=== PATIENT | male | born 1940 | race Caucasian/White ===

== ENCOUNTER 2019-04-05 13:28 | Inpatient (IN) | payer MEDICARE, OTHER ==
[~2019-04-05] VITALS: Ht 185.5 cm; Wt 100.0 kg
[2019-04-05 16:11] VITALS: BP 154/85
[2019-04-05] MEDS ORDERED: ANTACID SUSP 30 ML UDC (MYLANTA) PO PRN (16:15)
[2019-04-05] MEDS ORDERED: LACTULOSE SYRUP 10GM/15ML (ENULOSE) 30ML UDC PO PRN (16:15)
[2019-04-05] MEDS ORDERED: ONDANSETRON 4 MG/2 ML (SDV) Z0FRAN IV PRN (16:15)
[2019-04-05] MEDS ORDERED: CALCIUM CARBONATE 500 MG (TUMS) TAB.CHEW PO PRN (16:15)
[2019-04-05] MEDS ORDERED: MELATONIN 3 MG TABLET PO PRN (16:15)
[2019-04-05] MEDS ORDERED: MILK OF MAGNESIA 400 MG/5 ML 30 ML UDC PO PRN (16:15)
[2019-04-05] MEDS ORDERED: POLYETHYLENE GLYCOL 17 GM (MIRALAX) PACK PO PRN (16:15)
[2019-04-05] MEDS ORDERED: BISACODYL 10 MG SUPP (DULCOLAX) PR PRN (16:15)
[2019-04-05] MEDS ORDERED: morphine INJ 10 MG/ML 1ML (SYR OR VIAL) IV PRN (16:15)
[2019-04-05] MEDS ORDERED: ACETAMINOPHEN 325 MG TABLET PO PRN (16:15)
[2019-04-05] MEDS ORDERED: morphine INJ 4 MG/ML 1 ML (VIAL/SYRINGE) IV PRN (16:30)
[2019-04-05] MEDS ORDERED: CATHETER FLUSH 10 ML SYR IV PRN (16:30)
[2019-04-05] MEDS ORDERED: RT-ALBUTEROL SULF 2.5 MG/3 ML PRE-MIX VIAL INH PRN (16:45)
--- NOTE | 2019-04-05 17:10 | History & Physical-Hospitalist ---
History of Present Illness HPI/Chief Complaint Patient is a 78-year-old male with a past medical history of paroxysmal A. fib, pya-udmqkzu-nnudsolcm diabetes type II, hypertension, who was direct admitted due to a left intertrochanteric hip fracture. He reports that today he was buying large cast-iron birdcage that measured 5' x 3' and he attempted to pick this up and lost his balance and fell into the birdcage. He had significant left-sided hip pain following this and was brought to the emergency department where he was found to have a left hip fracture. He was transferred here for orthopedic evaluation. He reports his pain is well- controlled at this time. He does report a history of atrial fibrillation but he is on no medications and has not seen a evaluation manager for this. He also reports that he likely has diabetes because his blood sugars run in the low 200s when they're checked at the [facility]. Source: patient, family Exam Limitations: no limitations Date Seen 04/05/19 Time Seen by a Provider: 17:06 Attending Physician Abbey Cope MD PCP Ari Joshi MD Referring Physician Date of Admission Apr 05, 2019 at 16:07 Home Medications & Allergies Home Medications Reviewed patient Home Medication Reconciliation performed by pharmacy medication reconciliations phone technician and/or nursing. Patients Allergies have been reviewed. Allergies Allergies Coded Allergies No Allergy Information Available ([id number]/8/19) Past Rkdgghx-Bqcuxm-Haznlo Hx Past Med/Social Hx: Reviewed Nursing Past Med/Soc Hx Patient Social History Marrital Status: Employed/Student: retired Alcohol Use: Denies Use Recreational Drug Use: No Smoking Status: Former Smoker Recent Foreign Travel: No Contact w/other who traveled: No Recent Infectious Disease Expo: No Past Medical History Surgeries: Appendectomy, Gallbladder, Orthopedic, Tonsillectomy Cardiac: Hypertension Endocrine: Diabetes, Non-Insulin dep Family History Reviewed Nursing Family Hx No Pertinent Family Hx Review of Systems Constitutional: no symptoms reported EENTM: no symptoms reported Respiratory: cough (chronic) Cardiovascular: no symptoms reported Gastrointestinal: no symptoms reported Genitourinary: no symptoms reported Musculoskeletal: no symptoms reported Skin: no symptoms reported, change in hair/nails Physical Exam Physical Exam Vital Signs Vital Signs - First Documented 04/05/19 16:11 Temp 37.2 Pulse 91 Resp 18 B/P (MAP) 154/85 Pulse Ox 97 O2 Delivery Room Air Capillary Refill : Height, Weight, BMI Height: '" Weight: lbs. oz. kg; 29.06 BMI Method: General Appearance: No Apparent Distress, WD/WN Neck: Supple Respiratory: Lungs Clear, No Accessory Muscle Use, No Respiratory Distress Cardiovascular: Regular Rate, Rhythm, No JVD, No Murmur Gastrointestinal: Normal Bowel Sounds, Non Tender Extremity: No Calf Tenderness, No Pedal Edema Neurologic/Psychiatric: Alert, Oriented x3, Normal Mood/Affect Skin: Normal Color, Warm/Dry Results Results/Procedures Labs Laboratory Tests 04/06/19 06:25 04/07/19 05:09 Patient resulted labs reviewed. Imaging: Reviewed Imaging Report Assessment/Plan Admission Diagnosis Left Intertrochanteric Hip Fracture Admission Status: Inpatient Order (span 2 midnights) Reason for Inpatient Admission: hip fracture, needs operative repair Assessment and Plan Left Intertrochanteric Hip fracture Ortho consulted, appreciate recs Images to be uploaded and if unable to be repeated here Discussed with Dr Teague- plan for surgery tomorrow continue current pain regimen PT/OT after surgery Moderate perioperative risk- discussed with patient who expressed understanding Paroxysmal a-fib Was in a-fib at [facility] consulted, discussed with dr humphreys Echo Hold anticoagulation due to surgery HTN Trend NIDDMII Reports blood sugars when check are around 200 Will get a1c Reports he would like to try to cut back on pop Diagnosis/Problems Diagnosis/Problems (1) Hip fracture, intertrochanteric Status: Acute Qualifiers: Encounter type: initial encounter Fracture type: closed Fracture alignment: nondisplaced Laterality: left Qualified Codes: S72.145A - Nondisplaced intertrochanteric fracture of left femur, initial encounter for closed fracture (2) Atrial fibrillation Qualifiers: Atrial fibrillation type: paroxysmal Qualified Codes: I48.0 - Paroxysmal atrial fibrillation (3) Essential (primary) hypertension Status: Chronic (4) Non-insulin dependent type 2 diabetes mellitus Status: Chronic ABBEY COPE MD Apr 05, 2019 17:10 POS
--- NOTE | 2019-04-05 17:10 | NUR ---
Dr. Cates asked about DVT med, no orders received at this time. Pt is having surgery tomorrow
[2019-04-05] MEDS ORDERED: BENZONATATE 100 MG (TESSALON) CAPSULE PO PRN (17:15)
--- NOTE | 2019-04-05 18:23 | NUR ---
SHAVONNE CASTRO admitted to room 427-1, with an admitting diagnosis of HIP FRACTURE INTERTROCHANTERIC, on 04/05/19 from [facility] via EMS, accompanied by EMS STAFF. SHAVONNE CASTRO introduced to surroundings, call light, bed controls, phone, TV, temperature control, lights, meal times, smoking policy, visitor policy, side rail policy, bathrooms and showers. Patient Rights given to patient in the handbook. SHAVONNE CASTRO verbalizes understanding that [facility] is not responsible for the loss or damage to any personal effects or valuables that are kept in the patients possession during their hospitalization. The following Patient Care Plans were discussed with the PATIENT: Discharge Planning, HIP FRACTURE, and KNOWLEDGE DEFICIT. SHAVONNE CASTRO verbalizes understanding of Interdisciplinary Patient Education. Patient and/or family were informed about the Rapid Response Team and its purpose.
--- NOTE | 2019-04-05 18:27 | Consultation-Cardiology ---
HPI-Cardiology Cardiology Consultation: Date of Consultation 04/05/19 Time Seen by a Provider: 18:00 Date of Admission Attending Physician Abbey Cope MD Admitting Physician Ari Joshi MD Consulting Physician AKASH GARDUNO MD, MA, FACP, FACC, FSCAI, CCDS HPI: Chief Complaint: Reason for consultation: Cardiac eval prior to hip surgery HPI 78 yo man who lost his balance today and fell and broke his L hip and is awaiting surgery. He denies syncope. He denies shortness of breath. For years, he has noted that his heartbeat is irreg when he goes to bed at night. This has not changed in the recent past. Occasionally, he gets chest discomfort that is L parasternal, nonexertional, mild, dull, w/o any aggravating or relieving factors, w/o any associated symptoms, w/o any radiation, and lasting only a few seconds. Frequency is about twice a month and this has not changed frequency, duration, or intensity in the recent past. 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 He can easily walk long distance and go up several flights of stairs and carry heavy weights w/o any chest discomfort, shortness of breath, malaise, palpitations, or other symptoms. He does not report any leg discomfort or leg swelling Review of Systems-Cardiology Review of Systems Constitutional: No malaise, No tiredness, No weight loss, No weight gain Eyes: No vision change Ears/Nose/Throat: No ear discharge, No nasal drainage, No recent hearing loss Respiratory: As described under HPI Cardiovascular: As described under HPI Gastrointestinal: No diarrhea, No nausea, No vomiting Genitourinary: No dysuria, No hematuria, No urine frequency changes Musculoskeletal: No back pain Skin: No rash, No ulcerations Psychiatric/Neurological: No seizure, No focal weakness, No syncope Hematologic: No bleeding abnormalities QVE-Dsepkn-Ybqnec Hx Patient Social History Marrital Status: Employed/Student: retired Alcohol Use: Denies Use Recreational Drug Use: No Smoking Status: Former Smoker Recent Foreign Travel: No Recent Infectious Disease Expo: No Hospitalization with Isolation: Denies Physical Abuse Screen: No Sexual Abuse: No Immunizations Up To Date Date of Pneumonia Vaccine: Jun 12, 2018 Date of Influenza Vaccine: Feb 26, 2019 Past Medical History PMH As described under Assessment. Allergies and Home Medications Allergies Coded Allergies: No Allergy Information Available (Unverified , 04/05/19) Patient Home Medication List Home Medication List Reviewed: Yes Physical Exam-Cardiology Physical Exam Vital Signs/I&O 04/05/19 04/05/19 04/05/19 04/05/19 16:11 16:33 17:28 17:50 Temp 37.2 Pulse 91 96 Resp 18 B/P (MAP) 154/85 Pulse Ox 97 94 O2 Delivery Room Air Room Air Capillary Refill : Less Than 3 Seconds Data Review Labs Laboratory Tests 04/05/19 17:02: Glucometer 160H A/P-Cardiology Assessment/Admission Diagnosis Atrial fibrillation of undetermined age. Probably chronic and permanent Hypertension DM II, as indicated in Dr Cope's note and in the elevated blood sugar at this hospital, but the pt himself denies any diabetes Cardiac risk for non-cardiac surgery is estimated to be intermediate (multiple risk factors, but he denies symptoms of angina or heart failure or syncope) Discussion and Recomendations * I discussed his cardiac risk with him. He understands, wishes to proceed with surgery, and will discuss it with the surgeon * We recommend anticoag for stroke prophylaxis. I discussed with Dr Cope who has advised against it since surgery is anticipated soon * We recommend addition of beta-kayli * I answered his and his family's questions in detail Clinical Quality Measures DVT/VTE Risk/Contraindication: Risk Factor Score Per Nursin RFS Level Per Nursing on Admit: 4+=Very High AKASH GARDUNO MD FACP [facility] CCDS Apr 05, 2019 18:27 POS
[2019-04-05] MEDS ORDERED: meTOproloL SUCCINATE 50 MG (TOPROL XL) TAB PO NR (18:45)
--- NOTE | 2019-04-05 19:00 | Diagnostic Imaging Report ---
CLINICAL HISTORY: Left hip injury. Fell and landed on the left hip. Left hip fracture. COMPARISON: None. TECHNIQUE: Three views of the left hip. FINDINGS: An intertrochanteric fracture is seen involving the proximal left femur. There is extension of the fracture into the proximal metadiaphysis of the left femur. There is normal articulation of the left femur and left acetabulum. Possible nondisplaced fracture is noted in the left superior pubic ramus. The surrounding soft tissues are unremarkable. IMPRESSION: 1. Intertrochanteric fracture of the proximal left femur with extension into the proximal metadiaphysis. No evidence of dislocation of the left hip. 2. Possible nondisplaced fracture involving the left superior pubic ramus. Dictated by: Dictated on workstation # [id number]
[2019-04-05 19:52] VITALS: BP 138/75
[2019-04-05] MEDS: CATHETER FLUSH 10 ML SYR IV SCH (22:19)
[2019-04-05 23:30] VITALS: BP 139/75
[2019-04-06] VITALS (12 sets, daily range): BP systolic 92–143; BP diastolic 54–93
[2019-04-06 06:37] LABS: HEMOGLOBIN 15.6 G/DL (13.3-17.7); MEAN PLATELET VOLUME 10.1 FL (7.4-10.4); RED CELL DISTRIBUTION WIDTH 13.5 % (10.0-14.5); WHITE BLOOD COUNT 10.9 10^3/uL (4.3-11.0)
[2019-04-06 07:07] LABS: BUN/CREATININE RATIO 14; CALCIUM 8.7 MG/DL (8.5-10.1); CARBON DIOXIDE 19 MMOL/L (21-32); CHLORIDE 105 MMOL/L (98-107); CREATININE SERUM 1.04 MG/DL (0.60-1.30); GFR ESTIMATED > 60; GLUCOSE 192 MG/DL (70-105); MAGNESIUM 1.7 MG/DL (1.6-2.4); POTASSIUM 4.2 MMOL/L (3.6-5.0); SODIUM 136 MMOL/L (135-145)
--- NOTE | 2019-04-06 08:23 | Physical Therapy Progress Note ---
Therapy Progress Note Spoke with RN and patient is awaiting surgery secondary to femur fracture. Will await new orders after surgery. MARY THRASHER PT Apr 06, 2019 08:23 POS
[2019-04-06] MEDS ORDERED: LIDOCAINE PF 2% 5 ML (XYLOCAINE) VIAL ONE (08:30)
[2019-04-06] MEDS ORDERED: fentaNYL INJECTION 100 MCG/2 ML AMP ONE (08:30)
[2019-04-06] MEDS ORDERED: PROPOFOL INJECTION 50 ML IV ONE (08:30)
[2019-04-06] MEDS ORDERED: SEVOFLURANE (ULTANE) 15 ML INHAL SOLN ONE ×5 (08:30→11:19)
[2019-04-06] MEDS ORDERED: ONDANSETRON 4 MG/2 ML (SDV) Z0FRAN ONE (08:30)
[2019-04-06] MEDS ORDERED: DEXAMETHASONE 10 MG/ML (DECADRON) 1 ML VIAL ONE (08:30)
--- NOTE | 2019-04-06 08:36 | Consultation ---
History of Present Illness History of Present Illness Patient Consulted On(fabio/time) 04/06/19 08:30 Date Seen by Provider: Apr 06, 2019 Time Seen by Provider: 08:30 Reason for Visit: Left hip fracture History of Present Illness Patient a 78 y/o WM that presents with CC of acute onset of severe Left hip pain secondary to a mechanical fall. He was subsequently unable to bear weight/ambulate on the LLE secondary to the pain. He was transferred to [facility] from [place] for definitive orthopedic care. Imaging studies of the Left femur demonstrated an intertrochanteric fracture. He denies associated musculoskeletal injuries. He also denies associated syncope/LOC, cp/sob, neck pain, head trauma or other constitutional symptoms. Allergies and Home Medications Allergies Coded Allergies: No Allergy Information Available (Unverified , 04/05/19) Patient Home Medication List Home Medication List Reviewed: Yes Past Zuzlemi-Loukzn-Wjatlg Hx Past Med/Social Hx: Reviewed Nursing Past Med/Soc Hx Patient Social History Alcohol Use: Denies Use Recreational Drug Use: No Smoking Status: Former Smoker Recent Foreign Travel: No Contact w/Someone Who Travel: No Recent Infectious Disease Expo: No Recent Hopitalizations: No Immunizations Up To Date PED Vaccines UTD: Yes Date of Pneumonia Vaccine: Jun 12, 2018 Date of Influenza Vaccine: Feb 26, 2019 Seasonal Allergies Seasonal Allergies: Yes Past Medical History Surgeries: Yes Appendectomy, Gallbladder, Orthopedic, Tonsillectomy Respiratory: No Cardiac: Yes Atrial Fibrillation, Hypertension Neurological: No Genitourinary: No Gastrointestinal: No Musculoskeletal: No Endocrine: No Diabetes, Non-Insulin dep HEENT: No Cancer: No Psychosocial: No Integumentary: No Blood Disorders: No Family Medical History Reviewed Nursing Family Hx No Pertinent Family Hx Review of Systems-General Constitutional: no symptoms reported EENTM: no symptoms reported Respiratory: no symptoms reported Cardiovascular: palpitations Gastrointestinal: no symptoms reported Genitourinary: no symptoms reported Musculoskeletal: joint pain Skin: no symptoms reported Psychiatric/Neurological: No Symptoms Reported Physical Exam-General Problems Physical Exam Vital Signs Vital Signs - First Documented 04/05/19 16:11 Temp 37.2 Pulse 91 Resp 18 B/P (MAP) 154/85 Pulse Ox 97 O2 Delivery Room Air Capillary Refill : Less Than 3 Seconds General Appearance: WD/WN, no apparent distress Eyes: Bilateral Eye Normal Inspection, Bilateral Eye PERRL, Bilateral Eye EOMI HEENT: PERRL/EOMI, normal ENT inspection Neck: non-tender, full range of motion, supple, normal inspection Respiratory: chest non-tender, no respiratory distress, no accessory muscle use Cardiovascular: normal peripheral pulses, irregularly irregular Peripheral Pulses: 2+ Dorsalis Pedis (R), 2+ Left Dors-Pedis (L) Gastrointestinal: non tender, soft, no organomegaly, no pulsatile mass Extremities: no pedal edema, no calf tenderness, normal capillary refill, other (LLE: shortened/externally rotated, significant pain Left hip with any ROM, skin intact, no open wounds, motor/sensation grossly intact, all compartments soft, foot well perfused) Neurologic/Psychiatric: hand buffer II-XII nml as tested, no motor/sensory deficits, alert, normal mood/affect, oriented x 3 Skin: normal color, warm/dry Assessment/Plan Assessment/Plan Admission Diagnosis/Plan A: Minimally displaced intertrochanteric fracture Left proximal femur P: Plan for operative stabilization today. Mobilize post-op with PT/OT, WBAT LLE. OK with anticoagulation post-op. Treatment plan discussed in detail with the patient. All questions addressed and answered to his satisfaction. Informed written consent obtained. Admission Status: Inpatient Order (span 2 midnights) Laboratory Tests 04/06/19 06:25 Vitals Signs Source: Temporal, Heart Rate: 84, Respiratory Rate: 20, BP: 134/72, Pulse Oximetry: 96, Weight: 100.0 Clinical Quality Measures DVT/VTE Risk/Contraindication: Risk Factor Score Per Nursin RFS Level Per Nursing on Admit: 4+=Very High OLEGARIO TOMLINSON DO Apr 06, 2019 08:35 POS
[2019-04-06] MEDS ORDERED: ROCURONIUM 10 MG/ML 5 ML SYRINGE IV ONE (08:47)
[2019-04-06] MEDS ORDERED: NEOSTIGMINE 3 MG/3 ML VIAL ONE (08:47)
[2019-04-06] MEDS ORDERED: GLYCOPYRROLATE 0.2 MG/ML (ROBINUL) 2 ML VIAL ONE (08:47)
--- NOTE | 2019-04-06 08:47 | Occ Therapy Progress Note ---
Therapy Progress Note Per nursing and PT report, pt is awaiting surgery due to femur fracture. OT will await new orders post surgery. RENA BURR OT Apr 06, 2019 08:47 POS
[2019-04-06] MEDS: LACTATED RINGERS 1,000 ML IV PRN ×2 (08:52→09:57)
[2019-04-06] MEDS ORDERED: ceFAZolin INJECTION 1,000 MG VIAL IV ONE (09:00)
[2019-04-06] MEDS ORDERED: HYDROmorphone 2 MG/ML VIAL (DILAUDID) ONE ×2 (09:45→09:58)
[2019-04-06] MEDS ORDERED: ESMOLOL 100 MG/10 ML (BREVIBLOC) VIAL ONE (09:56)
[2019-04-06] MEDS ORDERED: PHENYLEPHRINE 100 MCG/ML 10 ML (ANESTHESIA) SYR ONE (09:56)
--- NOTE | 2019-04-06 10:28 | Progress Note-Post Operative ---
Post-Operative Progess Note Surgeon (s)/[place] Production Supervisor (s) Surgeon OLEGARIO TOMLINSON DO [employer] [place] [place] Production Supervisor: Pascual Garcia PA-C Pre-Operative Diagnosis Intertrochanteric fracture Left proximal femur Post-Operative Diagnosis Same Procedure & Operative Findings Date of Procedure 04/06/19 Procedure Performed/Findings Closed reduction/application of intramedullary nail intertrochanteric fracture Left femur Anesthesia Type GETA Estimated Blood Loss Estimated blood loss (mL): 100 Specimens/Packing Specimens Removed None Packing: No packing Complications: none Drains: none Disposition: tolerated procedure well; transferred to PACU in stable condition OLEGARIO TOMLINSON DO Apr 06, 2019 10:28 POS
--- NOTE | 2019-04-06 10:57 | Diagnostic Imaging Report ---
INDICATION: Left hip fracture. Intraoperative fluoroscopy used during ORIF of left proximal femoral intratrochanteric fracture. Hardware is in place in the femoral neck and proximal shaft with anatomic alignment. 2 minutes 42 seconds fluoroscopy time was used in surgery. IMPRESSION: Intraoperative fluoroscopy views demonstrate anatomic alignment of left-sided intertrochanteric proximal femoral fracture with hardware in place. Dictated by: Dictated on workstation # [id number]
[2019-04-06] MEDS ORDERED: HYDROmorphone 2 MG/ML VIAL (DILAUDID) IV ONE (11:15)
[2019-04-06] MEDS ORDERED: ONDANSETRON 4 MG/2 ML (SDV) Z0FRAN IVP PRN (11:15)
[2019-04-06] MEDS: CATHETER FLUSH 10 ML SYR IV SCH ×3 (11:15→22:00)
[2019-04-06] MEDS ORDERED: ROPIVACAINE 5MG/ML 30ML VIAL ONE (11:19)
--- NOTE | 2019-04-06 12:06 | NUR ---
RECEIVED PT BACK FROM SURGERY AT 12:00. BED SIDE REPORT FROM SIDNEY LOPEZ. PT IS AWAKE AND ALERT WITH FAMILY IN ROOM
[2019-04-06] MEDS: meTOproloL SUCCINATE 50 MG (TOPROL XL) TAB PO SCH (12:20)
[2019-04-06] MEDS: KETOROLAC 30 MG/ML VIAL IV SCH ×2 (12:26→18:16)
--- NOTE | 2019-04-06 14:39 | Progress Note - Cardiology ---
Cardiology SOAP Progress Note Subjective: No cp or palp or syncope or shortness of breath Objective: I&O/Vital Signs 04/06/19 04/06/19 04/06/19 04/06/19 03:45 03:48 07:00 08:00 Temp 36.8 Pulse 71 84 Resp 20 B/P (MAP) 143/93 (110) 134/72 (92) Pulse Ox 96 94 O2 Delivery Room Air Room Air 04/06/19 04/06/19 04/06/19 04/06/19 08:00 11:00 11:00 11:10 Temp 37.6 36.2 Pulse 79 Resp 16 20 16 B/P (MAP) 125/78 (94) 103/66 (78) 101/67 (78) Pulse Ox 94 96 100 O2 Delivery Room Air OxyMask OxyMask OxyMask O2 Flow Rate 10 10 10 04/06/19 04/06/19 04/06/19 04/06/19 11:15 11:20 11:30 11:30 Resp 16 16 B/P (MAP) 96/71 (79) 115/70 (85) Pulse Ox 100 95 O2 Delivery OxyMask OxyMask Room Air Room Air O2 Flow Rate 10 5 04/06/19 04/06/19 04/06/19 04/06/19 11:40 11:45 11:50 12:00 Temp 36.4 35.9 Pulse 80 Resp 16 16 16 B/P (MAP) 127/74 (91) 125/82 (96) 131/72 (91) Pulse Ox 100 100 100 O2 Delivery Room Air Room Air Room Air Room Air 04/06/19 04/06/19 12:00 13:00 Pulse 84 O2 Delivery Room Air 04/06/19 00:00 Intake Total 320 ml Output Total 425 ml Balance -105 ml Constitutional: AAO x 3, well-developed, well-nourished Respiratory: No accessory muscle use; other (good bilat air entry) Cardiovascular: regular rate-rhythm, S1 and S2, systolic murmur (soft SURESH at card base) Gastrointestional: No tender; soft; No guarding, No rebound; audible bowel sounds Extremities: No clubbing, No cyanosis, No significant edema Neurologic/Psychiatric: oriented x 3, other (moves all limbs equally; we did not attempt any motion at the affected joint) Skin: No rash on exposed areas, No ulcerations on exposed areas Results/Procedures: Labs Laboratory Tests 04/05/19 17:02: Glucometer 160H 04/05/19 20:20: Glucometer 208H 04/06/19 05:30: Glucometer 181H 04/06/19 06:25: White Blood Count 10.9, Red Blood Count 5.02, Hemoglobin 15.6, Hematocrit 45, Mean Corpuscular Volume 90, Mean Corpuscular Hemoglobin 31, Mean Corpuscular Hemoglobin Concent 35, Red Cell Distribution Width 13.5, Platelet Count 250, Mean Platelet Volume 10.1, Sodium Level 136, Potassium Level 4.2, Chloride Level 105, Carbon Dioxide Level 19L, Anion Gap 12, Blood Urea Nitrogen 15, Creatinine 1.04, Estimat Glomerular Filtration Rate > 60, BUN/Creatinine Ratio 14, Glucose Level 192H, Calcium Level 8.7, Magnesium Level 1.7, Thyroid Stimulating Hormone (TSH) 1.43 04/06/19 12:47: Glucometer 179H Laboratory Tests 04/06/19 06:25 A/P: Assessment: Intertrochanteric fracture left femur on 04/05/19; s/p closed reduction and application of intramedullary nail on 04/06/19 Atrial fibrillation of undetermined age. Probably chronic and permanent Hypertension DM II, as indicated in Dr Cope's note and in the elevated blood sugar at this hospital, but the pt himself denies any diabetes Plan: * We recommend full oral anticaog as soon as deemed surgically safe to do so * Monitor labs * I answered his CV-related questions AKASH GARDUNO MD FACP [facility] CCDS Apr 06, 2019 14:38 POS
--- NOTE | 2019-04-06 14:46 | Progress Note - Hospitalist ---
Subjective HPI/CC On Admission Date Seen by Provider: Apr 06, 2019 Time Seen by Provider: 14:41 Patient is a 78-year-old male with a past medical history of paroxysmal A. fib, gbf-cukswzz-zpmjitrmr diabetes type II, hypertension, who was direct admitted due to a left intertrochanteric hip fracture. He reports that today he was buying large cast-iron birdcage that measured 5' x 3' and he attempted to pick this up and lost his balance and fell into the birdcage. He had significant left-sided hip pain following this and was brought to the emergency department where he was found to have a left hip fracture. He was tra nsferred here for orthopedic evaluation. He reports his pain is well-controlled at this time. He does report a history of atrial fibrillation but he is on no medications and has not seen a machinist class b for this. He also reports that he likely has diabetes because his blood sugars run in the low 200s when they're checked at the [facility]. Subjective/Events-last exam Patient seen postoperatively. Reports pain is well-controlled. Per review of notes tenderness uncomplicated repair of hip fracture. He should already inquiring about when therapy be by to see him. Objective Exam Vital Signs Vital Signs Date Time Temp Pulse Resp B/P (MAP) Pulse Ox O2 Delivery O2 Flow Rate FiO2 04/06/19 13:00 84 04/06/19 12:00 Room Air 04/06/19 12:00 35.9 16 131/72 (91) 100 04/06/19 11:20 5 Capillary Refill : Less Than 3 Seconds General Appearance: No Apparent Distress, WD/WN Respiratory: Lungs Clear, No Respiratory Distress Cardiovascular: No Murmur, Irregularly Irregular Gastrointestinal: Normal Bowel Sounds, Soft Neurologic/Psychiatric: Alert, Oriented x3, Normal Mood/Affect Results/Procedures Lab Laboratory Tests 04/06/19 06:25 Patient resulted labs reviewed. Imaging: Reviewed Imaging Report Assessment/Plan Assessment and Plan Assess & Plan/Chief Complaint Left Intertrochanteric Hip fracture Ortho consulted, appreciate recs POD #1 Continue pain regimen PT/OT IRU Paroxysmal a-fib Cardiology consulted, discussed with dr humphreys Echo ordered Hold anticoagulation due to surgery but start when surgery okays HTN Trend NIDDMII Reports blood sugars when check are around 200 A1c pending Reports he would like to try to cut back on pop Diagnosis/Problems Diagnosis/Problems (1) Hip fracture, intertrochanteric Status: Acute Qualifiers: Encounter type: initial encounter Fracture type: closed Fracture alignment: nondisplaced Laterality: left Qualified Codes: S72.145A - Nondisplaced intertrochanteric fracture of left femur, initial encounter for closed fracture (2) Atrial fibrillation Qualifiers: Atrial fibrillation type: paroxysmal Qualified Codes: I48.0 - Paroxysmal atrial fibrillation (3) Essential (primary) hypertension Status: Chronic (4) Non-insulin dependent type 2 diabetes mellitus Status: Chronic Clinical Quality Measures DVT/VTE Risk/Contraindication: Risk Factor Score Per Nursin RFS Level Per Nursing on Admit: 4+=Very High LELAND ROSALES MD Apr 06, 2019 14:46 POS
[2019-04-06] MEDS: ceFAZolin 2 GM IV Premixed 50 ML IV SCH (17:18)
--- NOTE | 2019-04-06 23:00 | NUR ---
PT'S DAUGHTER CONCERNED ABOUT PT GETTING PRESSURE SORES DUE TO BEING IN BED POST SURGERY. THIS RN TOLD PT AND DAUGHTER HE WOULD BE TURNED Q 2 H AND THAT RN COULD APPLY ALLETYN DRESSING TO [facility]. AT 2300 PT DECLINED ALLEVYN PLACEMENT TO [facility].
[2019-04-07 00:50] VITALS: BP 114/60
[2019-04-07 03:55] VITALS: BP 107/65
--- NOTE | 2019-04-07 04:00 | NUR ---
ECHO ADD FORM FILLED OUT BY THIS RN AND FAXED TO [employer]. GISSELLE, STOPPER GRINDER, NOTIFIED AND THIS RN MADE COPY OF FORM AND TUBED ORIGINAL TO GISSELLE.
[2019-04-07 06:09] LABS: HEMOGLOBIN 14.1 G/DL (13.3-17.7)
[2019-04-07] MEDS: ceFAZolin 2 GM IV Premixed 50 ML IV SCH (06:12)
[2019-04-07] MEDS: CATHETER FLUSH 10 ML SYR IV SCH ×3 (06:12→21:40)
[2019-04-07] MEDS: KETOROLAC 30 MG/ML VIAL IV SCH ×2 (06:13)
[2019-04-07 08:00] VITALS: BP 92/60
[2019-04-07] MEDS: meTOproloL SUCCINATE 50 MG (TOPROL XL) TAB PO SCH (09:00)
--- NOTE | 2019-04-07 09:21 | Physical Therapy Evaluation ---
PT Evaluation-General Medical Diagnosis Admission Date Apr 05, 2019 at 16:07 Medical Diagnosis: (L) femur fracture Onset Date: Apr 05, 2019 Therapy Diagnosis Therapy Diagnosis: abnormality of gait Precautions Precautions/Isolations: Fall Prevention, Standard Precautions Weight Bear Status Right Lower Extremity: Right Weight Bearing/Tolerated Left Lower Extremity: Left Weight Bearing/Tolerated Referral Physician: Ho Reason for Referral: Evaluation/Treatment Social History Home: Single Level Current Living Status: Spouse Prior Prior Level of Function SCALE: Activities may be completed with or without assistive devices. 0-Yuoofhfwcg-jkkdnoz completes the activity by him/herself with no assistance from a helper. 5-Set-up or Clean-up Assistance-helper sets up or cleans up; patient completes activity. [place] assists only prior to or following the activity. 4-Supervision or Touching Assistance-helper provides verbal cues and/or touching/steadying and/or contact guard assistance as patient completes activity. Assistance may be provided throughout the activity or intermittently. 3-Partial/Moderate Assistance-helper does LESS THAN HALF the effort. [place] lifts, holds or supports trunk or limbs, but provides less than half the effort. 2-Substantial/Maximal Assistance-helper does MORE THAN HALF the effort. [place] lifts or holds trunk or limbs and provides more than half the effort. 0-Grksyudfu-yivtsv does ALL the effort. Patient does none of the effort to complete the activity. Or, the assistance of 2 or more helpers is required for the patient to complete the activity. If activity was not attempted, code reason: 7-Patient Refused. 9-Not Applicable-not attempted and the patient did not perform the activity before the current illness, exacerbation or injury. 10-Not Attempted due to Environmental Limitations-(lack of equipment, weather restraints, etc.). 88-Not Attempted due to Medical Conditions or Safety Concerns. Bed Mobility: 6 Transfers (B,C,W/C): 6 Gait: 6 Stairs: 6 Indoor Mobility (Ambulation): Independent Stairs: Independent Prior Devices Use: None PT Evaluation-Current Subjective States that he fell and broke his hip. States that he is feeling okay when he is not moving it but it hurts really bad when he moves it. Pain Numeric Pain Scale: 9 Location: Left Location Body Site: Hip Objective Patient Orientation: Person, Place, Time Problem Solving: Good Attachments: Saline Lock ROM/Strength ROM Lower Extremities 50 degrees of (L) hip flexion and 10 degrees of (L) hip abduction Integumentary/Posture Integumentary intact Bowel Incontinence: No Bladder Incontinence: No Neuromuscular (Tone, Coordination, Reflexes) unremarkable Transfers Roll Left to Right (QC): 3 Sit to Lying (QC): 3 Lying to Sitting/Side of Bed(Q: 3 Sit to Stand (QC): 3 Gait Does the Patient Walk?: Yes Mode of Locomotion: Walk Anticipated Mode of Locomotion: Walk Distance: 1=up to 49 ft Distance: 3' Gait Assistive Device: FWW Comments/Gait Description patient had dizziness and lightheadedness during sitting and standing Wheelchair Training Does the Pt Use a Wheelchair?: No Balance Sitting Static: Normal Sitting Dynamic: Normal Standing Static: Fair Standing Dynamic: Poor Assessment/Needs Patient is s/p (L) hip ORIF. The patient has decreased ROM and strength secondary to increased pain and resultant decreased functional mobility. He should do well with skilled therapy. Rehab Potential: Good PT Short Term Goals Short Term Goals Time Frame: Apr 10, 2019 Gait Distance Comment: 50' Gait Assistive Device: FWW PT Application Integrator Goals Custodial Goals PT Application Integrator Goals Time Frame: Apr 14, 2019 Sit to Lying (QC): 6 Lying-Sitting on Side/Bed(QC): 6 Sit to Stand (QC): 6 Roll Left to Right (QC): 6 Chair/Xsu-we-Xxgdi Xfer(QC): 6 Car Transfer (QC): 6 Distance: 300' Walk 10 feet (QC): 5 Walk 10ft-Uneven Surface(QC): 5 Walk 50ft with 2 Turns (QC): 5 Walk 150 ft (QC): 5 Gait Level of Assist: 5 Gait Assistive Device: FWW PT Plan Problem List Problem List: Activity Tolerance, Functional Strength, Safety, Balance, Gait, Transfer, Bed Mobility, ROM Treatment/Plan Treatment Plan: Continue Plan of Care Treatment Plan: Bed Mobility, Education, Functional Activity Sylvester, Functional Strength, Gait, Safety, Therapeutic Exercise, Transfers Treatment Duration: Apr 14, 2019 Frequency: 11 times per week Estimated Hrs Per Day: 1 hour per day Safety Risks/Education Patient Education: Gait Training Teaching Recipient: Patient Teaching Methods: Demonstration Response to Teaching: Verbalize Understanding Discharge Recommendations Plan The patient plans to stay with daughter in [place] while recovering. Therapy Discharge Recommendati: Post Acute PT Time/GCodes Time In: 0840 Time Out: 0910 Total Billed Treatment Time: 30 Total Billed Treatment 1, EV low complexity, Ex x 10' MARY THRASHER PT Apr 07, 2019 09:21 POS
[2019-04-07] MEDS: ENOXAPARIN 40 MG/0.4 ML (LOVENOX) SYR SC SCH (09:58)
--- NOTE | 2019-04-07 09:59 | Anesthesia-General Post-Op ---
General Patient Condition Mental Status/LOC: Same as Preop Cardiovascular: Satisfactory Nausea/Vomiting: Absent Respiratory: Satisfactory Pain: Controlled Complications: Absent Post Op Complications Complications None Follow Up Care/Instructions Patient Instructions None needed. Anesthesia/Patient Condition Patient Condition Patient is doing well, no complaints, stable vital signs, no apparent adverse anesthesia problems. No complications reported per nursing. D/C home per [facility] [place] Criteria: SUYAPA Mane CRNA Apr 07, 2019 09:59 POS
--- NOTE | 2019-04-07 11:45 | Progress Note - Hospitalist ---
Subjective HPI/CC On Admission Date Seen by Provider: Apr 07, 2019 Time Seen by Provider: 11:41 Patient is a 78-year-old male with a past medical history of paroxysmal A. fib, iop-soinybv-kechbfyrj diabetes type II, hypertension, who was direct admitted due to a left intertrochanteric hip fracture. He reports that today he was buying large cast-iron birdcage that measured 5' x 3' and he attempted to pick this up and lost his balance and fell into the birdcage. He had significant left-sided hip pain following this and was brought to the emergency department where he was found to have a left hip fracture. He was tr ansferred here for orthopedic evaluation. He reports his pain is well- controlled at this time. He does report a history of atrial fibrillation but he is on no medications and has not seen a dressage instructor for this. He also reports that he likely has diabetes because his blood sugars run in the low 200s when they're checked at the [facility]. Subjective/Events-last exam Pt reports feeling well. Worked with PT but got a little lightheaded so stopped early. Objective Exam Vital Signs Vital Signs Date Time Temp Pulse Resp B/P (MAP) Pulse Ox O2 Delivery O2 Flow Rate FiO2 04/07/19 08:00 37.0 82 16 92/60 (71) 95 Room Air 04/06/19 11:20 5 Capillary Refill : Less Than 3 Seconds General Appearance: No Apparent Distress Respiratory: Lungs Clear, No Respiratory Distress Cardiovascular: Regular Rate, Rhythm, No Murmur Gastrointestinal: Normal Bowel Sounds, Soft Neurologic/Psychiatric: Alert, Oriented x3 Results/Procedures Lab Laboratory Tests 04/07/19 05:09 Patient resulted labs reviewed. Imaging: Reviewed Imaging Report Assessment/Plan Assessment and Plan Assess & Plan/Chief Complaint Left Intertrochanteric Hip fracture Ortho consulted, appreciate recs POD #2 Continue pain regimen PT/OT IRU consulted Paroxysmal a-fib Cardiology consulted, discussed with dr petr Bales ordered, pending Hold anticoagulation due to surgery but start when surgery okays HTN Trend, was somewhat low this AM so metoprolol held NIDDMII Reports blood sugars when check are around 200 A1c pending still Reports he would like to try to cut back on pop Discharge planning: would benefit from IRU and then would like to DC to his daughter's home Diagnosis/Problems Diagnosis/Problems (1) Hip fracture, intertrochanteric Status: Acute Qualifiers: Encounter type: initial encounter Fracture type: closed Fracture alignment: nondisplaced Laterality: left Qualified Codes: S72.145A - Nondisplaced intertrochanteric fracture of left femur, initial encounter for closed fracture (2) Atrial fibrillation Qualifiers: Atrial fibrillation type: paroxysmal Qualified Codes: I48.0 - Paroxysmal atrial fibrillation (3) Essential (primary) hypertension Status: Chronic (4) Non-insulin dependent type 2 diabetes mellitus Status: Chronic Clinical Quality Measures DVT/VTE Risk/Contraindication: Risk Factor Score Per Nursin RFS Level Per Nursing on Admit: 4+=Very High LELAND ROSALES MD Apr 07, 2019 11:45 POS
[2019-04-07 12:00] VITALS: BP 98/62
[2019-04-07] MEDS ORDERED: ceFAZolin 2 GM IV Premixed 50 ML IV NR (14:00)
[2019-04-07 16:00] VITALS: BP 96/61
--- NOTE | 2019-04-07 17:07 | Progress Note - Cardiology ---
Cardiology SOAP Progress Note Subjective: No cp or palp or syncope Objective: I&O/Vital Signs 04/07/19 04/07/19 04/07/19 04/07/19 07:00 07:14 08:00 08:00 Temp 37.0 Pulse 86 Pulse Ox 91 95 O2 Delivery Room Air Room Air 04/07/19 04/07/19 04/07/19 04/07/19 08:00 12:00 13:00 16:00 Temp 37.0 37.0 37.4 Pulse 82 85 91 Resp 16 20 B/P (MAP) 92/60 (71) 96/61 (73) Pulse Ox 95 95 O2 Delivery Room Air Room Air 04/07/19 00:00 Intake Total 150 ml Output Total 200 ml Balance -50 ml Constitutional: AAO x 3, well-developed, well-nourished Respiratory: No accessory muscle use; other (good bilat air entry) Cardiovascular: regular rate-rhythm, S1 and S2, systolic murmur (soft SURESH at card base) Gastrointestional: No tender; soft; No guarding, No rebound; audible bowel sounds Extremities: No clubbing, No cyanosis, No significant edema Neurologic/Psychiatric: oriented x 3, other (moves all limbs equally; we did not attempt any motion at the affected joint) Skin: No rash on exposed areas, No ulcerations on exposed areas Results/Procedures: Labs Laboratory Tests 04/06/19 21:00: Glucometer 189H 04/07/19 05:09: Hemoglobin 14.1, Hematocrit 41 04/07/19 05:20: Glucometer 185H 04/07/19 11:08: Glucometer 175H 04/07/19 15:46: Glucometer 145H Microbiology 04/05/19 MRSA Screen - Final, Complete MRSA not isolated Laboratory Tests 04/06/19 06:25 04/07/19 05:09 A/P: Assessment: Intertrochanteric fracture left femur on 04/05/19; s/p closed reduction and application of intramedullary nail on 04/06/19 Atrial fibrillation of undetermined age. Probably chronic and permanent Echo 04/07/19: LVEF 50%, mild MR & TR, RVSP 17 mmHg Hypertension DM II, as indicated in Dr Cope's note and in the elevated blood sugars at this hospital, but the pt himself denies any diabetes Plan: * I explained his echo findings to him * Reduce bb because is running relatively low bp * We recommend full oral anticoag as soon as deemed surgically safe to do so * Monitor labs AKASH GARDUNO MD FACP FAC CCDS Apr 07, 2019 17:07 POS
[2019-04-07 19:44] VITALS: BP 124/78
[2019-04-08 00:15] VITALS: BP 103/68
[2019-04-08 04:00] VITALS: BP 96/62
[2019-04-08] MEDS: CATHETER FLUSH 10 ML SYR IV SCH (05:44)
[2019-04-08 08:00] VITALS: BP 114/71
[2019-04-08] MEDS ORDERED: ACET-93 PO (08:04)
--- NOTE | 2019-04-08 08:05 | NUR ---
SPOKE WITH PT AND HE INDICATED HE DID NOT TAKE ANY PRESCRIPTION MEDICATIONS. THERE EXTERNAL MED HISTORY DID NOT SHOW ANYTHING, THEREFORE I DID NOT LIST ANYTHING. OTC MEDS: APAP 500MG PRN
[2019-04-08] MEDS: ENOXAPARIN 40 MG/0.4 ML (LOVENOX) SYR SC SCH (08:42)
--- NOTE | 2019-04-08 08:52 | Occupational Therapy Eval ---
OT Evaluation-General/PLF Medical Diagnosis Admission Date Apr 05, 2019 at 16:07 Medical Diagnosis: (L) femur fracture Onset Date: Apr 05, 2019 Therapy Diagnosis Therapy Diagnosis: imparied ADLs and functional mobility Precautions Precautions/Isolations: Standard Precautions Safety Interventions: None Referral Physician: Ho Referral Reason: Activity Tolerance, Self Care, Evaluation/Treatment, Strengthe christian/ROM Medical History Pertinent Medical History: Atrial Fib (paroxysmal AFib), DM, HTN Current History Per H&P: "Patient is a 78-year-old male with a past medical history of paroxysmal A. fib, fal-ojkvpcx-dxsauustl diabetes type II, hypertension, who was direct admitted due to a left intertrochanteric hip fracture. He reports that today he was buying large cast-iron birdcage that measured 5' x 3' and he attempted to pick this up and lost his balance and fell into the birdcage. He had significant left-sided hip pain following this and was brought to the emergency department where he was found to have a left hip fracture. He was transferred here for orthopedic evaluation. He reports his pain is well- controlled at this time. He does report a history of atrial fibrillation but he is on no medications and has not seen a beam sealer for this. He also reports that he likely has diabetes because his blood sugars run in the low 200s when they're checked at the [facility]." Reviewed History: Yes Social History Home: Single Level Current Living Status: Spouse Pt reports he currently lives with his who he states is "handicapped". They live in a one story house with 5 step entry with rails, and they have a walk in shower with a shower chair. Pt states he is going to go stay with his daughter and son-in-law when discharged in order for them to help him as needed. He believes he will be with them throughout the holiday season. His daughter lives in a 2 story house (he will stay on the first level), with 3-4 steps entry without rails. ADL-Prior Level of Function SCALE: Activities may be completed with or without assistive devices. 3-Mbzymxaumk-bhupbjb completes the activity by him/herself with no assistance from a helper. 5-Set-up or Clean-up Assistance-helper sets up or cleans up; patient completes activity. [place] assists only prior to or following the activity. 4-Supervision or Touching Assistance-helper provides verbal cues and/or touching/steadying and/or contact guard assistance as patient completes activity. Assistance may be provided throughout the activity or intermittently. 3-Partial/Moderate Assistance-helper does LESS THAN HALF the effort. [place] lifts, holds or supports trunk or limbs, but provides less than half the effort. 2-Substantial/Maximal Assistance-helper does MORE THAN HALF the effort. [place] lifts or holds trunk or limbs and provides more than half the effort. 6-Vodobhzif-szfotx does ALL the effort. Patient does none of the effort to complete the activity. Or, the assistance of 2 or more helpers is required for the patient to complete the activity. If activity was not attempted, code reason: 7-Patient Refused. 9-Not Applicable-not attempted and the patient did not perform the activity before the current illness, exacerbation or injury. 10-Not Attempted due to Environmental Limitations-(lack of equipment, weather restraints, etc.). 88-Not Attempted due to Medical Conditions or Safety Concerns. Self Care: Independent Functional Cognition: Independent DME/Equipment: Bath Chair, Shower (walk in) Drive Self: Yes OT Current Status Subjective Pt laying in bed at start of session, agreeable to OT tx/eval. Pt stated he does not have any pain while he is laying in bed but when he starts to move he feels it. Pt reported pain 0/10 throughout session. Mental Status/Objective Patient Orientation: Person, Place, Time, Situation Attachments: IV Current Glasses/Contacts: No Hearing Aids: No Dentures/Partials: Yes Hand Dominance: Right Upper Extremity ROM WFL, BUE shoulder flexion to approximately 160 degrees, he is able to touch back of head with hands. Upper Extremity Coordination WFL Upper Extremity Sensation No changes in sensation reported Upper Extremity Strength ~4/5 MMT BUE ADL-Treatment Eating (QC): 6 (Per pt report, pt is able to open all containers and bring utensil to mouth without difficulty.) Oral Hygiene (QC): 3 (Task performed at bed level, pt required assistance from OT to set up supplies for task. Pt able to take dentures out and place them in container to soak, OT assisted with rinsing dentrues, he was then able to brush them and replace to mouth. OT cleaned up after task.) Bathing Location: L Arm, R Arm, Chest, Abdomen, Perineal Area Shower/Bathe Self (QC): 2 (SPONGE BATH. Pt able to wash upper body including chest, abdomen, arms, periarea, face and neck. He required assist with washing BLE. Buttocks not attempted on this date as pt declined task.) Upper Body Dressing (QC): 3 (pt able to pull himself forward using bed rails as OT untied gown. Pt then able to doff sleeves. OT provided pt with gown, he was able to aliza sleeves but required assistance with tying gown.) Other Treatments Pt laying in bed, agreeable to OT tx/eval at bed level. Pt provided information about PLOF and home set up. Hospital staff came in to draw pt's blood as OT gathered supplies & set up for ADL tasks. Pt completed sponge bath, dressing, and oral hygiene at bed level. Pt's nurse arrived at end of session to give pt meds. Post OT session, pt laying in bed, call light and tray table in reach and all needs met. Education OT Patient Education: Correct positioning, Energy conservation, Modified ADL techniques, Progress toward Goal/Update tx plan, Purpose of tx/functional acti vities Teaching Recipient: Patient Teaching Methods: Demonstration, Discussion Response to Teaching: Verbalize Understanding OT Short Term Goals Short Term Goals 1=Demonstrate adherence to instructed precautions during ADL tasks. 2=Patient will verbalize/demonstrate understanding of assistive devices/modifications for ADL. 3=Patient will improve strength/tolerance for activity to enable patient to perform ADL's. OT Correction Goals Correction Goals Time Frame: Apr 19, 2019 Oral Hygiene (QC): 6 Bathing Location: L Arm, R Arm, L Upper Leg, R Upper Leg, L Lower Leg (including foot), R Lower Leg (including foot), Chest, Abdomen, Buttocks, Perineal Area Shower/Bathe Self (QC): 4 Upper Body Dressing (QC): 5 Lower Body Dressing (QC): 5 On/Off Footwear (QC): 5 Toileting Hygiene (QC): 6 Toilet/Commode Transfer (QC): 6 Additional Goals: 1-Demonstrate ADL Tasks, 2-Verbalize Understanding, 3- ImproveStrength/[place] 1=Demonstrate adherence to instructed precautions during ADL tasks. 2=Patient will verbalize/demonstrate understanding of assistive devices/modifications for ADL. 3=Patient will improve strength/tolerance for activity to enable patient to perform ADL's. OT Education/Plan Problem List/Assessment Assessment: Decreased Activ Tolerance, Impaired I ADL's, Impaired Self-Care Skills Discharge Recommendations Plan/Recommendations: Continue POC Therapy Discharge Recommendati: Post Acute OT Equpiment Recommendations-D/C: Hip Kit Comment Pt plans to live with daughter post d/c. Treatment Plan/Plan of Care Treatment,Training & Education: Yes Patient would benefit from OT for education, treatment and training to promote independence in ADL's, mobility, safety and/or upper extremity function for ADL's. Plan of Care: ADL Retraining, Caregiver Training, Functional Mobility, UE Funct Exercise/Act Treatment Duration: Apr 19, 2019 Frequency: 5 times per week Estimated Hrs Per Day: .25 hour per day Agreement: Yes Rehab Potential: Good Time/GCodes Start Time: 08:15 Stop Time: 08:45 Total Time Billed (hr/min): 30 Billed Treatment Time 1, EVL (10mins), ADL (20mins) RENA BURR OT Apr 08, 2019 08:52 POS
[2019-04-08 08:55] LABS: BUN/CREATININE RATIO 23; CALCIUM 8.7 MG/DL (8.5-10.1); CARBON DIOXIDE 21 MMOL/L (21-32); CHLORIDE 106 MMOL/L (98-107); CREATININE SERUM 1.16 MG/DL (0.60-1.30); GFR ESTIMATED > 60; GLUCOSE 150 MG/DL (70-105); MAGNESIUM 1.8 MG/DL (1.6-2.4); SODIUM 138 MMOL/L (135-145)
[2019-04-08] MEDS ORDERED: meTOproloL SUCCINATE 50 MG (TOPROL XL) TAB PO SCH (09:00)
--- NOTE | 2019-04-08 09:42 | Progress Note - Cardiology ---
Cardiology SOAP Progress Note Subjective: Lying in bed. Denies any c/o CP, palpitations, dyspnea. Reports dizziness this morning when up with PT. Objective: I&O/Vital Signs 04/08/19 04/08/19 04/08/19 04/08/19 04:00 07:00 08:00 08:00 Temp 36.7 37.3 Pulse 81 85 88 Resp 20 16 B/P (MAP) 96/62 (73) 114/71 (85) Pulse Ox 95 94 O2 Delivery Room Air Room Air Room Air 04/08/19 11:07 Temp 37.3 Pulse 88 Resp 16 B/P (MAP) 114/71 Pulse Ox 94 O2 Delivery Room Air O2 Flow Rate 5.00 04/08/19 00:00 Intake Total 1020 ml Balance 1020 ml Constitutional: AAO x 3, well-developed, well-nourished Respiratory: No accessory muscle use; other (good bilat air entry) Cardiovascular: regular rate-rhythm, S1 and S2, systolic murmur (soft SURESH at card base) Gastrointestional: No tender; soft; No guarding, No rebound; audible bowel sounds Extremities: No clubbing, No cyanosis, No significant edema Neurologic/Psychiatric: oriented x 3, other (moves all limbs equally; we did not attempt any motion at the affected joint) Skin: No rash on exposed areas, No ulcerations on exposed areas Results/Procedures: Labs Laboratory Tests 04/07/19 15:46: Glucometer 145H 04/07/19 20:23: Glucometer 158H 04/08/19 05:40: Glucometer 143H 04/08/19 08:28: Sodium Level 137, Potassium Level 4.0, Chloride Level 104, Carbon Dioxide Level 18L, Anion Gap 15H, Blood Urea Nitrogen 27H, Creatinine 1.13, Estimat Glomerular Filtration Rate > 60, BUN/Creatinine Ratio 24, Glucose Level 145H, Calcium Level 8.5, Corrected Calcium 9.1, Magnesium Level 1.8, Total Bilirubin 1.4H, Aspartate Amino Transf (AST/SGOT) 13, Alanine Aminotransferase (ALT/SGPT) 8, Alkaline Phosphatase 69, Total Protein 6.3L, Albumin 3.3 04/08/19 09:43: White Blood Count 11.2H, Red Blood Count 4.54, Hemoglobin 14.3, Hematocrit 42, Mean Corpuscular Volume 93, Mean Corpuscular Hemoglobin 32, Mean Corpuscular Hemoglobin Concent 34, Red Cell Distribution Width 13.3, Platelet Count 247, Mean Platelet Volume 10.2, Neutrophils (%) (Auto) 78H, Lymphocytes (%) (Auto) 12, Monocytes (%) (Auto) 9, Eosinophils (%) (Auto) 1, Basophils (%) (Auto) 0, Neutrophils # (Auto) 8.7H, Lymphocytes # (Auto) 1.3, Monocytes # (Auto) 1.1H, Eosinophils # (Auto) 0.1, Basophils # (Auto) 0.0 04/08/19 11:15: Glucometer 154H Microbiology 04/05/19 MRSA Screen - Final, Complete MRSA not isolated A/P: Assessment: Intertrochanteric fracture left femur on 04/05/19; s/p closed reduction and application of intramedullary nail on 04/06/19 Atrial fibrillation of undetermined age. Probably chronic and permanent Echo 04/07/19: LVEF 50%, mild MR & TR, RVSP 17 mmHg Hypertension DM II, as indicated in Dr Cope's note and in the elevated blood sugars at this hospital, but the pt himself denies any diabetes Plan: * Continue current dose of bb * We recommend full oral anticoag as soon as deemed surgically safe to do so with Eliquis * Monitor labs Physician Assessment Physician Assessment No cp or shortness of breath Denies palp or syncope Lungs: fair to good air entry Cor: irreg Ext: no c/c/e, except some edema of the affected lower limb A&R * As documented in our note above that I updated (italics) and as noted below * OAC for stroke prophylaxis, if approved by the Surgical [facility] * Follow labs from time to time DUYEN ABUTISTA Apr 08, 2019 09:42 AKASH AQUINO MD [facility] CCDSApr 08, 2019 13:23 POS
[2019-04-08 09:51] LABS: BASOPHILS % (AUTO) 0 % (0-10); EOSINOPHILS # (AUTO) 0.1 10^3/uL (0.0-0.3); EOSINOPHILS % (AUTO) 1 % (0-10); HEMATOCRIT 42 % (40-54); HEMOGLOBIN 14.3 G/DL (13.3-17.7); LYMPHOCYTES # (AUTO) 1.3 X 10^3 (1.0-4.0); LYMPHOCYTES % (AUTO) 12 % (12-44); MEAN CORPUSCULAR HEMOGLOBIN 32 PG (25-34); MEAN CORPUSCULAR HGB CONC 34 G/DL (32-36); MEAN CORPUSCULAR VOLUME 93 FL (80-99); MEAN PLATELET VOLUME 10.2 FL (7.4-10.4); MONOCYTES # (AUTO) 1.1 X 10^3 (0.0-1.0); MONOCYTES % (AUTO) 9 % (0-12); NEUTROPHILS # (AUTO) 8.7 X 10^3 (1.8-7.8); NEUTROPHILS % (AUTO) 78 % (42-75); PLATELET COUNT 247 10^3/uL (130-400); RED CELL DISTRIBUTION WIDTH 13.3 % (10.0-14.5); WHITE BLOOD COUNT 11.2 10^3/uL (4.3-11.0)
[2019-04-08] MEDS ORDERED: APIXABAN 5 MG (ELIQUIS) TABLET PO ONE (10:00)
[2019-04-08 10:10] LABS: ALANINE AMINOTRANSFERASE 8 U/L (0-55); ALBUMIN 3.3 GM/DL (3.2-4.5); ALKALINE PHOSPHATASE 69 U/L (40-136); BILIRUBIN,TOTAL 1.4 MG/DL (0.1-1.0); BUN/CREATININE RATIO 24; CALCIUM 8.5 MG/DL (8.5-10.1); CARBON DIOXIDE 18 MMOL/L (21-32); CHLORIDE 104 MMOL/L (98-107); CREATININE SERUM 1.13 MG/DL (0.60-1.30); GFR ESTIMATED > 60; GLUCOSE 145 MG/DL (70-105); SODIUM 137 MMOL/L (135-145); TOTAL PROTEIN 6.3 GM/DL (6.4-8.2)
--- NOTE | 2019-04-08 10:22 | Physical Therapy Daily Note ---
PT Daily Note-Current Subjective Patient agrees to PT at this time. Patient reports he has no pain while lying in bed, but pain during movement. Pain Numeric Pain Scale: 5-Moderate Pain Location: Left Location Body Site: Hip Pain Description: Acute Mental Status Patient Orientation: Normal For Age Transfers SCALE: Activities may be completed with or without assistive devices. 7-Jiqldtyqri-ezztmtt completes the activity by him/herself with no assistance from a helper. 5-Set-up or Clean-up Assistance-helper sets up or cleans up; patient completes activity. [place] assists only prior to or following the activity. 4-Supervision or Touching Assistance-helper provides verbal cues and/or touching/steadying and/or contact guard assistance as patient completes activity. Assistance may be provided throughout the activity or intermittently. 3-Partial/Moderate Assistance-helper does LESS THAN HALF the effort. [place] lifts, holds or supports trunk or limbs, but provides less than half the effort. 2-Substantial/Maximal Assistance-helper does MORE THAN HALF the effort. [place] lifts or holds trunk or limbs and provides more than half the effort. 4-Pleuvokiq-zuaimo does ALL the effort. Patient does none of the effort to complete the activity. Or, the assistance of 2 or more helpers is required for the patient to complete the activity. If activity was not attempted, code reason: 7-Patient Refused. 9-Not Applicable-not attempted and the patient did not perform the activity before the current illness, exacerbation or injury. 10-Not Attempted due to Environmental Limitations-(lack of equipment, weather restraints, etc.). 88-Not Attempted due to Medical Conditions or Safety Concerns. Transfers (B, C, W/C): 5 Roll Left to Right (QC): 5 Sit to Stand (QC): 3 Sit to stand from elevated bed height with mod assist; reluctant to WB on affect leg Weight Bearing Right Lower Extremity: Right Weight Bearing/Tolerated Left Lower Extremity: Left Weight Bearing/Tolerated Gait Training Does the Patient Walk?: Yes Distance: 5' Gait Assistive Device: FWW Only able to ambulate a few steps before feeling dizzy and weak. Patient scoots L foot along floor and demonstrates shorted R step to decrease L weight bearing. Exercises Supine Ex: Ankle pumps, Glut sets, Heel Slides Supine Reps: 10 Seated Therapy Exercises: Long arc quads Seated Reps: 10 Assessment Patient able to perform bed mobility without assistance but slowly, requiring UE help to move LLE to EOB. Mod assist to stand from increased bed height with one hand on FWW. Unable to ambulate from bed to bathroom before reporting dizziness and weakness and needing to sit again. During ambulation, patient scoots LLE along floor without lifting leg and demonstrates decreased stance time on LLE. Patient ambulated 5' in room before requiring commode use. Patient left on commode in room with call light. PT Short Term Goals Short Term Goals Time Frame: Apr 10, 2019 Gait Distance Comment: 50' Gait Assistive Device: FWW PT Power Plant Electrician Goals Power Plant Electrician Goals PT Retirement Goals Time Frame: Apr 14, 2019 Sit to Lying (QC): 6 Lying-Sitting on Side/Bed(QC): 6 Sit to Stand (QC): 6 Roll Left to Right (QC): 6 Chair/Jln-ze-Xvjgo Xfer(QC): 6 Car Transfer (QC): 6 Distance: 300' Walk 10 feet (QC): 5 Walk 10ft-Uneven Surface(QC): 5 Walk 50ft with 2 Turns (QC): 5 Walk 150 ft (QC): 5 Gait Level of Assist: 5 Gait Assistive Device: FWW PT Plan Treatment/Plan Treatment Plan: Continue Plan of Care Treatment Plan: Bed Mobility, Education, Functional Activity Sylvester, Functional Strength, Gait, Safety, Therapeutic Exercise, Transfers Treatment Duration: Apr 14, 2019 Frequency: 11 times per week Estimated Hrs Per Day: 1 hour per day Time/GCodes Time In: 851 Time Out: 914 Total Billed Treatment Time: 23 Total Billed Treatment 1 visit EX 8 min FA 15min MELLISA BILLY PT Apr 08, 2019 10:22 POS
--- NOTE | 2019-04-08 10:43 | NUR ---
report called to Naila LOPEZ
[2019-04-08 11:07] VITALS: BP 114/71
--- NOTE | 2019-04-08 13:31 | Discharge Summary ---
Discharge Summary Hospital Course Was the Problem List Reviewed?: Yes Problems/Dx: (1) Hip fracture, intertrochanteric Status: Acute Qualifiers: Qualified Codes: S72.145A - Nondisplaced intertrochanteric fracture of left femur, initial encounter for closed fracture (2) Atrial fibrillation Qualifiers: Qualified Codes: I48.0 - Paroxysmal atrial fibrillation (3) Essential (primary) hypertension Status: Chronic (4) Non-insulin dependent type 2 diabetes mellitus Status: Chronic Hospital Course Date of Admission: Apr 05, 2019 at 16:07 Admission Diagnosis : Hip fracture Family Physician/Provider: Ari Joshi MD Date of Discharge: 04/08/19 Discharge Diagnosis: Hip fracture Hospital Course: Luan Rodriguez is a 78yoM who was admitted with hip fracture. He underwent surgical repair 04/06. He was found to be in atrial fibrillation and will need to start anticoagulation. Cardiology was consulted and will continue to follow. He was transferred in inpatient rehab. Labs and Pending Lab Test: Laboratory Tests 04/07/19 15:46: Glucometer 145H 04/07/19 20:23: Glucometer 158H 04/08/19 05:40: Glucometer 143H 04/08/19 08:28: Sodium Level 137, Potassium Level 4.0, Chloride Level 104, Carbon Dioxide Level 18L, Anion Gap 15H, Blood Urea Nitrogen 27H, Creatinine 1.13, Estimat Glomerular Filtration Rate > 60, BUN/Creatinine Ratio 24, Glucose Level 145H, Calcium Level 8.5, Corrected Calcium 9.1, Magnesium Level 1.8, Total Bilirubin 1.4H, Aspartate Amino Transf (AST/SGOT) 13, Alanine Aminotransferase (ALT/SGPT) 8, Alkaline Phosphatase 69, Total Protein 6.3L, Albumin 3.3 04/08/19 09:43: White Blood Count 11.2H, Red Blood Count 4.54, Hemoglobin 14.3, Hematocrit 42, Mean Corpuscular Volume 93, Mean Corpuscular Hemoglobin 32, Mean Corpuscular Hemoglobin Concent 34, Red Cell Distribution Width 13.3, Platelet Count 247, Mean Platelet Volume 10.2, Neutrophils (%) (Auto) 78H, Lymphocytes (%) (Auto) 12, Monocytes (%) (Auto) 9, Eosinophils (%) (Auto) 1, Basophils (%) (Auto) 0, Neutrophils # (Auto) 8.7H, Lymphocytes # (Auto) 1.3, Monocytes # (Auto) 1.1H, Eosinophils # (Auto) 0.1, Basophils # (Auto) 0.0, Iron Level [Pending] 04/08/19 11:15: Glucometer 154H Microbiology 04/05/19 MRSA Screen - Final, Complete MRSA not isolated Home Meds Active Reported Acetaminophen 500 Mg Tablet 1,000 Mg PO Q8H PRN Assessment/Pt Instructions Take medications as prescribed. Participate in rehab. Discharge Planning: <30 minutes discharge planning Discharge Instructions Discharge Diet: No Restrictions Activity as Tolerated: Yes Discharge Physical Examination Vital Signs Vital Signs Date Time Temp Pulse Resp B/P (MAP) Pulse Ox O2 Delivery O2 Flow Rate FiO2 04/08/19 11:07 37.3 88 16 114/71 94 Room Air 5.00 General Appearance: No Apparent Distress, WD/WN HEENT: PERRL/EOMI, Pharynx Normal Respiratory: Lungs Clear, Normal Breath Sounds, No Respiratory Distress Cardiovascular: Regular Rate, Rhythm, No Edema, No Murmur Gastrointestinal: Normal Bowel Sounds, Non Tender, Soft Extremity: Normal Inspection, Non Tender, No Pedal Edema Skin: Normal Color, Warm/Dry Neurologic/Psychiatric: Alert, Oriented x3 Allergies: Coded Allergies: codeine (Verified Allergy, Unknown, 04/08/19) Discharge Summary Date of Admission Apr 05, 2019 at 16:07 Date of Discharge Apr 08, 2019 at 11:05 Discharge Date: Apr 08, 2019 Discharge Time: 09:30 Admission Diagnosis Left Intertrochanteric Hip Fracture Consults/Procedures Consulations Ortho, Cardiology Discharge Diagnosis Hip fracture (1) Hip fracture, intertrochanteric Status: Acute Qualifiers: Qualified Codes: S72.145A - Nondisplaced intertrochanteric fracture of left femur, initial encounter for closed fracture (2) Atrial fibrillation Qualifiers: Qualified Codes: I48.0 - Paroxysmal atrial fibrillation (3) Essential (primary) hypertension Status: Chronic (4) Non-insulin dependent type 2 diabetes mellitus Status: Chronic Clinical Quality Measures DVT/VTE Risk/Contraindication: Risk Factor Score Per Nursin RFS Level Per Nursing on Admit: 4+=Very High MEKA GARSIA MD Apr 08, 2019 13:26 POS
[2019-04-08] MEDS ORDERED: APIXABAN 5 MG (ELIQUIS) TABLET PO SCH (21:00)
--- NOTE | 2019-04-10 07:35 | Physician Query Clarification ---
PQ-Further Specificity Admission/Discharge Admission Date: Apr 05, 2019 at 16:07 Discharge Date: Apr 08, 2019 at 11:05 The medical record reflects the following clinical scenario: History/Risk Factors: Lt. intertrochanteric femur fx, HTN, Diabetes Clinical Findings: EKG - Atrial Fibrillation Treatment: Anticoagulants Question: Can you further specify the atrial fibrillation per the clinical indicators above? Dr. Fay says atrial fib probably chronic and permanent and Dr. Cope/Brielle says Paroxysmal. Please clarify type or if both. Please document a response in the Progress Notes or Discharge Summary. 1. Paroxysmal atrial fibrillation 2. Permanent atrial fibrillation 3. Both paroxysmal and permanent atrial fibrillation 4. Other, with explanation of the clinical findings. 5. Clinically undetermined, no explanation for the clinical findings. PHYSICIAN RESPONSE Can you specify per above: 2 Please remember a lack of response to the above will prompt a phone page by CDI/Coding staff. In responding to this query, please exercise your independent professional judgment. The purpose of this communication is to more accurately reflect the complexity of your patients condition. The fact that a question is asked does not imply that any particular answer is desired or expected. Thank you for your timely response to this clarification. Requestors name: Cassie THIS PHYSICIAN QUERY FORM IS A PERMANENT PART OF THE MEDICAL RECORD CASSIE BARTON Apr 10, 2019 07:35 MEKA SAMAYOA MD Apr 11, 2019 07:18 POS
--- NOTE | 2019-04-15 14:46 | OPERATIVE REPORT ---
DATE OF SERVICE: 04/06/2019 PREPROCEDURAL DIAGNOSIS: Closed, displaced intertrochanteric fracture of left proximal femur. POSTPROCEDURAL DIAGNOSIS: Closed, displaced intertrochanteric fracture of left proximal femur. PROCEDURE PERFORMED: Closed reduction followed by placement of cephalomedullary nail, left femur. ATTENDING SURGEON: Dr. Olegario Tomlinson. RECEIVER STOCKER: Pascual Garcia PA-C; Radha's assistance was required secondary to the complexity of the case, to hold the necessary retractors protecting vital neurovascular and soft tissue structures and to increase the efficiency and efficacy of the case; this case would not have been possible without the presence of an education assistant. ANESTHESIA: General endotracheal. ESTIMATED BLOOD LOSS: 100 mL. COMPLICATIONS: None. SPECIMENS: None. DRAINS: None. FLUIDS: Per Anesthesia record. IMPLANTS: Synthes short trochanteric femoral nail, size 11 mm in diameter x 170 mm in length with 130 degree proximal angle and a 105 mm cephalomedullary lag screw. BRIEF HISTORY AND INDICATIONS: The patient is a pleasant 78-year-old male who presented to the [place] [facility] subsequent to a mechanical ground level fall with a chief complaint of severe left hip pain. Imaging studies of the left hip demonstrated an intertrochanteric fracture. He was transferred to the [facility] for definitive orthopedic treatment. The patient denied having sustained any additional musculoskeletal injury secondary to this fall and he had no additional musculoskeletal complaints. He denied any loss of consciousness, syncope, neck pain, head pain or other associated complaints. On exam, the patient's left lower extremity demonstrated significant pain with any attempted range of motion in the left hip, motor and sensory function were grossly intact. The skin was intact without open wounds, all compartments were soft and compressible and the foot was well perfused. I discussed the nature of the patient's injury with him and his family in detail including its instability and need for operative fixation. The treatment plan was discussed with the patient in detail including the risks, benefits, potential complications, expected outcomes, indications and alternatives. The patient gave informed written consent to proceed as planned after all of his questions were addressed and answered to his satisfaction. PROCEDURE NOTE: After correctly identifying the patient in the preoperative holding area and after his left hip was appropriately marked, he was transferred to the operating room. Once in the operating room, he had successful induction of general endotracheal anesthesia. Then, he was transferred to a radiolucent fracture table and placed in the supine position. All bony prominences were meticulously padded. Bilateral upper extremities were secured to the fracture table in the routine fashion. A closed reduction maneuver was then completed of the left hip and preoperative C-arm fluoroscopy confirmed that the fracture was acceptably aligned in both AP and lateral planes prior to proceeding with the procedure. The left lower extremity was prepped and draped in the routine sterile fashion. Prior to beginning the case, we completed an operating room timeout with all parties involved in the case and agreement and verified appropriate infusion of prophylactic antibiotics. Using a 10-blade scalpel, an incision of approximately 3 cm in length was made 3 fingerbreadths proximal to the tip of the greater trochanter, incising through the skin and subcutaneous tissue. Blunt Bui scissors were then used to dissect through the fascia of the gluteus theresa to gain access to the tip of the greater trochanter. The guidepin for the nail was then introduced into the proximal femur under fluoroscopic guidance and advanced to just distal to the lesser trochanter. Opening reamer was then used over the guidepin to open the ferryboat pilot hole in the proximal femur through which to put the nail. Ball tipped guidewire was then introduced into the femur. The cephalomedullary nail was then introduced into the proximal femur over the ball-tipped guidewire and inserted into the appropriate position in the proximal femur with light taps of the mallet. After placement of the nail, AP and lateral C-arm fluoroscopy confirmed that the fracture remained acceptably aligned. After the nail was confirmed to be in the appropriate position, the external aiming arm was used to introduce the guidepin for the lag screw into the proximal femur. This was also completed under fluoroscopic guidance. Once the guidepin for the cephalomedullary lag screw was confirmed to be in the appropriate position, we measured so as to select the appropriate length of lag screw. We then used the standard reamers through the external aiming arm and over the guidepin to prepare the path for the lag screw. Lag screw was then introduced over the guidepin into the proximal femur. We achieved very good purchase with the lag screw. AP and lateral C-arm images confirmed that the lag screw was placed such as to give us appropriate tip to apex distance. We then used the compression mechanism to compress the intertrochanteric fracture. Once the fracture was confirmed to be adequately aligned in both AP and lateral imaging and once confirmed that all the hardware was in appropriate position, the nail was then statically locked proximally in standard fashion. We then used the external aiming arm once again to place the distal locking bolt. The distal locking bolt was placed through the previous incision that had been made for the cephalomedullary lag screw. We achieved very good purchase with the distal locking bolt as well. Once again AP and lateral C-arm images confirmed that all the hardware was in appropriate position and that the fracture was in acceptable position. External aiming arm was removed, wounds were irrigated with copious amounts of sterile saline and then standard closure was completed of these wounds using #0 Vicryl for the deep fascia, 2-0 Vicryl for the subcutaneous tissue, and a running 4-0 subcuticular Monocryl stitch and Steri-Strips for the skin. The patient had sterile dressings applied and was awakened and extubated in the operating room without incident. He was then transferred to the PACU in stable condition. He tolerated the procedure quite well without complications. All counts were correct at the end of the case. Job ID: [id number] DocumentID: [id number] Dictated Date: 04/09/2019 10:42:07 [employer]fish [employer]vester Date: 04/09/2019 13:21:11 Dictated By: OLEGARIO TOMLINSON <Dictated by OLEGARIO TOMLINSON DO> <Electronically signed by OLEGARIO TOMLINSON DO> 04/12/19 1402 MTDD
== END 2019-04-08 11:05 | DRG 481 ==
LOC: 4TH 16:07
PROVIDERS: ADMIT Family Medicine; ATTEND Family Medicine
PROC: 0QS736Z Reposition Left Upper Femur with Intramedullary Internal Fixation Device, Percutaneous Approach (ICD-10-PCS; principal; 2019-04-06 08:50)
DX: S72.142A Displaced intertrochanteric fracture of left femur, initial encounter for closed fracture (principal); I48.21 Permanent atrial fibrillation; I10 Essential (primary) hypertension; E11.9 Type 2 diabetes mellitus without complications; Z87.891 Personal history of nicotine dependence
CPT/HCPCS: 36415; 80048; 80053; 82962; 83036; 83540; 83735; 84443; 85014; 85018; 85025; 85027; 86850; 86900; 86901; 87081; 93005; 93306; 94664; 94760

== ENCOUNTER 2019-04-08 10:05 | Inpatient (IN) | payer MEDICARE, OTHER ==
[~2019-04-08] VITALS: Ht 182.9 cm; Wt 91.5 kg
[~2019-04-08 10:05] MED LIST: ACET-93 PO
[2019-04-08] MEDS ORDERED: ONDANSETRON 4 MG (ZOFRAN) ORAL DISSOLVE TAB PO PRN (10:15)
[2019-04-08] MEDS ORDERED: DOCUSATE SODIUM 100 MG (COLACE) CAP PO PRN (10:15)
[2019-04-08] MEDS ORDERED: CALCIUM CARBONATE 500 MG (TUMS) TAB.CHEW PO PRN ×2 (10:15→12:45)
[2019-04-08] MEDS ORDERED: LACTULOSE SYRUP 10GM/15ML (ENULOSE) 30ML UDC PO PRN ×2 (10:15→12:45)
[2019-04-08] MEDS ORDERED: ONDANSETRON 4 MG/2 ML (SDV) Z0FRAN IV PRN ×2 (10:15→12:45)
[2019-04-08] MEDS ORDERED: BISACODYL 10 MG SUPP (DULCOLAX) PR PRN ×2 (10:15→12:45)
[2019-04-08] MEDS ORDERED: MELATONIN 3 MG TABLET PO PRN (10:15)
[2019-04-08] MEDS ORDERED: diphenhydrAMINE 25 MG TAB (BENADRYL) PO PRN (10:15)
[2019-04-08] MEDS ORDERED: LOPERAMIDE 2 MG (IMODIUM) TABLET PO PRN (10:15)
[2019-04-08] MEDS ORDERED: ALPRAZolam 0.25 MG (XANAX) TAB PO PRN (10:15)
[2019-04-08] MEDS ORDERED: guaiFENesin/CODEINE (ROBITUSSIN AC) 10ML UDC PO PRN (10:15)
[2019-04-08] MEDS ORDERED: ACETAMINOPHEN 500 MG TAB (TYLENOL) PO PRN (10:15)
[2019-04-08] MEDS ORDERED: FLEET ENEMA ADULT 1 EA BTL PR PRN (10:15)
--- NOTE | 2019-04-08 10:55 | NUR ---
Admitted to room 232-1, with an admitting diagnosis of debility, on 04/08/19 from [facility] via , accompanied by .SHAVONNE CASTRO introduced to surroundings, call light, bed controls, phone, TV, temperature control, lights, meal times, smoking policy, visitor policy, side rail policy, bathrooms and showers. Patient Rights given to patient in the handbook.SHAVONNE CASTRO verbalizes understanding that [facility] is not responsible for the loss or damage to any personal effects or valuables that are kept in the patients posession during their hospitalization. The following Patient Care Plans were discussed with the : Discharge Planning, ,, and . SHAVONNE CASTRO verbalizes understanding of Interdisciplinary Patient Education. Patient and/or family were informed about the Rapid Response Team and its purpose. Patient received Patient Rights Booklet, which includes Privacy Act Statement and Data Collection Information Summary.
[2019-04-08 11:50] VITALS: BP 110/74
--- NOTE | 2019-04-08 12:22 | Physical Therapy Evaluation ---
PT Evaluation-General Medical Diagnosis Admission Date Apr 08, 2019 at 10:54 Medical Diagnosis: left femur fx Onset Date: Apr 08, 2019 Therapy Diagnosis Therapy Diagnosis: abnromal gait Precautions Precautions/Isolations: Standard Precautions Weight Bear Status Right Lower Extremity: Right Weight Bearing/Tolerated Left Lower Extremity: Left Weight Bearing/Tolerated Referral Physician: Diana Reason for Referral: Evaluation/Treatment Medical History Pertinent Medical History: Atrial Fib, DM, HTN Current History Pt reports he was carrying a large bird cage, lost his balance, fell and sustained a left hip fx. Post repair with IM nail Reviewed History: Yes Social History Home: Single Level Current Living Status: Spouse Pt lives with his and son at home in [place]. He assists his intermittently with ADL's and chores in the home as her medical issues require her to need additional help., He has a son at home that has special needs, but is able to fully care for himself as well as drive. He reports he plans to discharge (temporarily) to his daughter's home in [place]. Her home is single level with steps to enter without a handrail. His is already staying with his daughter. Prior Prior Level of Function SCALE: Activities may be completed with or without assistive devices. 8-Wjmjmgjlzy-timqgaf completes the activity by him/herself with no assistance from a helper. 5-Set-up or Clean-up Assistance-helper sets up or cleans up; patient completes activity. [place] assists only prior to or following the activity. 4-Supervision or Touching Assistance-helper provides verbal cues and/or touching/steadying and/or contact guard assistance as patient completes activity. Assistance may be provided throughout the activity or intermittently. 3-Partial/Moderate Assistance-helper does LESS THAN HALF the effort. [place] lifts, holds or supports trunk or limbs, but provides less than half the effort. 2-Substantial/Maximal Assistance-helper does MORE THAN HALF the effort. [place] lifts or holds trunk or limbs and provides more than half the effort. 3-Lekgkrnpy-ubqufb does ALL the effort. Patient does none of the effort to complete the activity. Or, the assistance of 2 or more helpers is required for the patient to complete the activity. If activity was not attempted, code reason: 7-Patient Refused. 9-Not Applicable-not attempted and the patient did not perform the activity before the current illness, exacerbation or injury. 10-Not Attempted due to Environmental Limitations-(lack of equipment, weather restraints, etc.). 88-Not Attempted due to Medical Conditions or Safety Concerns. Bed Mobility: 6 Transfers (B,C,W/C): 6 Gait: 6 Stairs: 6 Indoor Mobility (Ambulation): Independent Stairs: Independent Pt is indep and active at a community level at [facility]. 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 PT Evaluation-Current Subjective Pt agreeable. Reports he wants to get better as quickly as possible to return home. Agrees to skilled PT. Pain Numeric Pain Scale: 5-Moderate Pain Location: Left Location Body Site: Hip Pain Description: Ache, Stabbing Pt/Family Goals His goal is to discharge to his daughter's home at a mod indep level and able to provide light care for his . Objective Patient Orientation: Person, Place, Time, Situation Problem Solving: Good ROM/Strength ROM Lower Extremities WFL; AAROM left LE Strength Lower Extremities Right LE is grossly 5/5; left LE is grossly 3/5 Integumentary/Posture Integumentary intact Bowel Incontinence: No Bladder Incontinence: No Posture normal and symmetrical Neuromuscular (Tone, Coordination, Reflexes) intact and without noted deficits Sensory Vision: Functional Hearing: Functional Hand Dominance: Right Sensation Right Lower Extremit: Intact Sensation Left Lower Extremity: Intact Transfers Roll Left to Right (QC): 2 Sit to Lying (QC): 2 (max assist with left LE and trunk) Lying to Sitting/Side of Bed(Q: 2 (max assist with L LE and trunk) Sit to Stand (QC): 2 (mod assist with skilled cues for sequencing) Chair/Kuy-ml-Wvhue Xfer(QC): 4 (CGA) Car Transfer (QC): 88 Gait Does the Patient Walk?: Yes Mode of Locomotion: Walk Anticipated Mode of Locomotion: Walk Distance: 1=up to 49 ft Walk 10 feet (QC): 3 Walk 50 ft with 2 Turns(QC): 88 Walk 150 ft (QC): 88 Walking 10ft/uneven surface-QC: 88 Distance: 10 ft with FWW with skilled cues for sequencing; WBAT; min asist at gait Gait Assistive Device: FWW Comments/Gait Description step to gait with difficulty with WB on the left LE. Slow gait and antalgic Wheelchair Training Does the Pt Use a Wheelchair?: No Stairs 1 Step (curb) (QC): 88 4 Steps (QC): 88 12 Steps (QC): 88 Balance Sitting Static: Good Sitting Dynamic: Good Standing Static: Fair Standing Dynamic: Fair Picking up an Object (QC): 88 Treatment Worked on functional sit to stand transfers (multiple during session); bed mobility training; toilet transfer. Co treat with OT due to the need for the skill of 2 clinicians to effectively complete transfer tasks, OT addressed use of UE and placement with cues for sequencing as PT addressed LE use/placment with transfers and bed mobility. Gait training provided as well. Assessment/Needs This is an active 78 year old male post fall that resulted in a left hip fx. This has been repaired with an IM nail. Pt presents with decreased functional strength and balance with decreased functional activity tolerance and pain. He will benefit from skilled intervention to promote mod indep gait, transfers, bed mobility and self care so he can return home at a mod indep level. Rehab Potential: Good PT Batch Roller Operator Goals Fdc Goals PT Fdc Goals Time Frame: Apr 24, 2019 Sit to Lying (QC): 6 Lying-Sitting on Side/Bed(QC): 6 Sit to Stand (QC): 6 Roll Left to Right (QC): 6 Chair/Peh-je-Fbfvs Xfer(QC): 6 Car Transfer (QC): 5 Does the Patient Walk: Yes Walk 10 feet (QC): 6 Walk 10ft-Uneven Surface(QC): 6 Walk 50ft with 2 Turns (QC): 6 Walk 150 ft (QC): 6 Gait Assistive Device: FWW 1 Step (curb) (QC): 6 4 Steps (QC): 5 12 Steps (QC): 9 Picking up an Object (QC): 88 PT Plan Problem List Problem List: Activity Tolerance, Functional Strength, Safety, Balance, Gait, Transfer, Bed Mobility Treatment/Plan Treatment Plan: Continue Plan of Care Treatment Plan: Bed Mobility, Education, Functional Activity Sylvester, Functional Strength, Group Therapy, Gait, Safety, Therapeutic Exercise, Transfers Treatment Duration: Apr 24, 2019 Patient and/or Family Agrees t: Yes Safety Risks/Education Patient Education: Gait Training, Transfer Techniques, Safety Issues Teaching Recipient: Patient Teaching Methods: Demonstration, Discussion Response to Teaching: Reinforcement Needed Discharge Recommendations Therapy Discharge Recommendati: Post Acute PT Time/GCodes Time In: 1055 Time Out: 1210 (OT eval 1130-1140Co treat [id number]) Total Billed Treatment Time: 65 Total Billed Treatment visit EVM 15 FA 35 GT 15 PAM DOBBS PT Apr 08, 2019 12:22 POS
[2019-04-08] MEDS ORDERED: POLYETHYLENE GLYCOL 17 GM (MIRALAX) PACK PO PRN (12:45)
[2019-04-08] MEDS ORDERED: BENZONATATE 100 MG (TESSALON) CAPSULE PO PRN (12:45)
[2019-04-08] MEDS ORDERED: MILK OF MAGNESIA 400 MG/5 ML 30 ML UDC PO PRN (12:45)
[2019-04-08] MEDS ORDERED: RT-ALBUTEROL SULF 2.5 MG/3 ML PRE-MIX VIAL INH PRN (12:45)
[2019-04-08] MEDS ORDERED: morphine INJ 4 MG/ML 1 ML (VIAL/SYRINGE) IV PRN (12:45)
[2019-04-08] MEDS ORDERED: ANTACID SUSP 30 ML UDC (MYLANTA) PO PRN (12:45)
[2019-04-08] MEDS: CATHETER FLUSH 10 ML SYR IV SCH ×2 (14:49→21:12)
--- NOTE | 2019-04-08 14:49 | Therapy Group Daily Note ---
Therapy Daily Group Note Patient Education Topic Other List Below (memory/handwashing) Exercises LE Seated Exercise, UE Exercise Session Ratio (pt:therapist): 4:1 Goal of Session: Memory Strategies, UE/LE Strengthing, Other (list) (handwashing) Goal Met for this Session: Yes Pt Benefit of Group: Contributions to Others, F/U Use of Strategies @Home, Increased Functional Strength, Improved Cognition, Recognition of Peers, Socialization Other/Notes Pt transported via w/c to [facility] for OT/PT group. Group consisted of introductions (name, building born in, makes you proud), socialization, B UE/LE seated exercises, education for handwashing and memory. Pt introduced self appropriately and actively listened to peers. Pt demonstrated ability to complete exercises without out difficulty. Pt acknowledged understanding of educational topics by giving personal strategies and ideas. Pt was able to match images during a memory activity and assisted peers when needed. After therapy, pt lying in bed with call light/phone in reach. All needs met in room. Start Time: 13:00 Stop Time: 14:15 Total Billed Treatment Time: 75 Total Billed Treatment 1-GRP PAM KUO Apr 08, 2019 14:49 POS
[2019-04-08 15:03] VITALS: BP 110/74
[2019-04-08] MEDS ORDERED: APIXABAN 5 MG (ELIQUIS) TABLET PO NR (15:47)
--- NOTE | 2019-04-08 15:50 | Occupational Therapy Eval ---
OT Evaluation-General/PLF Medical Diagnosis Admission Date Apr 08, 2019 at 10:54 Medical Diagnosis: left femur fx/ORIF Onset Date: Apr 08, 2019 Therapy Diagnosis Therapy Diagnosis: Weakness Precautions Precautions/Isolations: Standard Precautions Weight Bear Status Weight Bearing Restriction: Weight Bearing/Tolerated Referral Physician: Diana Guerrero Reason: Activity Tolerance, Self Care, Evaluation/Treatment, Strengthening/ROM Medical History Pertinent Medical History: Atrial Fib, DM, HTN Current History Pt. fell and sustained hip fx. Reviewed History: Yes Social History Home: Single Level Current Living Status: Spouse Entry Into Home: Stairs With Railing Steps Into Home: 4 Pt. states that he will be going to daughter's home after discharge. Will report on daughter's set up. ADL-Prior Level of Function SCALE: Activities may be completed with or without assistive devices. 0-Yrsqajftfo-ljgtaxr completes the activity by him/herself with no assistance from a helper. 5-Set-up or Clean-up Assistance-helper sets up or cleans up; patient completes activity. [place] assists only prior to or following the activity. 4-Supervision or Touching Assistance-helper provides verbal cues and/or to uching/steadying and/or contact guard assistance as patient completes activity. Assistance may be provided throughout the activity or intermittently. 3-Partial/Moderate Assistance-helper does LESS THAN HALF the effort. [place] lifts, holds or supports trunk or limbs, but provides less than half the effort. 2-Substantial/Maximal Assistance-helper does MORE THAN HALF the effort. [place] lifts or holds trunk or limbs and provides more than half the effort. 9-Edoupbzqb-tghwfx does ALL the effort. Patient does none of the effort to complete the activity. Or, the assistance of 2 or more helpers is required for the patient to complete the activity. If activity was not attempted, code reason: 7-Patient Refused. 9-Not Applicable-not attempted and the patient did not perform the activity before the current illness, exacerbation or injury. 10-Not Attempted due to Environmental Limitations-(lack of equipment, weather restraints, etc.). 88-Not Attempted due to Medical Conditions or Safety Concerns. ADL PLOF Comments Pt. states that he is independent at home with daily tasks. Pt.'s spouse has some disabilities and he assists her. Pt. also has a son that can assist at home, but does have some special needs. Self Care: Independent Functional Cognition: Independent DME/Equipment: Bath Chair, Bedside Commode, Tub/Shower DME/Equipment Comments Pt. does not have a walker. 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 [address] Self: Yes OT Current Status Subjective Pt. does not report pain level. Appearance Pt. up in wheelchair. Agrees to treatment. Mental Status/Objective Patient Orientation: Person, Place, Time, Situation Current Hand Dominance: Right Upper Extremity ROM WFL ADL-Treatment ADL-Current OT saw pt. previous to admission to rehab unit. Will report on functional tasks that were completed there as well. Eating (QC): 6 (Per previous session.) Oral Hygiene (QC): 3 (Per previous treatment) Shower/Bathe Self (QC): 2 (Mod assist with overal sponge bath per previous treatment session.) Upper Body Dressing (QC): 7 Lower Body Dressing (QC): 2 On/Off Footwear (QC): 2 Toileting Hygiene (QC): 2 Toilet Transfer (QC): 3 Mod assist sit-supine. OT/PT completed co-treatment due to pt's need for skilled assistance of two. Pt. fatigued and had already had different sessions from OT and PT previous in day. Education OT Patient Education: Correct positioning, Modified ADL techniques, Progress toward Goal/Update tx plan, Purpose of tx/functional activities, Reviewed precautions, Rehab process, Transfer techniques Teaching Recipient: Patient Teaching Methods: Demonstration, Discussion Response to Teaching: Verbalize Understanding, Return Demonstration OT Short Term Goals Short Term Goals Time Frame: Apr 15, 2019 Eating(FIM): 6 Grooming(FIM): 5 Bathing(FIM): 4 Upper Body Dressing(FIM): 5 Lower Body Dressing(FIM): 4 Toileting(FIM): 3 Transfers (B,C,W/C) (FIM): 4 Toilet/Commode Transfer(FIM): 4 Shower Transfer(FIM): 4 Additional Short Term Goals: 1-Demonstrate ADL Tasks, 2-Verbalize Understanding, 3-ImproveStrength/Sylvester 1=Demonstrate adherence to instructed precautions during ADL tasks. 2=Patient will verbalize/demonstrate understanding of assistive devices/modifications for ADL. 3=Patient will improve strength/tolerance for activity to enable patient to perform ADL's. OT Fence Installer Helper Goals Snf Goals Time Frame: Apr 22, 2019 Eating (QC): 6 Oral Hygiene (QC): 6 Shower/Bathe Self (QC): 5 Upper Body Dressing (QC): 6 Lower Body Dressing (QC): 6 On/Off Footwear (QC): 6 Toileting Hygiene (QC): 6 Toilet/Commode Transfer (QC): 6 Additional Goals: 1-Demonstrate ADL Tasks, 2-Verbalize Understanding, 3- ImproveStrength/Sylvester 1=Demonstrate adherence to instructed precautions during ADL tasks. 2=Patient will verbalize/demonstrate understanding of assistive devices/modifications for ADL. 3=Patient will improve strength/tolerance for activity to enable patient to perform ADL's. OT Education/Plan Problem List/Assessment Assessment: Decreased Activ Tolerance, Dependent Transfers, Impaired Bed Mobility, Impaired Funct Balance, Impaired I ADL's, Impaired Self-Care Skills Discharge Recommendations Plan/Recommendations: Continue POC Therapy Discharge Recommendati: Post Acute OT Equpiment Recommendations-D/C: Hip Kit Treatment Plan/Plan of Care Treatment,Training & Education: Yes Patient would benefit from OT for education, treatment and training to promote independence in ADL's, mobility, safety and/or upper extremity function for ADL's. Plan of Care: ADL Retraining, Functional Mobility, Group Exercise/Act as Ind, UE Funct Exercise/Act Treatment Duration: Apr 22, 2019 Frequency: At least 5 of 7 days/Wk (IRF) Estimated Hrs Per Day: 1.5 hours per day Agreement: Yes Rehab Potential: Good Time/GCodes Start Time: 11:30 Stop Time: 12:00 Total Time Billed (hr/min): 30 Billed Treatment Time 6937-5948 OT eval x 10minutes [id number] ADL x 20minutes. Co-treatment with PT. Please see above note for designated roles. 1, EVM x 10minutes, ADL x 20minutes SARA SMITH OT Apr 08, 2019 15:50 POS
[2019-04-08 16:02] VITALS: BP 108/71
--- NOTE | 2019-04-08 16:03 | Occupational Ther Daily Note ---
OT Current Status-Daily Note Subjective No pain reported. Appearance Pt. up in chair. Agrees to treatment. Mental Status/Objective Patient Orientation: Person, Place, Time, Situation ADL-Treatment Therapy Code Descriptions/Definitions Functional [place] Measure: 0=Not Assessed/NA 4=Minimal Assistance 1=Total Assistance 5=Supervision or Setup 2=Maximal Assistance 6=Modified [place] 3=Moderate Assistance 7=Complete IndependenceSCALE: Activities may be completed with or without assistive devices. 9-Xuwbwceocx-rkqsyqh completes the activity by him/herself with no assistance from a helper. 5-Set-up or Clean-up Assistance-helper sets up or cleans up; patient completes activity. [place] assists only prior to or following the activity. 4-Supervision or Touching Assistance-helper provides verbal cues and/or touching/steadying and/or contact guard assistance as patient completes activity. Assistance may be provided throughout the activity or intermittently. 3-Partial/Moderate Assistance-helper does LESS THAN HALF the effort. [place] lifts, holds or supports trunk or limbs, but provides less than half the effort. 2-Substantial/Maximal Assistance-helper does MORE THAN HALF the effort. [place] lifts or holds trunk or limbs and provides more than half the effort. 4-Aolirbkkr-yxadbv does ALL the effort. Patient does none of the effort to complete the activity. Or, the assistance of 2 or more helpers is required for the patient to complete the activity. If activity was not attempted, code reason: 7-Patient Refused. 9-Not Applicable-not attempted and the patient did not perform the activity before the current illness, exacerbation or injury. 10-Not Attempted due to Environmental Limitations-(lack of equipment, weather restraints, etc.). 88-Not Attempted due to Medical Conditions or Safety Concerns. Lower Body Dressing (QC): 3 (Pt. issued and educated on AE for LE dressing. Pt. up in chair and practices doffing/donning slipper socks x 2, with AE. Required mod assist overall.) Other Treatment After ADLs up in chair, pt. stood with mod assist with walker, and ambulated to bed with min assist. Transferred sit-supine with mod assist. All needs met at bed level and pt. comfortable. Education OT Patient Education: Correct positioning, Modified ADL techniques, Progress toward Goal/Update tx plan, Purpose of tx/functional activities, Reviewed precautions, Rehab process, Transfer techniques Teaching Recipient: Patient Teaching Methods: Demonstration, Discussion Response to Teaching: Verbalize Understanding, Return Demonstration OT Short Term Goals Short Term Goals Time Frame: Apr 15, 2019 Eating(FIM): 6 Grooming(FIM): 5 Bathing(FIM): 4 Upper Body Dressing(FIM): 5 Lower Body Dressing(FIM): 4 Toileting(FIM): 3 Transfers (B,C,W/C) (FIM): 4 Toilet/Commode Transfer(FIM): 4 Shower Transfer(FIM): 4 Additional Short Term Goals: 1-Demonstrate ADL Tasks, 2-Verbalize Understanding, 3-ImproveStrength/Sylvester 1=Demonstrate adherence to instructed precautions during ADL tasks. 2=Patient will verbalize/demonstrate understanding of assistive devices/modifications for ADL. 3=Patient will improve strength/tolerance for activity to enable patient to perform ADL's. OT Mine Car Dispatcher Goals Senior Living Goals Time Frame: Apr 22, 2019 Eating (QC): 6 Oral Hygiene (QC): 6 Shower/Bathe Self (QC): 5 Upper Body Dressing (QC): 6 Lower Body Dressing (QC): 6 On/Off Footwear (QC): 6 Toileting Hygiene (QC): 6 Toilet/Commode Transfer (QC): 6 Additional Goals: 1-Demonstrate ADL Tasks, 2-Verbalize Understanding, 3- ImproveStrength/Sylvester 1=Demonstrate adherence to instructed precautions during ADL tasks. 2=Patient will verbalize/demonstrate understanding of assistive devices/modifications for ADL. 3=Patient will improve strength/tolerance for activity to enable patient to perform ADL's. OT Education/Plan Problem List/Assessment Assessment: Decreased Activ Tolerance, Dependent Transfers, Impaired Bed Mobility, Impaired Funct Balance, Impaired I ADL's, Impaired Self-Care Skills Discharge Recommendations Plan/Recommendations: Continue POC Therapy Discharge Recommendati: Post Acute OT Equpiment Recommendations-D/C: Hip Kit Treatment Plan/Plan of Care Treatment,Training & Education: Yes Patient would benefit from OT for education, treatment and training to promote independence in ADL's, mobility, safety and/or upper extremity function for ADL's. Plan of Care: ADL Retraining, Functional Mobility, Group Exercise/Act as Ind, UE Funct Exercise/Act Treatment Duration: Apr 22, 2019 Frequency: At least 5 of 7 days/Wk (IRF) Estimated Hrs Per Day: 1.5 hours per day Agreement: Yes Rehab Potential: Good Time/GCodes Start Time: 14:10 Stop Time: 14:40 Total Time Billed (hr/min): 30 Billed Treatment Time 1, ADl x 2 SARA SMITH OT Apr 08, 2019 16:02 POS
--- NOTE | 2019-04-08 16:37 | NUR ---
Notified Dr Teague in regards to eliquis. OK with surgeon to continue. Pharmacy notified
[2019-04-08] MEDS: HYDROcodone/APAP 5 MG/325 MG (LORTAB) TAB PO PRN (17:05)
[2019-04-08] MEDS: IBUPROFEN TABLET 200 MG TAB PO PRN (17:06)
--- NOTE | 2019-04-08 20:38 | PM&R Post Admission Assessment ---
PM&R HP Date of Visit: Apr 08, 2019 Time of Visit: 11:00 History of Present Illness CC: Debility following left hip fracture HPI: This is a 78yoWM clinic pt of Dr. Joshi in [place], only seen him once since he is new to him with a PMH of DM, and chronic AF that sustained a left hip fracture with a fall and subsequent underwent an uncomplicated hip fracture repair by Dr. Teague over the weekend. Currently hs bowels are moving, we will check stat labs for Hgb, Iron level, and electrolytes and will plan on transferring to inpatient rehab since he is usually fully independent without the use of assistive devices at home and he will ultimately recover completely at his daughter's house in [place]. 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 Past Xhztxlg-Ilmjlv-Hnhusi Hx Past Med/Social Hx: Reviewed Nursing Past Med/Soc Hx, Reviewed and Corrections made Patient Social History Marrital Status: single Employed/Student: retired Alcohol Use: Denies Use Recreational Drug Use: No Smoking Status: Former Smoker Physical Abuse Screen: No Sexual Abuse: No Recent Foreign Travel: No Contact w/other who traveled: No Recent Hopitalizations: No Recent Infectious Disease Expo: No Immunizations Up To Date Pediatric: Yes Date of Pneumonia Vaccine: Jun 12, 2018 Date of Influenza Vaccine: Feb 26, 2019 Seasonal Allergies Seasonal Allergies: Yes Past Medical History Surgeries: Appendectomy, Gallbladder, Orthopedic, Tonsillectomy Cardiac: Atrial Fibrillation, Hypertension Musculoskeletal: Fractures Endocrine: Diabetes, Non-Insulin dep History of Blood Disorders: No Family History Patient reports no known family medical history. 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 Self: Yes Current Level of Fuctioning Roll Left to Right: 2 Sit to Lyin (max assist with left LE and trunk) Lying to Sitting/Side of Bed: 2 (max assist with L LE and trunk) Sit to Stand: 2 (mod assist with skilled cues for sequencing) Chair/Jpu-jq-Qjckd Xfer: 4 (CGA) Car Transfer: 88 Does the Patient Walk: Yes Mode of Locomotion: Walk Anticipated Mode of Locomotion: Walk Distance: 1=up to 49 ft Walk 10 feet: 3 Walk 50 ft with 2 Turns: 88 Walk 150 ft: 88 Walking 10ft on uneven surface: 88 Gait Assistive Device: FWW Does the Pt Use a Wheelchair: No 1 Step (curb): 88 4 Steps: 88 12 Steps: 88 Picking up an Object: 88 Eatin (Per previous session.) Oral Hygiene: 3 (Per previous treatment) Shower/Bathe Self: 2 (Mod assist with overal sponge bath per previous treatment session.) Upper Body Dressin Lower Body Dressin (Pt. issued and educated on AE for LE dressing. Pt. up in chair and practices doffing/donning slipper socks x 2, with AE. Required mod assist overall.) On/Off Footwear: 2 Toileting Hygiene: 2 Toilet Transfer: 3 PM&R Allergy/Meds/Data Review Allergies Coded Allergies: codeine (Verified Allergy, Unknown, 04/08/19) Home Medications Scheduled PRN Acetaminophen (Acetaminophen), 1,000 MG PO Q8H PRN for PAIN-MILD (0-3), (Reported) Current Medications Current Medications See list Laboratory Data Laboratory Tests 04/08/19 09:43: 04/08/19 15:24: Glucometer 151H Review of Systems Constitutional: see HPI, dizziness, weakness EENTM: no symptoms reported Respiratory: no symptoms reported Cardiovascular: no symptoms reported Gastrointestinal: no symptoms reported Genitourinary: no symptoms reported Musculoskeletal: joint pain Skin: no symptoms reported Psychiatric/Neurological: No Symptoms Reported All Other Systems Reviewed Negative Unless Noted: Yes Physical Exam Physical Exam Vital Signs Vital Signs - First Documented 04/08/19 04/08/19 11:50 15:03 Temp 36.5 Pulse 95 Resp 18 B/P (MAP) 110/74 Pulse Ox 94 O2 Delivery Room Air Capillary Refill : Height, Weight, BMI Height: '" Weight: lbs. oz. kg; 28.18 BMI Method: General Appearance: No Apparent Distress, WD/WN, Chronically ill Eyes: Bilateral Eye Normal Inspection, Bilateral Eye PERRL HEENT: PERRL/EOMI, Normal ENT Inspection, Pharynx Normal Neck: Full Range of Motion, Normal Inspection, Non Tender, Supple, Carotid Bruit Respiratory: Chest Non Tender, Lungs Clear, Normal Breath Sounds, No Accessory Muscle Use, No Respiratory Distress Cardiovascular: Regular Rate, Rhythm, No Edema, No Gallop, No JVD, No Murmur, Normal Peripheral Pulses Gastrointestinal: Normal Bowel Sounds, No Organomegaly, No Pulsatile Mass, Non Tender, Soft Back: Normal Inspection, No CVA Tenderness, No Vertebral Tenderness Extremity: Normal Capillary Refill, Normal Inspection, Normal Range of Motion (except left leg), Non Tender, No Calf Tenderness, No Pedal Edema Neurologic/Psychiatric: Alert, Oriented x3, No Motor/Sensory Deficits, Normal Mood/Affect, wardrobe coordinator II-XII Norm as Tested Skin: Normal Color, Warm/Dry Lymphatic: No Adenopathy PM&R Medical Assessment & Plan REHAB/MEDICAL ASSESSMENT AND PLAN: REHAB IMPAIRMENT GROUP: Left femur fracture ETIOLOGIC DIAGNOSIS: Fall with left hip fracture The comorbidities that impact the patients function and/or functional outcome by: Chronic AF will require OAC and Cardiology management along with DM insulin management REHAB PLAN: The patient is being admitted to our comprehensive inpatient rehabilitation facility and can tolerate the intensity of service consisting of at least: 180 minutes of therapy a day, 5 out of 7 days a week Rehab treatment will consist of: PT will focus on evaluating his deficiencies with left femur fracture repair and OT will evaluate his needs for independent ADLs The patient/family has a good understanding of our discharge process and will benefit from an interdisciplinary inpatient rehabilitation program. The patient has potential to make improvement and is in need of at least two of the following multidisciplinary therapies including but not limited to physical, occupational, speech, and prosthetics and orthotics. Additionally the patient will need services from respiratory, nutritional services, wound care, psychology, etc. (Customize this to each patient). Given the patients complex condition and risk of further medical complications, rehabilitation services cannot be safely or effectively provided at a lower level of care such as a custodial facility. BARRIERS TO DISCHARGE: Ambulate at home with walker ESTIMATED LOS: 10 days DISPOSITION: Home RELEVANT CHANGES SINCE PREADMISSION SCREENING: I have compared the patients medical and functional status at the time of the preadmission screening and there are: no changes PROGNOSIS: Good REHABILITATION GOALS: 1. Return home with walker for ambulation 2. Regain independence with ADL's All the above goals were reviewed with the patient and he/she is in agreement. By signing this document, I acknowledge that I have personally performed a full physical examination on this patient within 24 hours of admission to this inpatient rehabilitation facility and have determined the patient to be able to tolerate the above course of treatment at an intensive level for a reasonable period of time. I will be completing a detailed individualized Plan of Care for this patient by day #4 of the patients stay based upon the Preadmission Screen, the Post-Admission Evaluation, and the therapy evaluations. Admission Dx/Comorbidities: (1) Hip fracture, intertrochanteric Status: Acute ICD Codes: S72.143A - Displaced intertrochanteric fracture of unspecified femur, initial encounter for closed fracture (2) On continuous oral anticoagulation ICD Codes: Z79.01 - group home (current) use of anticoagulants (3) Atrial fibrillation ICD Codes: I48.91 - Unspecified atrial fibrillation (4) Essential (primary) hypertension Status: Chronic ICD Codes: I10 - Essential (primary) hypertension (5) Non-insulin dependent type 2 diabetes mellitus Status: Chronic ICD Codes: E11.9 - Type 2 diabetes mellitus without complications CARLOZ CONNELL DO Apr 08, 2019 20:38 POS
[2019-04-08] MEDS: SENNA W/DOCUSATE (SENOKOT S) TABLET PO SCH (21:12)
[2019-04-08] MEDS: POLYETHYLENE GLYCOL 17 GM (MIRALAX) PACK PO SCH (21:12)
[2019-04-08] MEDS: MELATONIN 3 MG TABLET PO PRN (21:12)
[2019-04-09] MEDS: CATHETER FLUSH 10 ML SYR IV SCH ×3 (05:39→20:44)
[2019-04-09 05:56] VITALS: BP 130/78
[2019-04-09 06:30] LABS: BASOPHILS % (AUTO) 1 % (0-10); EOSINOPHILS # (AUTO) 0.2 10^3/uL (0.0-0.3); EOSINOPHILS % (AUTO) 3 % (0-10); HEMATOCRIT 42 % (40-54); HEMOGLOBIN 14.1 G/DL (13.3-17.7); LYMPHOCYTES % (AUTO) 13 % (12-44); MEAN CORPUSCULAR HEMOGLOBIN 31 PG (25-34); MEAN CORPUSCULAR HGB CONC 33 G/DL (32-36); MEAN CORPUSCULAR VOLUME 92 FL (80-99); MEAN PLATELET VOLUME 10.5 FL (7.4-10.4); MONOCYTES # (AUTO) 0.7 X 10^3 (0.0-1.0); MONOCYTES % (AUTO) 9 % (0-12); NEUTROPHILS # (AUTO) 5.8 X 10^3 (1.8-7.8); NEUTROPHILS % (AUTO) 74 % (42-75); PLATELET COUNT 261 10^3/uL (130-400); WHITE BLOOD COUNT 7.9 10^3/uL (4.3-11.0)
[2019-04-09] MEDS: HYDROcodone/APAP 5 MG/325 MG (LORTAB) TAB PO PRN ×2 (06:55→13:55)
[2019-04-09 06:59] LABS: ALANINE AMINOTRANSFERASE < 6 U/L (0-55); ALBUMIN 3.2 GM/DL (3.2-4.5); ALKALINE PHOSPHATASE 74 U/L (40-136); BILIRUBIN,TOTAL 1.5 MG/DL (0.1-1.0); BUN/CREATININE RATIO 26; CALCIUM 8.8 MG/DL (8.5-10.1); CARBON DIOXIDE 23 MMOL/L (21-32); CHLORIDE 104 MMOL/L (98-107); CREATININE SERUM 1.04 MG/DL (0.60-1.30); GFR ESTIMATED > 60; GLUCOSE 139 MG/DL (70-105); SODIUM 137 MMOL/L (135-145); TOTAL PROTEIN 6.3 GM/DL (6.4-8.2)
--- NOTE | 2019-04-09 08:29 | PM&R Progress Note ---
Subjective HPI/CC On Admission Date Seen by Provider: Apr 09, 2019 Time Seen by Provider: 08:30 Subjective/Events-last exam Pt doing very well. Pain is well controlled. Cardiology is discontinuing Telemetry. Oral anticoagulation was discussed since he can't afford the $600 per month of Eliquis. Spoke with cardiology. Bowels are moving. Diabetes seems to be well controlled, were awaiting Hgb-A1C and that will likely change to Acu-checks every day instead of AC and HS. Checked meds and labs Conferred with RN Reviewed therapy notes Review of Systems General: Fatigue Musculoskeletal: leg pain Objective Exam Vital Signs Vital Signs Date Time Temp Pulse Resp B/P (MAP) Pulse Ox O2 Delivery O2 Flow Rate FiO2 04/09/19 16:23 36.9 95 16 121/76 (91) 93 Room Air Capillary Refill : Less Than 3 Seconds General Appearance: No Apparent Distress, WD/WN, Chronically ill HEENT: PERRL/EOMI, Normal ENT Inspection, Pharynx Normal Neck: Full Range of Motion, Normal Inspection, Non Tender, Supple, Carotid Bruit Respiratory: Chest Non Tender, Lungs Clear, Normal Breath Sounds, No Accessory Muscle Use, No Respiratory Distress Cardiovascular: Regular Rate, Rhythm, No Edema, No Gallop, No JVD, No Murmur, Normal Peripheral Pulses Gastrointestinal: Normal Bowel Sounds, No Organomegaly, No Pulsatile Mass, Non Tender, Soft Back: Normal Inspection, No CVA Tenderness, No Vertebral Tenderness Extremity: Normal Capillary Refill, Normal Inspection, Normal Range of Motion (except left leg), Non Tender, No Calf Tenderness, No Pedal Edema Neurologic/Psychiatric: Alert, Oriented x3, No Motor/Sensory Deficits, Normal Mood/Affect, midwife practitioner II-XII Norm as Tested Skin: Normal Color, Warm/Dry Lymphatic: No Adenopathy Results/Procedures Lab Laboratory Tests 04/09/19 05:54 Patient resulted labs reviewed. FIM Transfers Therapy Code Descriptions/Definitions Functional [place] Measure: 0=Not Assessed/NA 4=Minimal Assistance 1=Total Assistance 5=Supervision or Setup 2=Maximal Assistance 6=Modified [place] 3=Moderate Assistance 7=Complete IndependenceSCALE: Activities may be completed with or without assistive devices. 6-Rzavbysqsp-iswokfd completes the activity by him/herself with no assistance from a helper. 5-Set-up or Clean-up Assistance-helper sets up or cleans up; patient completes activity. [place] assists only prior to or following the activity. 4-Supervision or Touching Assistance-helper provides verbal cues and/or touching/steadying and/or contact guard assistance as patient completes activity. Assistance may be provided throughout the activity or intermittently. 3-Partial/Moderate Assistance-helper does LESS THAN HALF the effort. [place] lifts, holds or supports trunk or limbs, but provides less than half the effort. 2-Substantial/Maximal Assistance-helper does MORE THAN HALF the effort. [place] lifts or holds trunk or limbs and provides more than half the effort. 9-Vifzxmhkk-ahzfha does ALL the effort. Patient does none of the effort to complete the activity. Or, the assistance of 2 or more helpers is required for the patient to complete the activity. If activity was not attempted, code reason: 7-Patient Refused. 9-Not Applicable-not attempted and the patient did not perform the activity before the current illness, exacerbation or injury. 10-Not Attempted due to Environmental Limitations-(lack of equipment, weather restraints, etc.). 88-Not Attempted due to Medical Conditions or Safety Concerns. Roll Left to Right (QC): 2 Sit to Lying (QC): 2 (max assist with left LE and trunk) Sit to Stand (QC): 2 (mod assist with skilled cues for sequencing) Chair/Ivp-cy-Jseeb Xfer(QC): 4 (CGA) Car Transfer (QC): 88 Gait Training Does the Patient Walk?: Yes Distance (FIM): 1=up to 49 ft Walk 10 feet (QC): 3 Walk 50 ft with 2 Turns(QC): 88 Walk 150 ft (QC): 88 Walking 10ft/uneven surface-QC: 88 Gait Assistive Device: FWW Wheelchair Training Does the Pt Use a Wheelchair?: No Stair Training 1 Step (curb) (QC): 88 4 Steps (QC): 88 12 Steps (QC): 88 Balance Picking up an Object (QC): 88 ADL-Treatment Eating (QC): 6 (Per previous session.) Oral Hygiene (QC): 3 (Per previous treatment) Shower/Bathe Self (QC): 2 (Mod assist with overal sponge bath per previous treatment session.) Upper Body Dressing (QC): 7 Lower Body Dressing (QC): 3 (Pt. issued and educated on AE for LE dressing. Pt. up in chair and practices doffing/donning slipper socks x 2, with AE. Required mod assist overall.) On/Off Footwear (QC): 2 Toileting Hygiene (QC): 2 Toilet Transfer (QC): 3 Assessment/Plan Assessment and Plan Assess & Plan/Chief Complaint Assessment: Left hip fracture Fall AF OAC DM HTN Plan: OAC coupon Cardiology is appreciated IRF protocol (1) Hip fracture, intertrochanteric Status: Acute Qualifiers: Laterality: left Fracture healing: with routine healing (2) On continuous oral anticoagulation (3) Atrial fibrillation (4) Essential (primary) hypertension Status: Chronic (5) Non-insulin dependent type 2 diabetes mellitus Status: Chronic CARLOZ CONNELL DO Apr 09, 2019 08:29 POS
--- NOTE | 2019-04-09 09:00 | Physical Therapy Daily Note ---
PT Daily Note-Current Subjective pt in bed pre-tx agrees to PT this morning. pt reports no pain at this time but states he needs to use the bedside commode, and was able to have a small BM. Appearance pt in recliner post-tx with feet elevated with call light, room phone, tray table in reach with all needs met at this time. Mental Status Patient Orientation: Person, Place, Time, Situation Attachments: IV Transfers SCALE: Activities may be completed with or without assistive devices. 9-Zgeefecgrf-bgdgkxp completes the activity by him/herself with no assistance from a helper. 5-Set-up or Clean-up Assistance-helper sets up or cleans up; patient completes activity. [place] assists only prior to or following the activity. 4-Supervision or Touching Assistance-helper provides verbal cues and/or touching/steadying and/or contact guard assistance as patient completes acti vity. Assistance may be provided throughout the activity or intermittently. 3-Partial/Moderate Assistance-helper does LESS THAN HALF the effort. [place] lifts, holds or supports trunk or limbs, but provides less than half the effort. 2-Substantial/Maximal Assistance-helper does MORE THAN HALF the effort. [place] lifts or holds trunk or limbs and provides more than half the effort. 0-Xlaypzdhe-tquvbg does ALL the effort. Patient does none of the effort to complete the activity. Or, the assistance of 2 or more helpers is required for the patient to complete the activity. If activity was not attempted, code reason: 7-Patient Refused. 9-Not Applicable-not attempted and the patient did not perform the activity before the current illness, exacerbation or injury. 10-Not Attempted due to Environmental Limitations-(lack of equipment, weather restraints, etc.). 88-Not Attempted due to Medical Conditions or Safety Concerns. Sit to Stand (QC): 3 (Yary-CGA. ) Chair/Byc-cg-Gvyez Xfer(QC): 3 (Yary-CGA) to stand pt demonstrating proper hand position and need to scoot hips forward. pt with increased hip flexion during stand but is able to straighten up with arms on the FWW Weight Bearing Right Lower Extremity: Right Weight Bearing/Tolerated Left Lower Extremity: Left Weight Bearing/Tolerated Gait Training Distance: 8',9' Gait Assistive Device: FWW pt slowly steps the L foot forward 2-3 times to get a full step length before stepping through with the right foot. Pt with antalgic gait pattern. Wheelchair Training Does the Pt Use a Wheelchair?: Yes Wheelchair Distance: 3=150 ft Distance: 200' Wheel 50 ft with 2 turns (QC): 6 Wheel 150 ft (QC): 6 Type of Wheelchair: Manual Balance Special Test Comments pt able to lean down to don/doff LE clothing without holding onto seat. Pt able to stand without hands on FWW to lean down and pull up LE clothing. Exercises Seated Therapy Exercises: Ankle pumps Seated Reps: 20 Treatments pt performed functional LE strengthening, transfer training, skilled ambulation training, toileting, balance training, and education. Assessment Current Status: Fair Progress pt is able to transfer and ambulate with mainly with CGA with Yary needed from time to time. Pt moves with very slow controlled motions for all stands, sits, and ambulation. Pt c/o light headedness during ambulation which he was having before coming to ARU, BP was taken after a sitting rest and was 95/72, pt then stood and pressures retaken were 85/58. Pt reports this is not normal from home will continue to monitor while in ARU PT Nursing Home Goals Nursing Home Goals PT [employer] Information Architect Goals Time Frame: Apr 24, 2019 Sit to Lying (QC): 6 Lying-Sitting on Side/Bed(QC): 6 Sit to Stand (QC): 6 Roll Left to Right (QC): 6 Chair/Flx-qx-Ejsve Xfer(QC): 6 Car Transfer (QC): 5 Does the Patient Walk: Yes Walk 10 feet (QC): 6 Walk 10ft-Uneven Surface(QC): 6 Walk 50ft with 2 Turns (QC): 6 Walk 150 ft (QC): 6 Gait Assistive Device: FWW 1 Step (curb) (QC): 6 4 Steps (QC): 5 12 Steps (QC): 9 Picking up an Object (QC): 88 PT Plan Problem List Problem List: Activity Tolerance, Functional Strength, Safety, Balance, Gait, Transfer, Bed Mobility, ROM Treatment/Plan Treatment Plan: Continue Plan of Care Treatment Plan: Bed Mobility, Education, Functional Activity Sylvester, Functional Strength, Group Therapy, Gait, Safety, Therapeutic Exercise, Transfers Treatment Duration: Apr 24, 2019 Patient and/or Family Agrees t: Yes Safety Risks/Education Patient Education: Gait Training, Transfer Techniques, Correct Positioning, W/C Management, Safety Issues Teaching Recipient: Patient Teaching Methods: Demonstration, Discussion Response to Teaching: Return Demonstration, Reinforcement Needed Time/GCodes Time In: 800 Time Out: 900 Total Billed Treatment Time: 60 Total Billed Treatment 1 visit FA 45' GT 15' AIRAM DAWKINS PT Apr 09, 2019 09:00 POS
[2019-04-09] MEDS ORDERED: APIXABAN 5 MG (ELIQUIS) TABLET PO ONE (09:15)
[2019-04-09] MEDS: meTOproloL SUCCINATE 50 MG (TOPROL XL) TAB PO SCH (10:07)
[2019-04-09] MEDS: POLYETHYLENE GLYCOL 17 GM (MIRALAX) PACK PO SCH ×2 (10:10→20:44)
[2019-04-09] MEDS: SENNA W/DOCUSATE (SENOKOT S) TABLET PO SCH ×2 (10:10→20:41)
--- NOTE | 2019-04-09 10:29 | Progress Note - Cardiology ---
Cardiology SOAP Progress Note Subjective: Up to w/c with PT. No c/o CP, palpitations, dyspnea, syncope or near syncope. Objective: I&O/Vital Signs 04/09/19 04/09/19 04/09/19 04/09/19 05:56 06:52 08:20 12:38 Temp 36.8 Pulse 80 92 87 Resp 16 B/P (MAP) 130/78 (95) Pulse Ox 96 O2 Delivery Room Air Room Air 04/09/19 00:00 Intake Total 640 ml Output Total 300 ml Balance 340 ml Constitutional: appears stated age, well-developed, well-nourished Respiratory: No accessory muscle use, No respiratory distress; chest expansion is symmetric, chest is bilaterally symmetric Cardiovascular: irregularly irregular; No JVD; S1 and S2 Gastrointestional: No tender; soft, round, audible bowel sounds Extremities: other (mild bilat LE swelling) Neurologic/Psychiatric: grossly intact Skin: No rash on exposed areas, No ulcerations on exposed areas Results/Procedures: Labs Laboratory Tests 04/08/19 15:24: Glucometer 151H 04/08/19 20:32: Glucometer 139H 04/09/19 05:41: Glucometer 131H 04/09/19 05:54: White Blood Count 7.9, Red Blood Count 4.60, Hemoglobin 14.1, Hematocrit 42, Mean Corpuscular Volume 92, Mean Corpuscular Hemoglobin 31, Mean Corpuscular Hemoglobin Concent 33, Red Cell Distribution Width 13.0, Platelet Count 261, Mean Platelet Volume 10.5H, Neutrophils (%) (Auto) 74, Lymphocytes (%) (Auto) 13, Monocytes (%) (Auto) 9, Eosinophils (%) (Auto) 3, Basophils (%) (Auto) 1, Ne utrophils # (Auto) 5.8, Lymphocytes # (Auto) 1.0, Monocytes # (Auto) 0.7, Eosinophils # (Auto) 0.2, Basophils # (Auto) 0.0, Sodium Level 137, Potassium Level 4.0, Chloride Level 104, Carbon Dioxide Level 23, Anion Gap 10, Blood Urea Nitrogen 27H, Creatinine 1.04, Estimat Glomerular Filtration Rate > 60, BUN/Creatinine Ratio 26, Glucose Level 139H, Calcium Level 8.8, Corrected Calcium 9.4, Total Bilirubin 1.5H, Aspartate Amino Transf (AST/SGOT) 13, Alanine Aminotransferase (ALT/SGPT) < 6, Alkaline Phosphatase 74, Total Protein 6.3L, Albumin 3.2 04/09/19 10:50: Glucometer 179H Laboratory Tests 04/09/19 05:54 A/P: Assessment: Intertrochanteric fracture left femur on 04/05/19; s/p closed reduction and application of intramedullary nail on 04/06/19 Atrial fibrillation of undetermined age. Probably chronic and permanent Echo 04/07/19: LVEF 50%, mild MR & TR, RVSP 17 mmHg Hypertension DM II, as indicated in Dr Cope's note and in the elevated blood sugars at this hospital, but the pt himself denies any diabetes Plan: Continue current medication regimen Start Eliquis 5mg BID Monitor lab Spoke with Dr. Ortiz this morning, she is in agreement with [facility]AC Physician Assessment Physician Assessment No cp or palp or syncope or shortness of breath at rest Lungs: good bilat air entry Cor: reg Ext: no c/c; no edema except some of the affected limb A&R * As documented in our note above that I updated (italics) and as noted below * D/c tele * Continue current regimen for vent rate control and for stroke prophylaxis * Monitor labs DUYEN BAUTISTA Apr 09, 2019 10:29 AKASH AQUINO MD [facility], 2019 15:03 POS
--- NOTE | 2019-04-09 10:36 | Progress Note ---
DEBRA ELLISMED STUDENT 04/09/19 1036: Progress Note CC: S/p Intertrochanteric hip fx repair p/o day 4 Barriers Hgb AIC pending, pt already on diabetic diet Pt continues to have little appetite and is hardly touching his food, asked him to try to eat more since total protein is low Concerning for weakness and lightheadedness during exertion, denies dizziness or feelings of syncope. Does not think its affecting his PT Plan after rehab is to move in with daughter, son-in-law and son for assistance Four steps going up to daughter's home Transferring alone and ambulating with walker, requiring a little assistance for changing and using restroom Rising OOB alone but having trouble sliding his fx leg GISSEL ORTIZ DO 04/09/192032: Supervisory-Addendum Brief Verification & Attestation Participated in pt care: history, MDM, physical Personally performed: exam, history, MDM, supervision of care Care discussed with: Medical Student Procedures: n/a Results interpretation: Verified all documentation Verification and Attestation of Medical Student E/M Service A medical student performed and documented this service in my presence. I reviewed and verified all information documented by the medical student and made modifications to such information, when appropriate. I personally performed the physical exam and medical decision making. Gissel Ortiz, Apr 09, 2019,20:33 DEBRA ELLIS,MED STUDENT Apr 09, 2019 10:36 GISSEL RAY DO Apr 09, 2019 20:33 POS
--- NOTE | 2019-04-09 12:02 | ST Cognitive Linguistic Eval ---
Speech Evaluation-General Medical Diagnosis left femur fx/ORIF Onset Date: Apr 08, 2019 Therapy Diagnosis Therapy Diagnosis: Cognitive-communication Referral Referring Physician: Dr. Ortiz Medical History Pertinent Medical History: Atrial Fib, DM, HTN Reviewed History: Yes Social History Current Living Status: Spouse Speech PLF-Current Status Prior Level of Function Patient lived with his son and in [place] where he was independent with his daily needs. Subjective Patient was pleasant and cooperative with the cognitive assessment. Language Eval: Auditory Comprehends Simple Yes/No Ques: Functional Indent/Objects Multiple [place]: Functional Ident/Pics in Multiple [place]: Functional Follows 1-Step Commands: Functional Follows Complex Directions: Functional Follows General Conversations: Functional Language Eval: Verbal Language Completes Spontaneous Greeting: Functional Produces Auto, Serial Info: Functional Imitates Simple Words/Phrases: Functional Word Finding: Functional Requests Basic Needs: Functional States Basic Personal Info: Functional Expresses Complex Ideas: Functional Objective Cognitive Domain Attention: WNL Memory: Mild Problem Solving: Functional Executive Functions: WNL Visuospatial Skills: WNL Composite Severity Rating: WNL Clock Drawing Severity Rating: WNL Objective Formal/Standardized Tests [facility] Mental Status ([facility]) Results 28/30, within normal range of function Oral Motor/Speech Production Within Normal Limits Impression Patient is a pleasant 78 year old man who was admitted to the ARU s/p hip fracture. Patient was given the SLUMS at bedside with results of 28/30. This score is within the normal range of function. The patient does not require further ST services at this time. Speech Patient Assess Expression of Ideas/Wants: Expression (4) Understanding Verbal Content: Understands (4) Brief Interview-Mental Status: Yes Repetition of Three Words: Three (3) Temporal Orientation: Year: Correct (3) Temporal Orientation: Month: Accurate within 5 days(2) Temporal Orientation: Day: Correct (1) Recall : Wear to say "Sock": Yes, no cue required (2) Recall : Color: Yes, no cue required (2) Recall : Bed: Yes, no cue required (2) Memory/Recall Ability: Current season, Location of own room, That he or she is in a hsp/hsp unit Speech-Plan Patient/Family Goals Patient/Family Goals: The patient plans on moving in with his daughter in [place] upon rehab discharge. Treatment Plan Speech Therapy Treatment Plan: Discontinue ST Patient does not warrant skilled ST at this time. Treatment Duration: Apr 09, 2019 Frequency: 1 time per week Estimated Hrs Per Day: .25 hour per day Rehab Potential: Good Barriers to Learning: None identified Pt/Family Agrees to Plan: Yes Safety Risks/Education Teaching Recipient: Patient Teaching Methods: Discussion Response to Teaching: Verbalize Understanding Education Topics Provided: Safety within his room and while on the ARU Time Speech Therapy Time In: 10:30 Speech Therapy Time Out: 10:45 Total Billed Time: 15 Billed Treatment Time 1, SOLEDAD Aldrich Apr 09, 2019 12:02 POS
--- NOTE | 2019-04-09 12:57 | Occupational Ther Daily Note ---
OT Current Status-Daily Note Subjective Pt alert, sitting in recliner. Pt agrees to therapy. Per PT, pt is having orthostatic issues and ambulate ~50 feet. No c/o pain at this time. Mental Status/Objective Patient Orientation: Person, Place, Time, Situation Attachments: IV, Telemetry ADL-Treatment Pt declined bathing or changing clothing. Pt did complete oral hygiene sitting at sink by self. Therapy Code Descriptions/Definitions Functional [place] Measure: 0=Not Assessed/NA 4=Minimal Assistance 1=Total Assistance 5=Supervision or Setup 2=Maximal Assistance 6=Modified [place] 3=Moderate Assistance 7=Complete IndependenceSCALE: Activities may be completed with or without assistive devices. 9-Dwgckdeers-woryxre completes the activity by him/herself with no assistance from a helper. 5-Set-up or Clean-up Assistance-helper sets up or cleans up; patient completes activity. [place] assists only prior to or following the activity. 4-Supervision or Touching Assistance-helper provides verbal cues and/or touching/steadying and/or contact guard assistance as patient completes activity. Assistance may be provided throughout the activity or intermittently. 3-Partial/Moderate Assistance-helper does LESS THAN HALF the effort. [place] lifts, holds or supports trunk or limbs, but provides less than half the effort. 2-Substantial/Maximal Assistance-helper does MORE THAN HALF the effort. [place] lifts or holds trunk or limbs and provides more than half the effort. 8-Lvnrepwya-zexrgj does ALL the effort. Patient does none of the effort to complete the activity. Or, the assistance of 2 or more helpers is required for the patient to complete the activity. If activity was not attempted, code reason: 7-Patient Refused. 9-Not Applicable-not attempted and the patient did not perform the activity before the current illness, exacerbation or injury. 10-Not Attempted due to Environmental Limitations-(lack of equipment, weather restraints, etc.). 88-Not Attempted due to Medical Conditions or Safety Concerns. Oral Hygiene (QC): 6 Other Treatment Pt was able to propel and manage w/c throughout ARU and in/out of doorways to increase mobility and UE strengthening. UE exercises completed to increase strength and activity tolerance for daily functional tasks. Arm bike with minimal resistance for 15 min, no recovery breaks needed. Using 2# wt for 4 UE strengthening exercises in all planes, 3 sets 10 reps, were completed with recovery break between each set. Min A to lift L LE into bed. After therapy, pt lying in bed with call light/phone in reach. All needs met in room. OT Short Term Goals Short Term Goals Time Frame: Apr 15, 2019 Eating(FIM): 6 Grooming(FIM): 5 Bathing(FIM): 4 Upper Body Dressing(FIM): 5 Lower Body Dressing(FIM): 4 Toileting(FIM): 3 Transfers (B,C,W/C) (FIM): 4 Toilet/Commode Transfer(FIM): 4 Shower Transfer(FIM): 4 Additional Short Term Goals: 1-Demonstrate ADL Tasks, 2-Verbalize Understanding, 3-ImproveStrength/Sylvester 1=Demonstrate adherence to instructed precautions during ADL tasks. 2=Patient will verbalize/demonstrate understanding of assistive devices/modifications for ADL. 3=Patient will improve strength/tolerance for activity to enable patient to perform ADL's. OT Jail Goals Jail Goals Time Frame: Apr 22, 2019 Eating (QC): 6 Oral Hygiene (QC): 6 Shower/Bathe Self (QC): 5 Upper Body Dressing (QC): 6 Lower Body Dressing (QC): 6 On/Off Footwear (QC): 6 Toileting Hygiene (QC): 6 Toilet/Commode Transfer (QC): 6 Additional Goals: 1-Demonstrate ADL Tasks, 2-Verbalize Understanding, 3-ImproveStrength/Sylvester 1=Demonstrate adherence to instructed precautions during ADL tasks. 2=Patient will verbalize/demonstrate understanding of assistive devices/modifications for ADL. 3=Patient will improve strength/tolerance for activity to enable patient to perform ADL's. OT Education/Plan Problem List/Assessment Assessment: Decreased Activ Tolerance, Decreased UE Strength, Impaired Self- Care Skills Discharge Recommendations Plan/Recommendations: Continue POC Treatment Plan/Plan of Care Patient would benefit from OT for education, treatment and training to promote independence in ADL's, mobility, safety and/or upper extremity function for ADL's. Plan of Care: ADL Retraining, Functional Mobility, Group Exercise/Act as Ind, UE Funct Exercise/Act Treatment Duration: Apr 22, 2019 Frequency: At least 5 of 7 days/Wk (IRF) Estimated Hrs Per Day: 1.5 hours per day Agreement: Yes Rehab Potential: Good Time/GCodes Start Time: 09:00 Stop Time: 10:00 Total Time Billed (hr/min): 60 Billed Treatment Time 1 visit-EX 2 (30 min) ADL 1 (15 min) FA 1 (15 min) PAM KUO Apr 09, 2019 12:57 POS
--- NOTE | 2019-04-09 13:36 | Occupational Ther Daily Note ---
OT Current Status-Daily Note Subjective Pt lying in bed. Pt agrees to therapy. No c/o pain at this time. Mental Status/Objective Patient Orientation: Person, Place, Time, Situation Attachments: IV, Telemetry ADL-Treatment Min A supine to EOB, assist with L LE. CGA for SPT from EOB to w/c. Pt maneuvered w/c into bathroom to wash face and hands. Therapy Code Descriptions/Definitions Functional [place] Measure: 0=Not Assessed/NA 4=Minimal Assistance 1=Total Assistance 5=Supervision or Setup 2=Maximal Assistance 6=Modified [place] 3=Moderate Assistance 7=Complete IndependenceSCALE: Activities may be completed with or without assistive devices. 7-Hmksquqcuh-sneuseo completes the activity by him/herself with no assistance from a helper. 5-Set-up or Clean-up Assistance-helper sets up or cleans up; patient completes activity. [place] assists only prior to or following the activity. 4-Supervision or Touching Assistance-helper provides verbal cues and/or touching/steadying and/or contact guard assistance as patient completes activity. Assistance may be provided throughout the activity or intermittently. 3-Partial/Moderate Assistance-helper does LESS THAN HALF the effort. [place] lifts, holds or supports trunk or limbs, but provides less than half the effort. 2-Substantial/Maximal Assistance-helper does MORE THAN HALF the effort. [place] lifts or holds trunk or limbs and provides more than half the effort. 8-Aabzqfjxl-cubobt does ALL the effort. Patient does none of the effort to complete the activity. Or, the assistance of 2 or more helpers is required for the patient to complete the activity. If activity was not attempted, code reason: 7-Patient Refused. 9-Not Applicable-not attempted and the patient did not perform the activity before the current illness, exacerbation or injury. 10-Not Attempted due to Environmental Limitations-(lack of equipment, weather restraints, etc.). 88-Not Attempted due to Medical Conditions or Safety Concerns. Other Treatment Pt maneuvered w/c to therapy gym. Pt then completed UE strength and fine motor activity to increase dexterity and strength for daily functional tasks. After therapy, pt sitting in w/c in room to wait on next PT session. Call light/phone in reach. All needs met in room. OT Short Term Goals Short Term Goals Time Frame: Apr 15, 2019 Eating(FIM): 6 Grooming(FIM): 5 Bathing(FIM): 4 Upper Body Dressing(FIM): 5 Lower Body Dressing(FIM): 4 Toileting(FIM): 3 Transfers (B,C,W/C) (FIM): 4 Toilet/Commode Transfer(FIM): 4 Shower Transfer(FIM): 4 Additional Short Term Goals: 1-Demonstrate ADL Tasks, 2-Verbalize Understanding, 3-ImproveStrength/Syl[place] 1=Demonstrate adherence to instructed precautions during ADL tasks. 2=Patient will verbalize/demonstrate understanding of assistive devices/modifications for ADL. 3=Patient will improve strength/tolerance for activity to enable patient to perform ADL's. OT Snf Goals Snf Goals Time Frame: Apr 22, 2019 Eating (QC): 6 Oral Hygiene (QC): 6 Shower/Bathe Self (QC): 5 Upper Body Dressing (QC): 6 Lower Body Dressing (QC): 6 On/Off Footwear (QC): 6 Toileting Hygiene (QC): 6 Toilet/Commode Transfer (QC): 6 Additional Goals: 1-Demonstrate ADL Tasks, 2-Verbalize Understanding, 3- ImproveStrength/S[place]vester 1=Demonstrate adherence to instructed precautions during ADL tasks. 2=Patient will verbalize/demonstrate understanding of assistive devices/modifications for ADL. 3=Patient will improve strength/tolerance for activity to enable patient to perform ADL's. OT Education/Plan Problem List/Assessment Assessment: Decreased UE Strength, Impaired Self-Care Skills Discharge Recommendations Plan/Recommendations: Continue POC Treatment Plan/Plan of Care Patient would benefit from OT for education, treatment and training to promote independence in ADL's, mobility, safety and/or upper extremity function for ADL's. Plan of Care: ADL Retraining, Functional Mobility, Group Exercise/Act as Ind, UE Funct Exercise/Act Treatment Duration: Apr 22, 2019 Frequency: At least 5 of 7 days/Wk (IRF) Estimated Hrs Per Day: 1.5 hours per day Agreement: Yes Rehab Potential: Good Time/GCodes Start Time: 13:00 Stop Time: 13:13 Total Time Billed (hr/min): 30 Billed Treatment Time 1 visit-FA 1 (15 min) EX 1 (15 min) PAM KUO Apr 09, 2019 13:36 POS
--- NOTE | 2019-04-09 14:57 | Physical Therapy Daily Note ---
PT Daily Note-Current Subjective pt in WC pre-tx agrees to PT at this time. pt reports 5/10 pain and RX given during session. Appearance pt in bed post-tx with call light, room phone, tray table in reach with all needs met at this time. Mental Status Patient Orientation: Person, Place, Time, Situation Attachments: IV Transfers SCALE: Activities may be completed with or without assistive devices. 6-Mtlrcveniy-dssevmc completes the activity by him/herself with no assistance from a helper. 5-Set-up or Clean-up Assistance-helper sets up or cleans up; patient completes activity. [place] assists only prior to or following the activity. 4-Supervision or Touching Assistance-helper provides verbal cues and/or touching/steadying and/or contact guard assistance as patient completes activity. Assistance may be provided throughout the activity or intermittently. 3-Partial/Moderate Assistance-helper does LESS THAN HALF the effort. [place] lifts, holds or supports trunk or limbs, but provides less than half the effort. 2-Substantial/Maximal Assistance-helper does MORE THAN HALF the effort. [place] lifts or holds trunk or limbs and provides more than half the effort. 8-Gukbmgtex-pafbrp does ALL the effort. Patient does none of the effort to complete the activity. Or, the assistance of 2 or more helpers is required for the patient to complete the activity. If activity was not attempted, code reason: 7-Patient Refused. 9-Not Applicable-not attempted and the patient did not perform the activity be fore the current illness, exacerbation or injury. 10-Not Attempted due to Environmental Limitations-(lack of equipment, weather restraints, etc.). 88-Not Attempted due to Medical Conditions or Safety Concerns. Sit to Lying (QC): 3 (Yary) Sit to Stand (QC): 4 (SBA) Chair/Egp-ob-Ovflt Xfer(QC): 3 (Yary) Weight Bearing Right Lower Extremity: Right Weight Bearing/Tolerated Left Lower Extremity: Left Weight Bearing/Tolerated Gait Training Distance: 16',8' Walk 10 feet (QC): 4 (CGA) Gait Assistive Device: FWW Pt continues to demonstrate multiple shuffles on the LLE to progress the L foot. Pt demonstrates weakness in the L hip for progression and is able to progress foot with only 2 shuffles when cued. pt ambulated 8' in the //bars with focus on stepping forward with the L foot without taking the shuffle steps. Wheelchair Training Does the Pt Use a Wheelchair?: Yes Wheelchair Distance: 3=150 ft Distance: 120'x2 Wheel 50 ft with 2 turns (QC): 6 Type of Wheelchair: Manual Exercises Seated Therapy Exercises: Ankle pumps, Long arc quads, Hip flexion Seated Reps: 30 (2sets 15reps) Standing: Step-ups (stepping left foot up onto pink box in // bars) Standing Reps: 5 Treatments pt performed functional LE strengthening, skilled ambulation training, transfer training, and bed mobility. Assessment Current Status: Good Progress pt has difficulty with ambulation this afternoon with fatigue following structured therapy. Pt self limited distance with ambulation. Pt was able to step up onto box and was dragging the L foot back down off of the box but was able to get increased hip flexion to lift the foot without dragging. Will continue to target hip flexion strength PT Short Term Goals Short Term Goals Wheelchair Distance: 200' PT Fruit Vendor Goals Fruit Vendor Goals PT Fruit Vendor Goals Time Frame: Apr 24, 2019 Sit to Lying (QC): 6 Lying-Sitting on Side/Bed(QC): 6 Sit to Stand (QC): 6 Roll Left to Right (QC): 6 Chair/Rcd-ee-Bfokp Xfer(QC): 6 Car Transfer (QC): 5 Does the Patient Walk: Yes Walk 10 feet (QC): 6 Walk 10ft-Uneven Surface(QC): 6 Walk 50ft with 2 Turns (QC): 6 Walk 150 ft (QC): 6 Gait Assistive Device: FWW 1 Step (curb) (QC): 6 4 Steps (QC): 5 12 Steps (QC): 9 Picking up an Object (QC): 88 PT Plan Problem List Problem List: Activity Tolerance, Functional Strength, Safety, Balance, Gait, Transfer, Bed Mobility, ROM Treatment/Plan Treatment Plan: Continue Plan of Care Treatment Plan: Bed Mobility, Education, Functional Activity [place], Functional Strength, Group Therapy, Gait, Safety, Therapeutic Exercise, Transfers Treatment Duration: Apr 24, 2019 Frequency: At least 5 of 7 days/Wk (IRF) Estimated Hrs Per Day: 1.5 hours per day Patient and/or Family Agrees t: Yes Safety Risks/Education Patient Education: Gait Training, Transfer Techniques, Steps, Correct Positioning, W/C Management, Safety Issues Teaching Recipient: Patient Teaching Methods: Demonstration, Discussion Response to Teaching: Return Demonstration, Reinforcement Needed Time/GCodes Time In: 1345 Time Out: 1415 Total Billed Treatment Time: 30 Total Billed Treatment 1 visit FA 15' GT 15' AIRAM DAWKINS PT Apr 09, 2019 14:57 POS
--- NOTE | 2019-04-09 15:36 | NUR ---
Initial visit by [employer] Andrews: engaged is rapport building and introduced Spiritual Care services. The pt is [employer].
[2019-04-09 16:23] VITALS: BP 121/76
--- NOTE | 2019-04-09 16:48 | NUR ---
"RD ASSESSMENT PMHx: HTN; DM PT INTERACTION: Pt was awake and pleasant during nutrition assessment. Pt states current appetite is poor and has been for some time. Note pt avg PO intake <50% x3d, per chart review. Pt states following a regular diet at home, and currently has no issues with chewing/swallowing food. Pt states no recent issues with n/v at this time. Pt states some issues with constipation. Note last BM was 04/08, and pt currently on bowel regimen of miralaz BID, senna BID, bisacodyl PRN, and colace PRN, per chart review. Pt states some recent wt loss, but could not give timeframe or amount of weight lost. Note unable to determine recent wt hx, per chart review. ABNORMAL NUTRITION-RELATED LAB VALUES: BUN 27 (H); glu 139 (H); bili 1.3 (H); Pro 6.3 (L) Est. kcal needs: 3618-0863 kcal (20-25 kcal/kg) Est. Pro needs: 75-94 g Pro (0.8-1.0 g Pro/kg) PES STATEMENT: Inadequate oral intake (NI-2.1) related to loss of appetite | constipation as evidenced by avg PO intake of <50% x3d INTERVENTION: Continue with current diet order of Regular diet. Add Ensure Enlive (vary) to meals QD at dinner. Provides 350 kcal and 20 g Pro per serving. MONITOR/EVALUATE: PO Intake; Plan of Care; Hydration Status; Weight Status; Lab Values Elsie Mares, MS, RD, LD"
--- NOTE | 2019-04-09 17:06 | NUR ---
Initial assessment completed with patient and family members; daughter, Diana Masters, son Alo "Juan" Michael, and spouse Rachelle "Monica" Michael. Patient was admitted to medical acute after a fall with fracture 04/05/19 and to ARU 04/08/19 for Left Femur Fracture, post op nailing 04/06/19. He was IADL for all activities prior to injury and he was primary caregiver for his Monica who has history of stroke with impairment. They had two daughters, the eldest 12 years ago, Diana is primary for support and care of all their matters at this time. Their son Juan was adopted as a child and has intellectual disability, he reportedly drives and lives alone but patient is his payee and he is vulnerable without supervision. Patient is insured Medicare, supplement [employer], Rx [employer]. Discussed length of stay which patient understands to be 7-10 days, and the Weekly Team Conference schedule and followup. Patient and Monica will be staying at Diana's home in [place] upon discharge. Monica is there already since she requires assistance and supervision. Juan will be there intermittently, he will be returning to [place] periodically to get items from home as necessary. DME: Diana has secured the following: Hospital bed, 4WW, shower chair, BSC. Encouraged FWW for more security and control and hip kit if therapy recommends. Rx: Patient expressed concern about cost of Eliquis, advertising writer to explore [employer]B Program and generic costs. Patient stated he would not be able to afford several hundred per month for Rx. Screen Printing Machine Operator Helper provided contact information to patient/family. Diana Masters, daughter [address] [place] [address] Machelle Jonathan, granddaughter (Diana's daughter) [address] [place] [address]
--- NOTE | 2019-04-09 20:34 | Individualized Plan of Care ---
Individualized Plan of Care Rehab Nursing IPOC Order Admission Date Apr 08, 2019 at 10:54 Current Orders Orders Admission Order(Inpt,Obs,Sdc) (04/08/19 10:08) Vital Signs: Per Unit Policy ( 08,16,00 (04/08/19 10:08) Felton Dugan 09,21 (04/08/19 10:08) Sequential Compression Device Q4H (04/08/19 10:08) Visually Impaired Teacher-Inpt Rehab Con (04/08/19 10:08) Rehab Nursing Orders-Ipoc (04/08/19 10:08) Physical Therapy Rehab Orders (04/08/19 10:08) Occupational Therapy Rehab Ord (04/08/19 10:08) Speech Therapy Rehab Orders (04/08/19 10:08) Cbc With Automated Diff (04/09/19 06:00) Comprehensive Metabolic Panel (04/09/19 06:00) Intake & Output 06,14,22 (04/08/19 10:08) Precautions (Aru) (04/08/19 10:08) Rehab-Intensity Of Therapy (04/08/19 10:08) Initiate Admission Nursing Pro .admission (04/08/19 10:08) Acetaminophen Tablet (Tylenol Tablet) (04/08/19 10:15) Alprazolam Tablet (Xanax Tablet) (04/08/19 10:15) Calcium Carbonate Chew Tablet (Antacid C (04/08/19 10:15) Diphenhydramine Tablet (Benadryl Tablet) (04/08/19 10:15) Docusate Sodium Capsule (Colace Capsule) (04/08/19 10:15) Bisacodyl Suppository (Dulcolax Supposit (04/08/19 10:15) Lactulose Oral Solution (Enulose Oral So (04/08/19 10:15) Na Phos/Na Biphos Enema (Fleet Enema Neil (04/08/19 10:15) Guaifenesin/Codeine Syrup (Robitussin Ac (04/08/19 10:15) Hydrocodone/Apap 5/325 Tablet (Lortab 5 (04/08/19 10:15) Ibuprofen Tablet (Motrin Tablet) (04/08/19 10:15) Loperamide Tablet (Imodium Tablet) (04/08/19 10:15) Melatonin Tablet (Melatonin Tablet) (04/08/19 10:15) Polyethylene Glycol Powder Pkt (Miralax (04/08/19 21:00) Ondansetron Injection (Zofran Injectio (04/08/19 10:15) Ondansetron Oral Dissolve Tab (Zofran (04/08/19 10:15) Senna S Tablet (Senokot S Tablet) (04/08/19 21:00) Tramadol Tablet (Ultram Tablet) (04/08/19 10:15) Initiate Admission Nursing Pro .admission (04/08/19 10:08) Incentive Spirometry (Nursing) Q2H (04/08/19 12:40) General/Regular (04/08/19 Dinner) Albuterol Pre-Mix Nebs (Rt) (Proventil (04/08/19 12:45) Apixaban Tablet (Eliquis Tablet) (04/08/19 15:47) Benzonatate Capsule (Tessalon Perles) (04/08/19 12:45) Calcium Carbonate Chew Tablet (Antacid C (04/08/19 12:45) Bisacodyl Suppository (Dulcolax Supposit (04/08/19 12:45) Lactulose Oral Solution (Enulose Oral So (04/08/19 12:45) Melatonin Tablet (Melatonin Tablet) (04/08/19 12:45) Magnesium Hydroxide Oral Susp (Mom Oral (04/08/19 12:45) Polyethylene Glycol Powder Pkt (Miralax (04/08/19 12:45) Antacid Suspension (Mylanta Suspension (04/08/19 12:45) Sodium Chloride Flush (Catheter Flush Sy (04/08/19 14:00) Acetaminophen Tablet/Caplet (Tylenol T (04/08/19 12:45) Ondansetron Injection (Zofran Injectio (04/08/19 12:45) Metoprolol Succinate (Xl) Tab (Toprol Xl (04/09/19 09:00) Morphine Injection (Morphine Injection (04/08/19 12:45) Oxycodone Immediate Rel Tablet (Oxyir Ta (04/08/19 12:45) Consult Cardiology (04/08/19 12:40) Consult Orthopedic Surgery (04/08/19 12:40) Incentive Spirometry Initial (04/08/19 12:40) Mat Initiate Protocol (04/08/19 12:40) Svn Small Volume Nebulizer (04/08/19 12:40) Svn Small Volume Nebulizer (04/08/19 12:40) Incentive Spirometry (Nursing) Q2H (04/08/19 12:40) Hemoglobin A1c (04/08/19 12:40) Patient Visit (04/08/19 ) Pt Eval Moderate Complexity (04/08/19 ) Gait Training, Ea 15 Min (04/08/19 ) Functional Activities, Ea 15 (04/08/19 ) Patient Visit (04/08/19 ) Telemetry (04/08/19 22:15) Apixaban Tablet (Eliquis Tablet) (04/09/19 09:15) Apixaban Tablet (Eliquis Tablet) (04/09/19 21:00) Cbc No Diff (04/10/19 05:00) Patient Visit (04/09/19 ) Speech Sound Lang Comp (04/09/19 ) Patient Visit (04/09/19 ) Functional Activities, Ea 15 (04/09/19 ) Gait Training, Ea 15 Min (04/09/19 ) Ensure Enlive (04/09/19 Dinner) Patient Visit (04/10/19 ) Gait Training, Ea 15 Min (04/10/19 ) Functional Activities, Ea 15 (04/10/19 ) Exercise Therap, Ea 15 Min (04/10/19 ) Rehab Nursing Orders: Ongoing Assess. of Function Status, Bowel Management, Disease Management & Educaiton, DVT Prophylaxis, Fluid/Electrolyte/Nutrition Mgmt, Infection Prevention, Medication Management & Education, Management of Risks & Complications, Management of Skin Intergrity, Nutrition Management, Pain Management, Patient/Family Support, Safety Management Intensity of Therapy to be met Patient to be seen: Min.3h per day/5 of 7d PT IPOC Problem List: Activity Tolerance, Functional Strength, Safety, Balance, Gait, Transfer, Bed Mobility, ROM Treatment Plan: Continue Plan of Care Bed Mobility, Education, Functional Activity Sylvester, Functional Strength, Group Therapy, Gait, Safety, Therapeutic Exercise, Transfers Treatment Duration: Apr 24, 2019 Frequency: At least 5 of 7 days/Wk (IRF) Estimated Hrs Per Day: 1.5 hours per day OT IPOC Problems: Decreased UE Strength, Impaired Self-Care Skills OT Treatment, Training and Edu: Yes Plan of Care: ADL Retraining, Functional Mobility, Group Exercise/Act as Ind, UE Funct Exercise/Act Treatment Duration: Apr 22, 2019 Frequency: At least 5 of 7 days/Wk (IRF) Estimated Hrs Per Day: 1.[address] IPOC Speech Therapy Treatment Plan: Discontinue ST Treatment Duration: Apr 09, 2019 Frequency: 1 time per week Estimated Hrs Per Day: .25 hour per day Visually Impaired Teacher/Case Mgmt Visually Impaired Teacher/Case Managemen: Discharge Planning Dietitian/Caddie Dietitian/Caddie to monitor nutritional status and make changes and/or recommendations as needed and work with speech pathology on dietary upgrades as the occur. Physician IPOC Medical Issues being managed closely and that require the 24 hour availability of a physician: AF hx with high risk for RVR and maintained on OAC new med at risk for bleeding Medical Issues: Bowel/Bladder Function, DVT Prophylaxis, Falls Precautions, Fluid/Electrolyte/Nutrition Balance, Pain Management Brief Synthesis of Preadmission Screen, Post-Admission Evaluation, and Therapy Evaluations: PT will help ambulation with walker and prevent falls and increase confidence OT will focus on ADL's independence Medical Prognosis: Good Anticipated Length of Stay: 7 days CARLOZ CONNELL DO Apr 09, 2019 20:34 POS
[2019-04-09] MEDS: APIXABAN 5 MG (ELIQUIS) TABLET PO SCH (20:40)
[2019-04-09] MEDS: MELATONIN 3 MG TABLET PO PRN (20:41)
[2019-04-10 05:23] LABS: HEMOGLOBIN 14.2 G/DL (13.3-17.7); MEAN PLATELET VOLUME 10.3 FL (7.4-10.4); RED CELL DISTRIBUTION WIDTH 12.8 % (10.0-14.5); WHITE BLOOD COUNT 8.2 10^3/uL (4.3-11.0)
[2019-04-10 05:42] VITALS: BP 124/78
[2019-04-10] MEDS: HYDROcodone/APAP 5 MG/325 MG (LORTAB) TAB PO PRN ×2 (06:46→12:03)
[2019-04-10] MEDS: CATHETER FLUSH 10 ML SYR IV SCH ×3 (06:47→21:14)
--- NOTE | 2019-04-10 07:37 | Occupational Ther Daily Note ---
OT Current Status-Daily Note Subjective Pt alert, lying in bed. Pt agrees to therapy. Pt states that nrsg has just given him a pain pill. Pt c/o weakness during therapy and takes recovery breaks when needed. Mental Status/Objective Patient Orientation: Person, Place, Time, Situation Attachments: IV ADL-Treatment Pt agrees to shower. Min A with L LE for supine to EOB. Close SBA for sit <--> stand from elevated surface, min A for sit <--> stand from low surface. Transported pt to bathroom via w/c due to weakness and orthostatic BP issues. Pt transferred to toilet with CGA and min A off toilet. Pt completed clothing manipulation and hygiene with CGA. Pt ambulated to shower from toilet with CGA, after sitting on shower seat, increased weakness. Pt then completed bathing using long handle sponge, grabbars, hand held shower leaning side to side to cleanse buttocks and whitney area. Assist to dry feet thoroughly. Pt completed oral care in shower. After set up, pt completed upper body dressing. Assist to don/doff POLI hose. Used dressing stick to doff pants, donned pants without AE and did not break hip precautions. CGA in stance to hike pants over hips. Assist to don/doff shoes. Pt takes increased time to complete tasks due to decreased mobility, activity tolerance and BP issues. After therapy, pt lying in bed with call light/phone in reach. All needs met in room. Therapy Code Descriptions/Definitions Functional [place] Measure: 0=Not Assessed/NA 4=Minimal Assistance 1=Total Assistance 5=Supervision or Setup 2=Maximal Assistance 6=Modified [place] 3=Moderate Assistance 7=Complete IndependenceSCALE: Activities may be completed with or without assistive devices. 0-Ldvcmxjnbq-pvcghpc completes the activity by him/herself with no assistance from a helper. 5-Set-up or Clean-up Assistance-helper sets up or cleans up; patient completes activity. [place] assists only prior to or following the activity. 4-Supervision or Touching Assistance-helper provides verbal cues and/or touching/steadying and/or contact guard assistance as patient completes activity. Assistance may be provided throughout the activity or intermittently. 3-Partial/Moderate Assistance-helper does LESS THAN HALF the effort. [place] lifts, holds or supports trunk or limbs, but provides less than half the effort. 2-Substantial/Maximal Assistance-helper does MORE THAN HALF the effort. [place] lifts or holds trunk or limbs and provides more than half the effort. 7-Mfakmsnqv-xqkgot does ALL the effort. Patient does none of the effort to complete the activity. Or, the assistance of 2 or more helpers is required for the patient to complete the activity. If activity was not attempted, code reason: 7-Patient Refused. 9-Not Applicable-not attempted and the patient did not perform the activity before the current illness, exacerbation or injury. 10-Not Attempted due to Environmental Limitations-(lack of equipment, weather restraints, etc.). 88-Not Attempted due to Medical Conditions or Safety Concerns. Eating (QC): 7 (Pt declined to eat breakfast.) Oral Hygiene (QC): 6 Shower/Bathe Self (QC): 3 Upper Body Dressing (QC): 5 Lower Body Dressing (QC): 3 Toileting Hygiene (QC): 4 Toilet Transfer (QC): 4 footwear QC-2 OT Short Term Goals Short Term Goals Time Frame: Apr 15, 2019 Eating(FIM): 6 Grooming(FIM): 5 Bathing(FIM): 4 Upper Body Dressing(FIM): 5 Lower Body Dressing(FIM): 4 Toileting(FIM): 3 Transfers (B,C,W/C) (FIM): 4 Toilet/Commode Transfer(FIM): 4 Shower Transfer(FIM): 4 Additional Short Term Goals: 1-Demonstrate ADL Tasks, 2-Verbalize Under standing, 3-ImproveStrength/Sylvester 1=Demonstrate adherence to instructed precautions during ADL tasks. 2=Patient will verbalize/demonstrate understanding of assistive devices/modifications for ADL. 3=Patient will improve strength/tolerance for activity to enable patient to perform ADL's. OT Solution Sales Senior Executive Goals Nursing Home Goals Time Frame: Apr 22, 2019 Eating (QC): 6 Oral Hygiene (QC): 6 Shower/Bathe Self (QC): 5 Upper Body Dressing (QC): 6 Lower Body Dressing (QC): 6 On/Off Footwear (QC): 6 Toileting Hygiene (QC): 6 Toilet/Commode Transfer (QC): 6 Additional Goals: 1-Demonstrate ADL Tasks, 2-Verbalize Understanding, 3- ImproveStrength/Sylvester 1=Demonstrate adherence to instructed precautions during ADL tasks. 2=Patient will verbalize/demonstrate understanding of assistive device s/modifications for ADL. 3=Patient will improve strength/tolerance for activity to enable patient to perform ADL's. OT Education/Plan Problem List/Assessment Assessment: Decreased Activ Tolerance, Impaired Self-Care Skills Discharge Recommendations Plan/Recommendations: Continue POC Treatment Plan/Plan of Care Patient would benefit from OT for education, treatment and training to promote independence in ADL's, mobility, safety and/or upper extremity function for ADL's. Plan of Care: ADL Retraining, Functional Mobility, Group Exercise/Act as Ind, UE Funct Exercise/Act Treatment Duration: Apr 22, 2019 Frequency: At least 5 of 7 days/Wk (IRF) Estimated Hrs Per Day: 1.5 hours per day Agreement: Yes Rehab Potential: Good Time/GCodes Start Time: 07:00 Stop Time: 08:35 Total Time Billed (hr/min): 95 Billed Treatment Time 1 visit-ADL 6 (95 min) PAM KUO Apr 10, 2019 07:37 POS
--- NOTE | 2019-04-10 08:47 | Cardiology Progress Note ---
Subjective Date Seen by Provider: Apr 10, 2019 Time Seen by Provider: 09:49 Subjective/Events-last exam Patient is in bed, c/o hip pain. Denies any chest pain or dyspnea. Objective-Cardiology Exam Last Set of Vital Signs Vital Signs 04/10/19 05:42 Temp 36.6 Pulse 86 Resp 18 B/P (MAP) 124/78 (93) Pulse Ox 94 O2 Delivery Room Air Capillary Refill : Less Than 3 Seconds I&O Intake and Output 04/10/19 00:00 Intake Total 640 ml Output Total 500 ml Balance 140 ml Intake Oral 640 ml Output Urine Total 500 ml # Voids 2 General: Alert, Oriented X3, Cooperative HEENT: Atraumatic, PERRLA Neck: Supple, No JVD, No Thyromegaly Heart: Normal S1, Normal S2, No Murmurs, Gallops, Other (irregularly irregular) Abdomen: Normal Bowel Sounds, Soft, No Tenderness Extremities: Other (trace edema) Skin: No Rashes, No Significant Lesion Neuro: Normal Speech, Cranial Nerves 3-12 NL Psych/Mental Status: Mental Status NL, Mood NL Results Lab Laboratory Tests 04/10/19 04:20 A/P-Cardiology Admission Diagnosis Left femur fracture Atrial fibrillation HTN DM Assessment/Plan Left femur fracture on 04/05/19; s/p closed reduction and application of intramedullary nail on 04/06/19, slowly recovering. Atrial fibrillation of undetermined age. Probably chronic and permanent, Echo 04/07/19: LVEF 50%, mild MR & TR, RVSP 17 mmHg. Started on Eliquis. Patient asking to switch to Pradaxa secondary to prescription cost. Hypertension, continue to monitor. DM II, management per hospitalist service Clinical Quality Measures DVT/VTE Risk/Contraindication: Risk Factor Score Per Nursin RFS Level Per Nursing on Admit: 4+=Very High BRIAN ALEXANDER Apr 10, 2019 08:47 POS
[2019-04-10] MEDS: SENNA W/DOCUSATE (SENOKOT S) TABLET PO SCH ×2 (08:57→21:13)
[2019-04-10] MEDS: POLYETHYLENE GLYCOL 17 GM (MIRALAX) PACK PO SCH ×2 (08:57→21:13)
[2019-04-10] MEDS: APIXABAN 5 MG (ELIQUIS) TABLET PO SCH ×2 (09:50→21:06)
[2019-04-10] MEDS: meTOproloL SUCCINATE 50 MG (TOPROL XL) TAB PO SCH (09:50)
--- NOTE | 2019-04-10 09:51 | Progress Note ---
DEBRA ELLIS,MED STUDENT 04/10/19 0951: Progress Note CC: S/p Intertrochanteric hip fx repair p/o day 5 Barriers PT/OT/ST/Group therapy all going well pt enjoying his stay here Hgb AIC returned: 7.6 - decent glycemic control Pt continues to have little appetite and is hardly touching his food, asked him to try to eat more since total protein is low Pt cancelled dinner yesterday and ate little for breakfast, states this is his normal Concerning for weakness and lightheadedness during exertion, denies dizziness or feelings of syncope. Does not think its affecting his PT Plan after rehab is to move in with daughter, son-in-law and son for assistance Four steps going up to daughter's home Transferring alone and ambulating with walker, requiring a little assistance for changing and using restroom Rising OOB alone but having trouble sliding his fx leg Pain not limiting therapy GISSEL ORTIZ DO 04/10/19 2016: Supervisory-Addendum Brief Verification & Attestation Participated in pt care: history, MDM, physical Personally performed: exam, history, MDM, supervision of care Care discussed with: Medical Student Procedures: n/a Results interpretation: Verified all documentation Verification and Attestation of Medical Student E/M Service A medical student performed and documented this service in my presence. I reviewed and verified all information documented by the medical student and made modifications to such information, when appropriate. I personally performed the physical exam and medical decision making. Gissel Ortiz, Apr 10, 2019,20:15 DEBRA ELLIS,MED STUDENT Apr 10, 2019 09:51 GISSEL RAY DO Apr 10, 2019 20:16 POS
[2019-04-10] MEDS: IBUPROFEN TABLET 200 MG TAB PO PRN (10:14)
--- NOTE | 2019-04-10 10:30 | Physical Therapy Daily Note ---
PT Daily Note-Current Subjective Patient agrees to PT at this time. Patient states he has only walked to the door of his room so far and he needs assistance to move LLE during exercises. Reports moderate L hip pain during exercises. Pt. states he is anxious to leave here but also states he will live with his daughter when he leaves along with his d ependent son and inform he cares for at home. Pt. states he will have a hosp bed, BSC and 4WW when he leaves. This VETERINARY MILK SPECIALIST questioning if daughter will be home FT after his DC to help care for everyone. Pain Numeric Pain Scale: 4 Location: Left Location Body Site: Hip Pain Description: Ache Mental Status Patient Orientation: Normal For Age Transfers SCALE: Activities may be completed with or without assistive devices. 4-Ihvuitiguy-saxlzgz completes the activity by him/herself with no assistance from a helper. 5-Set-up or Clean-up Assistance-helper sets up or cleans up; patient completes activity. [place] assists only prior to or following the activity. 4-Supervision or Touching Assistance-helper provides verbal cues and/or touching/steadying and/or contact guard assistance as patient completes activity. Assistance may be provided throughout the activity or intermittently. 3-Partial/Moderate Assistance-helper does LESS THAN HALF the effort. [place] lifts, holds or supports trunk or limbs, but provides less than half the effort. 2-Substantial/Maximal Assistance-helper does MORE THAN HALF the effort. [place] lifts or holds trunk or limbs and provides more than half the effort. 0-Wjdfelbov-yazyku does ALL the effort. Patient does none of the effort to complete the activity. Or, the assistance of 2 or more helpers is required for the patient to complete the activity. If activity was not attempted, code reason: 7-Patient Refused. 9-Not Applicable-not attempted and the patient did not perform the activity before the current illness, exacerbation or injury. 10-Not Attempted due to Environmental Limitations-(lack of equipment, weather restraints, etc.). 88-Not Attempted due to Medical Conditions or Safety Concerns. Transfers (B, C, W/C): 3 Roll Left to Right (QC): 4 Sit to Lying (QC): 4 Sit to Stand (QC): 3 Chair/Chm-md-Kyqng Xfer(QC): 3 Able to stand and perform transfers CGA-Yary; some cues required during bed mobility for safety and precautions. sit to stand from bed and chair require elevated seat height , with std height pt. requires min assist Weight Bearing Right Lower Extremity: Right Weight Bearing/Tolerated Left Lower Extremity: Left Weight Bearing/Tolerated Gait Training Does the Patient Walk?: Yes Gait: 3 Distance: 25'x1, 15'x1 Walk 10 feet (QC): 3 Gait Assistive Device: FWW CGA-Yary for ambulation short distances; cues required to lift LLE to step instead of scooting foot along floor; decrease stance time on LLE; heavy wt bearing UE support on walker Wheelchair Training Does the Pt Use a Wheelchair?: Yes Wheelchair Distance: 7=111-29 ft Distance: 100' Wheel 50 ft with 2 turns (QC): 6 Type of Wheelchair: Manual managed w/c well Exercises Supine Ex: Ankle pumps, Quad Set, Glut sets, Heel Slides, Short Arc Quads, Scooting, Hip abd/add Supine Reps: 10 Assessment Current Status: Good Progress Patient tolerated supine LE exercises well in bed. Patient required assistance initially to perform heel slides, but was able to perform independently. Assist ance needed for L hip abd/add exercise. Patient performed bed mobility without assistance, requiring cues to push up upper body and maintain precautions throughout transfer. Patient required increased bed height to stand. Patient ambulated with FWW 25' Yary. Patient initially ambulated by scooting the L foot along the floor but was able to perform one smooth motion to step with cues. Demonstrated decreased stance time on LLE. Performed repetitions of sit to supine transfers on mat to practice transfer with flat surface and maintaining precautions. Patient ambulated another 15' at conclusion of treatment to sit in recliner with legs elevated. PT Short Term Goals Short Term Goals Wheelchair Distance: 120'x2 PT Cro Goals Cro Goals PT [facility] Goals Time Frame: Apr 24, 2019 Sit to Lying (QC): 6 Lying-Sitting on Side/Bed(QC): 6 Sit to Stand (QC): 6 Roll Left to Right (QC): 6 Chair/Xzf-fh-Ztwnj Xfer(QC): 6 Car Transfer (QC): 5 Does the Patient Walk: Yes Walk 10 feet (QC): 6 Walk 10ft-Uneven Surface(QC): 6 Walk 50ft with 2 Turns (QC): 6 Walk 150 ft (QC): 6 Gait Assistive Device: FWW 1 Step (curb) (QC): 6 4 Steps (QC): 5 12 Steps (QC): 9 Picking up an Object (QC): 88 PT Plan Treatment/Plan Treatment Plan: Continue Plan of Care Treatment Plan: Bed Mobility, Education, Functional Activity Sylvester, Functional Strength, Group Therapy, Gait, Safety, Therapeutic Exercise, Transfers Treatment Duration: Apr 24, 2019 Frequency: At least 5 of 7 days/Wk (IRF) Estimated Hrs Per Day: 1.5 hours per day Patient and/or Family Agrees t: Yes Safety Risks/Education Patient Education: Gait Training, Transfer Techniques, Reviewed Precautions Teaching Recipient: Patient Teaching Methods: Demonstration, Discussion Response to Teaching: Verbalize Understanding, Return Demonstration pt. noted to attempt to cross legs after Rx , Precautions were reviewed Time/GCodes Time In: 930 Time Out: 1030 Total Billed Treatment Time: 60 Total Billed Treatment 1 visit GT 15min EX 15min FA x2 30min DENNIS LOU VETERINARY MILK SPECIALIST Apr 10, 2019 10:30 POS
--- NOTE | 2019-04-10 12:01 | PM&R Progress Note ---
Subjective HPI/CC On Admission Date Seen by Provider: Apr 10, 2019 Time Seen by Provider: 08:15 Subjective/Events-last exam Pt needs to gain more confidence Bowels are loose so laxatives are being held Chronic AF maintained on oral anticoagulation Appreciate cardiology management Hgb A1C is 7.6 Reviewed accu checks Pain is well controlled Checked meds and labs Conferred with RN Reviewed therapy notes Review of Systems General: Fatigue Musculoskeletal: leg pain Objective Exam Vital Signs Vital Signs Date Time Temp Pulse Resp B/P (MAP) Pulse Ox O2 Delivery O2 Flow Rate FiO2 04/10/19 19:03 Room Air 04/10/19 17:38 36.8 94 18 120/71 (87) 99 Capillary Refill : Less Than 3 Seconds General Appearance: No Apparent Distress, WD/WN, Chronically ill HEENT: PERRL/EOMI, Normal ENT Inspection, Pharynx Normal Neck: Full Range of Motion, Normal Inspection, Non Tender, Supple, Carotid Bruit Respiratory: Chest Non Tender, Lungs Clear, Normal Breath Sounds, No Accessory Muscle Use, No Respiratory Distress Cardiovascular: Regular Rate, Rhythm, No Edema, No Gallop, No JVD, No Murmur, Normal Peripheral Pulses Gastrointestinal: Normal Bowel Sounds, No Organomegaly, No Pulsatile Mass, Non Tender, Soft Back: Normal Inspection, No CVA Tenderness, No Vertebral Tenderness Extremity: Normal Capillary Refill, Normal Inspection, Normal Range of Motion (except left leg), Non Tender, No Calf Tenderness, No Pedal Edema Neurologic/Psychiatric: Alert, Oriented x3, No Motor/Sensory Deficits, Normal Mood/Affect, gm mobile II-XII Norm as Tested Skin: Normal Color, Warm/Dry Lymphatic: No Adenopathy Results/Procedures Lab Laboratory Tests 04/10/19 04:20 Patient resulted labs reviewed. FIM Transfers Therapy Code Descriptions/Definitions Functional [place] Measure: 0=Not Assessed/NA 4=Minimal Assistance 1=Total Assistance 5=Supervision or Setup 2=Maximal Assistance 6=Modified [place] 3=Moderate Assistance 7=Complete IndependenceSCALE: Activities may be completed with or without assistive devices. 0-Dkvulmrwku-ahkfcvp completes the activity by him/herself with no assistance from a helper. 5-Set-up or Clean-up Assistance-helper sets up or cleans up; patient completes activity. [place] assists only prior to or following the activity. 4-Supervision or Touching Assistance-helper provides verbal cues and/or touching/steadying and/or contact guard assistance as patient completes activity. Assistance may be provided throughout the activity or intermittently. 3-Partial/Moderate Assistance-helper does LESS THAN HALF the effort. [place] lifts, holds or supports trunk or limbs, but provides less than half the effort. 2-Substantial/Maximal Assistance-helper does MORE THAN HALF the effort. [place] lifts or holds trunk or limbs and provides more than half the effort. 9-Aiewrlzen-rxcoas does ALL the effort. Patient does none of the effort to complete the activity. Or, the assistance of 2 or more helpers is required for the patient to complete the activity. If activity was not attempted, code reason: 7-Patient Refused. 9-Not Applicable-not attempted and the patient did not perform the activity before the current illness, exacerbation or injury. 10-Not Attempted due to Environmental Limitations-(lack of equipment, weather restraints, etc.). 88-Not Attempted due to Medical Conditions or Safety Concerns. Transfers (B, C, W/C) (FIM): 4 Roll Left to Right (QC): 4 Sit to Lying (QC): 4 Sit to Stand (QC): 4 Chair/Wdw-em-Qamuw Xfer(QC): 4 Car Transfer (QC): 88 Gait Training Does the Patient Walk?: Yes Distance (FIM): 1=up to 49 ft Distance: 16',8' Walk 10 feet (QC): 4 (CGA) Walk 50 ft with 2 Turns(QC): 88 Walk 150 ft (QC): 88 Walking 10ft/uneven surface-QC: 88 Gait Assistive Device: FWW Wheelchair Training Does the Pt Use a Wheelchair?: Yes Wheelchair Distance: 3=150 ft Distance: 120'x2 Wheel 50 ft with 2 turns (QC): 6 Type of Wheelchair: Manual Stair Training 1 Step (curb) (QC): 88 4 Steps (QC): 88 12 Steps (QC): 88 Balance Picking up an Object (QC): 88 ADL-Treatment Eating (QC): 7 (Pt declined to eat breakfast.) Oral Hygiene (QC): 6 Shower/Bathe Self (QC): 3 Upper Body Dressing (QC): 5 Lower Body Dressing (QC): 3 On/Off Footwear (QC): 2 Toileting Hygiene (QC): 4 Toilet Transfer (QC): 4 Assessment/Plan Assessment and Plan Assess & Plan/Chief Complaint Assessment: Left hip fracture Fall AF OAC DM HTN Plan: OAC coupon Cardiology is appreciated IRF protocol BM regimen Pain control (1) Hip fracture, intertrochanteric Status: Acute Qualifiers: Laterality: left Fracture healing: with routine healing (2) On continuous oral anticoagulation (3) Atrial fibrillation (4) Essential (primary) hypertension Status: Chronic (5) Non-insulin dependent type 2 diabetes mellitus Status: Chronic CARLOZ CONNELL DO Apr 10, 2019 12:01 POS
--- NOTE | 2019-04-10 13:33 | Physical Therapy Daily Note ---
PT Daily Note-Current Subjective Patient agrees to PT and would like to do more supine exercises. Reports no pain. Pain Numeric Pain Scale: 0-No Pain Location: No Pain Reported Mental Status Patient Orientation: Person, Place, Time, Situation Transfers SCALE: Activities may be completed with or without assistive devices. 7-Wrmhoiogwz-sbnlykn completes the activity by him/herself with no assistance from a helper. 5-Set-up or Clean-up Assistance-helper sets up or cleans up; patient completes activity. [place] assists only prior to or following the activity. 4-Supervision or Touching Assistance-helper provides verbal cues and/or touching/steadying and/or contact guard assistance as patient completes activity. Assistance may be provided throughout the activity or intermittently. 3-Partial/Moderate Assistance-helper does LESS THAN HALF the effort. [place] lifts, holds or supports trunk or limbs, but provides less than half the effort. 2-Substantial/Maximal Assistance-helper does MORE THAN HALF the effort. [place] lifts or holds trunk or limbs and provides more than half the effort. 8-Fruzwnkww-zqnhly does ALL the effort. Patient does none of the effort to complete the activity. Or, the assistance of 2 or more helpers is required for the patient to complete the activity. If activity was not attempted, code reason: 7-Patient Refused. 9-Not Applicable-not attempted and the patient did not perform the activity before the current illness, exacerbation or injury. 10-Not Attempted due to Environmental Limitations-(lack of equipment, weather restraints, etc.). 88-Not Attempted due to Medical Conditions or Safety Concerns. Transfers (B, C, W/C): 3 Roll Left to Right (QC): 4 Sit to Lying (QC): 4 Sit to Stand (QC): 3 Chair/Lmn-ya-Ltkad Xfer(QC): 3 CGA-Yary for transfers; SBA bed mobility Weight Bearing Right Lower Extremity: Right Weight Bearing/Tolerated Left Lower Extremity: Left Weight Bearing/Tolerated Gait Training Does the Patient Walk?: Yes Gait: 3 Distance: 30', 20' Walk 10 feet (QC): 3 Gait Assistive Device: FWW Slow steps, able to complete fluid step motion on LLE on all steps, UE weight bearing on walker Wheelchair Training Does the Pt Use a Wheelchair?: Yes Wheelchair Distance: 5=584-36 ft Distance: 100' Wheel 50 ft with 2 turns (QC): 6 Type of Wheelchair: Manual Exercises Supine Ex: Heel Slides, Short Arc Quads, Hip abd/add Supine Reps: 10 Seated Therapy Exercises: Ankle pumps, Long arc quads, Hip abd/add Seated Reps: 10 Treatments toileted in bathroom after with SBA , used railing and stood with some effort but did stand SBA Assessment Current Status: Good Progress Patient tolerated all seated exercises prior to ambulation well. Patient stood from chair CGA. Patient ambulated 30' with FWW with focus on completing fluid step motion with left foot for every step. After rest break, patient maneuvered wheel chair 100' and transferred with min assist to mat. Patient performed supine exercises well, demonstrating improved strength. Patient performed improved bed mobility to sit to EOB from supine without manual assistance. Patient ambulated another 20', performed toilet transfer CGA, and then returned to bed, again demonstrating improved bed mobility to transfer from sitting to supine. PT Short Term Goals Short Term Goals Wheelchair Distance: 100' PT Longterm Goals Daycare Director Goals PT Daycare Director Goals Time Frame: Apr 24, 2019 Sit to Lying (QC): 6 Lying-Sitting on Side/Bed(QC): 6 Sit to Stand (QC): 6 Roll Left to Right (QC): 6 Chair/Apo-mq-Ljukp Xfer(QC): 6 Car Transfer (QC): 5 Does the Patient Walk: Yes Walk 10 feet (QC): 6 Walk 10ft-Uneven Surface(QC): 6 Walk 50ft with 2 Turns (QC): 6 Walk 150 ft (QC): 6 Gait Assistive Device: FWW 1 Step (curb) (QC): 6 4 Steps (QC): 5 12 Steps (QC): 9 Picking up an Object (QC): 88 PT Plan Treatment/Plan Treatment Plan: Continue Plan of Care Treatment Plan: Bed Mobility, Education, Functional Activity [place], Functional Strength, Group Therapy, Gait, Safety, Therapeutic Exercise, Transfers Treatment Duration: Apr 24, 2019 Frequency: At least 5 of 7 days/Wk (IRF) Estimated Hrs Per Day: 1.5 hours per day Patient and/or Family Agrees t: Yes Safety Risks/Education Patient Education: Gait Training, Transfer Techniques Teaching Recipient: Patient Teaching Methods: Demonstration, Discussion Response to Teaching: Verbalize Understanding, Return Demonstration Time/GCodes Time In: 1245 Time Out: 1325 Total Billed Treatment Time: 40 Total Billed Treatment 1 visit EX 15min GT 10min FA 15min DENNIS LUO ON SITE NURSE Apr 10, 2019 13:33 POS
[2019-04-10 17:38] VITALS: BP 120/71
[2019-04-11 05:04] VITALS: BP 110/75
[2019-04-11] MEDS: CATHETER FLUSH 10 ML SYR IV SCH ×3 (06:41→19:26)
[2019-04-11] MEDS: HYDROcodone/APAP 5 MG/325 MG (LORTAB) TAB PO PRN (06:47)
--- NOTE | 2019-04-11 08:56 | PM&R Progress Note ---
Subjective HPI/CC On Admission Date Seen by Provider: Apr 11, 2019 Time Seen by Provider: 08:00 Subjective/Events-last exam There is an are on his left heel that will be addressed by wound care. Bowel are moving. Pain is well controlled. Slept well. On oral anticoagulation for stroke prophylaxis and DVT prophylaxis from A-FIB and recent hip fracture respectively. Pt feels pretty good about everything. Pain is well controlled Checked meds and labs Conferred with RN Reviewed therapy notes Review of Systems Musculoskeletal: leg pain Objective Exam Vital Signs Vital Signs Date Time Temp Pulse Resp B/P (MAP) Pulse Ox O2 Delivery O2 Flow Rate FiO2 04/11/19 17:26 36.6 55 18 108/71 (83) 97 Room Air 04/11/19 14:09 21 Capillary Refill : Less Than 3 Seconds General Appearance: No Apparent Distress, WD/WN, Chronically ill HEENT: PERRL/EOMI, Normal ENT Inspection, Pharynx Normal Neck: Full Range of Motion, Normal Inspection, Non Tender, Supple, Carotid Bruit Respiratory: Chest Non Tender, Lungs Clear, Normal Breath Sounds, No Accessory Muscle Use, No Respiratory Distress Cardiovascular: Regular Rate, Rhythm, No Edema, No Gallop, No JVD, No Murmur, Normal Peripheral Pulses Gastrointestinal: Normal Bowel Sounds, No Organomegaly, No Pulsatile Mass, Non Tender, Soft Back: Normal Inspection, No CVA Tenderness, No Vertebral Tenderness Extremity: Normal Capillary Refill, Normal Inspection, Normal Range of Motion (except left leg), Non Tender, No Calf Tenderness, No Pedal Edema Neurologic/Psychiatric: Alert, Oriented x3, No Motor/Sensory Deficits, Normal Mood/Affect, glaze wiper II-XII Norm as Tested Skin: Normal Color, Warm/Dry Lymphatic: No Adenopathy Results/Procedures Lab Patient resulted labs reviewed. FIM Transfers Therapy Code Descriptions/Definitions Functional [place] Measure: 0=Not Assessed/NA 4=Minimal Assistance 1=Total Assistance 5=Supervision or Setup 2=Maximal Assistance 6=Modified [place] 3=Moderate Assistance 7=Complete IndependenceSCALE: Activities may be completed with or without assistive devices. 0-Xmfhhrcmgb-revhdsx completes the activity by him/herself with no assistance from a helper. 5-Set-up or Clean-up Assistance-helper sets up or cleans up; patient completes activity. [place] assists only prior to or following the activity. 4-Supervision or Touching Assistance-helper provides verbal cues and/or touching/steadying and/or contact guard assistance as patient completes activity. Assistance may be provided throughout the activity or intermittently. 3-Partial/Moderate Assistance-helper does LESS THAN HALF the effort. [place] lifts, holds or supports trunk or limbs, but provides less than half the effort. 2-Substantial/Maximal Assistance-helper does MORE THAN HALF the effort. [place] lifts or holds trunk or limbs and provides more than half the effort. 4-Zctsmmjzv-gxqfny does ALL the effort. Patient does none of the effort to complete the activity. Or, the assistance of 2 or more helpers is required for the patient to complete the activity. If activity was not attempted, code reason: 7-Patient Refused. 9-Not Applicable-not attempted and the patient did not perform the activity before the current illness, exacerbation or injury. 10-Not Attempted due to Environmental Limitations-(lack of equipment, weather restraints, etc.). 88-Not Attempted due to Medical Conditions or Safety Concerns. Transfers (B, C, W/C) (FIM): 3 Roll Left to Right (QC): 4 Sit to Lying (QC): 4 Sit to Stand (QC): 3 Chair/Wra-ja-Sfkiy Xfer(QC): 3 Car Transfer (QC): 88 Gait Training Does the Patient Walk?: Yes Gait (FIM): 3 Distance (FIM): 1=up to 49 ft Distance: 30', 20' Walk 10 feet (QC): 3 Walk 50 ft with 2 Turns(QC): 88 Walk 150 ft (QC): 88 Walking 10ft/uneven surface-QC: 88 Gait Assistive Device: FWW Wheelchair Training Does the Pt Use a Wheelchair?: Yes Wheelchair Distance: 5=582-67 ft Distance: 100' Wheel 50 ft with 2 turns (QC): 6 Type of Wheelchair: Manual Stair Training 1 Step (curb) (QC): 88 4 Steps (QC): 88 12 Steps (QC): 88 Balance Picking up an Object (QC): 88 ADL-Treatment Eating (QC): 7 (Pt declined to eat breakfast.) Oral Hygiene (QC): 6 Shower/Bathe Self (QC): 3 Upper Body Dressing (QC): 5 Lower Body Dressing (QC): 3 On/Off Footwear (QC): 2 Toileting Hygiene (QC): 4 Toilet Transfer (QC): 4 Assessment/Plan Assessment and Plan Assess & Plan/Chief Complaint Assessment: Left hip fracture Fall AF OAC DM HTN Plan: OAC coupon Cardiology is appreciated IRF protocol BM regimen Pain control (1) Hip fracture, intertrochanteric Status: Acute Qualifiers: Laterality: left Fracture healing: with routine healing (2) On continuous oral anticoagulation (3) Atrial fibrillation (4) Essential (primary) hypertension Status: Chronic (5) Non-insulin dependent type 2 diabetes mellitus Status: Chronic CARLOZ CONNELL DO Apr 11, 2019 08:56 POS
--- NOTE | 2019-04-11 08:57 | Physical Therapy Daily Note ---
PT Daily Note-Current Subjective pt in recliner pre-tx agrees to PT this morning. pt denies pain at this time. Appearance pt in WC in therapy gym getting ready to start OT at this time. Pt with all nee ds met at this time. Pt c/o lightheadedness starting toward the end of this session with BP of 107/64 Mental Status Patient Orientation: Person, Place, Time, Situation Transfers SCALE: Activities may be completed with or without assistive devices. 7-Euykarwtmt-gqfajfq completes the activity by him/herself with no assistance from a helper. 5-Set-up or Clean-up Assistance-helper sets up or cleans up; patient completes activity. [place] assists only prior to or following the activity. 4-Supervision or Touching Assistance-helper provides verbal cues and/or touching /steadying and/or contact guard assistance as patient completes activity. Assistance may be provided throughout the activity or intermittently. 3-Partial/Moderate Assistance-helper does LESS THAN HALF the effort. [place] lifts, holds or supports trunk or limbs, but provides less than half the effort. 2-Substantial/Maximal Assistance-helper does MORE THAN HALF the effort. [place] lifts or holds trunk or limbs and provides more than half the effort. 8-Khkjmskvr-syobir does ALL the effort. Patient does none of the effort to complete the activity. Or, the assistance of 2 or more helpers is required for the patient to complete the activity. If activity was not attempted, code reason: 7-Patient Refused. 9-Not Applicable-not attempted and the patient did not perform the activity before the current illness, exacerbation or injury. 10-Not Attempted due to Environmental Limitations-(lack of equipment, weather restraints, etc.). 88-Not Attempted due to Medical Conditions or Safety Concerns. Sit to Stand (QC): 4 (CGA) Weight Bearing Right Lower Extremity: Right Weight Bearing/Tolerated Left Lower Extremity: Left Weight Bearing/Tolerated Gait Training Does the Patient Walk?: Yes Distance: 140', 30' Walk 10 feet (QC): 4 (CGA) Walk 50 ft with 2 Turns(QC): 4 (CGA) Gait Assistive Device: FWW pt ambulates with an improved step through pattern and is able to step and clear the left foot for the full swing and is not taking any of the shuffle steps at this time. Pt is able to walk from his room to the gym. Wheelchair Training Does the Pt Use a Wheelchair?: No Exercises Standing: Hip Abduction, Heel/toe raises, Step-ups (LLE up onto pink box. cues to pick foot up to place on step and pick foot up to come off of step.) Standing Reps: 20 NuStep Minutes: 15 NuStep Workload: 3 Assessment Current Status: Good Progress Pt able to ambulate from room to the therapy gym without having to take any rest breaks. Pt had decreased lightheadedness complaints this session. Pt had one LOB/ loss of confidence in which he reached out for a door handle to stabilize himself pt didn't appear to actually loose balance. pt educated on keeping ahold of FWW and slightly widening NILO. Pt required Yary to regain his NILO from leaning to grab the door handle.. PT Short Term Goals Short Term Goals Wheelchair Distance: 100' PT Plate Sensitizer Goals Plate Sensitizer Goals PT Plate Sensitizer Goals Time Frame: Apr 24, 2019 Sit to Lying (QC): 6 Lying-Sitting on Side/Bed(QC): 6 Sit to Stand (QC): 6 Roll Left to Right (QC): 6 Chair/Kkw-zo-Omhmq Xfer(QC): 6 Car Transfer (QC): 5 Does the Patient Walk: Yes Walk 10 feet (QC): 6 Walk 10ft-Uneven Surface(QC): 6 Walk 50ft with 2 Turns (QC): 6 Walk 150 ft (QC): 6 Gait Assistive Device: FWW 1 Step (curb) (QC): 6 4 Steps (QC): 5 12 Steps (QC): 9 Picking up an Object (QC): 88 PT Plan Problem List Problem List: Activity Tolerance, Functional Strength, Safety, Balance, Gait, Transfer, Bed Mobility, ROM Treatment/Plan Treatment Plan: Continue Plan of Care Treatment Plan: Bed Mobility, Education, Functional Activity [place], Functional Strength, Group Therapy, Gait, Safety, Therapeutic Exercise, Transfers Treatment Duration: Apr 24, 2019 Frequency: At least 5 of 7 days/Wk (IRF) Estimated Hrs Per Day: 1.5 hours per day Patient and/or Family Agrees t: Yes Safety Risks/Education Patient Education: Gait Training, Transfer Techniques, Steps, Correct Positioning, Safety Issues Teaching Recipient: Patient Teaching Methods: Demonstration, Discussion Response to Teaching: Return Demonstration, Reinforcement Needed Time/GCodes Time In: 800 Time Out: 900 Total Billed Treatment Time: 60 Total Billed Treatment 1 visit FA 30' EX 15' GT 15' AIRAM DAWKINS PT Apr 11, 2019 08:57 POS
[2019-04-11] MEDS: POLYETHYLENE GLYCOL 17 GM (MIRALAX) PACK PO SCH ×2 (09:00→21:22)
[2019-04-11] MEDS: APIXABAN 5 MG (ELIQUIS) TABLET PO SCH ×2 (10:01→21:11)
[2019-04-11] MEDS: SENNA W/DOCUSATE (SENOKOT S) TABLET PO SCH ×2 (10:01→21:11)
[2019-04-11] MEDS: meTOproloL SUCCINATE 50 MG (TOPROL XL) TAB PO SCH (10:02)
--- NOTE | 2019-04-11 10:38 | Occupational Ther Daily Note ---
OT Current Status-Daily Note Subjective Pt alert, took over care from PT. Pt agrees to therapy. Pt c/o pain, stated that he had a pain pill around 0700. Mental Status/Objective Patient Orientation: Person, Place, Time, Situation ADL-Treatment Pt declines shower. After set up, pt don/doffed shirt. CGA to transfer to toilet using w/c, grabbar and BSC. CGA using grabbar and BSC for clothing manipulation and hygiene. CGA to transfer from surface to surface. Therapy Code Descriptions/Definitions Functional [place] Measure: 0=Not Assessed/NA 4=Minimal Assistance 1=Total Assistance 5=Supervision or Setup 2=Maximal Assistance 6=Modified [place] 3=Moderate Assistance 7=Complete IndependenceSCALE: Activities may be completed with or without assistive devices. 3-Atgskcnvug-jdsjmtl completes the activity by him/herself with no assistance from a helper. 5-Set-up or Clean-up Assistance-helper sets up or cleans up; patient completes activity. [place] assists only prior to or following the activity. 4-Supervision or Touching Assistance-helper provides verbal cues and/or touching/steadying and/or contact guard assistance as patient completes activity. Assistance may be provided throughout the activity or intermittently. 3-Partial/Moderate Assistance-helper does LESS THAN HALF the effort. [place] lifts, holds or supports trunk or limbs, but provides less than half the effort. 2-Substantial/Maximal Assistance-helper does MORE THAN HALF the effort. [place] lifts or holds trunk or limbs and provides more than half the effort. 7-Lbsrvcwld-gyrnev does ALL the effort. Patient does none of the effort to complete the activity. Or, the assistance of 2 or more helpers is required for the patient to complete the activity. If activity was not attempted, code reason: 7-Patient Refused. 9-Not Applicable-not attempted and the patient did not perform the activity before the current illness, exacerbation or injury. 10-Not Attempted due to Environmental Limitations-(lack of equipment, weather restraints, etc.). 88-Not Attempted due to Medical Conditions or Safety Concerns. Toileting Hygiene (QC): 4 Toilet Transfer (QC): 4 Other Treatment Pt completed arm bike for 15 min at 15 [place] resistance to increase strength and activity tolerance for daily functional tasks. Monitored BP throughout session, due to pt stating that he felt weak: 104/64, 127/64. Pt completed resistive clothespins with 1# wt on wrists to increase UE strength and pinch/hand drawer in helper for dressing tasks. Pt then stood to complete nut/bolt task to increase activity tolerance and dynamic standing balance. Pt took multiple recovery breaks during session. After therapy, pt lying in bed with call light/phone in reach. All needs met in room. OT Short Term Goals Short Term Goals Time Frame: Apr 15, 2019 Eating(FIM): 6 Grooming(FIM): 5 Bathing(FIM): 4 Upper Body Dressing(FIM): 5 Lower Body Dressing(FIM): 4 Toileting(FIM): 3 Transfers (B,C,W/C) (FIM): 4 Toilet/Commode Transfer(FIM): 4 Shower Transfer(FIM): 4 Additional Short Term Goals: 1-Demonstrate ADL Tasks, 2-Verbalize Understanding, 3-ImproveStrength/[place] 1=Demonstrate adherence to instructed precautions during ADL tasks. 2=Patient will verbalize/demonstrate understanding of assistive devices/modifications for ADL. 3=Patient will improve strength/tolerance for activity to enable patient to perform ADL's. OT Shelter Goals Shelter Goals Time Frame: Apr 22, 2019 Eating (QC): 6 Oral Hygiene (QC): 6 Shower/Bathe Self (QC): 5 Upper Body Dressing (QC): 6 Lower Body Dressing (QC): 6 On/Off Footwear (QC): 6 Toileting Hygiene (QC): 6 Toilet/Commode Transfer (QC): 6 Additional Goals: 1-Demonstrate ADL Tasks, 2-Verbalize Understanding, 3-ImproveStrength/[place] 1=Demonstrate adherence to instructed precautions during ADL tasks. 2=Patient will verbalize/demonstrate understanding of assistive devices/modifications for ADL. 3=Patient will improve strength/tolerance for activity to enable patient to perform ADL's. OT Education/Plan Problem List/Assessment Assessment: Decreased Activ Tolerance, Decreased UE Strength, Impaired Self- Care Skills Discharge Recommendations Plan/Recommendations: Continue POC Treatment Plan/Plan of Care Patient would benefit from OT for education, treatment and training to promote independence in ADL's, mobility, safety and/or upper extremity function for ADL's. Plan of Care: ADL Retraining, Functional Mobility, Group Exercise/Act as Ind, UE Funct Exercise/Act Treatment Duration: Apr 22, 2019 Frequency: At least 5 of 7 days/Wk (IRF) Estimated Hrs Per Day: 1.5 hours per day Agreement: Yes Rehab Potential: Good Time/GCodes Start Time: 09:00 Stop Time: 10:30 Total Time Billed (hr/min): 90 Billed Treatment Time 1 visit-ADL 2 (25 min), EX 4 (65 min) PAM KUO Apr 11, 2019 10:37 POS
--- NOTE | 2019-04-11 10:53 | NUR ---
Reviewed weekly Rehab Team Conference Summary with patient. He is in agreement to a continued stay with review 04/17/19. No notable changes in the discharge plan other then DME as noted below. DME: Confirmed recommendation with patient for a FWW rather than his current 4WW, he agrees to get this item through Medicare benefits for final discharge.
--- NOTE | 2019-04-11 12:00 | Progress Note - Cardiology ---
Cardiology SOAP Progress Note Subjective: No cp or palp or syncope or shortness of breath Leg discomfort slowly improving Participating in rehab Objective: I&O/Vital Signs 04/11/19 05:04 Temp 37.0 Pulse 99 Resp 20 B/P (MAP) 110/75 (87) Pulse Ox 93 O2 Delivery Room Air 04/10/19 23:59 Intake Total 850 ml Balance 850 ml Constitutional: appears stated age, well-developed, well-nourished Respiratory: No accessory muscle use, No respiratory distress; chest expansion is symmetric, chest is bilaterally symmetric Cardiovascular: irregularly irregular; No JVD; S1 and S2 Gastrointestional: No tender; soft, round, audible bowel sounds Extremities: other (mild bilat LE swelling) Neurologic/Psychiatric: grossly intact Skin: No rash on exposed areas, No ulcerations on exposed areas Results/Procedures: Labs Laboratory Tests 04/10/19 15:44: Glucometer 216H 04/10/19 20:51: Glucometer 161H 04/11/19 06:44: Glucometer 150H 04/11/19 11:18: Glucometer 190H Laboratory Tests 04/10/19 04:20 A/P: Assessment: Intertrochanteric fracture left femur on 04/05/19; s/p closed reduction and application of intramedullary nail on 04/06/19 Atrial fibrillation of undetermined age. Probably chronic and permanent Echo 04/07/19: LVEF 50%, mild MR & TR, RVSP 17 mmHg Hypertension, controlled DM II, managed by Dr Ortiz Plan: * Continue current rate-control strategy for chronic A Fib * Continue apixaban for stroke propylaxis * CBC checked after starting apixaba: AKASH Esposito MD FACP FACC CCDS Apr 11, 2019 12:00 POS
--- NOTE | 2019-04-11 13:16 | Physical Therapy Daily Note ---
PT Daily Note-Current Subjective pt in bed pre-tx agrees to PT. JESSICA Allison in room at this time. pt denies any pain at this time. Appearance pt in recliner post-tx with feet elevated and heels floated. Pt with call light, room phone, tray table in reach with all needs met at this time. Mental Status Patient Orientation: Person, Place, Time, Situation Transfers SCALE: Activities may be completed with or without assistive devices. 8-Ywgngyauzy-hhawzaf completes the activity by him/herself with no assistance from a helper. 5-Set-up or Clean-up Assistance-helper sets up or cleans up; patient completes activity. [place] assists only prior to or following the activity. 4-Supervision or Touching Assistance-helper provides verbal cues and/or touching/steadying and/or contact guard assistance as patient completes activity. Assistance may be provided throughout the activity or intermittently. 3-Partial/Moderate Assistance-helper does LESS THAN HALF the effort. [place] lifts, holds or supports trunk or limbs, but provides less than half the effort. 2-Substantial/Maximal Assistance-helper does MORE THAN HALF the effort. [place] lifts or holds trunk or limbs and provides more than half the effort. 7-Vtrwvblap-ikvwvf does ALL the effort. Patient does none of the effort to complete the activity. Or, the assistance of 2 or more helpers is required for the patient to complete the activity. If activity was not attempted, code reason: 7-Patient Refused. 9-Not Applicable-not attempted and the patient did not perform the activity before the current illness, exacerbation or injury. 10-Not Attempted due to Environmental Limitations-(lack of equipment, weather restraints, etc.). 88-Not Attempted due to Medical Conditions or Safety Concerns. Sit to Stand (QC): 4 (SBA) Weight Bearing Right Lower Extremity: Right Weight Bearing/Tolerated Left Lower Extremity: Left Weight Bearing/Tolerated Gait Training Distance: 160' Walk 10 feet (QC): 4 (CGA) Walk 50 ft with 2 Turns(QC): 4 (CGA) Walk 150 ft (QC): 4 (CGA) Gait Assistive Device: FWW Pt ambulates with a step through pattern very slowly. Pt has no LOB this session. Exercises Supine Ex: Ankle pumps, Quad Set, Glut sets Supine Reps: 15 Treatments pt performed functional LE strengthening, bed mobility, transfer training, skilled ambulation training, and education. Assessment Current Status: Good Progress Pt continues to increase distance of ambulation but continues to move very slowly for all transfers and ambulation. PT Short Term Goals Short Term Goals Wheelchair Distance: 100' PT Correction Goals Correction Goals PT Correction Goals Time Frame: Apr 24, 2019 Sit to Lying (QC): 6 Lying-Sitting on Side/Bed(QC): 6 Sit to Stand (QC): 6 Roll Left to Right (QC): 6 Chair/Unk-rk-Unvtk Xfer(QC): 6 Car Transfer (QC): 5 Does the Patient Walk: Yes Walk 10 feet (QC): 6 Walk 10ft-Uneven Surface(QC): 6 Walk 50ft with 2 Turns (QC): 6 Walk 150 ft (QC): 6 Gait Assistive Device: FWW 1 Step (curb) (QC): 6 4 Steps (QC): 5 12 Steps (QC): 9 Picking up an Object (QC): 88 PT Plan Problem List Problem List: Activity Tolerance, Functional Strength, Safety, Balance, Gait, Transfer, Bed Mobility, ROM Treatment/Plan Treatment Plan: Continue Plan of Care Treatment Plan: Bed Mobility, Education, Functional Activity Sylvester, Functional Strength, Group Therapy, Gait, Safety, Therapeutic Exercise, Transfers Treatment Duration: Apr 24, 2019 Frequency: At least 5 of 7 days/Wk (IRF) Estimated Hrs Per Day: 1.5 hours per day Patient and/or Family Agrees t: Yes Safety Risks/Education Patient Education: Gait Training, Transfer Techniques, Correct Positioning, Safety Issues Teaching Recipient: Patient Teaching Methods: Demonstration, Discussion Response to Teaching: Return Demonstration, Reinforcement Needed Time/GCodes Time In: 1230 Time Out: 1300 Total Billed Treatment Time: 30 Total Billed Treatment 1 visit EX 10' GT 20' AIRAM DAWKINS PT Apr 11, 2019 13:16 POS
[2019-04-11 14:09] VITALS: BP 110/75
[2019-04-11 17:26] VITALS: BP 108/71
[2019-04-12 05:02] VITALS: BP 124/70
[2019-04-12] MEDS: HYDROcodone/APAP 5 MG/325 MG (LORTAB) TAB PO PRN (06:24)
[2019-04-12] MEDS: CATHETER FLUSH 10 ML SYR IV SCH ×2 (06:26→14:17)
--- NOTE | 2019-04-12 08:42 | Occupational Ther Daily Note ---
OT Current Status-Daily Note Subjective Pt alert, sitting in recliner. Pt agrees to therapy. No c/o pain sitting in recliner, stated that he had been given pain pill prior to OT session. Mental Status/Objective Patient Orientation: Person, Place, Time, Situation ADL-Treatment Pt agrees to shower. Pt completed own meal set up and uses regular utensils to eat. Pt ambulated to bathroom with close SBA then transferred into shower using FWW, grabbars and shower seat with close SBA. Pt completed shower with SBA when in stance to cleanse and dry buttocks. Pt completed all other areas in sitting. After set up, pt completed upper body dressing. Using AE to thread over L f oot, pt donned pants with SBA in standing to hike pants over hips. Pt sat at sink to complete oral care and grooming. Assist to don/doff POLI hose and don shoes. Therapy Code Descriptions/Definitions Functional [place] Measure: 0=Not Assessed/NA 4=Minimal Assistance 1=Total Assistance 5=Supervision or Setup 2=Maximal Assistance 6=Modified [place] 3=Moderate Assistance 7=Complete IndependenceSCALE: Activities may be completed with or without assistive devices. 2-Dqifbdrred-qxrbgeo completes the activity by him/herself with no assistance from a helper. 5-Set-up or Clean-up Assistance-helper sets up or cleans up; patient completes activity. [place] assists only prior to or following the activity. 4-Supervision or Touching Assistance-helper provides verbal cues and/or touch ing/steadying and/or contact guard assistance as patient completes activity. Assistance may be provided throughout the activity or intermittently. 3-Partial/Moderate Assistance-helper does LESS THAN HALF the effort. [place] lifts, holds or supports trunk or limbs, but provides less than half the effort. 2-Substantial/Maximal Assistance-helper does MORE THAN HALF the effort. [place] lifts or holds trunk or limbs and provides more than half the effort. 3-Bswkmcluy-jyutrm does ALL the effort. Patient does none of the effort to complete the activity. Or, the assistance of 2 or more helpers is required for the patient to complete the activity. If activity was not attempted, code reason: 7-Patient Refused. 9-Not Applicable-not attempted and the patient did not perform the activity before the current illness, exacerbation or injury. 10-Not Attempted due to Environmental Limitations-(lack of equipment, weather restraints, etc.). 88-Not Attempted due to Medical Conditions or Safety Concerns. Eating (QC): 6 Oral Hygiene (QC): 6 Bathing Location: L Arm, R Arm, L Upper Leg, R Upper Leg, L Lower Leg (including foot), R Lower Leg (including foot), Chest, Abdomen, Buttocks, Perineal Area Shower/Bathe Self (QC): 4 Upper Body Dressing (QC): 5 Lower Body Dressing (QC): 4 Footwear (QC) 2 Other Treatment BP after ADLs 99/65 and light headedness, nrsg notified. Pt maneuvered w/c to therapy gym to complete arm bike for 15 min at 20 [place] resistance to increase strength and activity tolerance. Medical student came to see pt. After therapy, pt sitting in recliner with call light/phone in reach. All needs met in room. OT Short Term Goals Short Term Goals Time Frame: Apr 15, 2019 Eating(FIM): 6 Grooming(FIM): 5 Bathing(FIM): 4 Upper Body Dressing(FIM): 5 Lower Body Dressing(FIM): 4 Toileting(FIM): 3 Transfers (B,C,W/C) (FIM): 4 Toilet/Commode Transfer(FIM): 4 Shower Transfer(FIM): 4 Additional Short Term Goals: 1-Demonstrate ADL Tasks, 2-Verbalize Understanding, 3-ImproveStrength/Sylvester 1=Demonstrate adherence to instructed precautions during ADL tasks. 2=Patient will verbalize/demonstrate understanding of assistive devices/modifications for ADL. 3=Patient will improve strength/tolerance for activity to enable patient to perform ADL's. OT Care Home Goals Computer Security Specialist Goals Time Frame: Apr 22, 2019 Eating (QC): 6 Oral Hygiene (QC): 6 Shower/Bathe Self (QC): 5 Upper Body Dressing (QC): 6 Lower Body Dressing (QC): 6 On/Off Footwear (QC): 6 Toileting Hygiene (QC): 6 Toilet/Commode Transfer (QC): 6 Additional Goals: 1-Demonstrate ADL Tasks, 2-Verbalize Understanding, 3- ImproveStrength/Sylvester 1=Demonstrate adherence to instructed precautions during ADL tasks. 2=Patient will verbalize/demonstrate understanding of assistive devices/modifications for ADL. 3=Patient will improve strength/tolerance for activity to enable patient to perform ADL's. OT Education/Plan Problem List/Assessment Assessment: Decreased Activ Tolerance, Decreased UE Strength, Impaired Self- Care Skills Discharge Recommendations Plan/Recommendations: Continue POC Treatment Plan/Plan of Care Patient would benefit from OT for education, treatment and training to promote independence in ADL's, mobility, safety and/or upper extremity function for ADL's. Plan of Care: ADL Retraining, Functional Mobility, Group Exercise/Act as Ind, UE Funct Exercise/Act Treatment Duration: Apr 22, 2019 Frequency: At least 5 of 7 days/Wk (IRF) Estimated Hrs Per Day: 1.5 hours per day Agreement: Yes Rehab Potential: Good Time/GCodes Start Time: 06:50 Stop Time: 08:20 Total Time Billed (hr/min): 90 Billed Treatment Time 1 visit-ADL 5 (70 min) EX 1 (20 min) PAM KUO Apr 12, 2019 08:42 POS
[2019-04-12] MEDS: meTOproloL SUCCINATE 50 MG (TOPROL XL) TAB PO SCH (08:47)
[2019-04-12] MEDS: SENNA W/DOCUSATE (SENOKOT S) TABLET PO SCH ×2 (08:47→21:23)
[2019-04-12] MEDS: APIXABAN 5 MG (ELIQUIS) TABLET PO SCH ×2 (08:49→21:23)
[2019-04-12] MEDS: POLYETHYLENE GLYCOL 17 GM (MIRALAX) PACK PO SCH ×2 (08:50→21:24)
--- NOTE | 2019-04-12 09:20 | PM&R Progress Note ---
Subjective HPI/CC On Admission Date Seen by Provider: Apr 12, 2019 Time Seen by Provider: 08:30 Subjective/Events-last exam Wound care eval for the left heel since it is improving but will make sure since he is diabetic and that is his hip fracture leg Bowels are moving well Maintain on oral anticoagulation Feels much better he has his regular home clothes on Overall much improved and feels very motivated and confident. Checked meds and labs Conferred with RN Reviewed therapy notes Review of Systems General: Fatigue Musculoskeletal: leg pain Objective Exam Vital Signs Vital Signs Date Time Temp Pulse Resp B/P (MAP) Pulse Ox O2 Delivery O2 Flow Rate FiO2 04/12/19 08:10 Room Air 04/12/19 05:02 37.0 87 20 124/70 (88) 92 04/11/19 14:09 21 Capillary Refill : Less Than 3 Seconds General Appearance: No Apparent Distress, WD/WN, Chronically ill HEENT: PERRL/EOMI, Normal ENT Inspection, Pharynx Normal Neck: Full Range of Motion, Normal Inspection, Non Tender, Supple, Carotid Br uit Respiratory: Chest Non Tender, Lungs Clear, Normal Breath Sounds, No Accessory Muscle Use, No Respiratory Distress Cardiovascular: Regular Rate, Rhythm, No Edema, No Gallop, No JVD, No Murmur, Normal Peripheral Pulses Gastrointestinal: Normal Bowel Sounds, No Organomegaly, No Pulsatile Mass, Non Tender, Soft Back: Normal Inspection, No CVA Tenderness, No Vertebral Tenderness Extremity: Normal Capillary Refill, Normal Inspection, Normal Range of Motion (except left leg), Non Tender, No Calf Tenderness, No Pedal Edema Neurologic/Psychiatric: Alert, Oriented x3, No Motor/Sensory Deficits, Normal 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 FIM Transfers Therapy Code Descriptions/Definitions Functional [place] Measure: 0=Not Assessed/NA 4=Minimal Assistance 1=Total Assistance 5=Supervision or Setup 2=Maximal Assistance 6=Modified [place] 3=Moderate Assistance 7=Complete IndependenceSCALE: Activities may be completed with or without assistive devices. 8-Ekthjxovny-dczhdwa completes the activity by him/herself with no assistance from a helper. 5-Set-up or Clean-up Assistance-helper sets up or cleans up; patient completes activity. [place] assists only prior to or following the activity. 4-Supervision or Touching Assistance-helper provides verbal cues and/or touching/steadying and/or contact guard assistance as patient completes activity. Assistance may be provided throughout the activity or intermittently. 3-Partial/Moderate Assistance-helper does LESS THAN HALF the effort. [place] lifts, holds or supports trunk or limbs, but provides less than half the effort. 2-Substantial/Maximal Assistance-helper does MORE THAN HALF the effort. [place] lifts or holds trunk or limbs and provides more than half the effort. 8-Gulzpsfoa-rwxnkw does ALL the effort. Patient does none of the effort to complete the activity. Or, the assistance of 2 or more helpers is required for the patient to complete the activity. If activity was not attempted, code reason: 7-Patient Refused. 9-Not Applicable-not attempted and the patient did not perform the activity before the current illness, exacerbation or injury. 10-Not Attempted due to Environmental Limitations-(lack of equipment, weather restraints, etc.). 88-Not Attempted due to Medical Conditions or Safety Concerns. Transfers (B, C, W/C) (FIM): 3 Roll Left to Right (QC): 4 Sit to Lying (QC): 4 Sit to Stand (QC): 4 (SBA) Chair/Hbb-ie-Bktcq Xfer(QC): 3 Car Transfer (QC): 88 Gait Training Does the Patient Walk?: Yes Gait (FIM): 3 Distance (FIM): 1=up to 49 ft Distance: 160' Walk 10 feet (QC): 4 (CGA) Walk 50 ft with 2 Turns(QC): 4 (CGA) Walk 150 ft (QC): 4 (CGA) Walking 10ft/uneven surface-QC: 88 Gait Assistive Device: FWW Wheelchair Training Does the Pt Use a Wheelchair?: No Wheelchair Distance: 3=775-00 ft Distance: 100' Wheel 50 ft with 2 turns (QC): 6 Type of Wheelchair: Manual Stair Training 1 Step (curb) (QC): 88 4 Steps (QC): 88 12 Steps (QC): 88 Balance Picking up an Object (QC): 88 ADL-Treatment Eating (QC): 6 Oral Hygiene (QC): 6 Bathing Location: L Arm, R Arm, L Upper Leg, R Upper Leg, L Lower Leg (including foot), R Lower Leg (including foot), Chest, Abdomen, Buttocks, Perineal Area Shower/Bathe Self (QC): 4 Upper Body Dressing (QC): 5 Lower Body Dressing (QC): 4 On/Off Footwear (QC): 2 Toileting Hygiene (QC): 4 Toilet Transfer (QC): 4 Assessment/Plan Assessment and Plan Assess & Plan/Chief Complaint Assessment: Left hip fracture Fall AF OAC DM HTN Plan: OAC coupon Cardiology is appreciated IRF protocol BM regimen Pain control Much improved today (1) Hip fracture, intertrochanteric Status: Acute Qualifiers: Laterality: left Fracture healing: with routine healing (2) On continuous oral anticoagulation (3) Atrial fibrillation (4) Essential (primary) hypertension Status: Chronic (5) Non-insulin dependent type 2 diabetes mellitus Status: Chronic CARLOZ CONNELL DO Apr 12, 2019 09:20 POS
--- NOTE | 2019-04-12 09:58 | Physical Therapy Daily Note ---
PT Daily Note-Current Subjective pt in recliner pre-tx agrees to therapy. pt denies pain at this time. Appearance pt in bed post-tx. pt with L heel elevated with call light, room phone, tray table in reach with all needs met at this time. Mental Status Patient Orientation: Person, Place, Time, Situation Transfers SCALE: Activities may be completed with or without assistive devices. 7-Dfzyofssvk-adpbidf completes the activity by him/herself with no assistance from a helper. 5-Set-up or Clean-up Assistance-helper sets up or cleans up; patient completes activity. [place] assists only prior to or following the activity. 4-Supervision or Touching Assistance-helper provides verbal cues and/or touching/steadying and/or contact guard assistance as patient completes activity. Assistance may be provided throughout the activity or intermittently. 3-Partial/Moderate Assistance-helper does LESS THAN HALF the effort. [place] lifts, holds or supports trunk or limbs, but provides less than half the effort. 2-Substantial/Maximal Assistance-helper does MORE THAN HALF the effort. [place] lifts or holds trunk or limbs and provides more than half the effort. 4-Xznkxjpjm-xgfrfn does ALL the effort. Patient does none of the effort to complete the activity. Or, the assistance of 2 or more helpers is required for the patient to complete the activity. If activity was not attempted, code reason: 7-Patient Refused. 9-Not Applicable-not attempted and the patient did not perform the activity before the current illness, exacerbation or injury. 10-Not Attempted due to Environmental Limitations-(lack of equipment, weather restraints, etc.). 88-Not Attempted due to Medical Conditions or Safety Concerns. Sit to Lying (QC): 3 (Yary) Sit to Stand (QC): 4 (SBA) Chair/Ygw-fc-Qvash Xfer(QC): 4 (SBA) Weight Bearing Right Lower Extremity: Right Weight Bearing/Tolerated Left Lower Extremity: Left Weight Bearing/Tolerated Gait Training Distance: 150' 130', 60' Walk 10 feet (QC): 4 (SBA) Walk 50 ft with 2 Turns(QC): 4 (SBA) Walk 150 ft (QC): 4 (SBA) Gait Assistive Device: FWW pt continues to improve step length and swing height with the LLE. last 60' ambulated had 3 obstacles forcing pt to swerve and go in between tight spaces. Exercises Seated Therapy Exercises: Long arc quads, Hip flexion, Hip abd/add Seated Reps: 20 (2sets 10reps) Standing: Hip Abduction, Heel/toe raises, 3 way Ex=Flex, Abd, Ext, Step-ups (B/L onto [place] box 1 foot up and back down 8 reps 2sets) Standing Reps: 20 (2sets 10reps) Treatments pt performed transfer training, bed mobility training, skilled ambulation training, functional LE strengthening, and education. Assessment Current Status: Good Progress pt continues to improve ambulation quality and velocity. Pt has no imbalance this session and continues to improve activity jocelyn. PT Short Term Goals Short Term Goals Wheelchair Distance: 100' PT Jail Goals Jail Goals PT Education Managers Goals Time Frame: Apr 24, 2019 Sit to Lying (QC): 6 Lying-Sitting on Side/Bed(QC): 6 Sit to Stand (QC): 6 Roll Left to Right (QC): 6 Chair/Yyx-rq-Wqeng Xfer(QC): 6 Car Transfer (QC): 5 Does the Patient Walk: Yes Walk 10 feet (QC): 6 Walk 10ft-Uneven Surface(QC): 6 Walk 50ft with 2 Turns (QC): 6 Walk 150 ft (QC): 6 Gait Assistive Device: FWW 1 Step (curb) (QC): 6 4 Steps (QC): 5 12 Steps (QC): 9 Picking up an Object (QC): 88 PT Plan Problem List Problem List: Activity Tolerance, Functional Strength, Safety, Balance, Gait, Transfer, Bed Mobility, ROM Treatment/Plan Treatment Plan: Continue Plan of Care Treatment Plan: Bed Mobility, Education, Functional Activity Sylvester, Functional Strength, Group Therapy, Gait, Safety, Therapeutic Exercise, Transfers Treatment Duration: Apr 24, 2019 Frequency: At least 5 of 7 days/Wk (IRF) Estimated Hrs Per Day: 1.5 hours per day Patient and/or Family Agrees t: Yes Safety Risks/Education Patient Education: Gait Training, Transfer Techniques, Correct Positioning, Safety Issues Teaching Recipient: Patient Teaching Methods: Demonstration, Discussion Response to Teaching: Return Demonstration, Reinforcement Needed Time/GCodes Time In: 900 Time Out: 1000 Total Billed Treatment Time: 60 Total Billed Treatment 1 visit 20' GT 25' EX 15'AIRAM GONZALES PT Apr 12, 2019 09:58 POS
--- NOTE | 2019-04-12 10:11 | Progress Note ---
DEBRA ELLISMED STUDENT 04/12/19 1011: Progress Note CC: S/p Intertrochanteric hip fx repair Barriers PT/OT/ST/Group therapy continues going well pt enjoying his stay here Pt regaining his appetite, ordering his own food seems to facilitate increased intake Does not complain of any dizziness or lightheadedness yesterday - will continue to follow Plan after rehab is to move in with daughter, son-in-law and son for assistance Four steps going up to daughter's home Transferring alone and ambulating with walker, requiring a little assistance for changing and using restroom Rising OOB alone but having trouble sliding his fx leg Pain not limiting therapy No BM in the last four days according to pt. Endorses excessive flatus Pt requesting to be placed on Plavix instead of Eliquis GISSEL ORTIZ DO 04/12/19 1618: Supervisory-Addendum Brief Verification & Attestation Participated in pt care: history, MDM, physical Personally performed: exam, history, MDM, supervision of care Care discussed with: Medical Student Procedures: n/a Results interpretation: Verified all documentation Verification and Attestation of Medical Student E/M Service A medical student performed and documented this service in my presence. I reviewed and verified all information documented by the medical student and made modifications to such information, when appropriate. I personally performed the physical exam and medical decision making. Gissel Ortiz, Apr 12, 2019,16:17 DEBRA ELLIS,MED STUDENT Apr 12, 2019 10:11 GISSEL RAY DO Apr 12, 2019 16:18 POS
--- NOTE | 2019-04-12 10:41 | Progress Note - Cardiology ---
Cardiology SOAP Progress Note Subjective: Lying in bed. C/O hip pain. No c/o CP, palpitations, dyspnea, syncope or near syncope Objective: I&O/Vital Signs 04/16/19 05:16 Temp 36.5 Pulse 97 Resp 20 B/P (MAP) 104/69 (81) Pulse Ox 92 O2 Delivery Room Air 04/16/19 00:00 Intake Total 900 ml Balance 900 ml Constitutional: appears stated age, well-developed, well-nourished Respiratory: No accessory muscle use, No respiratory distress; chest expansion is symmetric, chest is bilaterally symmetric Cardiovascular: irregularly irregular; No JVD; S1 and S2 Gastrointestional: No tender; soft, round, audible bowel sounds Extremities: other (mild bilat LE swelling) Neurologic/Psychiatric: grossly intact Skin: No rash on exposed areas, No ulcerations on exposed areas Results/Procedures: Labs Laboratory Tests 04/15/19 15:38: Glucometer 169H 04/15/19 20:20: Glucometer 196H 04/16/19 06:22: Glucometer 152H 04/16/19 10:31: Glucometer 161H A/P: Assessment: Intertrochanteric fracture left femur on 04/05/19; s/p closed reduction and application of intramedullary nail on 04/06/19 Atrial fibrillation of undetermined age. Probably chronic and permanent Echo 04/07/19: LVEF 50%, mild MR & TR, RVSP 17 mmHg Hypertension, controlled DM II, managed by Dr Ortiz Plan: * Continue current rate-control strategy for chronic A Fib * Continue apixaban for stroke prophylaxis * oil well services field supervisor assisting with Rx assistance for Francis - appreciate their assistance DUYEN BAUTISTA Apr 12, 2019 10:41 POS
--- NOTE | 2019-04-12 11:50 | Physical Therapy Daily Note ---
PT Daily Note-Current Subjective pt in bed pre-tx agrees to therapy. pt reports no pain at this time. Appearance pt in recliner post-tx with call light, room phone, tray table in reach with all needs met at this time. Mental Status Patient Orientation: Person, Place, Time, Situation Transfers SCALE: Activities may be completed with or without assistive devices. 1-Zbgsaxeatw-xbmawae completes the activity by him/herself with no assistance from a helper. 5-Set-up or Clean-up Assistance-helper sets up or cleans up; patient completes activity. [place] assists only prior to or following the activity. 4-Supervision or Touching Assistance-helper provides verbal cues and/or touching/steadying and/or contact guard assistance as patient completes activity. Assistance may be provided throughout the activity or intermittently. 3-Partial/Moderate Assistance-helper does LESS THAN HALF the effort. [place] lifts, holds or supports trunk or limbs, but provides less than half the effort. 2-Substantial/Maximal Assistance-helper does MORE THAN HALF the effort. [place] lifts or holds trunk or limbs and provides more than half the effort. 2-Qyzipubiy-xpwzfe does ALL the effort. Patient does none of the effort to complete the activity. Or, the assistance of 2 or more helpers is required for the patient to complete the activity. If activity was not attempted, code reason: 7-Patient Refused. 9-Not Applicable-not attempted and the patient did not perform the activity before the current illness, exacerbation or injury. 10-Not Attempted due to Environmental Limitations-(lack of equipment, weather restraints, etc.). 88-Not Attempted due to Medical Conditions or Safety Concerns. Sit to Stand (QC): 4 (CGA) Weight Bearing Right Lower Extremity: Right Weight Bearing/Tolerated Left Lower Extremity: Left Weight Bearing/Tolerated Gait Training Distance: 150'x2 Walk 10 feet (QC): 4 (SBA) Walk 50 ft with 2 Turns(QC): 4 (SBA) Walk 150 ft (QC): 4 (SBA) Gait Assistive Device: FWW pt has a little more difficulty during second ambulation bout with clearing the LLE secondary to fatigue. Exercises NuStep Minutes: 10 NuStep Workload: 3 Treatments pt performed skilled ambulation training, functional endurance training, bed mobility training, transfer training, and education this date. Assessment Current Status: Good Progress pt has increased difficulty near the end of session with LLE clearance for swing during ambulation. Pt is fatigued following structured therapy and requires increased assist modA to get into/out of Nustep this session. PT Short Term Goals Short Term Goals Wheelchair Distance: 100' PT Manager Floor Goals Manager Floor Goals PT Assisted Goals Time Frame: Apr 24, 2019 Sit to Lying (QC): 6 Lying-Sitting on Side/Bed(QC): 6 Sit to Stand (QC): 6 Roll Left to Right (QC): 6 Chair/Mrt-pi-Umaad Xfer(QC): 6 Car Transfer (QC): 5 Does the Patient Walk: Yes Walk 10 feet (QC): 6 Walk 10ft-Uneven Surface(QC): 6 Walk 50ft with 2 Turns (QC): 6 Walk 150 ft (QC): 6 Gait Assistive Device: FWW 1 Step (curb) (QC): 6 4 Steps (QC): 5 12 Steps (QC): 9 Picking up an Object (QC): 88 PT Plan Problem List Problem List: Activity Tolerance, Functional Strength, Safety, Balance, Gait, Transfer, Bed Mobility, ROM Treatment/Plan Treatment Plan: Continue Plan of Care Treatment Plan: Bed Mobility, Education, Functional Activity Sylvester, Functional Strength, Group Therapy, Gait, Safety, Therapeutic Exercise, Transfers Treatment Duration: Apr 24, 2019 Frequency: At least 5 of 7 days/Wk (IRF) Estimated Hrs Per Day: 1.5 hours per day Patient and/or Family Agrees t: Yes Safety Risks/Education Patient Education: Gait Training, Transfer Techniques, Correct Positioning, Safety Issues Teaching Recipient: Patient Teaching Methods: Demonstration, Discussion Response to Teaching: Return Demonstration, Reinforcement Needed Time/GCodes Time In: 1115 Time Out: 1145 Total Billed Treatment Time: 30 Total Billed Treatment 1 visit EX 10' GT 20' AIRAM DAWKINS PT Apr 12, 2019 11:50 POS
--- NOTE | 2019-04-12 15:08 | Wound Care Assessment ---
Wound Care Assessment Date Seen by Provider: Apr 12, 2019 Time Seen by Provider: 15:00 Chief Complaint L heel injury. HPI The patient is a 78 year old male admitted to the ARU 1 week ago and noted 48 hours ago to have an area of injury to L posterior heel. Has a remote history of heel fracture, a prominent bone spur, and a 2 x 2 cm area of erythema with central bruising. The erythema blanches; this injury finding is inconsistent with pressure injury. The most likely cause is pure sheer. He is dressed with a Allevyn, which should minimize risk of further injury. Smoking Status: Former Smoker Recreational Drug Use: No Alcohol Use: Denies Use Review of Systems Pulmonary: No Dyspnea Cardiovascular: No: Chest Pain Exam Vital Signs Date Time Temp Pulse Resp B/P (MAP) Pulse Ox O2 Delivery O2 Flow Rate FiO2 04/12/19 08:10 Room Air 04/12/19 05:02 37.0 87 20 124/70 (88) 92 04/11/19 14:09 21 Capillary Refill : Less Than 3 Seconds General Appearance: no apparent distress Skin: other (L heel 2 x 2 cm area of blanchable erythema, with central bruising.) Results Laboratory Tests 04/11/19 17:07: Glucometer 149H 04/11/19 22:10: Glucometer 179H 04/12/19 06:22: Glucometer 148H 04/12/19 10:59: Glucometer 179H Assessment/Plan/Dx 1. Sheer injury, L heel. Plan: continue Allevyn as ordered. HAI HUNT MD Apr 12, 2019 15:08 POS
[2019-04-12 16:00] VITALS: BP 111/76
--- NOTE | 2019-04-12 16:16 | Progress Note - Cardiology ---
Cardiology SOAP Progress Note Subjective: No cp or palp or syncope or shortness of breath at rest Objective: I&O/Vital Signs 04/12/19 04/12/19 04/12/19 05:02 07:02 08:10 Temp 37.0 Pulse 87 Resp 20 B/P (MAP) 124/70 (88) Pulse Ox 92 O2 Delivery Room Air Room Air Room Air 04/12/19 00:00 Intake Total 1000 ml Balance 1000 ml Constitutional: appears stated age, well-developed, well-nourished Respiratory: No accessory muscle use, No respiratory distress; chest expansion is symmetric, chest is bilaterally symmetric Cardiovascular: irregularly irregular; No JVD; S1 and S2 Gastrointestional: No tender; soft, round, audible bowel sounds Extremities: other (mild bilat LE swelling) Neurologic/Psychiatric: grossly intact Skin: No rash on exposed areas, No ulcerations on exposed areas Results/Procedures: Labs Laboratory Tests 04/11/19 17:07: Glucometer 149H 04/11/19 22:10: Glucometer 179H 04/12/19 06:22: Glucometer 148H 04/12/19 10:59: Glucometer 179H 04/12/19 15:31: Glucometer 146H A/P: Assessment: Intertrochanteric fracture left femur on 04/05/19; s/p closed reduction and application of intramedullary nail on 04/06/19 Atrial fibrillation of undetermined age. Probably chronic and permanent Echo 04/07/19: LVEF 50%, mild MR & TR, RVSP 17 mmHg Hypertension, controlled DM II, managed by Dr Ortiz Plan: * Continue current rate-control strategy for chronic A Fib * Continue apixaban for stroke prophylaxis * I answered his CV-related questions AKASH GARDUNO MD FACP FAC CCDS Apr 12, 2019 16:16 POS
--- NOTE | 2019-04-12 19:22 | NUR ---
bedside report received from SUMIT LOPEZ, assume care of pt
--- NOTE | 2019-04-12 21:23 | NUR ---
pt refused miralax but took Senokot
[2019-04-13 05:30] VITALS: BP 112/63
[2019-04-13] MEDS: HYDROcodone/APAP 5 MG/325 MG (LORTAB) TAB PO PRN (06:32)
--- NOTE | 2019-04-13 06:32 | NUR ---
c/o lt leg pain, level 7/10 on numeric scale, Lortab 5 1 tab given
--- NOTE | 2019-04-13 07:15 | NUR ---
rates pain level 2/10 on numeric scale
--- NOTE | 2019-04-13 07:20 | NUR ---
bedside report given to BERONICA LOPEZ
[2019-04-13] MEDS: APIXABAN 5 MG (ELIQUIS) TABLET PO SCH ×2 (08:47→20:24)
[2019-04-13] MEDS: meTOproloL SUCCINATE 50 MG (TOPROL XL) TAB PO SCH (08:47)
[2019-04-13] MEDS: SENNA W/DOCUSATE (SENOKOT S) TABLET PO SCH ×2 (08:47→20:25)
[2019-04-13] MEDS: POLYETHYLENE GLYCOL 17 GM (MIRALAX) PACK PO SCH ×2 (08:47→20:24)
--- NOTE | 2019-04-13 12:06 | PM&R Progress Note ---
Subjective HPI/CC On Admission Date Seen by Provider: Apr 13, 2019 Time Seen by Provider: 11:00 Subjective/Events-last exam Wound care eval revealed no significant wound Bowels are moving well Maintained on oral anticoagulation Feels much better he has his regular home clothes on and takes a shower every day Overall much improved and feels very motivated and confident. Checked meds and labs Conferred with RN Reviewed therapy notes Review of Systems Musculoskeletal: leg pain Objective Exam Vital Signs Vital Signs Date Time Temp Pulse Resp B/P (MAP) Pulse Ox O2 Delivery O2 Flow Rate FiO2 04/14/19 09:22 99 Room Air 04/14/19 09:22 36.9 92 04/14/19 06:18 18 131/75 (93) 04/11/19 14:09 21 Capillary Refill : Less Than 3 Seconds General Appearance: No Apparent Distress, WD/WN, Chronically ill HEENT: PERRL/EOMI, Normal ENT Inspection, Pharynx Normal Neck: Full Range of Motion, Normal Inspection, Non Tender, Supple, Carotid Bruit Respiratory: Chest Non Tender, Lungs Clear, Normal Breath Sounds, No Accessory Muscle Use, No Respiratory Distress Cardiovascular: Regular Rate, Rhythm, No Edema, No Gallop, No JVD, No Murmur, Normal Peripheral Pulses Gastrointestinal: Normal Bowel Sounds, No Organomegaly, No Pulsatile Mass, Non Tender, Soft Back: Normal Inspection, No CVA Tenderness, No Vertebral Tenderness Extremity: Normal Capillary Refill, Normal Inspection, Normal Range of Motion (except left leg), Non Tender, No Calf Tenderness, No Pedal Edema Neurologic/Psychiatric: Alert, Oriented x3, No Motor/Sensory Deficits, Normal Mood/Affect, 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 FIM Transfers Therapy Code Descriptions/Definitions Functional [place] Measure: 0=Not Assessed/NA 4=Minimal Assistance 1=Total Assistance 5=Supervision or Setup 2=Maximal Assistance 6=Modified [place] 3=Moderate Assistance 7=Complete IndependenceSCALE: Activities may be completed with or without assistive devices. 8-Ruwioppmlj-jvqrqxv completes the activity by him/herself with no assistance from a helper. 5-Set-up or Clean-up Assistance-helper sets up or cleans up; patient completes activity. [place] assists only prior to or following the activity. 4-Supervision or Touching Assistance-helper provides verbal cues and/or elizabeth candice/steadying and/or contact guard assistance as patient completes activity. Assistance may be provided throughout the activity or intermittently. 3-Partial/Moderate Assistance-helper does LESS THAN HALF the effort. [place] lifts, holds or supports trunk or limbs, but provides less than half the effort. 2-Substantial/Maximal Assistance-helper does MORE THAN HALF the effort. [place] lifts or holds trunk or limbs and provides more than half the effort. 2-Zxrwvddsr-ajtxbt does ALL the effort. Patient does none of the effort to complete the activity. Or, the assistance of 2 or more helpers is required for the patient to complete the activity. If activity was not attempted, code reason: 7-Patient Refused. 9-Not Applicable-not attempted and the patient did not perform the activity before the current illness, exacerbation or injury. 10-Not Attempted due to Environmental Limitations-(lack of equipment, weather restraints, etc.). 88-Not Attempted due to Medical Conditions or Safety Concerns. Transfers (B, C, W/C) (FIM): 3 Roll Left to Right (QC): 4 Sit to Lying (QC): 3 (Yary) Sit to Stand (QC): 4 (CGA) Chair/Qlo-ow-Hwmnu Xfer(QC): 4 (SBA) Car Transfer (QC): 88 Gait Training Does the Patient Walk?: Yes Gait (FIM): 3 Distance (FIM): 1=up to 49 ft Distance: 150'x2 Walk 10 feet (QC): 4 (SBA) Walk 50 ft with 2 Turns(QC): 4 (SBA) Walk 150 ft (QC): 4 (SBA) Walking 10ft/uneven surface-QC: 88 Gait Assistive Device: FWW Wheelchair Training Does the Pt Use a Wheelchair?: No Wheelchair Distance: 6=734-77 ft Distance: 100' Wheel 50 ft with 2 turns (QC): 6 Type of Wheelchair: Manual Stair Training 1 Step (curb) (QC): 88 4 Steps (QC): 88 12 Steps (QC): 88 Balance Picking up an Object (QC): 88 ADL-Treatment Eating (QC): 6 Oral Hygiene (QC): 6 Bathing Location: L Arm, R Arm, L Upper Leg, R Upper Leg, L Lower Leg (including foot), R Lower Leg (including foot), Chest, Abdomen, Buttocks, P erineal Area Shower/Bathe Self (QC): 4 Upper Body Dressing (QC): 5 Lower Body Dressing (QC): 4 On/Off Footwear (QC): 2 Toileting Hygiene (QC): 4 Toilet Transfer (QC): 4 Assessment/Plan Assessment and Plan Assess & Plan/Chief Complaint Assessment: Left hip fracture Fall AF OAC DM HTN Plan: OAC coupon Cardiology is appreciated IRF protocol BM regimen Pain control Much improved today (1) Hip fracture, intertrochanteric Status: Acute Qualifiers: Laterality: left Fracture healing: with routine healing (2) On continuous oral anticoagulation (3) Atrial fibrillation (4) Essential (primary) hypertension Status: Chronic (5) Non-insulin dependent type 2 diabetes mellitus Status: Chronic CARLOZ CONNELL DO Apr 13, 2019 12:06 POS
--- NOTE | 2019-04-13 12:50 | Physical Therapy Daily Note ---
PT Daily Note-Current Subjective Pt agreeable to PT session. Pain Numeric Pain Scale: 6 Comment: L hip Appearance Pt in bathroom upon 1st attempted visit for PT session. Pt sitting up in recliner awake and alert upon 2nd arrival. At end of session, pt requesting and assisted to bed, call light, phone and bedside table within reach Mental Status Patient Orientation: Normal For Age Transfers SCALE: Activities may be completed with or without assistive devices. 5-Mhzcynhwpq-mwavdtn completes the activity by him/herself with no assistance from a helper. 5-Set-up or Clean-up Assistance-helper sets up or cleans up; patient completes activity. [place] assists only prior to or following the activity. 4-Supervision or Touching Assistance-helper provides verbal cues and/or touching/steadying and/or contact guard assistance as patient completes activity. Assistance may be provided throughout the activity or intermittently. 3-Partial/Moderate Assistance-helper does LESS THAN HALF the effort. [place] lifts, holds or supports trunk or limbs, but provides less than half the effort. 2-Substantial/Maximal Assistance-helper does MORE THAN HALF the effort. [place] lifts or holds trunk or limbs and provides more than half the effort. 4-Badsnhsup-rglxjq does ALL the effort. Patient does none of the effort to complete the activity. Or, the assistance of 2 or more helpers is required for the patient to complete the activity. If activity was not attempted, code reason: 7-Patient Refused. 9-Not Applicable-not attempted and the patient did not perform the activity before the current illness, exacerbation or injury. 10-Not Attempted due to Environmental Limitations-(lack of equipment, weather restraints, etc.). 88-Not Attempted due to Medical Conditions or Safety Concerns. Roll Left to Right (QC): 5 Sit to Lying (QC): 5 Sit to Stand (QC): 4 slow with effort required, able to follow skilled instruction for technique to decrease effort required and decrease pain Weight Bearing Right Lower Extremity: Right Weight Bearing/Tolerated Left Lower Extremity: Left Weight Bearing/Tolerated Gait Training Does the Patient Walk?: Yes Distance: 150x2 Walk 10 feet (QC): 4 Walk 50 ft with 2 Turns(QC): 4 Walk 150 ft (QC): 4 Gait Persons Needed: 1 Gait Assistive Device: FWW pt able to follow instruction to increase LLE step height but occasional re instruction is required. Occasional step to gait but improving with gait distance to step through gait pattern Exercises NuStep Minutes: 15 NuStep Workload: 4 (Seat 9, arms 10) Treatments bed mobility, transfers, gait, strength, balance, safety, education, functional mobility, activity tolerance Assessment Current Status: Good Progress PT Short Term Goals Short Term Goals Wheelchair Distance: 100' PT Group Home Goals Group Home Goals PT Games Dealer Goals Time Frame: Apr 24, 2019 Sit to Lying (QC): 6 Lying-Sitting on Side/Bed(QC): 6 Sit to Stand (QC): 6 Roll Left to Right (QC): 6 Chair/Byf-bb-Hsbjq Xfer(QC): 6 Car Transfer (QC): 5 Does the Patient Walk: Yes Walk 10 feet (QC): 6 Walk 10ft-Uneven Surface(QC): 6 Walk 50ft with 2 Turns (QC): 6 Walk 150 ft (QC): 6 Gait Assistive Device: FWW 1 Step (curb) (QC): 6 4 Steps (QC): 5 12 Steps (QC): 9 Picking up an Object (QC): 88 PT Plan Treatment/Plan Treatment Plan: Continue Plan of Care Treatment Plan: Bed Mobility, Education, Functional Activity Sylvester, Functional Strength, Group Therapy, Gait, Safety, Therapeutic Exercise, Transfers Treatment Duration: Apr 24, 2019 Frequency: At least 5 of 7 days/Wk (IRF) Estimated Hrs Per Day: 1.5 hours per day Patient and/or Family Agrees t: Yes Safety Risks/Education Patient Education: Gait Training, Transfer Techniques, Safety Issues Teaching Recipient: Patient Teaching Methods: Demonstration, Discussion Response to Teaching: Verbalize Understanding, Return Demonstration, Reinforcement Needed Time/GCodes Time In: 1106 Time Out: 1146 Total Billed Treatment Time: 40 Total Billed Treatment 1 visit, GT x1 unit, EX x1 unit, FA x1 unit SCARLET HANNA AERODYNAMICS TEACHER Apr 13, 2019 12:50 POS
[2019-04-13 17:07] VITALS: BP 116/75
--- NOTE | 2019-04-13 19:13 | NUR ---
bedside report received from BERONICA LOPEZ, assume care of pt
--- NOTE | 2019-04-13 20:24 | NUR ---
pt refused miralax & senoskot states had BM this evening already
[2019-04-14 06:18] VITALS: BP 131/75
--- NOTE | 2019-04-14 07:14 | NUR ---
bedside report given to BERONICA LOPEZ
[2019-04-14] MEDS: POLYETHYLENE GLYCOL 17 GM (MIRALAX) PACK PO SCH ×2 (08:45→20:13)
[2019-04-14] MEDS: SENNA W/DOCUSATE (SENOKOT S) TABLET PO SCH ×2 (08:45→20:13)
[2019-04-14] MEDS: meTOproloL SUCCINATE 50 MG (TOPROL XL) TAB PO SCH (08:45)
[2019-04-14] MEDS: APIXABAN 5 MG (ELIQUIS) TABLET PO SCH ×2 (08:45→20:12)
[2019-04-14 09:22] VITALS: BP 131/75
--- NOTE | 2019-04-14 16:14 | PM&R Progress Note ---
Subjective HPI/CC On Admission Date Seen by Provider: Apr 14, 2019 Time Seen by Provider: 11:30 Subjective/Events-last exam Patient denies pain but he is concerned about his ability to move his left leg since that is when he has a lot of pain Bowels are moving well Maintained on oral anticoagulation Feels much better Overall much improved and feels very motivated and confident. Checked meds and labs Conferred with RN Reviewed therapy notes Review of Systems Musculoskeletal: leg pain Objective Exam Vital Signs Vital Signs Date Time Temp Pulse Resp B/P (MAP) Pulse Ox O2 Delivery O2 Flow Rate FiO2 04/14/19 09:22 99 Room Air 04/14/19 09:22 36.9 92 04/14/19 06:18 18 131/75 (93) 04/11/19 14:09 21 Capillary Refill : Less Than 3 Seconds General Appearance: No Apparent Distress, WD/WN, Chronically ill HEENT: PERRL/EOMI, Normal ENT Inspection, Pharynx Normal Neck: Full Range of Motion, Normal Inspection, Non Tender, Supple, Carotid Bruit Respiratory: Chest Non Tender, Lungs Clear, Normal Breath Sounds, No Accessory Muscle Use, No Respiratory Distress Cardiovascular: Regular Rate, Rhythm, No Edema, No Gallop, No JVD, No Murmur, Normal Peripheral Pulses Gastrointestinal: Normal Bowel Sounds, No Organomegaly, No Pulsatile Mass, Non Tender, Soft Back: Normal Inspection, No CVA Tenderness, No Vertebral Tenderness Extremity: Normal Capillary Refill, Normal Inspection, Normal Range of Motion (except left leg), Non Tender, No Calf Tenderness, No Pedal Edema Neurologic/Psychiatric: Alert, Oriented x3, No Motor/Sensory Deficits, Normal Mood/Affect, 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 FIM Transfers Therapy Code Descriptions/Definitions Functional [place] Measure: 0=Not Assessed/NA 4=Minimal Assistance 1=Total Assistance 5=Supervision or Setup 2=Maximal Assistance 6=Modified [place] 3=Moderate Assistance 7=Complete IndependenceSCALE: Activities may be completed with or without assistive devices. 5-Tzkhceoalt-hjqhvcq completes the activity by him/herself with no assistance from a helper. 5-Set-up or Clean-up Assistance-helper sets up or cleans up; patient completes activity. [place] assists only prior to or following the activity. 4-Supervision or Touching Assistance-helper provides verbal cues and/or touching/steadying and/or contact guard assistance as patient completes activity. Assistance may be provided throughout the activity or intermittently. 3-Partial/Moderate Assistance-helper does LESS THAN HALF the effort. [place] lifts, holds or supports trunk or limbs, but provides less than half the effort. 2-Substantial/Maximal Assistance-helper does MORE THAN HALF the effort. [place] lifts or holds trunk or limbs and provides more than half the effort. 8-Rqrfocamg-gbymrw does ALL the effort. Patient does none of the effort to complete the activity. Or, the assistance of 2 or more helpers is required for the patient to complete the activity. If activity was not attempted, code reason: 7-Patient Refused. 9-Not Applicable-not attempted and the patient did not perform the activity before the current illness, exacerbation or injury. 10-Not Attempted due to Environmental Limitations-(lack of equipment, weather restraints, etc.). 88-Not Attempted due to Medical Conditions or Safety Concerns. Transfers (B, C, W/C) (FIM): 3 Roll Left to Right (QC): 5 Sit to Lying (QC): 5 Sit to Stand (QC): 4 Chair/Tos-ip-Bwoez Xfer(QC): 4 (SBA) Car Transfer (QC): 88 Gait Training Does the Patient Walk?: Yes Gait (FIM): 3 Distance (FIM): 1=up to 49 ft Distance: 150x2 Walk 10 feet (QC): 4 Walk 50 ft with 2 Turns(QC): 4 Walk 150 ft (QC): 4 Walking 10ft/uneven surface-QC: 88 Gait Persons Needed: 1 Gait Assistive Device: FWW Wheelchair Training Does the Pt Use a Wheelchair?: No Wheelchair Distance: 1=210-55 ft Distance: 100' Wheel 50 ft with 2 turns (QC): 6 Type of Wheelchair: Manual Stair Training 1 Step (curb) (QC): 88 4 Steps (QC): 88 12 Steps (QC): 88 Balance Picking up an Object (QC): 88 ADL-Treatment Eating (QC): 6 Oral Hygiene (QC): 6 Bathing Location: L Arm, R Arm, L Upper Leg, R Upper Leg, L Lower Leg (including foot), R Lower Leg (including foot), Chest, Abdomen, Buttocks, Perineal Area Shower/Bathe Self (QC): 4 Upper Body Dressing (QC): 5 Lower Body Dressing (QC): 4 On/Off Footwear (QC): 2 Toileting Hygiene (QC): 4 Toilet Transfer (QC): 4 Assessment/Plan Assessment and Plan Assess & Plan/Chief Complaint Assessment: Left hip fracture Fall AF OAC DM HTN Plan: OAC coupon Cardiology is appreciated IRF protocol BM regimen Pain control Much improved today (1) Hip fracture, intertrochanteric Status: Acute Qualifiers: Laterality: left Fracture healing: with routine healing (2) On continuous oral anticoagulation (3) Atrial fibrillation (4) Essential (primary) hypertension Status: Chronic (5) Non-insulin dependent type 2 diabetes mellitus Status: Chronic CARLOZ CONNELL DO Apr 14, 2019 16:14 POS
[2019-04-14 18:23] VITALS: BP 118/84
--- NOTE | 2019-04-14 19:13 | NUR ---
bedside report received from BERONICA LOPEZ, assume care of pt
--- NOTE | 2019-04-14 20:12 | NUR ---
pt refused miralax & Senokot, c/o headache, pain level 3/10 on numeric scale, Tylenol 650mg given
[2019-04-14] MEDS: ACETAMINOPHEN 325 MG TABLET PO PRN (20:16)
--- NOTE | 2019-04-14 21:00 | NUR ---
resting quietly in bed, pain level 0/10 on flacc scale
[2019-04-15 05:27] LABS: BASOPHILS # (AUTO) 0.1 10^3/uL (0.0-0.1); BASOPHILS % (AUTO) 1 % (0-10); EOSINOPHILS # (AUTO) 0.2 10^3/uL (0.0-0.3); EOSINOPHILS % (AUTO) 3 % (0-10); HEMATOCRIT 45 % (40-54); HEMOGLOBIN 15.3 G/DL (13.3-17.7); LYMPHOCYTES # (AUTO) 1.9 X 10^3 (1.0-4.0); LYMPHOCYTES % (AUTO) 26 % (12-44); MEAN CORPUSCULAR HEMOGLOBIN 31 PG (25-34); MEAN CORPUSCULAR HGB CONC 34 G/DL (32-36); MEAN CORPUSCULAR VOLUME 92 FL (80-99); MEAN PLATELET VOLUME 9.8 FL (7.4-10.4); MONOCYTES # (AUTO) 0.7 X 10^3 (0.0-1.0); MONOCYTES % (AUTO) 9 % (0-12); NEUTROPHILS # (AUTO) 4.4 X 10^3 (1.8-7.8); NEUTROPHILS % (AUTO) 61 % (42-75); PLATELET COUNT 389 10^3/uL (130-400); WHITE BLOOD COUNT 7.2 10^3/uL (4.3-11.0)
[2019-04-15 05:55] LABS: ALANINE AMINOTRANSFERASE 20 U/L (0-55); ALBUMIN 3.3 GM/DL (3.2-4.5); ALKALINE PHOSPHATASE 90 U/L (40-136); BILIRUBIN,TOTAL 1.4 MG/DL (0.1-1.0); BUN/CREATININE RATIO 21; CALCIUM 9.2 MG/DL (8.5-10.1); CARBON DIOXIDE 20 MMOL/L (21-32); CHLORIDE 105 MMOL/L (98-107); CREATININE SERUM 0.94 MG/DL (0.60-1.30); GFR ESTIMATED > 60; GLUCOSE 132 MG/DL (70-105); POTASSIUM 4.3 MMOL/L (3.6-5.0); SODIUM 136 MMOL/L (135-145); TOTAL PROTEIN 6.5 GM/DL (6.4-8.2)
[2019-04-15 06:07] VITALS: BP 104/75
[2019-04-15] MEDS: HYDROcodone/APAP 5 MG/325 MG (LORTAB) TAB PO PRN ×2 (06:30→11:56)
--- NOTE | 2019-04-15 06:30 | NUR ---
c/o lt leg pain level 5/10 on numeric scale, Lortab 5 1 tab given
--- NOTE | 2019-04-15 07:01 | NUR ---
rates pain level 3/10 on numeric scale
--- NOTE | 2019-04-15 08:05 | PM&R Progress Note ---
Subjective HPI/CC On Admission Date Seen by Provider: Apr 15, 2019 Time Seen by Provider: 08:15 Subjective/Events-last exam Dr. 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 Wants to go home but then starts having hesitation because he can't move his leg very well Checked meds and labs Conferred with RN Reviewed therapy notes Review of Systems General: Fatigue Musculoskeletal: leg pain Objective Exam Vital Signs Vital Signs Date Time Temp Pulse Resp B/P (MAP) Pulse Ox O2 Delivery O2 Flow Rate FiO2 04/15/19 16:00 36.4 89 16 93/61 (72) 97 Room Air 04/11/19 14:09 21 Capillary Refill : Less Than 3 Seconds General Appearance: No Apparent Distress, WD/WN, Chronically ill HEENT: PERRL/EOMI, Normal ENT Inspection, Pharynx Normal Neck: Full Range of Motion, Normal Inspection, Non Tender, Supple, Carotid Bruit Respiratory: Chest Non Tender, Lungs Clear, Normal Breath Sounds, No Accessory Muscle Use, No Respiratory Distress Cardiovascular: Regular Rate, Rhythm, No Edema, No Gallop, No JVD, No Murmur, Normal Peripheral Pulses Gastrointestinal: Normal Bowel Sounds, No Organomegaly, No Pulsatile Mass, Non Tender, Soft Back: Normal Inspection, No CVA Tenderness, No Vertebral Tenderness Extremity: Normal Capillary Refill, Normal Inspection, Normal Range of Motion (except left leg), Non Tender, No Calf Tenderness, No Pedal Edema Neurologic/Psychiatric: Alert, Oriented x3, No Motor/Sensory Deficits, Normal 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 FIM Transfers Therapy Code Descriptions/Definitions Functional [place] Measure: 0=Not Assessed/NA 4=Minimal Assistance 1=Total Assistance 5=Supervision or Setup 2=Maximal Assistance 6=Modified [place] 3=Moderate Assistance 7=Complete IndependenceSCALE: Activities may be completed with or without assistive devices. 6-Nalwsgmkzd-lhjcgks completes the activity by him/herself with no assistance from a helper. 5-Set-up or Clean-up Assistance-helper sets up or cleans up; patient completes activity. [place] assists only prior to or following the activity. 4-Supervision or Touching Assistance-helper provides verbal cues and/or touching/steadying and/or contact guard assistance as patient completes activity. Assistance may be provided throughout the activity or intermittently. 3-Partial/Moderate Assistance-helper does LESS THAN HALF the effort. [place] lifts, holds or supports trunk or limbs, but provides less than half the effort. 2-Substantial/Maximal Assistance-helper does MORE THAN HALF the effort. [place] lifts or holds trunk or limbs and provides more than half the effort. 6-Ojefctwgr-jcwlbl does ALL the effort. Patient does none of the effort to complete the activity. Or, the assistance of 2 or more helpers is required for the patient to complete the activity. If activity was not attempted, code reason: 7-Patient Refused. 9-Not Applicable-not attempted and the patient did not perform the activity before the current illness, exacerbation or injury. 10-Not Attempted due to Environmental Limitations-(lack of equipment, weather restraints, etc.). 88-Not Attempted due to Medical Conditions or Safety Concerns. Transfers (B, C, W/C) (FIM): 3 Roll Left to Right (QC): 5 Sit to Lying (QC): 5 Sit to Stand (QC): 4 Chair/Ulb-rs-Hxkll Xfer(QC): 4 (SBA) Car Transfer (QC): 88 Gait Training Does the Patient Walk?: Yes Gait (FIM): 3 Distance (FIM): 1=up to 49 ft Distance: 150x2 Walk 10 feet (QC): 4 Walk 50 ft with 2 Turns(QC): 4 Walk 150 ft (QC): 4 Walking 10ft/uneven surface-QC: 88 Gait Persons Needed: 1 Gait Assistive Device: FWW Wheelchair Training Does the Pt Use a Wheelchair?: No Wheelchair Distance: 9=576-94 ft Distance: 100' Wheel 50 ft with 2 turns (QC): 6 Type of Wheelchair: Manual Stair Training 1 Step (curb) (QC): 88 4 Steps (QC): 88 12 Steps (QC): 88 Balance Picking up an Object (QC): 88 ADL-Treatment Eating (QC): 6 Oral Hygiene (QC): 6 Bathing Location: L Arm, R Arm, L Upper Leg, R Upper Leg, L Lower Leg (including foot), R Lower Leg (including foot), Chest, Abdomen, Buttocks, Perineal Area Shower/Bathe Self (QC): 4 Upper Body Dressing (QC): 5 Lower Body Dressing (QC): 4 On/Off Footwear (QC): 2 Toileting Hygiene (QC): 4 Toilet Transfer (QC): 4 Assessment/Plan Assessment and Plan Assess & Plan/Chief Complaint Assessment: Left hip fracture Fall AF OAC DM HTN Plan: OAC coupon Cardiology is appreciated IRF protocol BM regimen Pain control Much improved Checked labs (1) Hip fracture, intertrochanteric Status: Acute Qualifiers: Laterality: left Fracture healing: with routine healing (2) On continuous oral anticoagulation (3) Atrial fibrillation (4) Essential (primary) hypertension Status: Chronic (5) Non-insulin dependent type 2 diabetes mellitus Status: Chronic CARLOZ CONNELL DO Apr 15, 2019 08:05 POS
[2019-04-15 08:23] VITALS: BP 112/72
[2019-04-15] MEDS: APIXABAN 5 MG (ELIQUIS) TABLET PO SCH ×2 (08:24→20:29)
[2019-04-15] MEDS: meTOproloL SUCCINATE 50 MG (TOPROL XL) TAB PO SCH (08:25)
[2019-04-15] MEDS: SENNA W/DOCUSATE (SENOKOT S) TABLET PO SCH ×2 (09:00→21:17)
[2019-04-15] MEDS: POLYETHYLENE GLYCOL 17 GM (MIRALAX) PACK PO SCH ×2 (09:00→21:17)
--- NOTE | 2019-04-15 11:57 | Physical Therapy Daily Note ---
PT Daily Note-Current Subjective pt in bed pre-tx agrees to therapy pt reports 6/10 pain in the L hip at this time. Per RN request this PT placed a pad dressing over the pressure ulcer that has begun on heel of the LLE. Appearance pt in recliner post-tx with call light, room phone, tray table in reach with all needs met at this time. Mental Status Patient Orientation: Person, Place, Time, Situation Transfers SCALE: Activities may be completed with or without assistive devices. 0-Nhygpmdpqf-zpmcsdp completes the activity by him/herself with no assistance from a helper. 5-Set-up or Clean-up Assistance-helper sets up or cleans up; patient completes activity. [place] assists only prior to or following the activity. 4-Supervision or Touching Assistance-helper provides verbal cues and/or touching/steadying and/or contact guard assistance as patient completes activity. Assistance may be provided throughout the activity or intermittently. 3-Partial/Moderate Assistance-helper does LESS THAN HALF the effort. [place] lifts, holds or supports trunk or limbs, but provides less than half the effort. 2-Substantial/Maximal Assistance-helper does MORE THAN HALF the effort. [place] lifts or holds trunk or limbs and provides more than half the effort. 2-Aheaghzej-jismzh does ALL the effort. Patient does none of the effort to complete the activity. Or, the assistance of 2 or more helpers is required for the patient to complete the activity. If activity was not attempted, code reason: 7-Patient Refused. 9-Not Applicable-not attempted and the patient did not perform the activity before the current illness, exacerbation or injury. 10-Not Attempted due to Environmental Limitations-(lack of equipment, weather restraints, etc.). 88-Not Attempted due to Medical Conditions or Safety Concerns. Sit to Stand (QC): 4 (SBA) Chair/Xuc-yk-Wxjyo Xfer(QC): 4 (SBA) Weight Bearing Right Lower Extremity: Right Weight Bearing/Tolerated Left Lower Extremity: Left Weight Bearing/Tolerated Gait Training Distance: 200', 100' Walk 10 feet (QC): 4 (CGA) Walk 50 ft with 2 Turns(QC): 4 (CGA) Walk 150 ft (QC): 4 (CGA) Gait Assistive Device: FWW pt continues to restrict WB on the LLE and use increased UE for WB'ing. Pt continues to ambulate at a slow pace. Wheelchair Training Does the Pt Use a Wheelchair?: No Exercises Standing: Hip Abduction, Heel/toe raises, Mini squats (20. 2sets 10reps) Standing Reps: 15 NuStep Minutes: 11 NuStep Workload: 2 Treatments pt performed bed mobility, transfer training, skilled ambulation training, functional LE strengthening/endurance training and education. Assessment Current Status: Good Progress pt reports increased UE fatigue and LLE pain this session. Pt reports increased baseline pain to 10/10 in the L hip from trying to increase WB on the LLE. RN was notified and will speak with the pt. Pt with increased fatigue this session from his previous session. PT Short Term Goals Short Term Goals Wheelchair Distance: 100' PT Halfway Goals Pressure Vessel Inspector Goals PT Pressure Vessel Inspector Goals Time Frame: Apr 24, 2019 Sit to Lying (QC): 6 Lying-Sitting on Side/Bed(QC): 6 Sit to Stand (QC): 6 Roll Left to Right (QC): 6 Chair/Wvq-cv-Djfps Xfer(QC): 6 Car Transfer (QC): 5 Does the Patient Walk: Yes Walk 10 feet (QC): 6 Walk 10ft-Uneven Surface(QC): 6 Walk 50ft with 2 Turns (QC): 6 Walk 150 ft (QC): 6 Gait Assistive Device: FWW 1 Step (curb) (QC): 6 4 Steps (QC): 5 12 Steps (QC): 9 Picking up an Object (QC): 88 PT Plan Problem List Problem List: Activity Tolerance, Functional Strength, Safety, Balance, Gait, Transfer, Bed Mobility, ROM Treatment/Plan Treatment Plan: Continue Plan of Care Treatment Plan: Bed Mobility, Education, Functional Activity Syl[place], Functional Strength, Group Therapy, Gait, Safety, Therapeutic Exercise, Transfers Treatment Duration: Apr 24, 2019 Frequency: At least 5 of 7 days/Wk (IRF) Estimated Hrs Per Day: 1.5 hours per day Patient and/or Family Agrees t: Yes Safety Risks/Education Patient Education: Gait Training, Transfer Techniques, Correct Positioning, Safety Issues Teaching Recipient: Patient Teaching Methods: Demonstration, Discussion Response to Teaching: Return Demonstration, Reinforcement Needed Time/GCodes Time In: 1100 Time Out: 1200 Total Billed Treatment Time: 60 Total Billed Treatment 1 visit EX 15' FA 30' GT 15' AIRAM DAWKINS PT Apr 15, 2019 11:57 POS
--- NOTE | 2019-04-15 12:58 | Occupational Ther Daily Note ---
OT Current Status-Daily Note Subjective Pt alert, lying in bed. Pt agrees to therapy. No c/o pain at this time. Mental Status/Objective Patient Orientation: Person, Place, Time, Situation ADL-Treatment Pt agrees to shower. Pt ambulated into bathroom with close SBA using FWW. Transferred onto toilet and completed toileting using FWW, BSC and grabbar with supervision. Pt then transferred into shower with supervision using FWW, grabbar and shower seat. Pt completed shower using grabbar, hand held shower, long handle sponge and shower seat, supervision. Pt then completed oral care sitting at sink, mod I. Pt was able to complete ADLs without becoming weak or lightheaded until the end. Therapy Code Descriptions/Definitions Functional [place] Measure: 0=Not Assessed/NA 4=Minimal Assistance 1=Total Assistance 5=Supervision or Setup 2=Maximal Assistance 6=Modified [place] 3=Moderate Assistance 7=Complete IndependenceSCALE: Activities may be completed with or without assistive devices. 7-[place]-gksrfbu completes the activity by him/herself with no assistance from a helper. 5-Set-up or Clean-up Assistance-helper sets up or cleans up; patient completes activity. [place] assists only prior to or following the activity. 4-Supervision or Touching Assistance-helper provides verbal cues and/or touching/steadying and/or contact guard assistance as patient completes activity. Assistance may be provided throughout the activity or intermittently. 3-Partial/Moderate Assistance-helper does LESS THAN HALF the effort. [place] lifts, holds or supports trunk or limbs, but provides less than half the effort. 2-Substantial/Maximal Assistance-helper does MORE THAN HALF the effort. [place] lifts or holds trunk or limbs and provides more than half the effort. 5-Uktcvjweb-kdrznx does ALL the effort. Patient does none of the effort to complete the activity. Or, the assistance of 2 or more helpers is required for the patient to complete the activity. If activity was not attempted, code reason: 7-Patient Refused. 9-Not Applicable-not attempted and the patient did not perform the activity before the current illness, exacerbation or injury. 10-Not Attempted due to Environmental Limitations-(lack of equipment, weather restraints, etc.). 88-Not Attempted due to Medical Conditions or Safety Concerns. Oral Hygiene (QC): 6 Bathing Location: L Arm, R Arm, L Upper Leg, R Upper Leg, L Lower Leg (including foot), R Lower Leg (including foot), Chest, Abdomen, Buttocks, Perineal Area Shower/Bathe Self (QC): 4 (supervision) Upper Body Dressing (QC): 5 Lower Body Dressing (QC): 5 (Footwear (QC) 4- min A. Pt able to doff both socks and don R sock, assist to don L sock with sock aide) Toileting Hygiene (QC): 4 Toilet Transfer (QC): 4 Other Treatment Pt ambulated to therapy gym with one long recovery break prior to making it to the gym. Pt complete arm bike for 15 min duration at 20 [place] resistance to increase strength and activity tolerance for daily functional tasks. Pt then stated that his L LE was tired and unable to bear wt, so requested to use w/c to propel back to room. Pt then was able to transfer back to bed with SBA. Call light/phone in reach after therapy. All needs met in room. OT Short Term Goals Short Term Goals Time Frame: Apr 15, 2019 Eating(FIM): 6 Grooming(FIM): 5 Bathing(FIM): 4 Upper Body Dressing(FIM): 5 Lower Body Dressing(FIM): 4 Toileting(FIM): 3 Transfers (B,C,W/C) (FIM): 4 Toilet/Commode Transfer(FIM): 4 Shower Transfer(FIM): 4 Additional Short Term Goals: 1-Demonstrate ADL Tasks, 2-Verbalize Understanding, 3-ImproveStrength/[place] 1=Demonstrate adherence to instructed precautions during ADL tasks. 2=Patient will verbalize/demonstrate understanding of assistive devices/modifications for ADL. 3=Patient will improve strength/tolerance for activity to enable patient to perform ADL's. OT [facility] Goals [facility] Goals Time Frame: Apr 22, 2019 Eating (QC): 6 Oral Hygiene (QC): 6 Shower/Bathe Self (QC): 5 Upper Body Dressing (QC): 6 Lower Body Dressing (QC): 6 On/Off Footwear (QC): 6 Toileting Hygiene (QC): 6 Toilet/Commode Transfer (QC): 6 Additional Goals: 1-Demonstrate ADL Tasks, 2-Verbalize Understanding, 3- ImproveStrength/[place] 1=Demonstrate adherence to instructed precautions during ADL tasks. 2=Patient will verbalize/demonstrate understanding of assistive devices/modifications for ADL. 3=Patient will improve strength/tolerance for activity to enable patient to perform ADL's. OT Education/Plan Problem List/Assessment Assessment: Decreased UE Strength, Impaired Coordination, Impaired Funct Balance, Impaired Self-Care Skills Discharge Recommendations Plan/Recommendations: Continue POC Treatment Plan/Plan of Care Patient would benefit from OT for education, treatment and training to promote independence in ADL's, mobility, safety and/or upper extremity function for ADL's. Plan of Care: ADL Retraining, Functional Mobility, Group Exercise/Act as Ind, UE Funct Exercise/Act Treatment Duration: Apr 22, 2019 Frequency: At least 5 of 7 days/Wk (IRF) Estimated Hrs Per Day: 1.5 hours per day Agreement: Yes Rehab Potential: Good Time/GCodes Start Time: 09:00 Stop Time: 10:30 Total Time Billed (hr/min): 90 Billed Treatment Time 1 visit-ADL 5 (75 min) EX 1 (15 min) PAM KUO Apr 15, 2019 12:57 POS
--- NOTE | 2019-04-15 15:36 | Physical Therapy Daily Note ---
PT Daily Note-Current Subjective agrees to PT. Reports he is tired this afternoon. Transfers SCALE: Activities may be completed with or without assistive devices. 9-Xuvjpgsoql-jurqkzo completes the activity by him/herself with no assistance from a helper. 5-Set-up or Clean-up Assistance-helper sets up or cleans up; patient completes activity. [place] assists only prior to or following the activity. 4-Supervision or Touching Assistance-helper provides verbal cues and/or touching/steadying and/or contact guard assistance as patient completes activity. Assistance may be provided throughout the activity or intermittently. 3-Partial/Moderate Assistance-helper does LESS THAN HALF the effort. [place] lifts, holds or supports trunk or limbs, but provides less than half the effort. 2-Substantial/Maximal Assistance-helper does MORE THAN HALF the effort. [place] lifts or holds trunk or limbs and provides more than half the effort. 0-Vsnpnzsyy-krreug does ALL the effort. Patient does none of the effort to complete the activity. Or, the assistance of 2 or more helpers is required for the patient to complete the activity. If activity was not attempted, code reason: 7-Patient Refused. 9-Not Applicable-not attempted and the patient did not perform the activity before the current illness, exacerbation or injury. 10-Not Attempted due to Environmental Limitations-(lack of equipment, weather restraints, etc.). 88-Not Attempted due to Medical Conditions or Safety Concerns. Sit to Stand (QC): 5 Weight Bearing Right Lower Extremity: Right Weight Bearing/Tolerated Left Lower Extremity: Left Weight Bearing/Tolerated Gait Training Does the Patient Walk?: Yes Distance: 150 ft x 2 Gait Assistive Device: FWW slow gait with step to pattern. CGA for safety. Exercises Seated Therapy Exercises: Ankle pumps, Sit to stand, Long arc quads, Hamstring Curls, Hip abd/add, Glut set Seated Reps: 15 (to promote LE strength for gait and transfers. ) Assessment Current Status: Good Progress Functional mobility is progressing. PT Cable Rigger Goals Residential Goals PT Residential Goals Time Frame: Apr 24, 2019 Roll Left & Right (QC): 6 Sit to Lying (QC): 6 Lying-Sitting on Side/Bed(QC): 6 Sit to Stand (QC): 6 Chair/Vow-ph-Bnovp Xfer(QC): 6 Toilet Transfer (QC): 6 Car Transfer (QC): 5 Does the Patient Walk: Yes Walk 10 feet (QC): 6 Walk 50ft with 2 Turns (QC): 6 Walk 150 ft (QC): 6 Walking 10ft on Uneven Surface: 6 1 Step (curb) (QC): 6 4 Steps (QC): 5 12 Steps (QC): 9 Picking up an Object (QC): 88 Does the Pt use WC or Scooter?: No Type: N/A Type: N/A PT Plan Problem List Problem List: Activity Tolerance, Functional Strength, Safety, Balance, Gait, Transfer, Bed Mobility Treatment/Plan Treatment Plan: Continue Plan of Care Treatment Plan: Bed Mobility, Education, Functional Activity Sylvester, Functional Strength, Group Therapy, Gait, Safety, Therapeutic Exercise, Transfers Treatment Duration: Apr 24, 2019 Frequency: At least 5 of 7 days/Wk (IRF) Estimated Hrs Per Day: 1.5 hours per day Patient and/or Family Agrees t: Yes Safety Risks/Education Patient Education: Gait Training Teaching Recipient: Patient Teaching Methods: Demonstration, Discussion Response to Teaching: Reinforcement Needed Time/GCodes Time In: 1430 Time Out: 1500 Total Billed Treatment Time: 30 Total Billed Treatment visit GT 15 EX 15 PAM DOBBS PT Apr 15, 2019 15:36 POS
[2019-04-15 16:00] VITALS: BP 93/61
[2019-04-15] MEDS: ACETAMINOPHEN 325 MG TABLET PO PRN (20:29)
[2019-04-16 05:16] VITALS: BP 104/69
[2019-04-16] MEDS: HYDROcodone/APAP 5 MG/325 MG (LORTAB) TAB PO PRN ×2 (06:51→12:54)
--- NOTE | 2019-04-16 07:27 | Occupational Ther Daily Note ---
OT Current Status-Daily Note Subjective Pt alert, lying in bed. Pt agrees to therapy. No c/o pain at this time. Mental Status/Objective Patient Orientation: Person, Place, Time, Situation ADL-Treatment Pt declined shower or sponge bath today. Therapy Code Descriptions/Definitions Functional [place] Measure: 0=Not Assessed/NA 4=Minimal Assistance 1=Total Assistance 5=Supervision or Setup 2=Maximal Assistance 6=Modified [place] 3=Moderate Assistance 7=Complete IndependenceSCALE: Activities may be completed with or without assistive devices. 1-Roacbuvlkm-unipjaz completes the activity by him/herself with no assistance from a helper. 5-Set-up or Clean-up Assistance-helper sets up or cleans up; patient completes activity. [place] assists only prior to or following the activity. 4-Supervision or Touching Assistance-helper provides verbal cues and/or touching/steadying and/or contact guard assistance as patient completes activity. Assistance may be provided throughout the activity or intermittently. 3-Partial/Moderate Assistance-helper does LESS THAN HALF the effort. [place] lifts, holds or supports trunk or limbs, but provides less than half the effort. 2-Substantial/Maximal Assistance-helper does MORE THAN HALF the effort. [place] lifts or holds trunk or limbs and provides more than half the effort. 7-Wysxqisls-ommrop does ALL the effort. Patient does none of the effort to complete the activity. Or, the assistance of 2 or more helpers is required for the patient to complete the activity. If activity was not attempted, code reason: 7-Patient Refused. 9-Not Applicable-not attempted and the patient did not perform the activity before the current illness, exacerbation or injury. 10-Not Attempted due to Environmental Limitations-(lack of equipment, weather restraints, etc.). 88-Not Attempted due to Medical Conditions or Safety Concerns. Eating (QC): 6 (Pt able to set up own meal and use regular utensils.) Upper Body Dressing (QC): 5 (Set up then pt doffed/donned shirt by self.) Other Treatment Applied 1# wt to pt's wrists then pt propelled w/c to first floor hospital. Pt then propelled w/c sidewalk outside hospital then up indoor ramp to increase UE strengthening and activity tolerance for daily functional tasks. Pt then propelled w/c into therapy gym to complete arm bike, 15 min at 15 [place] resistance to increase activity tolerance. Resistive fine motor tasks completed to increase public relations director/pinch strength for dressing. Pt propelled w/c to room and transferred into bed with SBA. EOB to supine completed, mod I. After therapy, pt lying in bed with call light/phone in reach. All needs met in room. OT Short Term Goals Short Term Goals Time Frame: Apr 15, 2019 OT Cork Insulator Goals Cork Insulator Goals Time Frame: Apr 22, 2019 Eating (QC): 6 Oral Hygiene (QC): 6 Toileting Hygiene (QC): 6 Shower/Bathe Self (QC): 5 Upper Body Dressing (QC): 6 Lower Body Dressing (QC): 6 On/Off Footwear (QC): 6 Additional Goals: 1-Demonstrate ADL Tasks, 2-Verbalize Understanding, 3- ImproveStrength/Sylvester 1=Demonstrate adherence to instructed precautions during ADL tasks. 2=Patient will verbalize/demonstrate understanding of assistive devices/mo difications for ADL. 3=Patient will improve strength/tolerance for activity to enable patient to perform ADL's. OT Education/Plan Problem List/Assessment Assessment: Decreased Activ Tolerance, Decreased UE Strength, Impaired Self- Care Skills Discharge Recommendations Plan/Recommendations: Continue POC Treatment Plan/Plan of Care Patient would benefit from OT for education, treatment and training to promote independence in ADL's, mobility, safety and/or upper extremity function for ADL's. Plan of Care: ADL Retraining, Functional Mobility, Group Exercise/Act as Ind, UE Funct Exercise/Act Treatment Duration: Apr 22, 2019 Frequency: At least 5 of 7 days/Wk (IRF) Estimated Hrs Per Day: 1.5 hours per day Agreement: Yes Rehab Potential: Good Time/GCodes Start Time: 07:30 Stop Time: 09:00 Total Time Billed (hr/min): 90 Billed Treatment Time 1 visit-ADL 1 (20 min), FA 2 (30 min) EX 3 (40 min) PAM KUO Apr 16, 2019 07:27 POS
--- NOTE | 2019-04-16 08:36 | PM&R Progress Note ---
Subjective HPI/CC On Admission Date Seen by Provider: Apr 16, 2019 Time Seen by Provider: 08:15 Subjective/Events-last exam Pt doing better and better. Bowels are moving. Cardiology recommends indefinite oral anticoagulation. harvest worker arranging for oral anticoagulation to be provided for the Pt. Discharge planned soon. Checked meds and labs Conferred with RN Reviewed therapy notes Review of Systems General: Fatigue Musculoskeletal: leg pain Objective Exam Vital Signs Vital Signs Date Time Temp Pulse Resp B/P (MAP) Pulse Ox O2 Delivery O2 Flow Rate FiO2 04/16/19 20:08 Room Air 04/16/19 17:32 36.8 76 18 106/72 (83) 98 04/11/19 14:09 21 Capillary Refill : Less Than 3 Seconds General Appearance: No Apparent Distress, WD/WN, Chronically ill HEENT: PERRL/EOMI, Normal ENT Inspection, Pharynx Normal Neck: Full Range of Motion, Normal Inspection, Non Tender, Supple, Carotid Bruit Respiratory: Chest Non Tender, Lungs Clear, Normal Breath Sounds, No Accessory Muscle Use, No Respiratory Distress Cardiovascular: Regular Rate, Rhythm, No Edema, No Gallop, No JVD, No Murmur, Normal Peripheral Pulses Gastrointestinal: Normal Bowel Sounds, No Organomegaly, No Pulsatile Mass, Non Tender, Soft Back: Normal Inspection, No CVA Tenderness, No Vertebral Tenderness Extremity: Normal Capillary Refill, Normal Inspection, Normal Range of Motion (except left leg), Non Tender, No Calf Tenderness, No Pedal Edema Neurologic/Psychiatric: Alert, Oriented x3, No Motor/Sensory Deficits, Normal Mood/Affect, clinical researcher II-XII Norm as Tested Skin: Normal Color, Warm/Dry Lymphatic: No Adenopathy Results/Procedures Lab Patient resulted labs reviewed. FIM Transfers Therapy Code Descriptions/Definitions Functional [place] Measure: 0=Not Assessed/NA 4=Minimal Assistance 1=Total Assistance 5=Supervision or Setup 2=Maximal Assistance 6=Modified [place] 3=Moderate Assistance 7=Complete IndependenceSCALE: Activities may be completed with or without assistive devices. 4-Trelqcynwo-txjzkwe completes the activity by him/herself with no assistance from a helper. 5-Set-up or Clean-up Assistance-helper sets up or cleans up; patient completes activity. [place] assists only prior to or following the activity. 4-Supervision or Touching Assistance-helper provides verbal cues and/or touching/steadying and/or contact guard assistance as patient completes activity. Assistance may be provided throughout the activity or intermittently. 3-Partial/Moderate Assistance-helper does LESS THAN HALF the effort. [place] lifts, holds or supports trunk or limbs, but provides less than half the effort. 2-Substantial/Maximal Assistance-helper does MORE THAN HALF the effort. [place] lifts or holds trunk or limbs and provides more than half the effort. 8-Tqvguzwmr-lqswec does ALL the effort. Patient does none of the effort to compl ete the activity. Or, the assistance of 2 or more helpers is required for the patient to complete the activity. If activity was not attempted, code reason: 7-Patient Refused. 9-Not Applicable-not attempted and the patient did not perform the activity before the current illness, exacerbation or injury. 10-Not Attempted due to Environmental Limitations-(lack of equipment, weather restraints, etc.). 88-Not Attempted due to Medical Conditions or Safety Concerns. Transfers (B, C, W/C) (FIM): 3 Roll Left to Right (QC): 5 Sit to Lying (QC): 5 Sit to Stand (QC): 5 Chair/Tiv-ed-Wzfrf Xfer(QC): 4 (SBA) Car Transfer (QC): 88 Gait Training Does the Patient Walk?: Yes Gait (FIM): 3 Distance (FIM): 1=up to 49 ft Distance: 150 ft x 2 Walk 10 feet (QC): 4 (CGA) Walk 50 ft with 2 Turns(QC): 4 (CGA) Walk 150 ft (QC): 4 (CGA) Walking 10ft/uneven surface-QC: 88 Gait Persons Needed: 1 Gait Assistive Device: FWW Wheelchair Training Does the Pt Use a Wheelchair?: No Wheelchair Distance: 3=835-41 ft Distance: 100' Wheel 50 ft with 2 turns (QC): 6 Type of Wheelchair: Manual Stair Training 1 Step (curb) (QC): 88 4 Steps (QC): 88 12 Steps (QC): 88 Balance Picking up an Object (QC): 88 ADL-Treatment Eating (QC): 6 (Pt able to set up own meal and use regular utensils.) Oral Hygiene (QC): 6 Bathing Location: L Arm, R Arm, L Upper Leg, R Upper Leg, L Lower Leg (including foot), R Lower Leg (including foot), Chest, Abdomen, Buttocks, Perineal Area Shower/Bathe Self (QC): 4 (supervision) Upper Body Dressing (QC): 5 Lower Body Dressing (QC): 5 (Footwear (QC) 4- min A. Pt able to doff both socks and don R sock, assist to don L sock with sock aide) On/Off Footwear (QC): 2 Toileting Hygiene (QC): 4 Toilet Transfer (QC): 4 Assessment/Plan Assessment and Plan Assess & Plan/Chief Complaint Assessment: Left hip fracture Fall AF OAC DM HTN Plan: OAC coupon Cardiology is appreciated IRF protocol BM regimen Pain control Much improved Checked labs yest DC planning (1) Hip fracture, intertrochanteric Status: Acute Qualifiers: Laterality: left Fracture healing: with routine healing (2) On continuous oral anticoagulation (3) Atrial fibrillation (4) Essential (primary) hypertension Status: Chronic (5) Non-insulin dependent type 2 diabetes mellitus Status: Chronic CARLOZ CONNELL DO Apr 16, 2019 08:36 POS
[2019-04-16] MEDS: SENNA W/DOCUSATE (SENOKOT S) TABLET PO SCH ×2 (08:47→21:16)
[2019-04-16] MEDS: POLYETHYLENE GLYCOL 17 GM (MIRALAX) PACK PO SCH ×2 (08:47→21:16)
[2019-04-16] MEDS: APIXABAN 5 MG (ELIQUIS) TABLET PO SCH ×2 (08:50→21:16)
[2019-04-16] MEDS: meTOproloL SUCCINATE 50 MG (TOPROL XL) TAB PO SCH (08:50)
--- NOTE | 2019-04-16 11:08 | Physical Therapy Daily Note ---
PT Daily Note-Current Subjective Pt agreeable to PT. Reports difficulty putting full weight on his left LE. Transfers SCALE: Activities may be completed with or without assistive devices. 0-Pmkvwmpdcl-ngjirfz completes the activity by him/herself with no assistance from a helper. 5-Set-up or Clean-up Assistance-helper sets up or cleans up; patient completes activity. [place] assists only prior to or following the activity. 4-Supervision or Touching Assistance-helper provides verbal cues and/or touching/steadying and/or contact guard assistance as patient completes activity. Assistance may be provided throughout the activity or intermittently. 3-Partial/Moderate Assistance-helper does LESS THAN HALF the effort. [place] lifts, holds or supports trunk or limbs, but provides less than half the effort. 2-Substantial/Maximal Assistance-helper does MORE THAN HALF the effort. [place] lifts or holds trunk or limbs and provides more than half the effort. 7-Xppvgxyqp-dnitmx does ALL the effort. Patient does none of the effort to complete the activity. Or, the assistance of 2 or more helpers is required for the patient to complete the activity. If activity was not attempted, code reason: 7-Patient Refused. 9-Not Applicable-not attempted and the patient did not perform the activity before the current illness, exacerbation or injury. 10-Not Attempted due to Environmental Limitations-(lack of equipment, weather restraints, etc.). 88-Not Attempted due to Medical Conditions or Safety Concerns. Sit to Lying (QC): 4 Lying to Sitting/Side of Bed(Q: 4 Sit to Stand (QC): 4 (CGA for safety and skilled cues to sequence. ) In general CG-SBA for all functional transfers. Pt takes extra time to stand up and occas takes more than 1 attempt. Weight Bearing Right Lower Extremity: Right Weight Bearing/Tolerated Left Lower Extremity: Left Weight Bearing/Tolerated Gait Training Does the Patient Walk?: Yes Distance: 150 ft x 2; 50 ft x 2 Walk 10 feet (QC): 4 Walk 50 ft with 2 Turns(QC): 4 Walk 150 ft (QC): 4 Gait Assistive Device: FWW Pt walks with FWW with SBA for safety; slow gait with decreased WB through the left LE. Stair Training Stair Training: Handrails/: 2 handrails #of Steps: 4 4 Steps (QC): 3 (min to CGA for safety; skilled cues 50% of the time for sequencing; relies heavily on the handrail ) Exercises Supine Ex: Bridging, Ankle pumps (to increase hip ext strength for sit to stand), Quad Set, Heel Slides, Short Arc Quads, Hip abd/add Supine Reps: 15 (to promote LE strength for functional bed mobility and transfers. ) Seated Therapy Exercises: Ankle pumps, Long arc quads, Hip flexion Seated Reps: 15 (functional strengthening for transfer improvement) NuStep Minutes: 15 NuStep Workload: 4 (LE strength for improve WB tolerance left LE and improved fucntional act jocelyn) Assessment Current Status: Good Progress Pt progressing well. Did well on the steps but will need further training. Increased left LE strength noted. PT Care Home Goals Muffle Worker Goals PT Muffle Worker Goals Time Frame: Apr 24, 2019 Roll Left & Right (QC): 6 Sit to Lying (QC): 6 Lying-Sitting on Side/Bed(QC): 6 Sit to Stand (QC): 6 Chair/Nfe-cu-Kelik Xfer(QC): 6 Toilet Transfer (QC): 6 Car Transfer (QC): 5 Does the Patient Walk: Yes Walk 10 feet (QC): 6 Walk 50ft with 2 Turns (QC): 6 Walk 150 ft (QC): 6 Walking 10ft on Uneven Surface: 6 1 Step (curb) (QC): 6 4 Steps (QC): 5 12 Steps (QC): 9 Picking up an Object (QC): 88 Does the Pt use WC or Scooter?: No Type: N/A Type: N/A PT Plan Problem List Problem List: Activity Tolerance, Functional Strength, Safety, Balance, Gait, Transfer, Bed Mobility Treatment/Plan Treatment Plan: Continue Plan of Care Treatment Plan: Bed Mobility, Education, Functional Activity Sylvester, Functional Strength, Group Therapy, Gait, Safety, Therapeutic Exercise, Transfers Treatment Duration: Apr 24, 2019 Frequency: At least 5 of 7 days/Wk (IRF) Estimated Hrs Per Day: 1.5 hours per day Patient and/or Family Agrees t: Yes Safety Risks/Education Patient Education: Transfer Techniques, Steps Teaching Recipient: Patient Teaching Methods: Demonstration, Discussion Response to Teaching: Reinforcement Needed Time/GCodes Time In: 920 Time Out: 1050 Total Billed Treatment Time: 90 Total Billed Treatment visit FA 15 GT 30 EX 45 PAM DOBBS PT Apr 16, 2019 11:08 POS
--- NOTE | 2019-04-16 12:20 | NUR ---
RD ASSESSMENT PMHx: HTN; DM PT INTERACTION: Pt was awake and pleasant during nutrition follow-up. Pt states he has been eating well since last assessment. "I'm not cleaning my plates, but I'm getting enough to feel full." Note pt avg PO intake of 68% x5d. Pt states no recent issues with n/v/c/d since last assessment. Note last BM was 04/16 and pt currently on bowel regimen of miralax BID, senna BID, bisacodyl PRN, colace PRN, per chart review. ABNORMAL NUTRITION-RELATED LAB VALUES: BUN 20 (H); glu 132 (H); bili 1.4 (H) Est. kcal needs: 3412-3511 kcal | 20-25 kcal/kg Est. Pro needs: 76-95 g Pro | 0.8-1.0 g Pro/kg PES STATEMENT: Given that pt's PO intake has improved since last assessment, no nutrition diagnosis at this time (NO-1.1) INTERVENTION: Continue with current diet order of Regular diet. Will continue to follow and reassess as pt needs and status change. MONITOR/EVALUATE: PO Intake; Plan of Care; Hydration Status; Weight Status; Lab Values Elsie Mares, MS, RD, LD
[2019-04-16] MEDS ORDERED: APIX5TAB PO (13:48)
--- NOTE | 2019-04-16 14:10 | Progress Note - Cardiology ---
Cardiology SOAP Progress Note Subjective: Still not able to bear full weight on the affected hip. Otherwise feels well. No cp or palp or syncope or shortness of breath at rest Objective: I&O/Vital Signs 04/16/19 05:16 Temp 36.5 Pulse 97 Resp 20 B/P (MAP) 104/69 (81) Pulse Ox 92 O2 Delivery Room Air 04/16/19 00:00 Intake Total 900 ml Balance 900 ml Constitutional: appears stated age, well-developed, well-nourished Respiratory: No accessory muscle use, No respiratory distress; chest expansion is symmetric, chest is bilaterally symmetric Cardiovascular: irregularly irregular; No JVD; S1 and S2 Gastrointestional: No tender; soft, round, audible bowel sounds Extremities: other (mild bilat LE swelling) Neurologic/Psychiatric: grossly intact Skin: No rash on exposed areas, No ulcerations on exposed areas Results/Procedures: Labs Laboratory Tests 04/15/19 15:38: Glucometer 169H 04/15/19 20:20: Glucometer 196H 04/16/19 06:22: Glucometer 152H 04/16/19 10:31: Glucometer 161H A/P: Assessment: Intertrochanteric fracture left femur on 04/05/19; s/p closed reduction and application of intramedullary nail on 04/06/19 Atrial fibrillation of undetermined age. Probably chronic and permanent Echo 04/07/19: LVEF 50%, mild MR & TR, RVSP 17 mmHg Hypertension, controlled DM II, managed by Dr Ortiz Plan: * Labs are stable after initiation of OAC. Continue * I signed the forms [employer] has requested be signed for assistance with a pixaban * I answered his CV-related questions * Monitor labs from time to time AKASH GARDUNO MD FACP FAC CCDS Apr 16, 2019 14:10 POS
--- NOTE | 2019-04-16 15:09 | NUR ---
Continued discharge planning for patient regarding Rx Eliquis. Completed provider's [employer] Patient Assistance section, visited with patient's daughter Diana about patient section and their responsibility for follow through. Diana indicates patient will likely discontinue Eliquis if he has to pay more than $10 co pay monthly. Action plan re Rx. Will explore with patient's drug plan whether Eliquis is covered or what their formulary allows. PharmD indicates Warfarin is an option, but requires diligent lab value monitoring which increases cost and appointments for patient. Can provide a 30-day free trial card for Eliquis initially. Will update patient and Diana after weekly team conference.
[2019-04-16 17:32] VITALS: BP 106/72
[2019-04-17] MEDS: ACETAMINOPHEN 325 MG TABLET PO PRN (01:25)
[2019-04-17 05:14] VITALS: BP 99/65
[2019-04-17] MEDS: HYDROcodone/APAP 5 MG/325 MG (LORTAB) TAB PO PRN ×3 (06:45→17:48)
[2019-04-17] MEDS: SENNA W/DOCUSATE (SENOKOT S) TABLET PO SCH ×3 (07:39→20:39)
[2019-04-17] MEDS: POLYETHYLENE GLYCOL 17 GM (MIRALAX) PACK PO SCH ×3 (07:39→20:39)
--- NOTE | 2019-04-17 07:47 | PM&R Progress Note ---
Subjective HPI/CC On Admission Date Seen by Provider: Apr 17, 2019 Time Seen by Provider: 08:15 Subjective/Events-last exam Dr. Fay has approved Eliquis so coupon will be given the first month and then that will continue on a longer term basis with the program Trying to get his left leg more strength before DC Bowels are moving Sleeping well Checked meds and labs Conferred with RN Reviewed therapy notes Review of Systems General: Fatigue Musculoskeletal: leg pain Objective Exam Vital Signs Vital Signs Date Time Temp Pulse Resp B/P (MAP) Pulse Ox O2 Delivery O2 Flow Rate FiO2 04/17/19 18:40 36.8 85 20 111/69 (83) 100 Room Air 04/11/19 14:09 21 Capillary Refill : Less Than 3 Seconds General Appearance: No Apparent Distress, WD/WN, Chronically ill HEENT: PERRL/EOMI, Normal ENT Inspection, Pharynx Normal Neck: Full Range of Motion, Normal Inspection, Non Tender, Supple, Carotid Bruit Respiratory: Chest Non Tender, Lungs Clear, Normal Breath Sounds, No Accessory Muscle Use, No Respiratory Distress Cardiovascular: Regular Rate, Rhythm, No Edema, No Gallop, No JVD, No Murmur, Normal Peripheral Pulses Gastrointestinal: Normal Bowel Sounds, No Organomegaly, No Pulsatile Mass, Non Tender, Soft Back: Normal Inspection, No CVA Tenderness, No Vertebral Tenderness Extremity: Normal Capillary Refill, Normal Inspection, Normal Range of Motion (except left leg), Non Tender, No Calf Tenderness, No Pedal Edema Neurologic/Psychiatric: Alert, Oriented x3, No Motor/Sensory Deficits, Normal 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 FIM Transfers Therapy Code Descriptions/Definitions Functional [place] Measure: 0=Not Assessed/NA 4=Minimal Assistance 1=Total Assistance 5=Supervision or Setup 2=Maximal Assistance 6=Modified [place] 3=Moderate Assistance 7=Complete IndependenceSCALE: Activities may be completed with or without assistive devices. 3-Bhbjmkndkv-phpmjfc completes the activity by him/herself with no assistance from a helper. 5-Set-up or Clean-up Assistance-helper sets up or cleans up; patient completes activity. [place] assists only prior to or following the activity. 4-Supervision or Touching Assistance-helper provides verbal cues and/or touching/steadying and/or contact guard assistance as patient completes activity. Assistance may be provided throughout the activity or intermittently. 3-Partial/Moderate Assistance-helper does LESS THAN HALF the effort. [place] lifts, holds or supports trunk or limbs, but provides less than half the effort. 2-Substantial/Maximal Assistance-helper does MORE THAN HALF the effort. [place] lifts or holds trunk or limbs and provides more than half the effort. 7-Laccnvhqe-sbmzss does ALL the effort. Patient does none of the effort to complete the activity. Or, the assistance of 2 or more helpers is required for the patient to complete the activity. If activity was not attempted, code reason: 7-Patient Refused. 9-Not Applicable-not attempted and the patient did not perform the activity bef ore the current illness, exacerbation or injury. 10-Not Attempted due to Environmental Limitations-(lack of equipment, weather r estraints, etc.). 88-Not Attempted due to Medical Conditions or Safety Concerns. Transfers (B, C, W/C) (FIM): 3 Roll Left to Right (QC): 5 Sit to Lying (QC): 4 Sit to Stand (QC): 4 (CGA for safety and skilled cues to sequence. ) Chair/Lkw-fs-Kqziq Xfer(QC): 4 (SBA) Car Transfer (QC): 88 Gait Training Does the Patient Walk?: Yes Gait (FIM): 3 Distance (FIM): 1=up to 49 ft Distance: 150 ft x 2; 50 ft x 2 Walk 10 feet (QC): 4 Walk 50 ft with 2 Turns(QC): 4 Walk 150 ft (QC): 4 Walking 10ft/uneven surface-QC: 88 Gait Persons Needed: 1 Gait Assistive Device: FWW Wheelchair Training Does the Pt Use a Wheelchair?: No Wheelchair Distance: 3=494-03 ft Distance: 100' Wheel 50 ft with 2 turns (QC): 6 Type of Wheelchair: Manual Stair Training Stair Training: Handrails/: 2 handrails #of Steps: 4 1 Step (curb) (QC): 88 4 Steps (QC): 3 (min to CGA for safety; skilled cues 50% of the time for sequencing; relies heavily on the handrail ) 12 Steps (QC): 88 Balance Picking up an Object (QC): 88 ADL-Treatment Eating (QC): 6 (Pt able to set up own meal and use regular utensils.) Oral Hygiene (QC): 6 Bathing Location: L Arm, R Arm, L Upper Leg, R Upper Leg, L Lower Leg (including foot), R Lower Leg (including foot), Chest, Abdomen, Buttocks, Perineal Area Shower/Bathe Self (QC): 4 (supervision) Upper Body Dressing (QC): 5 (Set up then pt doffed/donned shirt by self.) Lower Body Dressing (QC): 5 (Footwear (QC) 4- min A. Pt able to doff both socks and don R sock, assist to don L sock with sock aide) On/Off Footwear (QC): 2 Toileting Hygiene (QC): 4 Toilet Transfer (QC): 4 Assessment/Plan Assessment and Plan Assess & Plan/Chief Complaint Assessment: Left hip fracture Fall AF OAC DM HTN Plan: OAC coupon Cardiology is appreciated IRF protocol BM regimen Pain control Much improved Checked labs yest DC planning for Monday or Monday (1) Hip fracture, intertrochanteric Status: Acute Qualifiers: Laterality: left Fracture healing: with routine healing (2) On continuous oral anticoagulation (3) Atrial fibrillation (4) Essential (primary) hypertension Status: Chronic (5) Non-insulin dependent type 2 diabetes mellitus Status: Chronic CARLOZ CONNELL DO Apr 17, 2019 07:47 POS
[2019-04-17] MEDS: meTOproloL SUCCINATE 50 MG (TOPROL XL) TAB PO SCH (08:05)
[2019-04-17] MEDS: APIXABAN 5 MG (ELIQUIS) TABLET PO SCH ×2 (08:06→20:39)
--- NOTE | 2019-04-17 09:48 | Occupational Ther Daily Note ---
OT Current Status-Daily Note Subjective Pt alert, sitting in recliner. Pt stated that he did not sleep well and does not have as much energy today. No c/o pain at this time. Pt agrees to therapy. Mental Status/Objective Patient Orientation: Person, Place, Time, Situation ADL-Treatment Pt declined shower, sponge bath or changing clothing. Therapy Code Descriptions/Definitions Functional [place] Measure: 0=Not Assessed/NA 4=Minimal Assistance 1=Total Assistance 5=Supervision or Setup 2=Maximal Assistance 6=Modified [place] 3=Moderate Assistance 7=Complete IndependenceSCALE: Activities may be completed with or without assistive devices. 7-Kguhymdzyl-lsetyaw completes the activity by him/herself with no assistance from a helper. 5-Set-up or Clean-up Assistance-helper sets up or cleans up; patient completes activity. [place] assists only prior to or following the activity. 4-Supervision or Touching Assistance-helper provides verbal cues and/or touching/steadying and/or contact guard assistance as patient completes activity. Assistance may be provided throughout the activity or intermittently. 3-Partial/Moderate Assistance-helper does LESS THAN HALF the effort. [place] lifts, holds or supports trunk or limbs, but provides less than half the effort. 2-Substantial/Maximal Assistance-helper does MORE THAN HALF the effort. [place] lifts or holds trunk or limbs and provides more than half the effort. 6-Ksymjapjs-xiycko does ALL the effort. Patient does none of the effort to complete the activity. Or, the assistance of 2 or more helpers is required for the patient to complete the activity. If activity was not attempted, code reason: 7-Patient Refused. 9-Not Applicable-not attempted and the patient did not perform the activity before the current illness, exacerbation or injury. 10-Not Attempted due to Environmental Limitations-(lack of equipment, weather restraints, etc.). 88-Not Attempted due to Medical Conditions or Safety Concerns. Other Treatment Pt ambulated to therapy gym with CGA using FWW. Completed UE exercises to increase strength and activity tolerance for daily functional tasks. Arm bike completed for 15 min at 25 watt resistance without breaks. Medium resistance theraband exercises (6), 1 set 10 reps. Pt then ambulated back to room. Discussed using tub transfer bench at daughter's home and pt stated that he thought his daughter has one already. Demonstrated transfer with bench and without. Pt verbalized understanding. Call light/phone in reach at end of session. All needs met in room. OT Short Term Goals Short Term Goals Time Frame: Apr 15, 2019 OT Oyster Shucker Goals Oyster Shucker Goals Time Frame: Apr 22, 2019 Eating (QC): 6 Oral Hygiene (QC): 6 Toileting Hygiene (QC): 6 Shower/Bathe Self (QC): 5 Upper Body Dressing (QC): 6 Lower Body Dressing (QC): 6 On/Off Footwear (QC): 6 Additional Goals: 1-Demonstrate ADL Tasks, 2-Verbalize Understanding, 3- ImproveStrength/[place] 1=Demonstrate adherence to instructed precautions during ADL tasks. 2=Patient will verbalize/demonstrate understanding of assistive devices/modifications for ADL. 3=Patient will improve strength/tolerance for activity to enable patient to perform ADL's. OT Education/Plan Problem List/Assessment Assessment: Decreased Activ Tolerance, Impaired Self-Care Skills, Restricted Funct UE ROM Discharge Recommendations Plan/Recommendations: Continue POC Treatment Plan/Plan of Care Patient would benefit from OT for education, treatment and training to promote independence in ADL's, mobility, safety and/or upper extremity function for ADL's. Plan of Care: ADL Retraining, Functional Mobility, Group Exercise/Act as Ind, UE Funct Exercise/Act Treatment Duration: Apr 22, 2019 Frequency: At least 5 of 7 days/Wk (IRF) Estimated Hrs Per Day: 1.5 hours per day Agreement: Yes Rehab Potential: Good Time/GCodes Start Time: 08:30 Stop Time: 09:30 Total Time Billed (hr/min): 60 Billed Treatment Time 1 visit-EX 2 (30 min) FA 2 (30 min) PAM KUO Apr 17, 2019 09:48 POS
--- NOTE | 2019-04-17 12:05 | Physical Therapy Daily Note ---
PT Daily Note-Current Subjective Patient agrees to PT. Reports continued difficulty WB on LLE during ambulation and significant L hip pain during ambulation. Pain Numeric Pain Scale: 8 Location: Left Location Body Site: Hip Pain Description: Ache Mental Status Patient Orientation: Person, Place, Time, Situation Transfers SCALE: Activities may be completed with or without assistive devices. 7-Yohueyikct-vwyrleo completes the activity by him/herself with no assistance from a helper. 5-Set-up or Clean-up Assistance-helper sets up or cleans up; patient completes activity. [place] assists only prior to or following the activity. 4-Supervision or Touching Assistance-helper provides verbal cues and/or touching/steadying and/or contact guard assistance as patient completes activity. Assistance may be provided throughout the activity or intermittently. 3-Partial/Moderate Assistance-helper does LESS THAN HALF the effort. [place] lifts, holds or supports trunk or limbs, but provides less than half the effort. 2-Substantial/Maximal Assistance-helper does MORE THAN HALF the effort. [place] lifts or holds trunk or limbs and provides more than half the effort. 8-Hgbqpiomu-tcahqn does ALL the effort. Patient does none of the effort to complete the activity. Or, the assistance of 2 or more helpers is required for the patient to complete the activity. If activity was not attempted, code reason: 7-Patient Refused. 9-Not Applicable-not attempted and the patient did not perform the activity before the current illness, exacerbation or injury. 10-Not Attempted due to Environmental Limitations-(lack of equipment, weather restraints, etc.). 88-Not Attempted due to Medical Conditions or Safety Concerns. Roll Left & Right (QC): 4 Sit to Lying (QC): 4 Lying to Sitting/Side of Bed(Q: 4 Sit to Stand (QC): 4 SBA bed mobility, uses RLE to bring LLE onto and off of bed; CGA transfers Weight Bearing Right Lower Extremity: Right Weight Bearing/Tolerated Left Lower Extremity: Left Weight Bearing/Tolerated Gait Training Does the Patient Walk?: Yes Distance: 100'; 150' Walk 10 feet (QC): 4 Walk 50 ft with 2 Turns(QC): 4 Walk 150 ft (QC): 4 Gait Assistive Device: FWW CGA; antalgic gait, difficulty WB on LLE causing increased UE WB through walker. Exercises Supine Ex: Quad Set, Glut sets, Heel Slides, Straight leg raise, Hip abd/add Supine Reps: 10 Seated Therapy Exercises: Ankle pumps, Sit to stand, Long arc quads, Hip abd/add Seated Reps: 10 Standing: Weight shifts Standing Reps: 10 NuStep Minutes: 10 NuStep Workload: 6 Assessment Patient completed all bed mobility SBA and transfers and ambulation CGA. Able to ambulate 100' and then 150' without rest using FWW. Ambulates with antalgic gait and difficulty weight bearing on LLE, causing increased weight bearing on UE through walker. Severe pain in L hip caused by ambulation, nursing notified, and pain medicine administered during session. Pain completed all supine and seated exercises well, demonstrating good BLE strength. Practiced weight shifting in parallel bars with weight distributed through UE as well. Patient completed 10 minutes on NuStep for strengthening and mobility of walking without intense hip pain caused by weight bearing. Patient returned to room and seated in recliner at conclusion of treatment. PT Calender Operator Helper Goals Intermediate Goals PT Intermediate Goals Time Frame: Apr 24, 2019 Roll Left & Right (QC): 6 Sit to Lying (QC): 6 Lying-Sitting on Side/Bed(QC): 6 Sit to Stand (QC): 6 Chair/Tek-by-Bhafb Xfer(QC): 6 Toilet Transfer (QC): 6 Car Transfer (QC): 5 Does the Patient Walk: Yes Walk 10 feet (QC): 6 Walk 50ft with 2 Turns (QC): 6 Walk 150 ft (QC): 6 Walking 10ft on Uneven Surface: 6 1 Step (curb) (QC): 6 4 Steps (QC): 5 12 Steps (QC): 9 Picking up an Object (QC): 88 Does the Pt use WC or Scooter?: No Type: N/A Type: N/A PT Plan Treatment/Plan Treatment Plan: Continue Plan of Care Treatment Plan: Bed Mobility, Education, Functional Activity [place], Functional Strength, Group Therapy, Gait, Safety, Therapeutic Exercise, Transfers Treatment Duration: Apr 24, 2019 Frequency: At least 5 of 7 days/Wk (IRF) Estimated Hrs Per Day: 1.5 hours per day Patient and/or Family Agrees t: Yes Safety Risks/Education Patient Education: Gait Training, Steps, Correct Positioning, Safety Issues Teaching Recipient: Patient Teaching Methods: Demonstration, Discussion Response to Teaching: Verbalize Understanding, Return Demonstration Time/GCodes Time In: 1100 Time Out: 1200 Total Billed Treatment Time: 60 Total Billed Treatment 1 visit EX x2 30min GT 15min FA 15min DENNIS LOU PRIVATE PILOT Apr 17, 2019 12:05 POS
--- NOTE | 2019-04-17 15:03 | Therapy Group Daily Note ---
Therapy Daily Group Note Patient Education Topic Home Safety Exercises LE Seated Exercise Session Ratio (pt:therapist): 6:2 Goal of Session: Home Safety Strategies, UE/LE Strengthing Goal Met for this Session: Yes Pt Benefit of Group: Contributions to Others, F/U Use of Strategies @Home, Increased Functional Safety, Increased Functional Strength, Improved Cognition, Recognition of Peers, Socialization Other/Notes Pt ambulated to [facility] for OT/PT group. Group consisted of introductions (name, place living, favorite restaurant), socialization, UE/LE seated exercises and home safety. Pt introduced self appropriately and actively listened to peers. Pt was able to remember an exercise and lead group then participated when peers lead an exercise. Pt acknowledged understanding of educational topics by verbalizing own personal story and strategies. After therapy, pt sitting in recliner with call light/phone in reach. All needs met. Start Time: 13:00 Stop Time: 14:10 Total Billed Treatment Time: 70 Total Billed Treatment 1-GRP PAM KUO Apr 17, 2019 15:03 POS
[2019-04-17 18:40] VITALS: BP 111/69
[2019-04-18 06:01] VITALS: BP 118/71
[2019-04-18] MEDS: HYDROcodone/APAP 5 MG/325 MG (LORTAB) TAB PO PRN ×2 (06:50→11:17)
[2019-04-18 07:01] LABS: HEMOGLOBIN 16.2 G/DL (13.3-17.7); MEAN PLATELET VOLUME 10.3 FL (7.4-10.4); RED CELL DISTRIBUTION WIDTH 12.8 % (10.0-14.5); WHITE BLOOD COUNT 7.1 10^3/uL (4.3-11.0)
[2019-04-18] MEDS: APIXABAN 5 MG (ELIQUIS) TABLET PO SCH ×2 (08:01→20:09)
[2019-04-18] MEDS: meTOproloL SUCCINATE 50 MG (TOPROL XL) TAB PO SCH (09:40)
--- NOTE | 2019-04-18 09:53 | PM&R Progress Note ---
Subjective HPI/CC On Admission Date Seen by Provider: Apr 18, 2019 Time Seen by Provider: 08:15 Subjective/Events-last exam Discharge planned tomorrow. Doing well. BP is slightly low. Cardiology will be consulted. Eliquis prescription will come from cardiology. Discharge is still planned for tomorrow. Checked meds and labs Conferred with RN Reviewed therapy notes Review of Systems General: Fatigue Musculoskeletal: leg pain Objective Exam Vital Signs Vital Signs Date Time Temp Pulse Resp B/P (MAP) Pulse Ox O2 Delivery O2 Flow Rate FiO2 04/18/19 18:00 36.8 85 20 110/69 (83) 99 Room Air Capillary Refill : Less Than 3 Seconds General Appearance: No Apparent Distress, WD/WN, Chronically ill HEENT: PERRL/EOMI, Normal ENT Inspection, Pharynx Normal Neck: Full Range of Motion, Normal Inspection, Non Tender, Supple, Carotid Bruit Respiratory: Chest Non Tender, Lungs Clear, Normal Breath Sounds, No Accessory Muscle Use, No Respiratory Distress Cardiovascular: Regular Rate, Rhythm, No Edema, No Gallop, No JVD, No Murmur, Normal Peripheral Pulses Gastrointestinal: Normal Bowel Sounds, No Organomegaly, No Pulsatile Mass, Non Tender, Soft Back: Normal Inspection, No CVA Tenderness, No Vertebral Tenderness Extremity: Normal Capillary Refill, Normal Inspection, Normal Range of Motion (except left leg), Non Tender, No Calf Tenderness, No Pedal Edema Neurologic/Psychiatric: Alert, Oriented x3, No Motor/Sensory Deficits, Normal Mood/Affect, staffing consultant II-XII Norm as Tested Skin: Normal Color, Warm/Dry Lymphatic: No Adenopathy Results/Procedures Lab Laboratory Tests 04/18/19 06:30 Patient resulted labs reviewed. FIM Transfers Therapy Code Descriptions/Definitions Functional [place] Measure: 0=Not Assessed/NA 4=Minimal Assistance 1=Total Assistance 5=Supervision or Setup 2=Maximal Assistance 6=Modified [place] 3=Moderate Assistance 7=Complete IndependenceSCALE: Activities may be completed with or without assistive devices. 0-Beyzuzsovu-pwbpgrk completes the activity by him/herself with no assistance from a helper. 5-Set-up or Clean-up Assistance-helper sets up or cleans up; patient completes activity. [place] assists only prior to or following the activity. 4-Supervision or Touching Assistance-helper provides verbal cues and/or touching/steadying and/or contact guard assistance as patient completes activity. Assistance may be provided throughout the activity or intermittently. 3-Partial/Moderate Assistance-helper does LESS THAN HALF the effort. [place] lifts, holds or supports trunk or limbs, but provides less than half the effort. 2-Substantial/Maximal Assistance-helper does MORE THAN HALF the effort. [place] lifts or holds trunk or limbs and provides more than half the effort. 1-Esczdfftq-rxllrn does ALL the effort. Patient does none of the effort to complete the activity. Or, the assistance of 2 or more helpers is required for the patient to complete the activity. If activity was not attempted, code reason: 7-Patient Refused. 9-Not Applicable-not attempted and the patient did not perform the activity before the current illness, exacerbation or injury. 10-Not Attempted due to Environmental Limitations-(lack of equipment, weather restraints, etc.). 88-Not Attempted due to Medical Conditions or Safety Concerns. Transfers (B, C, W/C) (FIM): 3 Roll Left to Right (QC): 4 Sit to Lying (QC): 4 Sit to Stand (QC): 4 Chair/Zgy-jx-Tsxld Xfer(QC): 4 (SBA) Car Transfer (QC): 88 Gait Training Does the Patient Walk?: Yes Gait (FIM): 3 Distance (FIM): 1=up to 49 ft Distance: 100'; 150' Walk 10 feet (QC): 4 Walk 50 ft with 2 Turns(QC): 4 Walk 150 ft (QC): 4 Walking 10ft/uneven surface-QC: 88 Gait Persons Needed: 1 Gait Assistive Device: FWW Wheelchair Training Does the Pt Use a Wheelchair?: No Wheelchair Distance: 0=117-29 ft Distance: 100' Wheel 50 ft with 2 turns (QC): 6 Type of Wheelchair: Manual Stair Training Stair Training: Handrails/: 2 handrails #of Steps: 4 1 Step (curb) (QC): 88 4 Steps (QC): 3 (min to CGA for safety; skilled cues 50% of the time for sequencing; relies heavily on the handrail ) 12 Steps (QC): 88 Balance Picking up an Object (QC): 88 ADL-Treatment Eating (QC): 6 (Pt able to set up own meal and use regular utensils.) Oral Hygiene (QC): 6 Bathing Location: L Arm, R Arm, L Upper Leg, R Upper Leg, L Lower Leg (including foot), R Lower Leg (including foot), Chest, Abdomen, Buttocks, Perineal Area Shower/Bathe Self (QC): 4 (supervision) Upper Body Dressing (QC): 5 (Set up then pt doffed/donned shirt by self.) Lower Body Dressing (QC): 5 (Footwear (QC) 4- min A. Pt able to doff both socks and don R sock, assist to don L sock with sock aide) On/Off Footwear (QC): 2 Toileting Hygiene (QC): 4 Toilet Transfer (QC): 4 Assessment/Plan Assessment and Plan Assess & Plan/Chief Complaint Assessment: Left hip fracture Fall AF OAC DM HTN Plan: OAC coupon Cardiology is appreciated IRF protocol BM regimen Pain control Much improved Checked labs yest DC planning for Monday (1) Hip fracture, intertrochanteric Status: Acute Qualifiers: Laterality: left Fracture healing: with routine healing (2) On continuous oral anticoagulation (3) Atrial fibrillation Qualifiers: Qualified Codes: I48.11 - Longstanding persistent atrial fibrillation (4) Essential (primary) hypertension Status: Chronic (5) Non-insulin dependent type 2 diabetes mellitus Status: Chronic CARLOZ CONNELL DO Apr 18, 2019 09:53 POS
--- NOTE | 2019-04-18 10:15 | Occupational Ther Daily Note ---
OT Current Status-Daily Note Subjective Pt alert, lying in bed. Pt agrees to therapy. Pt states that he will be leaving Monday evening. Will confirm with SW. Mental Status/Objective Patient Orientation: Person, Place, Time, Situation ADL-Treatment Pt retrieves clothing using FWW from closet and transports to bathroom. Pt transferred to toilet using FWW and grabbars, mod I. Completed hygiene and clothing manipulation, mod I. Transferred into shower using shower seat, FWW and grabbars, mod I. Completed shower using shower seat, grabbars and hand held shower, mod I. Pt donned upper body clothing by self. Using gravel screener pt able to complete lower body by self. Pt doffed socks by self then donned R sock by self and used sock aide for L sock. Pt sat at sink to complete oral care and grooming. Therapy Code Descriptions/Definitions Functional Scotts Measure: 0=Not Assessed/NA 4=Minimal Assistance 1=Total Assistance 5=Supervision or Setup 2=Maximal Assistance 6=Modified Scotts 3=Moderate Assistance 7=Complete IndependenceSCALE: Activities may be completed with or without assistive devices. 8-Tkiprernxw-ficvozo completes the activity by him/herself with no assistance from a helper. 5-Set-up or Clean-up Assistance-helper sets up or cleans up; patient completes activity. [place] assists only prior to or following the activity. 4-Supervision or Touching Assistance-helper provides verbal cues and/or touching/steadying and/or contact guard assistance as patient completes activity. Assistance may be provided throughout the activity or intermittently. 3-Partial/Moderate Assistance-helper does LESS THAN HALF the effort. [place] lifts, holds or supports trunk or limbs, but provides less than half the effort. 2-Substantial/Maximal Assistance-helper does MORE THAN HALF the effort. [place] lifts or holds trunk or limbs and provides more than half the effort. 7-Xdomnamxo-kttmif does ALL the effort. Patient does none of the effort to complete the activity. Or, the assistance of 2 or more helpers is required for the patient to complete the activity. If activity was not attempted, code reason: 7-Patient Refused. 9-Not Applicable-not attempted and the patient did not perform the activity before the current illness, exacerbation or injury. 10-Not Attempted due to Environmental Limitations-(lack of equipment, weather restraints, etc.). 88-Not Attempted due to Medical Conditions or Safety Concerns. Eating (QC): 6 (Pt demonstrates ability to complete meal set up and uses regular utensils to eat.) Oral Hygiene (QC): 6 Bathing Location: L Arm, R Arm, L Upper Leg, R Upper Leg, L Lower Leg (including foot), R Lower Leg (including foot), Chest, Abdomen, Buttocks, Perineal Area Shower/Bathe Self (QC): 6 Upper Body Dressing (QC): 6 Lower Body Dressing (QC): 6 (Footwear (QC) 6) Toileting Hygiene (QC): 6 Toilet Transfer (QC): 6 Other Treatment Pt propelled self in w/c to therapy gym. Pt completed arm bike for 15 min at 20 [place] resistance to increase strength and activity tolerance for daily functional tasks. Discussed with pt tub transfer bench and pt stated that he will be able to complete at home. Pt sitting in recliner with call light/phone in reach. All needs met in room. OT Short Term Goals Short Term Goals Time Frame: Apr 15, 2019 OT Shelter Goals Sterilizer Machine Operator Goals Time Frame: Apr 22, 2019 Eating (QC): 6 (met-04/18/2019) Oral Hygiene (QC): 6 (met-04/18/2019) Toileting Hygiene (QC): 6 (met-04/18/2019) Shower/Bathe Self (QC): 5 (met-04/18/2019) Upper Body Dressing (QC): 6 Lower Body Dressing (QC): 6 (met-04/18/2019) On/Off Footwear (QC): 6 (met-04/18/2019) Additional Goals: 1-Demonstrate ADL Tasks, 2-Verbalize Understanding, 3- ImproveStrength/Sylvester 1=Demonstrate adherence to instructed precautions during ADL tasks. 2=Patient will verbalize/demonstrate understanding of assistive devices/modifications for ADL. 3=Patient will improve strength/tolerance for activity to enable patient to perform ADL's. OT Education/Plan Problem List/Assessment Assessment: Decreased Activ Tolerance, Decreased UE Strength, Impaired Self- Care Skills Discharge Recommendations Plan/Recommendations: Continue POC Treatment Plan/Plan of Care Patient would benefit from OT for education, treatment and training to promote independence in ADL's, mobility, safety and/or upper extremity function for ADL's. Plan of Care: ADL Retraining, Functional Mobility, Group Exercise/Act as Ind, UE Funct Exercise/Act Treatment Duration: Apr 22, 2019 Frequency: At least 5 of 7 days/Wk (IRF) Estimated Hrs Per Day: 1.5 hours per day Agreement: Yes Rehab Potential: Good Time/GCodes Start Time: 08:30 Stop Time: 10:00 Total Time Billed (hr/min): 90 Billed Treatment Time 1 visit-ADL 5 (75 min) EX 1 (15 min) PAM KUO Apr 18, 2019 10:15 POS
--- NOTE | 2019-04-18 11:55 | Physical Therapy Daily Note ---
PT Daily Note-Current Subjective pt in recliner pre-tx agrees to therapy. Pt reports 7/10 pain in his L hip at this time RN notified and pain meds received during session. Pt informed PT pre- tx that he spoke with his nurse and and the decision was made that he will go home tomorrow. Appearance pt in recliner post-tx with feet elevated. call light, room phone, tray table in reach with all needs met at this time. Mental Status Patient Orientation: Person, Place, Time, Situation Transfers SCALE: Activities may be completed with or without assistive devices. 5-Gfkpfyssav-iujywlr completes the activity by him/herself with no assistance f rom a helper. 5-Set-up or Clean-up Assistance-helper sets up or cleans up; patient completes activity. [place] assists only prior to or following the activity. 4-Supervision or Touching Assistance-helper provides verbal cues and/or touching/steadying and/or contact guard assistance as patient completes activity. Assistance may be provided throughout the activity or intermittently. 3-Partial/Moderate Assistance-helper does LESS THAN HALF the effort. [place] lifts, holds or supports trunk or limbs, but provides less than half the effort. 2-Substantial/Maximal Assistance-helper does MORE THAN HALF the effort. [place] lifts or holds trunk or limbs and provides more than half the effort. 1-Dstboaiac-vgcvkk does ALL the effort. Patient does none of the effort to complete the activity. Or, the assistance of 2 or more helpers is required for the patient to complete the activity. If activity was not attempted, code reason: 7-Patient Refused. 9-Not Applicable-not attempted and the patient did not perform the activity before the current illness, exacerbation or injury. 10-Not Attempted due to Environmental Limitations-(lack of equipment, weather restraints, etc.). 88-Not Attempted due to Medical Conditions or Safety Concerns. Roll Left & Right (QC): 88 Sit to Lying (QC): 5 Lying to Sitting/Side of Bed(Q: 5 Sit to Stand (QC): 5 Chair/Suk-by-Djozg Xfer(QC): 5 Car Transfer (QC): 5 Weight Bearing Right Lower Extremity: Right Weight Bearing/Tolerated Left Lower Extremity: Left Weight Bearing/Tolerated Gait Training Does the Patient Walk?: Yes Distance: 200',100' Walk 10 feet (QC): 5 Walk 50 ft with 2 Turns(QC): 4 (SBA) Walk 150 ft (QC): 4 (SBA) Walking 10ft/uneven surface-QC: 4 (SBA) Gait Assistive Device: FWW pt continues to ambulate very slowly with b/l feet turned outward. pt continues to limit weight on the LLE with increased weight through b/l UE Wheelchair Training Does the Pt Use a Wheelchair?: No Stair Training Stair Training: Handrails/: 2 handrails #of Steps: 4 1 Step (curb) (QC): 4 (SBA) 4 Steps (QC): 3 (Yary) 12 Steps (QC): 88 Stairs: Pattern: Step to Pt educated on using 2 strong people to help on B/L UE for him to bear weight to ascend descend which he states will be present. Balance Picking up an Object (QC): 4 (SBA) Exercises Seated Therapy Exercises: Ankle pumps, Long arc quads, Hip flexion Seated Reps: 15 Treatments pt performed stair training, bed mobility training, transfer training, skilled ambulation training, functional LE strengthening exercises, and education this date. Assessment Current Status: Good Progress Pt jocelyn increased distance of ambulation this date with no c/o dizziness or light headedness following ambulation. Pt c/o increasing pain in his L hip following stair training which limited the remainder of the session to seated functional exercises instead of WB exercises. Pt safety awareness has improved greatly and he is demonstrating proper placement for transfers and ambulation. PT Small Stock Facer Goals Small Stock Facer Goals PT Small Stock Facer Goals Time Frame: Apr 24, 2019 Roll Left & Right (QC): 6 Sit to Lying (QC): 6 Lying-Sitting on Side/Bed(QC): 6 Sit to Stand (QC): 6 Chair/Gvd-rf-Uducl Xfer(QC): 6 Toilet Transfer (QC): 6 Car Transfer (QC): 5 Does the Patient Walk: Yes Walk 10 feet (QC): 6 Walk 50ft with 2 Turns (QC): 6 Walk 150 ft (QC): 6 Walking 10ft on Uneven Surface: 6 1 Step (curb) (QC): 6 4 Steps (QC): 5 12 Steps (QC): 9 Picking up an Object (QC): 88 Does the Pt use WC or Scooter?: No Type: N/A Type: N/A PT Plan Problem List Problem List: Activity Tolerance, Functional Strength, Safety, Balance, Gait, Transfer, Bed Mobility, ROM Treatment/Plan Treatment Plan: Continue Plan of Care Treatment Plan: Bed Mobility, Education, Functional Activity Sylvester, Functional Strength, Group Therapy, Gait, Safety, Therapeutic Exercise, Transfers Treatment Duration: Apr 24, 2019 Frequency: At least 5 of 7 days/Wk (IRF) Estimated Hrs Per Day: 1.5 hours per day Patient and/or Family Agrees t: Yes Safety Risks/Education Patient Education: Gait Training, Transfer Techniques, Steps, Correct Positioning, Safety Issues Teaching Recipient: Patient Teaching Methods: Demonstration, Discussion Response to Teaching: Return Demonstration, Reinforcement Needed Time/GCodes Time In: 1100 Time Out: 1200 Total Billed Treatment Time: 60 Total Billed Treatment 1 visit FA 30' GT 15' EX 15' AIRAM DAWKINS PT Apr 18, 2019 11:55 POS
--- NOTE | 2019-04-18 13:17 | NUR ---
Reviewed weekly Rehab Team Conference Summary with patient. He discussed his target discharge date of 04/22/19 with physician this a.m. and both agreed he could depart tomorrow 04/19/19. Patient has moved forward with his family to finalize arrangements. HHC: Recommending home PT. Reviewed agencies in patient service area while at his daughter's in [place], he selected [facility] for his services. Will arrange when final orders complete. Rx: Visited with patient, PharmD/Danis, and LORELEI/Arely about Eliquis vs alternative. Patient decision regarding med choice centers around OOP cost, physician primary Rx choice is regarding best practice for patient condition and age. Utilize Eliquis pharmaceutical free 30-day trial offer to allow patient time to complete his part of the required prescription assistance application. Patient will be instructed to take application as soon as completed to Dr. Fay's office, nursing staff will move forward on patient's behalf to complete overall process. Dr. Fay's office can provide samples if there is some interim wait for final approval for assistance. DME: [facility] for home use, will coordinate with patient choice agency [facility] once order received. Will update daughter Diana when she is available.
--- NOTE | 2019-04-18 14:44 | Physical Therapy Daily Note ---
PT Daily Note-Current Subjective pt in recliner pre-tx agrees to therapy. pt denies pain at this time. Appearance pt in bed post-tx with call light, room phone, tray table and all needs met at this time. Mental Status Patient Orientation: Person, Place, Time, Situation Transfers SCALE: Activities may be completed with or without assistive devices. 2-Aoxduxttvd-zndwodx completes the activity by him/herself with no assistance from a helper. 5-Set-up or Clean-up Assistance-helper sets up or cleans up; patient completes activity. [place] assists only prior to or following the activity. 4-Supervision or Touching Assistance-helper provides verbal cues and/or touching/steadying and/or contact guard assistance as patient completes activity. Assistance may be provided throughout the activity or intermittently. 3-Partial/Moderate Assistance-helper does LESS THAN HALF the effort. [place] lifts, holds or supports trunk or limbs, but provides less than half the effort. 2-Substantial/Maximal Assistance-helper does MORE THAN HALF the effort. [place] lifts or holds trunk or limbs and provides more than half the effort. 6-Rekqgiyqn-uwhuzq does ALL the effort. Patient does none of the effort to complete the activity. Or, the assistance of 2 or more helpers is required for the patient to complete the activity. If activity was not attempted, code reason: 7-Patient Refused. 9-Not Applicable-not attempted and the patient did not perform the activity before the current illness, exacerbation or injury. 10-Not Attempted due to Environmental Limitations-(lack of equipment, weather restraints, etc.). 88-Not Attempted due to Medical Conditions or Safety Concerns. Sit to Lying (QC): 6 Sit to Stand (QC): 6 Weight Bearing Right Lower Extremity: Right Weight Bearing/Tolerated Left Lower Extremity: Left Weight Bearing/Tolerated Gait Training Distance: 100'x2 Walk 10 feet (QC): 4 (SBA) Walk 50 ft with 2 Turns(QC): 4 (SBA) Gait Assistive Device: FWW pt increasing gait velocity and is beginning to ambulate without stopping in between steps. Wheelchair Training Does the Pt Use a Wheelchair?: No Exercises NuStep Minutes: 15 NuStep Workload: 4 Treatments pt performed transfer training, bed mobility training, skilled ambulation training, functional LE strength/endurance training, and education. Assessment Current Status: Good Progress Pt increasing gait velocity to reach a more normal ambulation speed. Pt able to transfer to toilet, bed, Nustep, and chair indep standing with FWW and stepping. PT Shelter Goals Safety Compliance Specialist Goals PT Shelter Goals Time Frame: Apr 24, 2019 Roll Left & Right (QC): 6 Sit to Lying (QC): 6 Lying-Sitting on Side/Bed(QC): 6 Sit to Stand (QC): 6 Chair/Uvy-ly-Ypmrk Xfer(QC): 6 Toilet Transfer (QC): 6 Car Transfer (QC): 5 Does the Patient Walk: Yes Walk 10 feet (QC): 6 Walk 50ft with 2 Turns (QC): 6 Walk 150 ft (QC): 6 Walking 10ft on Uneven Surface: 6 1 Step (curb) (QC): 6 4 Steps (QC): 5 12 Steps (QC): 9 Picking up an Object (QC): 88 Does the Pt use WC or Scooter?: No Type: N/A Type: N/A PT Plan Problem List Problem List: Activity Tolerance, Functional Strength, Safety, Balance, Gait, Transfer, Bed Mobility, ROM Treatment/Plan Treatment Plan: Continue Plan of Care Treatment Plan: Bed Mobility, Education, Functional Activity Sylvester, Functional Strength, Group Therapy, Gait, Safety, Therapeutic Exercise, Transfers Treatment Duration: Apr 24, 2019 Frequency: At least 5 of 7 days/Wk (IRF) Estimated Hrs Per Day: 1.5 hours per day Patient and/or Family Agrees t: Yes Safety Risks/Education Patient Education: Gait Training, Transfer Techniques, Correct Positioning, Safety Issues Teaching Recipient: Patient Teaching Methods: Demonstration, Discussion Response to Teaching: Return Demonstration, Reinforcement Needed Time/GCodes Time In: 1400 Time Out: 1430 Total Billed Treatment Time: 30 Total Billed Treatment 1 visit EX 15' GT 15' AIRAM DAWKINS PT Apr 18, 2019 14:44 POS
[2019-04-18 16:38] VITALS: BP 106/69
[2019-04-18 18:00] VITALS: BP 110/69
--- NOTE | 2019-04-18 19:22 | NUR ---
bedside report received from FABIOLA LOPEZ, assume care of pt
--- NOTE | 2019-04-18 20:09 | NUR ---
pt refused miralax & Jim
[2019-04-18] MEDS: SENNA W/DOCUSATE (SENOKOT S) TABLET PO SCH (20:10)
[2019-04-18] MEDS: POLYETHYLENE GLYCOL 17 GM (MIRALAX) PACK PO SCH (20:10)
[2019-04-18] MEDS ORDERED: ACHD5005 PO (22:02)
[2019-04-18] MEDS ORDERED: METO-370 PO (22:02)
--- NOTE | 2019-04-18 22:04 | D/C HH Face to Face Order ---
D/C Face to Face Orders Reconcile Patient Problems Problems Reviewed?: Yes Instructions for Patient Via [facility], Patient Instructions/FollowUp: Dr Joshi in 1 week Physician to follow Patient: Dr Joshi Discharge Diet for Home: No Restrictions Patient Problems: Left hip fracture Chronic AF Goals for Patient: Return to independence Patient Data-Allergies,Ht & Wt Patient Allergies: Coded Allergies: codeine (Verified Allergy, Unknown, 04/08/19) Home Health Need/Face to Face Date of Face to Face: Apr 18, 2019 Clinical Findings: Instability, Muscle weakness, Pain with ambulation, Unsteady gait I have seen Pt odvt-qg-hakc: Yes Discharged To: Home Diagnosis/Conditions: Left hip fracture Chronic AF Patient is Homebound due to: Adin fall risk due to instabilty, Muscle weakness, Pain w/ambulation Homebound Status Due to the above stated illness, injury or surgical procedure (medical condition or diagnosis) and associated clinical findings, the patient is ho mebound because of his/her inability to leave home except with aid of a supportive device and/or person AND leaving the home requires a considerable and taxing effort or is medically contraindicated. Pt req the following assistanc: Walker Home Health Nursing Orders Home Health Services Order: Nursing Services, Asphalt Paving Superintendent-Evaluate & Treat, Physical Therapy-Evaluate & Treat Certify Stmt I certify that this patient is under my care and that I, a nurse practitioner or a physician; a media assistant working with me, had a face to face encounter that - meets the physician face to face encounter requirements with this patient as dated. CARLOZ CONNELL DO Apr 18, 2019 22:04 POS
[2019-04-19 05:55] VITALS: BP 114/74
[2019-04-19] MEDS: HYDROcodone/APAP 5 MG/325 MG (LORTAB) TAB PO PRN (06:52)
--- NOTE | 2019-04-19 06:52 | NUR ---
c/o lt leg pain level 6/10 on numeric scale, Lortab 5 1 tab given
--- NOTE | 2019-04-19 07:16 | NUR ---
bedside report given to YUE LOPEZ
[2019-04-19 08:08] VITALS: BP 115/75
[2019-04-19] MEDS: APIXABAN 5 MG (ELIQUIS) TABLET PO SCH (08:11)
[2019-04-19] MEDS: POLYETHYLENE GLYCOL 17 GM (MIRALAX) PACK PO SCH (09:00)
[2019-04-19] MEDS: SENNA W/DOCUSATE (SENOKOT S) TABLET PO SCH (09:00)
--- NOTE | 2019-04-19 09:21 | Therapy Team Discharge Summary ---
Therapy Discharge Summary Discharge Recommendations Date of Discharge Physical Therapy Patient came to rehab following a left femur fracture. Upon evaluation patient performs bed mobility with max assist, transfers with CGA, ambulated 10' with a rolling walker with min assist. Patient has been performing bed mobility and transfer training, balance and endurance training, functional strengthening, stair training, gait training, and education. 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 Now, patient performs bed mobility and transfers with setup, car transfer setup, ambulates 200' with a rolling walker with SBA (including 50' with at least 2 turns of 90 degrees and 10' over an uneven surface), can go up and down 4 steps using 2 handrails with min assist, and can sheepskin pickler an object from the floor with SBA. Patient is discharging from this facility today and will be discharged from PT at this time. Occupational Therapy Decreased Activ Tolerance, Decreased UE Strength, Impaired Self-Care Skills PT Automation Sales Manager Goals Automation Sales Manager Goals PT Long-Term Goals Time Frame: Apr 24, 2019 Roll Left to Right (QC): 6 Sit to Lying (QC): 6 Lying-Sitting on Side/Bed(QC): 6 Sit to Stand (QC): 6 Chair/Yki-lw-Mrtvz Xfer(QC): 6 Car Transfer (QC): 5 Does the Patient Walk: Yes Walk 10 feet (QC): 6 Walk 10ft-Uneven Surface(QC): 6 Walk 50ft with 2 Turns (QC): 6 Walk 150 ft (QC): 6 Gait Assistive Device: FWW Does the Pt use WC or Scooter?: No 1 Step (curb) (QC): 6 4 Steps (QC): 5 12 Steps (QC): 9 Picking up an Object (QC): 88 OT Long-Term Goals Long-Term Goals Time Frame: Apr 22, 2019 Eating (QC): 6 (met-04/18/2019) Oral Hygiene (QC): 6 (met-04/18/2019) Shower/Bathe Self (QC): 5 (met-04/18/2019) Upper Body Dressing (QC): 6 Lower Body Dressing (QC): 6 (met-04/18/2019) On/Off Footwear (QC): 6 (met-04/18/2019) Toileting Hygiene (QC): 6 (met-04/18/2019) Toilet/Commode Transfer (QC): 6 Additional Goals: 1-Demonstrate ADL Tasks, 2-Verbalize Understanding, 3- ImproveStrength/Sylvester 1=Demonstrate adherence to instructed precautions during ADL tasks. 2=Patient will verbalize/demonstrate understanding of assistive devices/modifications for ADL. 3=Patient will improve strength/tolerance for activity to enable patient to perform ADL's. AIRAM DAWKINS PT Apr 19, 2019 09:21 POS
--- NOTE | 2019-04-19 10:20 | Discharge Summary ---
Diagnosis/Chief Complaint Date of Admission Apr 08, 2019 at 10:54 Date of Discharge Discharge Date: Apr 18, 2019 Discharge Diagnosis Assessment: Left hip fracture Fall AF OAC DM HTN Plan: OAC coupon Cardiology is appreciated IRF protocol BM regimen Pain control Much improved Checked labs yest DC planning for Monday (1) Hip fracture, intertrochanteric Status: Acute Qualifiers: Laterality: left Fracture healing: with routine healing (2) On continuous oral anticoagulation (3) Atrial fibrillation Qualifiers: Qualified Codes: I48.11 - Longstanding persistent atrial fibrillation (4) Essential (primary) hypertension Status: Chronic (5) Non-insulin dependent type 2 diabetes mellitus Status: Chronic Discharge Summary Discharge Physical Examination Allergies: Coded Allergies: codeine (Verified Allergy, Unknown, 04/08/19) Vitals & I&Os Vital Signs Date Time Temp Pulse Resp B/P (MAP) Pulse Ox O2 Delivery O2 Flow Rate FiO2 04/19/19 14:29 36.8 75 18 115/75 93 Room Air General Appearance: Alert, Oriented X3, Cooperative Respiratory: Clear to Auscultation Cardiovascular: Other (IRR IRR) Abdominal: Normal Bowel Sounds Neuro: Normal Gait, Normal Speech, Strength at 5/5 X4 Ext Psych/Mental Status: Mental Status NL, Mood NL Hospital Course Was the Problem List Reviewed?: Yes Hospital Course: Pt had an uneventful and 12 day hospital course in inpatient rehab with cardiology consultationfor chronicAF and ultimately was able to approve Eliquis with a special program that was cross prohibited before his admission. Pt was able to participate in all therapy. Left leg pain was improvedimmensely was able to get by with only taking a few pain pills a day and bowels remained normal and pt was deemed stable for DC returning near prior level of function with theuse of a walker and will have home health to facilitatehis complete recovery. Labs (last 24 hrs) Laboratory Tests 04/08/19 09:43: Mean Blood Glucose 171H, Hemoglobin A1c 7.6H 04/08/19 15:24: Glucometer 151H 04/08/19 20:32: Glucometer 139H 04/09/19 05:41: Glucometer 131H 04/09/19 05:54: White Blood Count 7.9, Red Blood Count 4.60, Hemoglobin 14.1, Hematocrit 42, Mean Corpuscular Volume 92, Mean Corpuscular Hemoglobin 31, Mean Corpuscular Hemoglobin Concent 33, Red Cell Distribution Width 13.0, Platelet Count 261, Mean Platelet Volume 10.5H, Neutrophils (%) (Auto) 74, Lymphocytes (%) (Auto) 13, Monocytes (%) (Auto) 9, Eosinophils (%) (Auto) 3, Basophils (%) (Auto) 1, Neutrophils # (Auto) 5.8, Lymphocytes # (Auto) 1.0, Monocytes # (Auto) 0.7, Eosinophils # (Auto) 0.2, Basophils # (Auto) 0.0, Sodium Level 137, Potassium Level 4.0, Chloride Level 104, Carbon Dioxide Level 23, Anion Gap 10, Blood Urea Nitrogen 27H, Creatinine 1.04, Estimat Glomerular Filtration Rate > 60, BUN/Creatinine Ratio 26, Glucose Level 139H, Calcium Level 8.8, Corrected Calcium 9.4, Total Bilirubin 1.5H, Aspartate Amino Transf (AST/SGOT) 13, Alanine Aminotransferase (ALT/SGPT) < 6, Alkaline Phosphatase 74, Total Protein 6.3L, Albumin 3.2 04/09/19 10:50: Glucometer 179H 04/09/19 15:19: Glucometer 135H 04/09/19 20:27: Glucometer 127H 04/10/19 04:20: White Blood Count 8.2, Red Blood Count 4.52, Hemoglobin 14.2, Hematocrit 42, Mean Corpuscular Volume 92, Mean Corpuscular Hemoglobin 31, Mean Corpuscular Hemoglobin Concent 34, Red Cell Distribution Width 12.8, Platelet Count 286, Mean Platelet Volume 10.3 04/10/19 05:30: Glucometer 140H 04/10/19 10:48: Glucometer 156H 04/10/19 15:44: Glucometer 216H 04/10/19 20:51: Glucometer 161H 04/11/19 06:44: Glucometer 150H 04/11/19 11:18: Glucometer 190H 04/11/19 17:07: Glucometer 149H 04/11/19 22:08: Glucometer 200H 04/11/19 22:10: Glucometer 179H 04/12/19 06:22: Glucometer 148H 04/12/19 10:59: Glucometer 179H 04/12/19 15:31: Glucometer 146H 04/12/19 20:33: Glucometer 173H 04/13/19 05:22: Glucometer 146H 04/13/19 10:50: Glucometer 182H 04/13/19 15:33: Glucometer 148H 04/13/19 21:08: Glucometer 163H 04/14/19 05:47: Glucometer 150H 04/14/19 11:03: Glucometer 167H 04/14/19 15:34: Glucometer 162H 04/14/19 20:57: Glucometer 127H 04/15/19 04:48: White Blood Count 7.2, Red Blood Count 4.88, Hemoglobin 15.3, Hematocrit 45, Mean Corpuscular Volume 92, Mean Corpuscular Hemoglobin 31, Mean Corpuscular Hemoglobin Concent 34, Red Cell Distribution Width 13.0, Platelet Count 389, Mean Platelet Volume 9.8, Neutrophils (%) (Auto) 61, Lymphocytes (%) (Auto) 26, Monocytes (%) (Auto) 9, Eosinophils (%) (Auto) 3, Basophils (%) (Auto) 1, Neutrophils # (Auto) 4.4, Lymphocytes # (Auto) 1.9, Monocytes # (Auto) 0.7, Eosinophils # (Auto) 0.2, Basophils # (Auto) 0.1, Sodium Level 136, Potassium Level 4.3, Chloride Level 105, Carbon Dioxide Level 20L, Anion Gap 11, Blood Urea Nitrogen 20H, Creatinine 0.94, Estimat Glomerular Filtration Rate > 60, BUN/Creatinine Ratio 21, Glucose Level 132H, Calcium Level 9.2, Corrected Calciu m 9.8, Total Bilirubin 1.4H, Aspartate Amino Transf (AST/SGOT) 18, Alanine Aminotransferase (ALT/SGPT) 20, Alkaline Phosphatase 90, Total Protein 6.5, Albumin 3.3 04/15/19 05:55: Glucometer 123H 04/15/19 11:02: Glucometer 207H 04/15/19 15:38: Glucometer 169H 04/15/19 20:20: Glucometer 196H 04/16/19 06:22: Glucometer 152H 04/16/19 10:31: Glucometer 161H 04/16/19 15:49: Glucometer 184H 04/16/19 21:10: Glucometer 134H 04/17/19 06:45: Glucometer 120H 04/17/19 11:34: Glucometer 170H 04/17/19 18:31: Glucometer 191H 04/17/19 21:29: Glucometer 179H 04/18/19 05:54: Glucometer 136H 04/18/19 06:30: White Blood Count 7.1, Red Blood Count 5.18, Hemoglobin 16.2, Hematocrit 48, Mean Corpuscular Volume 93, Mean Corpuscular Hemoglobin 31, Mean Corpuscular Hemoglobin Concent 34, Red Cell Distribution Width 12.8, Platelet Count 308, Mean Platelet Volume 10.3, Creatinine 1.04 04/18/19 10:56: Glucometer 166H 04/18/19 15:36: Glucometer 129H 04/18/19 20:27: Glucometer 157H 04/19/19 06:26: Glucometer 123H 04/19/19 10:51: Glucometer 209H Pending Labs Laboratory Tests 04/08/19 09:43: Mean Blood Glucose 171, Hemoglobin A1c 7.6 04/08/19 15:24: Glucometer 151 04/08/19 20:32: Glucometer 139 04/09/19 05:41: Glucometer 131 04/09/19 05:54: White Blood Count 7.9, Red Blood Count 4.60, Hemoglobin 14.1, Hematocrit 42, Mean Corpuscular Volume 92, Mean Corpuscular Hemoglobin 31, Mean Corpuscular Hemoglobin Concent 33, Red Cell Distribution Width 13.0, Platelet Count 261, Mean Platelet Volume 10.5, Neutrophils (%) (Auto) 74, Lymphocytes (%) (Auto) 13, Monocytes (%) (Auto) 9, Eosinophils (%) (Auto) 3, Basophils (%) (Auto) 1, Neutrophils # (Auto) 5.8, Lymphocytes # (Auto) 1.0, Monocytes # (Auto) 0.7, Eosinophils # (Auto) 0.2, Basophils # (Auto) 0.0, Sodium Level 137, Potassium Level 4.0, Chloride Level 104, Carbon Dioxide Level 23, Anion Gap 10, Blood Urea Nitrogen 27, Creatinine 1.04, Estimat Glomerular Filtration Rate > 60, BUN/Creatinine Ratio 26, Glucose Level 139, Calcium Level 8.8, Corrected Calcium 9.4, Total Bilirubin 1.5, Aspartate Amino Transf (AST/SGOT) 13, Alanine Aminotransferase (ALT/SGPT) < 6, Alkaline Phosphatase 74, Total Protein 6.3, Albumin 3.2 04/09/19 10:50: Glucometer 179 04/09/19 15:19: Glucometer 135 04/09/19 20:27: Glucometer 127 04/10/19 04:20: White Blood Count 8.2, Red Blood Count 4.52, Hemoglobin 14.2, Hematocrit 42, Mean Corpuscular Volume 92, Mean Corpuscular Hemoglobin 31, Mean Corpuscular Hemoglobin Concent 34, Red Cell Distribution Width 12.8, Platelet Count 286, Mean Platelet Volume 10.3 04/10/19 05:30: Glucometer 140 04/10/19 10:48: Glucometer 156 04/10/19 15:44: Glucometer 216 04/10/19 20:51: Glucometer 161 04/11/19 06:44: Glucometer 150 04/11/19 11:18: Glucometer 190 04/11/19 17:07: Glucometer 149 04/11/19 22:08: Glucometer 200 04/11/19 22:10: Glucometer 179 04/12/19 06:22: Glucometer 148 04/12/19 10:59: Glucometer 179 04/12/19 15:31: Glucometer 146 04/12/19 20:33: Glucometer 173 04/13/19 05:22: Glucometer 146 04/13/19 10:50: Glucometer 182 04/13/19 15:33: Glucometer 148 04/13/19 21:08: Glucometer 163 04/14/19 05:47: Glucometer 150 04/14/19 11:03: Glucometer 167 04/14/19 15:34: Glucometer 162 04/14/19 20:57: Glucometer 127 04/15/19 04:48: White Blood Count 7.2, Red Blood Count 4.88, Hemoglobin 15.3, Hematocrit 45, Mean Corpuscular Volume 92, Mean Corpuscular Hemoglobin 31, Mean Corpuscular Hemoglobin Concent 34, Red Cell Distribution Width 13.0, Platelet Count 389, Mean Platelet Volume 9.8, Neutrophils (%) (Auto) 61, Lymphocytes (%) (Auto) 26, Monocytes (%) (Auto) 9, Eosinophils (%) (Auto) 3, Basophils (%) (Auto) 1, Neutrophils # (Auto) 4.4, Lymphocytes # (Auto) 1.9, Monocytes # (Auto) 0.7, Eosinophils # (Auto) 0.2, Basophils # (Auto) 0.1, Sodium Level 136, Potassium Level 4.3, Chloride Level 105, Carbon Dioxide Level 20, Anion Gap 11, Blood Urea Nitrogen 20, Creatinine 0.94, Estimat Glomerular Filtration Rate > 60, BUN/Creatinine Ratio 21, Glucose Level 132, Calcium Level 9.2, Corrected Calcium 9.8, Total Bilirubin 1.4, Aspartate Amino Transf (AST/SGOT) 18, Alanine Aminotransferase (ALT/SGPT) 20, Alkaline Phosphatase 90, Total Protein 6.5, Albumin 3.3 04/15/19 05:55: Glucometer 123 04/15/19 11:02: Glucometer 207 04/15/19 15:38: Glucometer 169 04/15/19 20:20: Glucometer 196 04/16/19 06:22: Glucometer 152 04/16/19 10:31: Glucometer 161 04/16/19 15:49: Glucometer 184 04/16/19 21:10: Glucometer 134 04/17/19 06:45: Glucometer 120 04/17/19 11:34: Glucometer 170 04/17/19 18:31: Glucometer 191 04/17/19 21:29: Glucometer 179 04/18/19 05:54: Glucometer 136 04/18/19 06:30: White Blood Count 7.1, Red Blood Count 5.18, Hemoglobin 16.2, Hematocrit 48, Mean Corpuscular Volume 93, Mean Corpuscular Hemoglobin 31, Mean Corpuscular Hemoglobin Concent 34, Red Cell Distribution Width 12.8, Platelet Count 308, Mean Platelet Volume 10.3, Creatinine 1.04 04/18/19 10:56: Glucometer 166 04/18/19 15:36: Glucometer 129 04/18/19 20:27: Glucometer 157 04/19/19 06:26: Glucometer 123 04/19/19 10:51: Glucometer 209 Discharge Home Medications: Active Scripts Active Hydrocodone/Acetaminophen 5/325mg Tablet (Acetaminophen/Hydrocodone Bitart) 1 Tab Tab 1 Tab PO Q4H PRN Metoprolol Succinate 50 Mg Tab.er.24h 25 Mg PO DAILY Eliquis (Apixaban) 5 Mg Tablet 5 Mg PO BID Reported Acetaminophen 500 Mg Tablet 1,000 Mg PO Q8H PRN Instructions to patient/family Please see electronic discharge instructions given to patient. Diagnosis/Problems Diagnosis/Problems (1) Hip fracture, intertrochanteric Status: Acute Qualifiers: (2) On continuous oral anticoagulation (3) Atrial fibrillation Qualifiers: Qualified Codes: I48.11 - Longstanding persistent atrial fibrillation (4) Essential (primary) hypertension Status: Chronic (5) Non-insulin dependent type 2 diabetes mellitus Status: Chronic Clinical Quality Measures DVT/VTE Risk/Contraindication: Risk Factor Score Per Nursin RFS Level Per Nursing on Admit: 4+=Very High CARLOZ CONNELL DO Apr 19, 2019 10:20 POS
--- NOTE | 2019-04-19 12:00 | Cardiology Progress Note ---
Cardiology SOAP Progress Note Subjective: No cardiac complaints. Objective: I&O/Vital Signs 04/19/19 04/19/19 04/19/19 05:55 08:08 09:00 Temp 36.8 Pulse 83 75 Resp 18 B/P (MAP) 114/74 (87) 115/75 (88) Pulse Ox 93 O2 Delivery Room Air Room Air 04/19/19 00:00 Intake Total 1000 ml Balance 1000 ml Constitutional: appears stated age, well-developed, well-nourished Respiratory: No accessory muscle use, No respiratory distress; chest expansion is symmetric, chest is bilaterally symmetric Cardiovascular: irregularly irregular; No JVD; S1 and S2 Gastrointestional: No tender; soft, round, audible bowel sounds Extremities: normal range of motion, non-tender, normal inspection, other (mild bilat LE swelling) Neurologic/Psychiatric: no motor/sensory deficits, alert, normal mood/affect, oriented x 3, grossly intact Skin: normal color; No rash on exposed areas, No ulcerations on exposed areas Results/Procedures: Labs Laboratory Tests 04/18/19 15:36: Glucometer 129H 04/18/19 20:27: Glucometer 157H 04/19/19 06:26: Glucometer 123H 04/19/19 10:51: Glucometer 209H A/P: Assessment/Dx: Intertrochanteric fracture left femur on 04/05/19; s/p closed reduction and application of intramedullary nail on 04/06/19 Atrial fibrillation of undetermined age. Probably chronic and permanent Echo 04/07/19: LVEF 50%, mild MR & TR, RVSP 17 mmHg Hypertension, controlled DM II, managed by Dr Ortiz Plan: Plan: * Labs are stable after initiation of OAC. Continue * On apixaban and beta kayli for atrial fibrillation. Thank you for your consultation. Please call me if you have any questions. Leon Mohr MD, FACP, FACC, FSCAI, FHRS, CCDS Interventional Cardiology Cardiac Electrophysiology Vascular Medicine and Endovascular Interventions Cynthia MOHR MD Apr 19, 2019 11:59 am POS
--- NOTE | 2019-04-19 13:59 | NUR ---
Patient discharged to home with his daughter/family as planned. IMM2 signed freely this date, patient well prepared to leave and expressed his appreciation for his care here. HHC: Finalized with [facility] for RN and therapy, they have already contacted daughter Diana for scheduling. DME: FWW arranged with [facility], delivered to patient room. Recommendation for tub transfer bench discussed with patient and Diana, they want to explore outside resources due to OOP costs. Patient does not require toilet riser/frame unless it would be for his comfort. Family report their stool is taller than standard. Rx: Faxed Eliquis order to [facility] this a.m. along with 30day free trial card. Confirmed with them patient's script is filled with no expense to patient. Provided pharmaceutical financial assistance kayla to patient, instructed to return to Dr. Fay's office as soon as they have all required proof of income ready. Patient/daughter indicated understanding. Unit RN aware, patient to be discharged as soon as overall paperwork complete.
--- NOTE | 2019-04-19 14:26 | NUR ---
SHAVONNE CASTRO demonstrates understanding of discharge instructions and accurately returns instructions upon questioning. Copy of Post-Discharge Instructions given to pt and pts daughter. SHAVONNE CASTRO is able to manage continuing needs after discharge with HHC/PT. Patients belongings returned to . Patient discharged from [facility]- on 04-20-19 at 1420. SHAVONNE CASTRO left floor via , accompanied by .
[2019-04-19 14:29] VITALS: BP 115/75
--- NOTE | 2019-04-22 09:04 | Therapy Team Discharge Summary ---
Therapy Discharge Summary Discharge Recommendations Date of Discharge Apr 19, 2019 at 14:20 Therapy D/C Recommendations: Home w/ Family Support Occupational Therapy Pt. has been seen by occupational therapy to increase overall strength and independence with daily skills. Pt. has met all goals. Pt. is able to bathe/dress with Mod I, as well as perform toileting, grooming, and ADL transfers. Pt. is able to ambulate safely with walker. Pt. has been educated about walker safety, and taking his time with tasks. Discharging home with family. PT Prison Goals Prison Goals PT Prison Goals Time Frame: Apr 24, 2019 Roll Left to Right (QC): 6 Sit to Lying (QC): 6 Lying-Sitting on Side/Bed(QC): 6 Sit to Stand (QC): 6 Chair/Bca-ov-Wmlju Xfer(QC): 6 Car Transfer (QC): 5 Does the Patient Walk: Yes Walk 10 feet (QC): 6 Walk 10ft-Uneven Surface(QC): 6 Walk 50ft with 2 Turns (QC): 6 Walk 150 ft (QC): 6 Gait Assistive Device: FWW Does the Pt use WC or Scooter?: No 1 Step (curb) (QC): 6 4 Steps (QC): 5 12 Steps (QC): 9 Picking up an Object (QC): [address] Light Servicer Helper Goals Time Frame: Apr 22, 2019 Eating (QC): 6 (met-04/18/2019) Oral Hygiene (QC): 6 (met-04/18/2019) Shower/Bathe Self (QC): 5 (met-04/18/2019) Upper Body Dressing (QC): 6 Lower Body Dressing (QC): 6 (met-04/18/2019) On/Off Footwear (QC): 6 (met-04/18/2019) Toileting Hygiene (QC): 6 (met-04/18/2019) Toilet/Commode Transfer (QC): 6 Additional Goals: 1-Demonstrate ADL Tasks, 2-Verbalize Understanding, 3- ImproveStrength/Sylvester 1=Demonstrate adherence to instructed precautions during ADL tasks. 2=Patient will verbalize/demonstrate understanding of assistive devices/modifications for ADL. 3=Patient will improve strength/tolerance for activity to enable patient to perform ADL's. SARA SMITH OT Apr 22, 2019 09:04 POS
== END 2019-04-19 14:20 | disposition home health service (06) | DRG 560 ==
PROVIDERS: ADMIT Internal Medicine; ATTEND Internal Medicine
DX: S72.142D Displaced intertrochanteric fracture of left femur, subsequent encounter for closed fracture with routine healing (principal); I48.21 Permanent atrial fibrillation; E11.9 Type 2 diabetes mellitus without complications; I10 Essential (primary) hypertension; I08.1 Rheumatic disorders of both mitral and tricuspid valves; S90.32XA Contusion of left foot, initial encounter; Z79.01 Long term (current) use of anticoagulants; W19.XXXD Unspecified fall, subsequent encounter; Z90.49 Acquired absence of other specified parts of digestive tract
CPT/HCPCS: 36415; 80053; 82565; 82962; 83036; 85025; 85027; 94760

== ENCOUNTER → 2019-05-14 | Outpatient (CLI) | payer MEDICARE, OTHER ==
[~2019-05-14] VITALS: Ht 185 cm; Wt 91.0 kg
[~2019-05-14] MED LIST changes: +ACHD5005 PO; +APIX5TAB PO; +CATHETER FLUSH 10 ML SYR IV PRN; +METO-370 PO; +REGADENOSON 0.4 MG/5 ML SYR (LEXISCAN) IV ONE
[2019-05-14 13:38] VITALS: BP 131/86
[2019-05-14 13:40] VITALS: BP 140/85
--- NOTE | 2019-05-14 19:35 | STRESS TEST ---
DATE OF SERVICE: 05/14/2019 RESTING AND POST REGADENOSON TECHNETIUM-99M TETROFOSMIN SPECT CT IMAGING ORDERING PHYSICIAN: Arely Kelly APRN PRIMARY PHYSICIAN: Dr. Joshi. CLINICAL DIAGNOSES: Atrial fibrillation, mitral regurgitation, tricuspid regurgitation. Baseline images were carried out after injection of 10.98 mCi of technetium-99m Tetrofosmin. This was followed by 0.4 mg regadenoson and 29.1 mCi of technetium-99m Tetrofosmin for stress imaging. The electrocardiogram showed atrial fibrillation throughout the study. The patient did not report any symptoms. The electrocardiogram did not change significantly. Review of images at rest and following stress does not indicate any distinct perfusion defects consistent with significant myocardial ischemia or infarction. Gated images show normal global left ventricular systolic function with normal regional wall motion. Left ventricular ejection fraction is calculated to be 60%. Left ventricular end diastolic volume is 59 mL. TID is absent (1.01). CONCLUSIONS: 1. No evidence of any significant myocardial ischemia or infarction on this study. 2. Normal regional wall motion. 3. Normal global left ventricular systolic function with a calculated ejection fraction of 66. Job ID: [id number] DocumentID: [id number] Dictated Date: 05/14/2019 17:12:31 Lighting Adviser Date: 05/14/2019 19:34:10 Dictated By: AKASH GARDUNO MD, MA, FACP, FACC,
== END ==
LOC: CARD 10:39
PROVIDERS: ATTEND Nurse Practitioner Family
DX: I08.1 Rheumatic disorders of both mitral and tricuspid valves (principal); I48.91 Unspecified atrial fibrillation; Z79.01 Long term (current) use of anticoagulants
CPT/HCPCS: 78452; 93017

== ENCOUNTER 2020-05-08 06:27 | Inpatient (IN) | payer MEDICARE, OTHER ==
[~2020-05-08] VITALS: Ht 185.5 cm; Wt 86.8 kg
[~2020-05-08 06:27] MED LIST changes: -CATHETER FLUSH 10 ML SYR IV PRN; -METO-370 PO; +METO50TA7 PO; -REGADENOSON 0.4 MG/5 ML SYR (LEXISCAN) IV ONE
--- NOTE | 2020-05-08 06:56 | ED General ---
General Stated Complaint: SOB Source of Information: Patient, EMS Exam Limitations: No Limitations History of Present Illness Date Seen by Provider: May 08, 2020 Time Seen by Provider: 06:45 Initial Comments Patient is an 79-year-old male who presents to the emergency room by ambulance this morning with a chief complaint of dizziness, shortness of breath and cough. Patient states that he had an episode of dizziness around midnight last night associated with shortness of breath and some altered mental status. Patient reports to me that he thought "I was going to ". Patient is unable to quantify the amount of time that the symptoms lasted. He states he was not able to sleep last night secondary to shortness of breath. Patient states he had another episode just prior to calling the ambulance this morning of dizziness and shortness of breath. Patient reportedly has a history of atrial fibrillation. He came off Eliquis of his own volition approximately 1 year ago because "I thought I did not need it". Patient states he does not take any medications. He reports his physician is Dr. Fay. Patient denies any chest pain although he is unsure if he had chest pain at the first episode at midnight. He denies fevers, chills, runny nose or congestion. Patient is occasionally coughing up clear sputum. He denies any GI or symptoms. Patient states that he is not having any swelling and wears POLI hose at home. He is nonweightbearing on his right lower extremity secondary to femur fracture. All other review of systems reviewed and negative except as stated above. Timing/Duration: 12-24 Hours Severity: Moderate Allergies and Home Medications Allergies Coded Allergies: codeine (Verified Allergy, Unknown, 05/08/20) Home Medications Rivaroxaban 15 Mg Tablet, 15 MG PO BID TAKE 15 MG TWICE DAILY X 3 WEEKS, THEN 20 MG ONCE DAILY Prescribed by: MEKA GARSIA on 05/09/20 1326 Rivaroxaban 20 Mg Tablet, 20 MG PO DAILY@1700 TAKE 15 MG TWICE DAILY X 3 WEEKS, THEN 20 MG ONCE DAILY Prescribed by: MEKA GARSIA on 05/09/20 1326 Patient Home Medication List Home Medication List Reviewed: Yes Review of Systems Review of Systems Constitutional: see HPI, dizziness EENTM: no symptoms reported Respiratory: cough, short of breath Cardiovascular: no symptoms reported Genitourinary: no symptoms reported Musculoskeletal: no symptoms reported Skin: no symptoms reported All Other Systems Reviewed Negative Unless Noted: Yes Past Abcaxqg-Dbjutz-Qsjvcz Hx Patient Social History Recent Hopitalizations: No Immunizations Up To Date PED Vaccines UTD: Yes Date of Pneumonia Vaccine: Jun 12, 2018 Date of Influenza Vaccine: Feb 26, 2019 Seasonal Allergies Seasonal Allergies: Yes Past Medical History Surgeries: Yes Appendectomy, Gallbladder, Orthopedic, Tonsillectomy Respiratory: No Cardiac: Yes Atrial Fibrillation, Hypertension Neurological: No Genitourinary: No Gastrointestinal: No Musculoskeletal: Yes Fractures Endocrine: Yes Diabetes, Non-Insulin dep HEENT: No Cancer: No Psychosocial: No Integumentary: No Blood Disorders: No Family Medical History Patient reports no known family medical history. No Pertinent Family Hx Physical Exam Vital Signs Vital Signs - First Documented 05/08/20 05/08/20 06:28 11:00 Temp 37.0 Pulse 105 Resp 20 B/P (MAP) 100/71 (81) Pulse Ox 96 O2 Delivery Room Air Capillary Refill : Height, Weight, BMI Height: '" Weight: lbs. oz. kg; 26.58 BMI Method: General Appearance: No Apparent Distress, WD/WN Eyes: Bilateral Eye Normal Inspection, Bilateral Eye PERRL, Bilateral Eye EOMI Neck: Full Range of Motion Respiratory: Lungs Clear, Normal Breath Sounds, No Accessory Muscle Use, No Respiratory Distress Cardiovascular: Irregularly Irregular, Tachycardia Gastrointestinal: Normal Bowel Sounds, Non Tender, Soft Extremity: Normal Capillary Refill, Normal Inspection, Non Tender, No Calf Tenderness Neurologic/Psychiatric: Alert, Oriented x3, No Motor/Sensory Deficits, Normal Mood/Affect Skin: Normal Color, Warm/Dry Focused Exam Lactate Level 05/08/20 10:12: Lactic Acid Level 2.34*H 05/08/20 13:06: Lactic Acid Level 2.65*H 05/08/20 15:58: Lactic Acid Level 1.74 Lactic Acid Level Progress/Results/Core Measures Suspected Sepsis SIRS Temperature: Pulse: Respiratory Rate: Laboratory Tests 05/08/20 06:55: White Blood Count 12.0H Blood Pressure / Mean: 05/08/20 10:12: Lactic Acid Level 2.34*H 05/08/20 13:06: Lactic Acid Level 2.65*H 05/08/20 15:58: Lactic Acid Level 1.74 Laboratory Tests 05/08/20 06:55: Creatinine 1.77H, Platelet Count 263 05/08/20 13:06: Creatinine 1.78H 05/09/20 06:15: Creatinine 1.34H, Total Bilirubin 0.7 Results/Orders Lab Results Laboratory Tests Test 05/08/20 06:55 05/08/20 07:00 05/08/20 08:30 05/08/20 10:12 Range/Units White Blood Count 12.0 H 4.3-11.0 10^3/uL Red Blood Count 4.99 4.30-5.52 10^6/uL Hemoglobin 15.7 13.3-17.7 g/dL Hematocrit 48 40-54 % Mean Corpuscular Volume 95 80-99 fL Mean Corpuscular Hemoglobin 32 25-34 pg Mean Corpuscular Hemoglobin Concent 33 32-36 g/dL Red Cell Distribution Width 12.7 10.0-14.5 % Platelet Count 263 130-400 10^3/uL Mean Platelet Volume 10.5 9.0-12.2 fL Immature Granulocyte % (Auto) 0 % Neutrophils (%) (Auto) 88 H 42-75 % Lymphocytes (%) (Auto) 7 L 12-44 % Monocytes (%) (Auto) 4 0-12 % Eosinophils (%) (Auto) 0 0-10 % Basophils (%) (Auto) 0 0-10 % Neutrophils # (Auto) 10.5 H 1.8-7.8 10^3/uL Lymphocytes # (Auto) 0.9 L 1.0-4.0 10^3/uL Monocytes # (Auto) 0.5 0.0-1.0 10^3/uL Eosinophils # (Auto) 0.0 0.0-0.3 10^3/uL Basophils # (Auto) 0.0 0.0-0.1 10^3/uL Immature Granulocyte # (Auto) 0.1 0.0-0.1 10^3/uL Neutrophils % (Manual) 87 % Lymphocytes % (Manual) 5 % Monocytes % (Manual) 3 % Eosinophils % (Manual) 1 % Basophils % (Manual) 1 % Band Neutrophils 3 % Blood Morphology Comment NORMAL D-Dimer > 20.00 *H 0.00-0.49 UG/ML Sodium Level 135 135-145 MMOL/L Potassium Level 4.7 3.6-5.0 MMOL/L Chloride Level 100 98-107 MMOL/L Carbon Dioxide Level 21 21-32 MMOL/L Anion Gap 14 5-14 MMOL/L Blood Urea Nitrogen 26 H 7-18 MG/DL Creatinine 1.77 H 0.60-1.30 MG/DL Estimat Glomerular Filtration Rate 37 BUN/Creatinine Ratio 15 Glucose Level 263 H 70-105 MG/DL Lactic Acid Level 3.11 *H 2.34 *H 0.50-2.00 MMOL/L Calcium Level 9.4 8.5-10.1 MG/DL Creatine Kinase MB 1.9 <6.6 NG/ML Troponin I 0.127 H <0.028 NG/ML C-Reactive Protein High Sensitivity 0.81 H 0.00-0.50 MG/DL Procalcitonin 0.06 <0.10 NG/ML Coronavirus 2019 (EM) Negative Negative Coronavirus (COVID-19)(PCR) Negative Negative Test 05/08/20 13:06 05/08/20 15:58 05/08/20 18:43 05/08/20 20:33 Range/Units Sodium Level 137 135-145 MMOL/L Potassium Level 5.6 H 3.6-5.0 MMOL/L Chloride Level 106 98-107 MMOL/L Carbon Dioxide Level 19 L 21-32 MMOL/L Anion Gap 12 5-14 MMOL/L Blood Urea Nitrogen 27 H 7-18 MG/DL Creatinine 1.78 H 0.60-1.30 MG/DL Estimat Glomerular Filtration Rate 37 BUN/Creatinine Ratio 15 Glucose Level 219 H 70-105 MG/DL Lactic Acid Level 2.65 *H 1.74 0.50-2.00 MMOL/L Calcium Level 8.6 8.5-10.1 MG/DL Troponin I 0.155 H <0.028 NG/ML Glucometer 111 H 183 H 70-110 MG/DL Test 05/09/20 05:11 05/09/20 06:15 05/09/20 11:39 Range/Units Glucometer 154 H 167 H 70-110 MG/DL Sodium Level 138 135-145 MMOL/L Potassium Level 4.6 3.6-5.0 MMOL/L Chloride Level 110 H 98-107 MMOL/L Carbon Dioxide Level 18 L 21-32 MMOL/L Anion Gap 10 5-14 MMOL/L Blood Urea Nitrogen 27 H 7-18 MG/DL Creatinine 1.34 H 0.60-1.30 MG/DL Estimat Glomerular Filtration Rate 51 BUN/Creatinine Ratio 20 Glucose Level 161 H 70-105 MG/DL Calcium Level 8.5 8.5-10.1 MG/DL Corrected Calcium 9.1 8.5-10.1 MG/DL Total Bilirubin 0.7 0.1-1.0 MG/DL Aspartate Amino Transf (AST/SGOT) 17 5-34 U/L Alanine Aminotransferase (ALT/SGPT) 27 0-55 U/L Alkaline Phosphatase 133 40-136 U/L Total Protein 6.2 L 6.4-8.2 GM/DL Albumin 3.2 3.2-4.5 GM/DL Micro Results Microbiology 05/08/20 Blood Culture - Preliminary, Resulted Probable Coag Negative Staph See Comments 05/08/20 Blood Culture - Preliminary, Resulted No growth My Orders Orders - FACUNDO VAIL MD Ed Iv/Invasive Line Start (05/08/20 06:47) Cbc With Automated Diff (05/08/20 06:47) Basic Metabolic Panel (05/08/20 06:47) Troponin I (05/08/20 06:47) Creatine Kinase Mb (05/08/20 06:47) Chest 1 View, Ap/Pa Only (05/08/20 06:47) Ekg Tracing (05/08/20 06:47) Fibrin Degradation Products (05/08/20 06:47) Lactic Acid Analyzer (05/08/20 06:47) Blood Culture (05/08/20 06:47) Procalcitonin (Pct) (05/08/20 06:47) Hs C Reactive Protein (05/08/20 06:47) Covid 19 Inhouse Test (05/08/20 06:47) Ondansetron Injection (Zofran Injectio (05/08/20 07:15) Ondansetron Injection (Zofran Injectio (05/08/20 07:04) Manual Differential (05/08/20 06:55) Ns Iv 1000 Ml (Sodium Chloride 0.9%) (05/08/20 07:30) Ns Iv 1000 Ml (Sodium Chloride 0.9%) (05/08/20 07:16) Aspirin Chewable Tablet (Baby Aspirin Ch (05/08/20 07:45) Coronavirus Sars-Cov-2 So 2018 (05/08/20 08:09) Ns Iv 1000 Ml (Sodium Chloride 0.9%) (05/08/20 08:30) Diltiazem Injection (Cardizem Injection) (05/08/20 08:30) Apixaban Tablet (Eliquis Tablet) (05/08/20 08:45) Apixaban Tablet (Eliquis Tablet) (05/08/20 08:34) Blood Culture (05/08/20 07:50) Vital Signs/I&O 05/09/20 15:45 Temp 36.2 Pulse 77 Resp 18 B/P (MAP) 102/72 Pulse Ox 99 O2 Delivery Room Air Capillary Refill : Progress Note : Time: 07:05 Progress Note Notified by nursing staff that the patient became suddenly nauseated and vomited. Patient states that he was "a little dizzy" [address] Garsia on for the hospitalist service. Would like to obtain a CTA if his kidneys will take it. His GFR is currently 37 and the threshold for radiology is 39. We can also explore doing a VQ scan if his kidneys do not wake up with IV fluids. I discussed the case with Dr. Mohr as well who recommended an echo today a low dose Cardizem bolus of 10 mg. He deferred anticoagulation to Dr. Grewal whom I spoke with at 830. He recommends Eliquis p.o. Would recommend waiting 24 hours for a CTA in order to resolve the kidney issue. Patient at this time after Cardizem bolus 86 pressure dropped as a result of the Cardizem to 70/59. Patient is receiving his second liter of normal saline. Respiratory rate 15 oxygen saturations on 2 L 98%. We will closely monitor his blood pressure to make sure that it rebounds with a normal saline ECG Initial ECG Impression Date: May 08, 2020 Initial ECG Impression Time: 07:20 Initial ECG Rate: 118 Initial ECG Rhythm: A Fib/Flutter (118) Initial ECG Intervals: Normal Initial ECG Impression: Atrial Fibrillation w/RVR Departure Communication (Admissions) Time/Spoke to Admitting Phy: 08:[address] Garsia accepts patient for admission Time/Spoke to Consulting Phy: 08:[address] Mohr agrees with obtaining an echocardiogram today, defers to pulmonology for further on anticoagulation Impression Primary Impression: Dyspnea Qualified Codes: R06.02 - Shortness of breath Additional Impressions: Atrial fibrillation with rapid ventricular response Acute kidney injury Disposition: ADMITTED INPATIENT Condition: Stable Admissions Decision to Admit Reason: Admit from ER (General) Decision to Admit/Date: May 08, 2020 Time/Decision to Admit Time: 08:10 Departure-Patient Inst. Referrals: STUART DE LA PAZ MD (PCP/Family) Primary Care Physician Scripts Rivaroxaban (XARELTO TABLET) 20 Mg Tablet 20 MG PO DAILY@1700 for 70 Days, #70 TAB 0 Refills TAKE 15 MG TWICE DAILY X 3 WEEKS, THEN 20 MG ONCE DAILY Prov: MEKA GARSIA MD 05/09/20 Rivaroxaban (XARELTO TABLET) 15 Mg Tablet 15 MG PO BID for 21 Days, #42 TAB TAKE 15 MG TWICE DAILY X 3 WEEKS, THEN 20 MG ONCE DAILY Prov: MEKA GARSIA MD 05/09/20 FACUNDO VAIL MD May 08, 2020 06:56
[2020-05-08] MEDS ORDERED: ONDANSETRON 4 MG/2 ML (SDV) Z0FRAN ONE (07:04)
[2020-05-08 07:07] LABS: BASOPHILS % (AUTO) 0 % (0-10); EOSINOPHILS % (AUTO) 0 % (0-10); HEMATOCRIT 48 % (40-54); HEMOGLOBIN 15.7 g/dL (13.3-17.7); LYMPHOCYTES # (AUTO) 0.9 10^3/uL (1.0-4.0); LYMPHOCYTES % (AUTO) 7 % (12-44); MEAN CORPUSCULAR HEMOGLOBIN 32 pg (25-34); MEAN CORPUSCULAR HGB CONC 33 g/dL (32-36); MEAN CORPUSCULAR VOLUME 95 fL (80-99); MEAN PLATELET VOLUME 10.5 fL (9.0-12.2); MONOCYTES # (AUTO) 0.5 10^3/uL (0.0-1.0); MONOCYTES % (AUTO) 4 % (0-12); NEUTROPHILS # (AUTO) 10.5 10^3/uL (1.8-7.8); NEUTROPHILS % (AUTO) 88 % (42-75); PLATELET COUNT 263 10^3/uL (130-400)
[2020-05-08] MEDS ORDERED: ONDANSETRON 4 MG/2 ML (SDV) Z0FRAN IVP ONE (07:15)
[2020-05-08 07:16] LABS: POTASSIUM 4.7 MMOL/L (3.6-5.0)
[2020-05-08] MEDS ORDERED: NS IV 1000 ML 1,000 ML ONE (07:16)
[2020-05-08 07:18] LABS: CALCIUM 9.4 MG/DL (8.5-10.1)
[2020-05-08 07:22] LABS: CREATININE SERUM 1.77 MG/DL (0.60-1.30)
[2020-05-08] MEDS ORDERED: NS IV 1000 ML 1,000 ML IV SCH ×3 (07:30→11:15)
[2020-05-08 07:31] LABS: CREATINE KINASE MB 1.9 NG/ML (<6.6)
[2020-05-08] MEDS ORDERED: ASPIRIN 81 MG CHEW (CHILDREN'S ASA) PO ONE (07:45)
--- NOTE | 2020-05-08 07:51 | Diagnostic Imaging Report ---
INDICATION: sob cough. TECHNIQUE: Single view chest 7:38 AM. CORRELATION STUDY: None FINDINGS: The heart size, mediastinal configuration and pulmonary vascularity are within normal limits. The lungs are clear with no consolidating infiltrate. There is no significant effusion or pneumothorax. IMPRESSION: 1. Negative for acute abnormality of the chest. Dictated by: Dictated on workstation # [id number]
[2020-05-08 08:20] LABS: BAND NEUTROPHILS 3 %; BASOPHILS % (MANUAL) 1 %; EOSINOPHILS % (MANUAL) 1 %; LYMPHOCYTES % (MANUAL) 5 %; MONOCYTES % (MANUAL) 3 %; NEUTROPHILS % (MANUAL) 87 %; RBC MORPH NORMAL
[2020-05-08] MEDS ORDERED: APIXABAN 5 MG (ELIQUIS) TABLET ONE (08:34)
[2020-05-08] MEDS ORDERED: APIXABAN 5 MG (ELIQUIS) TABLET PO ONE (08:45)
--- NOTE | 2020-05-08 11:14 | NUR ---
ATTEMPTED TO CALL AND UPDATE DAUGHTER AT THIS TIME, NO ANSWER.
--- NOTE | 2020-05-08 11:20 | NUR ---
SHAVONNE CASTRO admitted to room 432-1, with an admitting diagnosis of DYSPNEA R/O PE, AFIBWITH RVR, ELEVATED TROPONIN, AALIYAH, on 05/08/20 from AM via , accompanied by STAFF.SHAVONNE CASTRO introduced to surroundings, call light, bed controls, phone, TV, temperature control, lights, meal times, smoking policy, visitor policy, side rail policy, bathrooms and showers. Patient Rights given to patient in the handbook. SHAVONNE CASTRO verbalizes understanding that [facility] is not responsible for the loss or damage to any personal effects or valuables that are kept in the patients posession during their hospitalization. The following Patient Care Plans were discussed with the PATIENT: Discharge Planning, IMPAIRED MOBILITY,ALTERED COMFORT, and SELF CARE DEFICIT. SHAVONNE CASTRO verbalizes understanding of Interdisciplinary Patient Education. Patient and/or family were informed about the Rapid Response Team and its purpose. Addendum: 05/08/20 at 1216 by SHANTE DAVIS RN REPORT FROM [facility]
[2020-05-08 11:36] VITALS: BP_SYST 103; BP_SYST 65; BP_DIAS 65; BP_DIAS 71
--- NOTE | 2020-05-08 12:17 | NUR ---
PER REPORT FROM NIDHI PATTERSON RN, NOREEN HAS RECEIVED THE BOLUS ORDEREED ON THE JUL NS PER SEPTIC PROTOCOL. NON ADMINISTERED
[2020-05-08] MEDS ORDERED: FLU QUAD HIGH DOSE 240 MCG/0.7 ML 2020-21 (FLUZONE) IM ONE (12:45)
[2020-05-08] MEDS ORDERED: CATHETER FLUSH 10 ML SYR IV PRN (12:45)
[2020-05-08] MEDS: NS IV 1000 ML 1,000 ML IV SCH ×2 (13:00→20:56)
[2020-05-08 13:41] LABS: CALCIUM 8.6 MG/DL (8.5-10.1); CREATININE SERUM 1.78 MG/DL (0.60-1.30)
[2020-05-08 13:46] LABS: POTASSIUM 5.6 MMOL/L (3.6-5.0)
--- NOTE | 2020-05-08 13:58 | NUR ---
DR GARSIA NOTIFIED OF CRITICAL LACTIC ACID. PATIENT IS ALERT AND ORIENTED. DENIES ANY C/O AT THIS TIME. CONT TO MONITOR. Addendum: 05/08/20 at 1400 by SHANTE DAVIS RN BASIA NOTIFIED OF DVT SCORE 9
--- NOTE | 2020-05-08 14:41 | NUR ---
SPOKE WITH THE PT (CALLED THE ROOM) TO COMPLETE THE MED REC PT DENIES TAKING ANY PRESCRIPTION OR OTC MEDS
--- NOTE | 2020-05-08 14:58 | NUR ---
DR GARSIA NOTIFIED OF US FINDINGS-BILATERAL DVT, RIGHT WORSE THAN LEFT. GROIN CLOT PATIENT HAS NOT BEEN ABMULATING AND SCDS HAVE NOT BEEN APPLIED. PATIENT DENIES NEEDS OR C/O AT THIS TIME.
[2020-05-08 16:00] VITALS: BP 101/64
--- NOTE | 2020-05-08 16:00 | Diagnostic Imaging Report ---
PROCEDURE: US Venous Lower Ext Sascha. TECHNIQUE: Multiple real-time grayscale images were obtained over the lower extremities in various projections, bilaterally. Additional duplex Doppler and color Doppler images were also obtained. INDICATION: Shortness of breath. There is extensive DVT involving the right lower extremity deep venous system. The right common femoral vein is patent however there is significant thrombus which appears to be occlusive throughout the superficial femoral vein as well as the popliteal vein and calf veins. In addition, the left lower extremity demonstrates thrombus in the left common femoral vein and the upper portion of the superficial femoral vein. Mid and lower femoral vein are patent. The left popliteal vein and calf veins are patent. No fluid collections are seen. IMPRESSION: Bilateral lower extremity DVT, as described, most extensive involving the right lower extremity deep venous system. Dictated by: Dictated on workstation # [id number]
[2020-05-08 16:55] VITALS: BP 100/71
[2020-05-08] MEDS ORDERED: RT-ALBUTEROL INHALER HFA (VENTOLIN HFA) 18 GM IH PRN (17:00)
[2020-05-08] MEDS ORDERED: inSUlin ASPART (NovoLOG) 1 UNIT/0.01 ML (CHARGE PER UNIT) SC SCH (17:45)
--- NOTE | 2020-05-08 17:53 | History & Physical-Hospitalist ---
History of Present Illness HPI/Chief Complaint Luan Rodriguez is an 79-year-old male with past medical history of hypertension, atrial fibrillation, diabetes, who presented with shortness of breath. He reports that he suddenly became short of breath last night. He reports chest pain as well. He reports that it's pleuritic in nature. He denies any radiation of the pain. He denies any fevers or chills. He has a chronic cough. He denies any hemoptysis. He reports having one episode of nausea and vomiting earlier. He denies any abdominal pain. He denies any leg swelling. He had been on a blood thinner but took himself off of it recently. He had surgery on his right femur about a month ago. Source: patient Exam Limitations: no limitations Date Seen 05/08/20 Time Seen by a Provider: 12:00 Attending Physician Meka Garsia MD PCP Ari Joshi MD Referring Physician Date of Admission May 08, 2020 at 08:54 Home Medications & Allergies Home Medications Reviewed patient Home Medication Reconciliation performed by pharmacy medication reconciliations motor vehicle technician and/or nursing. Patients Allergies have been reviewed. Allergies Allergies Coded Allergies codeine (Verified Allergy, Unknown, 04/08/19) Past Nkohigt-Padnba-Trhyfc Hx Past Med/Social Hx: Reviewed Nursing Past Med/Soc Hx Patient Social History Alcohol Use: Denies Use Recreational Drug Use: No Smoking Status: Never a Smoker Physical Abuse Screen: No Sexual Abuse: No Recent Foreign Travel: No Contact w/other who traveled: No Recent Hopitalizations: No Recent Infectious Disease Expo: No Immunizations Up To Date Pediatric: Yes Date of Pneumonia Vaccine: Jun 12, 2018 Date of Influenza Vaccine: Feb 26, 2019 Seasonal Allergies Seasonal Allergies: Yes Past Medical History Surgeries: Appendectomy, Gallbladder, Orthopedic, Tonsillectomy Currently Using CPAP: No Currently Using BIPAP: No Cardiac: Atrial Fibrillation, Hypertension Musculoskeletal: Fractures Endocrine: Diabetes, Non-Insulin dep Loss of Vision: Denies Hearing Impairment: Hard of Hearing History of Blood Disorders: No Family History Patient reports no known family medical history. No Pertinent Family Hx Review of Systems Constitutional: no symptoms reported EENTM: no symptoms reported Respiratory: cough, short of breath Cardiovascular: chest pain Gastrointestinal: nausea, vomiting Genitourinary: no symptoms reported Musculoskeletal: no symptoms reported Skin: no symptoms reported Psychiatric/Neurological: No Symptoms Reported Physical Exam Physical Exam Vital Signs Vital Signs - First Documented 05/08/20 06:28 Temp 37.0 Pulse 105 Resp 20 B/P (MAP) 100/71 (81) Pulse Ox 96 Capillary Refill : Less Than 3 SecondsLess Than 3 Seconds Height, Weight, BMI Height: '" Weight: lbs. oz. kg; 27.60 BMI Method: General Appearance: No Apparent Distress, WD/WN HEENT: PERRL/EOMI, Pharynx Normal Neck: Normal Inspection, Supple Respiratory: Lungs Clear, Normal Breath Sounds, No Respiratory Distress Cardiovascular: Regular Rate, Rhythm, No Edema, No Murmur Gastrointestinal: Normal Bowel Sounds, Non Tender, Soft Extremity: Normal Inspection, Non Tender, No Pedal Edema Neurologic/Psychiatric: Alert, Oriented x3, No Motor/Sensory Deficits, Normal Mood/Affect Skin: Normal Color, Warm/Dry Results Results/Procedures Labs Laboratory Tests 05/08/20 06:55 05/08/20 13:06 Patient resulted labs reviewed. Imaging: Reviewed Imaging Report Assessment/Plan Admission Diagnosis Acute respiratory failure with hypoxia Admission Status: Inpatient Order (span 2 midnights) Reason for Inpatient Admission: likely pulmonary embolism Assessment and Plan Acute respiratory failure with hypoxia Likely pulmonary embolism DVT AALIYAH vs CKD Person under investigation for COVID-19 D-dimer >20, recent surgery Lower extremity dopplers revealed DVT CT not performed due to renal failure COVID EM negative, PCR pending Troponin mildly elevated, likely due to PE Procalcitonin normal, chest xray without acute abnormalities, pneumonia unlikely Started on Eliquis for DVT/likely PE Echo ordered IV fluids Supplemental oxygen as needed Diagnosis/Problems Diagnosis/Problems (1) Acute respiratory failure with hypoxia Status: Acute (2) DVT (deep venous thrombosis) Status: Acute (3) Pulmonary embolism Status: Acute (4) History of recent surgery Status: Acute (5) AALIYAH (acute kidney injury) Status: Acute (6) T2DM (type 2 diabetes mellitus) Status: Chronic Qualifiers: Diabetes mellitus penitentiary insulin use: without supervisor intermediates use (7) HTN (hypertension) Status: Chronic Qualifiers: Hypertension type: essential hypertension Qualified Codes: I10 - Essential (primary) hypertension (8) Afib Status: Chronic Qualifiers: Atrial fibrillation type: paroxysmal Qualified Codes: I48.0 - Paroxysmal atrial fibrillation Clinical Quality Measures DVT/VTE Risk/Contraindication: Risk Factor Score Per Nursin RFS Level Per Nursing on Admit: 4+=Very High MEKA GARSIA MD May 08, 2020 17:53
--- NOTE | 2020-05-08 18:47 | NUR ---
SPOKE WITH DAUGHTER, CHARLY Floers REGARDING UPDATE ON PATIENT.
[2020-05-08 20:30] VITALS: BP 97/61
[2020-05-08] MEDS: APIXABAN 5 MG (ELIQUIS) TABLET PO SCH (20:56)
[2020-05-08] MEDS: inSUlin ASPART (NovoLOG) 1 UNIT/0.01 ML (CHARGE PER UNIT) SC SCH (20:58)
[2020-05-08 21:27] VITALS: BP 99/69
[2020-05-08 23:47] VITALS: BP 108/68
[2020-05-09 03:40] VITALS: BP 115/72
[2020-05-09] MEDS: NS IV 1000 ML 1,000 ML IV SCH ×2 (03:42→11:46)
[2020-05-09] MEDS: inSUlin ASPART (NovoLOG) 1 UNIT/0.01 ML (CHARGE PER UNIT) SC SCH ×2 (05:13→11:41)
[2020-05-09 06:35] LABS: ALBUMIN 3.2 GM/DL (3.2-4.5)
[2020-05-09 06:36] LABS: POTASSIUM 4.6 MMOL/L (3.6-5.0)
[2020-05-09 06:37] LABS: CALCIUM 8.5 MG/DL (8.5-10.1)
[2020-05-09 06:38] LABS: TOTAL PROTEIN 6.2 GM/DL (6.4-8.2)
[2020-05-09 06:40] LABS: BILIRUBIN,TOTAL 0.7 MG/DL (0.1-1.0)
[2020-05-09 06:42] LABS: CREATININE SERUM 1.34 MG/DL (0.60-1.30)
[2020-05-09 07:40] VITALS: BP 110/71
[2020-05-09] MEDS: APIXABAN 5 MG (ELIQUIS) TABLET PO SCH (09:35)
[2020-05-09 12:00] VITALS: BP 102/72
[2020-05-09] MEDS ORDERED: RIVA15TA2 PO (13:26)
[2020-05-09] MEDS ORDERED: RIVA20TA2 PO (13:26)
--- NOTE | 2020-05-09 13:44 | Consultation-Cardiology ---
HPI-Cardiology Cardiology Consultation: Date of Consultation 05/09/20 Date of Admission Attending Physician Meka Garsia MD Admitting Physician Ari Joshi MD Consulting Physician Cynthia CORDOVA MD HPI: Time Seen by a Provider: 13:00 Chief Complaint: Shortness of breath This is a 79-year-old gentleman with previous history of hypertension, paroxysmal atrial fibrillation, diabetes. He presents with shortness of breath. He has had surgery on his right femur 4 weeks ago. Sudden shortness of breath last night. Pleuritic chest pain. Denies active smoking. Pertinent family h istory is negative. Patient follows with Dr. Fay. Review of Systems-Cardiology Review of Systems Constitutional: As described under HPI; No As described under HPI, No no symptoms reported, No chills, No fever, No lightheadedness Eyes: No As described under HPI, No no symptoms reported, No blindness, No blurred vision, No contact lenses, No drainage, No decreased acuity, No foreign body sensation, No pain, No vision change Ears/Nose/Throat: No As described under HPI, No no symptoms reported, No chronic hearing loss, No ear discharge, No ear pain, No nasal drainage, No ulcerations Respiratory: No no symptoms reported; As described under HPI; No As described under HPI, No cough, No orthopnea; shortness of breath; No SOB with excertion Cardiovascular: No no symptoms reported; As described under HPI; No As described under HPI, No chest pain, No edema, No irregular heart rate, No lightheadedness, No palpitations Gastrointestinal: No no symptoms reported, No As described under HPI, No abdomen distended, No abdominal pain, No blood streaked bowels, No constipation, No diarrhea, No nausea, No vomiting, No stool coloration changes Genitourinary: No As described under HPI, No burning, No dysuria, No discharge, No frequency, No flank pain, No hematuria, No urgency Skin: No rash, No skin related problems, No ulcerations Psychiatric/Neurological: No anxiety, No depression, No seizure, No focal weakness, No syncope Hematologic: No bleeding abnormalities All Other Systems Reviewed Negative Unless Noted: Yes [id number] Hx Patient Social History Alcohol Use: Denies Use Recreational Drug Use: No Smoking Status: Never a Smoker Recent Foreign Travel: No Recent Infectious Disease Expo: No Hospitalization with Isolation: Denies Physical Abuse Screen: No Sexual Abuse: No Immunizations Up To Date Date of Pneumonia Vaccine: Jun 12, 2018 Date of Influenza Vaccine: Feb 26, 2019 Past Medical History PMH As described under Assessment. Family Medical History Family History: Patient reports no known family medical history. Allergies and Home Medications Allergies Coded Allergies: codeine (Verified Allergy, Unknown, 05/08/20) Home Medications Rivaroxaban 15 Mg Tablet, 15 MG PO BID TAKE 15 MG TWICE DAILY X 3 WEEKS, THEN 20 MG ONCE DAILY Prescribed by: MEKA GARSIA on 05/09/20 1326 Rivaroxaban 20 Mg Tablet, 20 MG PO DAILY@1700 TAKE 15 MG TWICE DAILY X 3 WEEKS, THEN 20 MG ONCE DAILY Prescribed by: MEKA GARSIA on 05/09/20 1326 Patient Home Medication List Home Medication List Reviewed: Yes Physical Exam-Cardiology Physical Exam Vital Signs/I&O 05/10/20 00:00 Intake Total 360 ml Balance 360 ml Capillary Refill : Less Than 3 SecondsLess Than 3 Seconds Constitutional: appears stated age, AAO x 3; No apparent distress; well- developed, well-nourished HEENT: PERRL; No discharge; hearing is well preserved, oral hygience is good; No ulceration, No xanthelasmas are seen Neck: No carotid bruit; carotid pulses are 2 + bilaterally Respiratory: chest is bilaterally symmetric, lungs clear to auscultation Cardiovascular: regular rate-rhythm, S1 and S2 Gastrointestinal: soft, audible bowel sounds; No spleenomegaly Rectal: deferred Extremities: normal range of motion, non-tender, normal inspection, pedal edema; No clubbing, No cyanosis, No significant edema Neurologic/Psychiatric: no motor/sensory deficits, alert, normal mood/affect, oriented x 3, power is 5/5 both on sides Skin: normal color, warm/dry; No rash, No ulcerations Data Review Labs Microbiology 05/08/20 Blood Culture - Preliminary, Resulted Probable Coag Negative Staph See Comments ECG Impression ECG Initial ECG Impression: Atrial Fibrillation w/RVR A/P-Cardiology Assessment/Admission Diagnosis acute respiratory failure, Likely pulmonary embolism, DVT, Paroxysmal atrial fibrillation Plan Pulmonary embolism, DVT, long-term oral anticoagulation is recommended. Echocardiogram shows normal LVEF with dilated RV, pulmonary hypertension. Persistent atrial fibrillation, on Xarelto. Follow-up with Dr. Fay Thank you for your consultation. Please call me if you have any questions. Leon Cordova MD, FACP, FACC, FSCAI, FHRS, CCDS Interventional Cardiology Cardiac Electrophysiology Vascular Medicine and Endovascular Interventions Clinical Quality Measures DVT/VTE Risk/Contraindication: Risk Factor Score Per Nursin RFS Level Per Nursing on Admit: 4+=Very High Cynthia CORDOVA MD May 09, 2020 13:44
--- NOTE | 2020-05-09 14:12 | Discharge Summary ---
Discharge Summary Hospital Course Was the Problem List Reviewed?: Yes Problems/Dx: (1) Acute respiratory failure with hypoxia Status: Acute (2) DVT (deep venous thrombosis) Status: Acute (3) Pulmonary embolism Status: Acute Qualifiers: Qualified Codes: I26.99 - Other pulmonary embolism without acute cor pulmonale (4) History of recent surgery Status: Acute (5) AALIYAH (acute kidney injury) Status: Acute (6) T2DM (type 2 diabetes mellitus) Status: Chronic Qualifiers: (7) HTN (hypertension) Status: Chronic Qualifiers: Qualified Codes: I10 - Essential (primary) hypertension (8) Afib Status: Chronic Qualifiers: Qualified Codes: I48.0 - Paroxysmal atrial fibrillation Hospital Course Date of Admission: May 08, 2020 at 08:54 Admission Diagnosis : Acute respiratory failure with hypoxia Family Physician/Provider: Ari Joshi MD Date of Discharge: 05/09/20 Discharge Diagnosis: Acute pulmonary embolism Hospital Course: Luan Rodriguez is an 79-year-old male who presented with shortness of breath. He had a negative COVID EM and a negative COVID PCR. His d-dimer was significantly elevated. Due to renal dysfunction, he was unable to receive contrast for a CT chest to evaluate for pulmonary embolism. He did undergo a venous Doppler exam which showed bilateral DVTs. He was started on Eliquis, but due to inability to afford this medication he was transitioned to Xarelto. His DVT was thought to be provoked due to recent right leg surgery. He has no history of blood clots, but had been on Eliquis previously for atrial fibril lation. Cardiology was consulted and assisted with his care. An echocardiogram was performed and showed slightly increased pulmonary artery pressures. He initially required a couple liters of supplemental oxygen, but at the time of discharge he had no ongoing oxygen need. His course was complicated by hyperglycemia and likely type II diabetes mellitus. Hemoglobin A1c was pending at the time of discharge. He should follow-up with his primary care physician in about a week. He should follow-up with cardiology in a few weeks. Labs and Pending Lab Test: Laboratory Tests 05/08/20 15:58: Lactic Acid Level 1.74 05/08/20 18:43: Glucometer 111H 05/08/20 20:33: Glucometer 183H 05/09/20 05:11: Glucometer 154H 05/09/20 06:15: Sodium Level 138, Potassium Level 4.6, Chloride Level 110H, Carbon Dioxide Level 18L, Anion Gap 10, Blood Urea Nitrogen 27H, Creatinine 1.34H, Estimat Glomerular Filtration Rate 51, BUN/Creatinine Ratio 20, Glucose Level 161H, Calcium Level 8.5, Corrected Calcium 9.1, Total Bilirubin 0.7, Aspartate Amino Transf (AST/SGOT) 17, Alanine Aminotransferase (ALT/SGPT) 27, Alkaline Phosphatase 133, Total Protein 6.2L, Albumin 3.2 05/09/20 11:39: Glucometer 167H Microbiology 05/08/20 Blood Culture - Preliminary, Resulted Probable Coag Negative Staph See Comments Home Meds Active Xarelto Tablet (Rivaroxaban) 20 Mg Tablet 20 Mg PO DAILY@1700 70 Days TAKE 15 MG TWICE DAILY X 3 WEEKS, THEN 20 MG ONCE DAILY Xarelto Tablet (Rivaroxaban) 15 Mg Tablet 15 Mg PO BID 21 Days TAKE 15 MG TWICE DAILY X 3 WEEKS, THEN 20 MG ONCE DAILY Assessment/Pt Instructions Take medications as prescribed. You're being started on a blood thinner. We discussed the risks versus benefits, including risk of bleeding. Return with worsening shortness of breath, chest pain, bleeding, or if you feel like you're getting worse. Follow-up with your primary care doctor in about a week. Follow-up with cardiology in a few weeks. You'll need to call to schedule these appointments on Monday. Discharge Planning: >30 minutes discharge planning Discharge Instructions Discharge Diet: ADA Diet Activity as Tolerated: Yes Consultations Cardiology Discharge Physical Examination Vital Signs Vital Signs Date Time Temp Pulse Resp B/P (MAP) Pulse Ox O2 Delivery O2 Flow Rate FiO2 05/09/20 12:58 77 05/09/20 08:00 Nasal Cannula 2.00 05/09/20 07:40 36.5 18 110/71 (84) 99 General Appearance: No Apparent Distress, WD/WN HEENT: PERRL/EOMI, Pharynx Normal Respiratory: Lungs Clear, Normal Breath Sounds, No Respiratory Distress Cardiovascular: Regular Rate, Rhythm, No Murmur Gastrointestinal: Normal Bowel Sounds, Non Tender, Soft Extremity: Normal Inspection, Non Tender, Pedal Edema Skin: Normal Color, Warm/Dry Neurologic/Psychiatric: Alert, Oriented x3, Normal Mood/Affect Allergies: Coded Allergies: codeine (Verified Allergy, Unknown, 05/08/20) Copy Copies To 1: AKASH GARDUNO MD FACP FAC CCDS Discharge Summary Date of Admission May 08, 2020 at 08:54 Date of Discharge Discharge Date: May 09, 2020 Discharge Time: 14:08 Admission Diagnosis Acute respiratory failure with hypoxia Consults/Procedures Consulations Cardiology Discharge Diagnosis Acute pulmonary embolism (1) Acute respiratory failure with hypoxia Status: Acute (2) DVT (deep venous thrombosis) Status: Acute (3) Pulmonary embolism Status: Acute Qualifiers: Qualified Codes: I26.99 - Other pulmonary embolism without acute cor pulmonale (4) History of recent surgery Status: Acute (5) AALIYAH (acute kidney injury) Status: Acute (6) T2DM (type 2 diabetes mellitus) Status: Chronic Qualifiers: (7) HTN (hypertension) Status: Chronic Qualifiers: Qualified Codes: I10 - Essential (primary) hypertension (8) Afib Status: Chronic Qualifiers: Qualified Codes: I48.0 - Paroxysmal atrial fibrillation Clinical Quality Measures DVT/VTE Risk/Contraindication: Risk Factor Score Per Nursin RFS Level Per Nursing on Admit: 4+=Very High MEKA GARSIA MD May 09, 2020 14:03
[2020-05-09 15:45] VITALS: BP 102/72
== END 2020-05-09 15:45 | disposition home health service (06) | DRG 175 ==
LOC: EDUNIT# 06:27 → ER 06:29 → 4TH 08:54 → EDLOC 08:54 → 4TH 05-09 07:08
PROVIDERS: ADMIT Internal Medicine; ATTEND Internal Medicine
DX: I26.99 Other pulmonary embolism without acute cor pulmonale (principal); J96.01 Acute respiratory failure with hypoxia; N17.9 Acute kidney failure, unspecified; I82.409 Acute embolism and thrombosis of unspecified deep veins of unspecified lower extremity; N18.9 Chronic kidney disease, unspecified; Z20.828 Contact with and (suspected) exposure to other viral communicable diseases; E11.22 Type 2 diabetes mellitus with diabetic chronic kidney disease; I12.9 Hypertensive chronic kidney disease with stage 1 through stage 4 chronic kidney disease, or unspecified chronic kidney disease; I48.0 Paroxysmal atrial fibrillation; Z88.5 Allergy status to narcotic agent; Z90.49 Acquired absence of other specified parts of digestive tract
CPT/HCPCS: 36415; 71045; 80048; 80053; 82553; 82962; 83036; 83605; 84145; 84484; 85007; 85027; 85379; 86141; 87040; 87635; 90662; 93005; 93306; 93970

== ENCOUNTER 2022-04-14 17:02 | Inpatient (IN) | payer MEDICARE, OTHER ==
[~2022-04-14] VITALS: Ht 185.5 cm; Wt 78.0 kg
[~2022-04-14 17:02] MED LIST changes: +RIVA15TA2 PO; +RIVA20TA2 PO
[2022-04-15] MEDS ORDERED: diphenhydrAMINE 25 MG TAB (BENADRYL) PO PRN (14:00)
[2022-04-15] MEDS ORDERED: MELATONIN 3 MG TABLET PO PRN (14:00)
[2022-04-15] MEDS ORDERED: LOPERAMIDE 2 MG (IMODIUM) TABLET PO PRN (14:00)
[2022-04-15] MEDS ORDERED: BISACODYL 10 MG SUPP (DULCOLAX) PR PRN (14:00)
[2022-04-15] MEDS ORDERED: DOCUSATE SODIUM 100 MG (COLACE) CAP PO PRN (14:00)
[2022-04-15] MEDS ORDERED: CALCIUM CARBONATE 500 MG (TUMS) TAB.CHEW PO PRN ×3 (14:00→17:15)
[2022-04-15] MEDS ORDERED: ONDANSETRON 4 MG (ZOFRAN) ORAL DISSOLVE TAB PO PRN (14:00)
[2022-04-15] MEDS ORDERED: ACETAMINOPHEN 325 MG TABLET PO PRN (14:00)
[2022-04-15] MEDS ORDERED: ALPRAZolam 0.25 MG (XANAX) TAB PO PRN (14:00)
--- NOTE | 2022-04-15 14:02 | PM&R Post Admission Assessment ---
PM&R HP Date of Visit: Apr 15, 2022 Time of Visit: 17:45 History of Present Illness CC: Debility, fatigue, lethargy HPI: Patient is an 81-year-old male with a history of DM, chronic afib, and CKD who presents to the in-patient rehab unit on 04/15 for debility, fatigue, and lethargy. The patient was seen at [facility] in [place] on 04/09 for intractable N/V which he states started after having a prostate biopsy. He was then transferred to [facility] in [place]. He states that he had N/V and dry heaving for 4 days prior to admission and told staff that he felt weak and puny feeling. He was found to have an AALIYAH with a BUN of 78 and a creatinine of 4.61. Urinalysis showed blood-tinged, slightly cloudy urine with 3+ blood and >100 RBC, and 1+ bacteria. CT of the chest, abdomen and pelvis s howed an abdominal aortic aneurysm measuring 4.1 x 4.3, a small pericardial effusion, coronary artery calcification, large b/l pleural effusions, b/l hydronephrosis, and extensive sclerotic metastatic disease. The granddaughter states that they would like to follow with Dr. Thomas as their oncologist. The patient had 1L of fluid drained during thoracentesis but was not symptomatic before the procedure and felt no change afterwards. The patient was also found to be anemic with a hemoglobin of 9.0 and a hematocrit of 30.5. The patient was given IV fluids, rocephin, and antiemetics. Most of his symptoms improved, but he still feels weak and fatigued. Patient is awake and alert in his bed this evening with his granddaughter who is his DPOA as well by his bedside. He reports that he is feeling much improved over the last few days. He states that he was having some lower abdominal/ suprapubic pain over the weekend until Monday. He states that this pain was associated with needing to urinate and he states that he really needed to push to begin urinating even with a catheter in place. The granddaughter reports that Monday was the last time his urine had a blood-tinged color to it. The patient has not had a BM for the past 9 days, but has been passing flatus regularly. The patient has been having some pain in his left hip as well. He states that this has been giving him some mild pain for weeks but he recently fell on that side and the pain has worsened. He reports that his leg feels a little weaker and has slightly less ROM compared to the other leg. He reports that when he enters his vehicle he has to swing this leg up into the seat in order to enter. The patient has no other complaints and feels well overall. PMH: Afib, DM, CKD, HTN PSH: Appendectomy, foot, hip fracture, shoulder, femoral fracture, All: Codeine Home meds: furosemide, gabapentin, metformin, xarelto SH: never smoker, denies alcohol or illicit drug use FH: Son- DM; Mother- lung cancer; Brother- colon cancer ROS: Denies fever, chills, N/V, chest pain, shortness of breath, numbness, change in vision or hearing Exam: Patient is well-developed and well-nourished, in no acute distress. Patient is alert and oriented. HRRR. PERRLA. Lungs clear to auscultation b/l, no respiratory distress or accessory muscle use. Neck is supple, nontender. Abdomen is soft and nontender. No pedal edema or calf tenderness, 2+ distal pulses b/l. Patient does have some skin breakdown on the heels of both feet, currently dressed. A: Debility Fatigue Lethargy CKD AALIYAH Abdominal aortic aneurysm N/V Anemia Metastatic disease P: PT/OT Monitor BUN and creatinine Antiemetics as needed Pain control as needed Monitor Hg, transfuse as needed Hold metformin and lasix until renal function improves Refer for oncology, patient prefers Dr. Thomas Past [id number] Hx Past Med/Social Hx: Reviewed Nursing Past Med/Soc Hx, Reviewed and Corrections made Patient Social History Marrital Status: single Employed/Student: retired Alcohol Use: Denies Use Smoking Status: Former Smoker Recent Hopitalizations: No Immunizations Up To Date Pediatric: Yes Date of Pneumonia Vaccine: Jun 12, 2018 Date of Influenza Vaccine: Feb 26, 2019 Seasonal Allergies Seasonal Allergies: Yes Past Medical History Surgeries: Appendectomy, Gallbladder, Orthopedic, Tonsillectomy Currently Using CPAP: No Currently Using BIPAP: No Cardiac: Atrial Fibrillation, Hypertension Genitourinary: Benign Prostatic Hyperpl, Prostate Problems, Bladder Infection Musculoskeletal: Fractures Endocrine: Diabetes, Non-Insulin dep Loss of Vision: Denies Hearing Impairment: Hard of Hearing Cancer: Prostate Did You Recieve Any Treatments: No History of Blood Disorders: No Family History Patient reports no known family medical history. 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 PM&R Allergy/Meds/Data Review Allergies Coded Allergies: codeine (Verified Allergy, Unknown, 05/08/20) Home Medications Scheduled Calcium Carbonate (Tums), 200 MG PO TID, (Reported) Gabapentin (Gabapentin), 100 MG PO HS, (Reported) Sodium Bicarbonate (Sodium Bicarbonate), 1,300 MG PO BID, (Reported) Discontinued Medications Rivaroxaban (Xarelto Tablet), 15 MG PO BID Discontinued Reason: No Longer Taking Rivaroxaban (Xarelto Tablet), 20 MG PO DAILY@1700 Discontinued Reason: No Longer Taking Rivaroxaban (Xarelto), 15 MG PO BID, (Reported) Discontinued Reason: No Longer Taking Current Medications Current Medications Reviewed Review of Systems Constitutional: see HPI, malaise, weakness EENTM: no symptoms reported Respiratory: no symptoms reported Cardiovascular: no symptoms reported Gastrointestinal: constipation Genitourinary: other (Stephen catheter due to retention) Musculoskeletal: back pain, joint pain Skin: see HPI Psychiatric/Neurological: Anxiety, Depressed All Other Systems Reviewed Negative Unless Noted: Yes Physical Exam Physical Exam Vital Signs Capillary Refill : Height, Weight, BMI Height: '" Weight: lbs. oz. kg; 27.60 BMI Method: General Appearance: No Apparent Distress, WD/WN, Chronically ill, Other (Very debilitated) Eyes: Bilateral Eye Normal Inspection, Bilateral Eye PERRL HEENT: PERRL/EOMI, Normal ENT Inspection, Pharynx Normal Neck: Full Range of Motion, Normal Inspection, Non Tender, Supple, Carotid Bruit Respiratory: Chest Non Tender, Lungs Clear, No Accessory Muscle Use, No Respiratory Distress, Decreased Breath Sounds Cardiovascular: Regular Rate, Rhythm, No Edema, No Gallop, No JVD, No Murmur, Normal Peripheral Pulses Gastrointestinal: Normal Bowel Sounds, No Organomegaly, No Pulsatile Mass, Non Tender, Soft Back: Normal Inspection, No CVA Tenderness, No Vertebral Tenderness Extremity: Normal Capillary Refill, Normal Inspection, Normal Range of Motion, Non Tender, No Calf Tenderness, No Pedal Edema Neurologic/Psychiatric: Alert, Oriented x3, Normal Mood/Affect, clinic office assistant II-XII Norm as Tested, Abnormal Gait, Motor Weakness Skin: Normal Color, Warm/Dry Lymphatic: No Adenopathy PM&R Medical Assessment & Plan REHAB/MEDICAL ASSESSMENT AND PLAN: REHAB IMPAIRMENT GROUP: Debility from widespread prostate cancer ETIOLOGIC DIAGNOSIS: Debility from widespread prostate cancer The comorbidities that impact the patients function and/or functional outcome by: Widespread prostate cancer, pleural effusion, pericardial effusion, new diagnosed aortic aneurysm, advanced age REHAB PLAN: The patient is being admitted to our comprehensive inpatient rehabilitation facility and can tolerate the intensity of service consisting of at least: 180 minutes of therapy a day, 5 out of 7 days a week Rehab treatment will consist of: PT and OT will focus on regaining enough function with use of assistive devices and increase independence in ADLs in order to return back home to explore options for prostate cancer with mets presumed palliative care with Dr. Thomas The patient/family has a good understanding of our discharge process and will benefit from an interdisciplinary inpatient rehabilitation program. The patient has potential to make improvement and is in need of at least two of the following multidisciplinary therapies including but not limited to physical, occupational, speech, and prosthetics and orthotics. Additionally the patient will need services from respiratory, nutritional services, wound care, psychology, etc. (Customize this to each patient). Given the patients complex condition and risk of further medical complications, rehabilitation services cannot be safely or effectively provided at a lower level of care such as a [facility] facility. BARRIERS TO DISCHARGE: Advanced age with prostate cancer with mets ESTIMATED LOS: 7 days DISPOSITION: Home RELEVANT CHANGES SINCE PREADMISSION SCREENING: I have compared the patients medical and functional status at the time of the preadmission screening and there are: No changes PROGNOSIS: Fair to poor REHABILITATION GOALS: 1. PT and OT will focus on regaining enough function with use of assistive devices and increase independence in ADLs in order to return back home to explore options for prostate cancer with mets presumed palliative care with Dr. Thomas All the above goals were reviewed with the patient and he/she is in agreement. By signing this document, I acknowledge that I have personally performed a full physical examination on this patient within 24 hours of admission to this inpatient rehabilitation facility and have determined the patient to be able to tolerate the above course of treatment at an intensive level for a reasonable period of time. I will be completing a detailed individualized Plan of Care for this patient by day #4 of the patients stay based upon the Preadmission Screen, the Post-Admission Evaluation, and the therapy evaluations. Admission Dx/Comorbidities: (1) Prostate cancer metastatic to bone ICD Codes: C61 - Malignant neoplasm of prostate; C79.51 - Secondary malignant neoplasm of bone (2) Pleural effusion ICD Codes: J90 - Pleural effusion, not elsewhere classified (3) Abdominal aortic aneurysm (AAA) greater than 39 mm in diameter ICD Codes: I71.40 - Abdominal aortic aneurysm, without rupture, unspecified (4) Pericardial effusion ICD Codes: I31.39 - Other pericardial effusion (noninflammatory) (5) Atrial fibrillation ICD Codes: I48.91 - Unspecified atrial fibrillation (6) Chronic kidney disease ICD Codes: N18.9 - Chronic kidney disease, unspecified (7) Hypocalcemia ICD Codes: E83.51 - Hypocalcemia (8) Anemia ICD Codes: D64.9 - Anemia, unspecified (9) Metabolic acidosis ICD Codes: E87.20 - Acidosis, unspecified Assessment/Plan Assessment and Plan Assess & Plan/Chief Complaint A: Debility CKD Severe hypocalcemia AALIYAH Abdominal aortic aneurysm new diagnosis on CT N/V Anemia Chronic A. fib only on aspirin Diabetes Prostate cancer with metastatic disease Pleural effusion status postthoracentesis on 04/14/2022 Pericardial effusion Urinary retention remains with Stephen catheter P: PT/OT Monitor BUN and creatinine Antiemetics as needed Pain control as needed Monitor Hg, transfuse as needed Hold metformin and lasix until renal function improves Refer for oncology, patient prefers Dr. William CONNELL,CARLOZ ATKINSON Apr 15, 2022 14:02
[2022-04-15] MEDS ORDERED: CALC500T7 PO ×2 (14:53)
[2022-04-15] MEDS ORDERED: NF-SODBICA PO ×2 (14:53)
[2022-04-15] MEDS ORDERED: GABA-486 PO (14:53)
[2022-04-15] MEDS ORDERED: RIVA15TA PO (14:54)
--- OUTSIDE RECORDS SUMMARY | 2022-04-15 15:05 | XMS REPORT ---
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 517799520 Problem Essential (primary) hypertension I10 conf irmed [id number] Problem CKD 3B N18.32 confirmed ALLERGIES Allergen (clinical drug ingredient) Drug/Non Drug Allergy do cumented on EMR Reaction Allergy Type Onset Date Status codeine Codeine Unknown Drug Allergy Active ENCOUNTERS from 1940 to 2022-04-01 Encounter Location Date Provider Diagnosis [facility] [address] [place] [address] Mar, BHARGAV BUNCH IMMUNIZATIONS No Information SOCIAL HISTORY Sex Assigned At : Social History Observation Description Sex Assigned At Unknown REASON FOR REFERRAL No Information VITAL SIGNS No information MEDICATIONS Medication SIG (Take, Route, Frequency, Duration) Notes Start Da te End Date Status Furosemide 20 MG 1 tablet Orally Once a day Active metFORMIN HCl 500 MG 1 tablet with a meal Orally Once a day Active Aspirin 81 MG 1 tablet Orally Once a day Active PROCEDURES No Information RESULTS No Results REASON FOR VISIT *fu appt MEDICAL (GENERAL) HISTORY Type Description Date Medical History Renal insufficiency Medical History Type 2 diabetes mellitus Medical History Atrial fibrillation Medical History Osteoarthritis Medical History Acute pulmonary embolism/DVT in 2019 Medical History Obesity Surgical History Appendectomy Surgical History Shoulder separation Surgical History Hip pinning Surgical History Right leg femur Hospitalization History Shattered both heels falling from ro of 04/2020 Goals Section No Information Health Concerns No Information MEDICAL EQUIPMENT No Information MENTAL STATUS No Information FUNCTIONAL STATUS No Information ASSESSMENTS No Information PLAN OF TREATMENT Next Appt Details Provider Name:BHARGAV LLOYD MD [facility], 2022-04-15 02:45:00 PM, [address], [place], [address], Insurance Providers Payer Name Payer Address Payer Phone Insured Name Patient Relati onship to Insured Coverage Start Date Coverage End Date Subscriber Number Group Nu mber MEDICARE [address] [facility] [phone] Luan Burkett Self - patient is the insured 2022 [id number] [facility] [address] [address] [facility] [phone] Luan Rodriguez Self - patient is the insured 2022 [id number]
--- OUTSIDE RECORDS SUMMARY | 2022-04-15 15:05 | XMS REPORT ---
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 084818583 Problem Essential (primary) hypertension I10 conf irmed [id number] Problem CKD 3B N18.32 confirmed ALLERGIES Allergen (clinical drug ingredient) Drug/Non Drug Allergy do cumented on EMR Reaction Allergy Type Onset Date Status codeine Codeine Unknown Drug Allergy Active ENCOUNTERS from 1940 to 2022-03-29 Encounter Location Date Provider Diagnosis [facility] [address] [place] [address] Feb, BHARGAV BUNCH CKD 3B N18.32 ; Anemia due to other caus e, not classified D64.89 ; Diabetic nephropathy associated with type 2 diabetes mellitus E11.21 and Essential (primary) hypertension I10 IMMUNIZATIONS No Information SOCIAL HISTORY Sex Assigned [...] Information RESULTS No Results 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[place]) [place] MEDICAL (GENERAL) HISTORY Type Description Date Medical [...] No Information FUNCTIONAL STATUS No Information ASSESSMENTS Encounter Date Diagnosis Assessment Notes Treatment Notes Treatm ent Clinical Notes Feb, CKD 3B (ICD-10 - N18.32) Feb, Anemia due to other cause, not classifie d (ICD-10 - D64.89) Feb, Diabetic nephropathy associa justin with type 2 diabetes mellitus (ICD- 10 - E11.21) Feb, Essential (primary) hypertension (ICD-10 - I10) PLAN OF TREATMENT Next Appt Details 2 Weeks Reason: Insurance Providers Payer Name Payer Address Payer Phone Insured Name Patient Relati onship to Insured Coverage Start Date Coverage End Date Subscriber Number Group Nu mber MEDICARE [address] [facility] [phone] Luan Burkett Self - patient is the insured 2022 [id number] [facility] [address] [address] [facility] [phone] Luan Rodriguez Self - patient is the insured 2022 [id number]
--- OUTSIDE RECORDS SUMMARY | 2022-04-15 15:05 | XMS REPORT ---
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 [id number] Problem Essential (primary) hypertension I10 conf irmed [id number] Problem CKD 3B N18.32 confirmed ALLERGIES Allergen (clinical drug ingredient) Drug/Non Drug Allergy do cumented on EMR Reaction Allergy Type Onset Date Status codeine Codeine Unknown Drug Allergy Active ENCOUNTERS from 1940 to 2022-03-29 Encounter Location Date Provider Diagnosis [facility], [place] [facility] [address] [place] [address] Feb, BHARGAV BUNCH IMMUNIZATIONS No Information SOCIAL HISTORY [...] Information RESULTS No Results REASON FOR VISIT * rs appt MEDICAL (GENERAL) HISTORY Type Description Date [...] Information ASSESSMENTS No Information PLAN OF TREATMENT No Information Insurance Providers Payer Name Payer Address Payer Phone Insured Name Patient Relati onship to Insured Coverage Start Date Coverage End Date Subscriber Number Group Nu mber MEDICARE [address] [facility] [phone] Luan Burkett Self - patient is the insured 2022 [id number] [employer] [facility] [address] [address] [facility] [phone] Luan Rodriguez Self - patient is the insured 2022 [id number]
--- OUTSIDE RECORDS SUMMARY | 2022-04-15 15:05 | XMS REPORT ---
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 [id number] Problem CKD 3B N18.32 confirmed Problem 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 confi rmed [id number] ALLERGIES Allergen (clinical drug ingredient) Drug/Non Drug Allergy do cumented on EMR Reaction Allergy Type Onset Date Status codeine Codeine Unknown Drug Allergy Active ENCOUNTERS from 1940 to 2022-04-12 Encounter Location Date Provider Diagnosis [facility], [place] [address] [place] [address] Mar, BHARGAV BUNCH IMMUNIZATIONS No Information SOCIAL [...] Information RESULTS No Results REASON FOR VISIT Hospitalization MEDICAL (GENERAL) HISTORY Type Description Date Medical [...] Next Appt Details Provider Name:BHARGAV LLOYD MD [facility], 2022-04-15 02:45:00 PM, [address] [place], [address], Insurance Providers Payer Name Payer Address Payer Phone Insured Name Patient Relati onship to Insured Coverage Start Date Coverage End Date Subscriber Number Group Nu mber [facility] [address] [address] [facility] [phone] Luan Rodriguez Self - patient is the insured 2022 [id number] MEDICARE [address] [facility] [address] Luan Burkett Self - patient is the insured 2022 [id number]
--- OUTSIDE RECORDS SUMMARY | 2022-04-15 15:05 | XMS REPORT ---
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 [id number] Problem Essential (primary) hypertension I10 conf irmed [id number] Problem CKD 3B N18.32 confirmed ALLERGIES Allergen (clinical drug ingredient) Drug/Non Drug Allergy do cumented on EMR Reaction Allergy Type Onset Date Status codeine Codeine Unknown Drug Allergy Active ENCOUNTERS from 1939 to 2022-04-01 Encounter Location Date Provider Diagnosis [facility] [address] [place] [address] Feb, BHARGAV BUNCH CKD 3B N18.32 ; [...] Information RESULTS No Results 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[place]) [place] MEDICAL (GENERAL) HISTORY Type Description [...] hypertension (ICD-10 - I10) PLAN OF TREATMENT Pending Tests Test Name Order Date KAPPA/LAMBDA LIGHT CHAINS FREE W/RATIO RFL STEVO, S 2021 SEPF W/IMMUNOFIXATION 2022-03-25 ALBUMIN, RANDOM URINE (W/CREATININE) 2022-03-25 PROTEIN, TOTAL W/CREAT, RANDOM URINE 2022-03-25 CBC (H/H, RBC, INDICES, WBC, PLT) 2022-03-25 RENAL FUNCTION PANEL 2022-03-25 URIC ACID 2022-03-25 URINALYSIS, COMPLETE W/REFLEX TO CULTURE 2022-03-25 PTH, INTACT WITHOUT CALCIUM 2022-03-25 US KIDNEY URETER BLADDER 2022-03-25 Next Appt Details 2 Weeks Reason: Provider Name:BHARGAV LLOYD MD [facility], 2022-04-15 02:45:00 PM, [address] [place], [address], Insurance Providers Payer Name Payer Address Payer Phone Insured Name Patient Relati onship to Insured Coverage Start Date Coverage End Date Subscriber Number Group Nu mber [facility] [address] [address] [facility] [phone] Luan Rodriguez Self - patient is the insured 2022 [id number] MEDICARE [address] [facility] [phone] Luan Burkett Self - patient is the insured 2022 [id number]
--- NOTE | 2022-04-15 15:06 | Progress Note ---
LUTHERANATOLY 04/15/22 1506: Progress Note CC: Debility, fatigue, lethargy HPI: Patient is an 81-year-old male with a history of DM, chronic afib, and CKD who presents to the in-patient rehab unit on 04/15 for debility, fatigue, and lethargy. The patient was seen at [facility] in [place] on 04/09 for intractable N/V which he states started after having a prostate biopsy. He was then transferred to [facility] in [place]. He states that he had N/V and dry heaving for 4 days prior to admission and told staff that he felt weak and puny feeling. He was found to have an AALIYAH with a BUN of 78 and a creatinine of 4.61. Urinalysis showed blood-tinged, slightly cloudy urine with 3+ blood and >100 RBC, and 1+ bacteria. CT of the chest, abdomen and pelvis showed an abdominal aortic aneurysm measuring 4.1 x 4.3, a small pericardial effusion, coronary artery calcification, large b/l pleural effusions, b/l hydronephrosis, and extensive sclerotic metastatic disease. The granddaughter states that they would like to follow with Dr. Thomas as their oncologist. The patient had 1L of fluid drained during thoracentesis but was not symptomatic before the procedure and felt no change afterwards. The patient was also found to be anemic with a hemoglobin of 9.0 and a hematocrit of 30.5. The patient was given IV fluids, rocephin, and antiemetics. Most of his symptoms improved, but he still feels weak and fatigued. Patient is awake and alert in his bed this evening with his granddaughter who is his DPOA as well by his bedside. He reports that he is feeling much improved over the last few days. He states that he was having some lower abdominal/ suprapubic pain over the weekend until Monday. He states that this pain was associated with needing to urinate and he states that he really needed to push to begin urinating even with a catheter in place. The granddaughter reports that Monday was the last time his urine had a blood-tinged color to it. The patient has not had a BM for the past 9 days, but has been passing flatus regularly. The patient has been having some pain in his left hip as well. He states that this has been giving him some mild pain for weeks but he recently fell on that side and the pain has worsened. He reports that his leg feels a little weaker and has slightly less ROM compared to the other leg. He reports that when he enters his vehicle he has to swing this leg up into the seat in order to enter. The patient has no other complaints and feels well overall. PMH: Afib, DM, CKD, HTN PSH: Appendectomy, foot, hip fracture, shoulder, femoral fracture, All: Codeine Home meds: furosemide, gabapentin, metformin, xarelto SH: never smoker, denies alcohol or illicit drug use FH: Son- DM; Mother- lung cancer; Brother- colon cancer ROS: Denies fever, chills, N/V, chest pain, shortness of breath, numbness, change in vision or hearing Exam: Patient is well-developed and well-nourished, in no acute distress. Patient is alert and oriented. HRRR. PERRLA. Lungs clear to auscultation b/l, no respiratory distress or accessory muscle use. Neck is supple, nontender. Abdomen is soft and nontender. No pedal edema or calf tenderness, 2+ distal pulses b/l. Patient does have some skin breakdown on the heels of both feet, currently dressed. A: Debility Fatigue Lethargy CKD AALIYAH Abdominal aortic aneurysm N/V Anemia Metastatic disease P: PT/OT Monitor BUN and creatinine Antiemetics as needed Pain control as needed Monitor Hg, transfuse as needed Hold metformin and lasix until renal function improves Refer for oncology, patient prefers GISSEL Walker DO 04/16/22 0543: Supervisory-Addendum Brief Verification & Attestation Participated in pt care: history, MDM, physical Personally performed: exam, history, MDM, supervision of care Care discussed with: Medical Student Procedures: n/a Results interpretation: Verified all documentation Verification and Attestation of Medical Student E/M Service A medical student performed and documented this service in my presence. I reviewed and verified all information documented by the medical student and made modifications to such information, when appropriate. I personally performed the physical exam and medical decision making. Gissel Connell, Apr 16, 2022,05:43 ANATOLY SLOAN Apr 15, 2022 15:06 GISSEL CONNELL DO Apr 16, 2022 05:43
--- NOTE | 2022-04-15 15:25 | Occupational Therapy Eval ---
OT Evaluation-General/PLF Medical Diagnosis Admission Date Apr 15, 2022 at 14:30 Medical Diagnosis: Debility Onset Date: Apr 09, 2022 Therapy Diagnosis Therapy Diagnosis: reduced adl status Precautions Precautions/Isolations: Fall Prevention, Standard Precautions Referral Physician: Diana Referral Reason: Evaluation/Treatment Medical History Pertinent Medical History: Atrial Fib, DM, HTN Current History Pt arrived to [facility] with c/o weakness and fatigue. Found to have acute kidney injury and sclerotic metastasis throughout osseous structures. Per patient, he lives with his son in a single story home. He reports being indep with adls and shares laundry tasks with his son. Patient states that he and his son eat out a lot or eat meals on wheels provided. He owns a single point cane, quad cane, and RW. Reviewed History: Yes Social History Current Living Status: Children (son) Entry Into Home: Stairs With Railing Steps Into Home: 5 ADL-Prior Level of Function SCALE: Activities may be completed with or without assistive devices. 7-Kyatpkpgmj-rcfcccd completes the activity by him/herself with no assistance from a helper. 5-Set-up or Clean-up Assistance-helper sets up or cleans up; patient completes activity. [place] assists only prior to or following the activity. 4-Supervision or Touching Assistance-helper provides verbal cues and/or touching/steadying and/or contact guard assistance as patient completes activity. Assistance may be provided throughout the activity or intermittently. 3-Partial/Moderate Assistance-helper does LESS THAN HALF the effort. [place] lifts, holds or supports trunk or limbs, but provides less than half the effort. 2-Substantial/Maximal Assistance-helper does MORE THAN HALF the effort. [place] lifts or holds trunk or limbs and provides more than half the effort. 7-Cbnholvza-iazefp does ALL the effort. Patient does none of the effort to complete the activity. Or, the assistance of 2 or more helpers is required for the patient to complete the activity. If activity was not attempted, code reason: 7-Patient Refused. 9-Not Applicable-not attempted and the patient did not perform the activity before the current illness, exacerbation or injury. 10-Not Attempted due to Environmental Limitations-(lack of equipment, weather restraints, etc.). 88-Not Attempted due to Medical Conditions or Safety Concerns. Self Care: Independent Functional Cognition: Independent DME/Equipment: Bath Chair, Grab Bars, Shower Drive Self: Yes Leisure Interests: collecting post cards, coins, comics OT Current Status Subjective Pt denies pain, agreeable to eval. Co-treat with PT secondary to poor endurance, weakness, fatigue from travel, fall risk, and anticipated need of 2 skilled clinicians to promote increased safety and independence in adls and functional mobility. Appearance Pt left sitting up in bed with granddaughter present. Education given for ordering food. Pt very receptive to therapy and stated that he wants to get HEP for when he d/c. All needs within reach. 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 Pt stood only briefly to wash whitney area/buttocks, steadying assist required. While in sitting, pt able to wash all upper body, thighs, and down to feet without assist. He does fatigue quickly with task and requires several short rest breaks. He was able to thread BLE's into LB clothing with use of cross over method. Again, steadying assist needed as he stood to pull clothing up to his waist. Increased unsteadiness observed with prolonged standing. Education on energy conservation and taking breaks as needed. Other Treatments Pt stood to bat balloon with focus on improving balance, endurance, LE strength, and UE strength needed for adls and functional mobility. Intermittent single UE support needed. 1 LOB posteriorly during activity, needing min a to correct. Pt c/o pain in left groin/thigh area from past fall. Pt only able to tolerate 2-3 minutes of standing before needing to sit and rest. Pt completed UE exercises 1x13 reps with dowel supriya and 2 # weights. Pt fatigued quickly and was not able to make it to 15 reps. He struggles to know when to stop and conserve energy during activities. Education OT Patient Education: Correct positioning, Energy conservation, Modified ADL techniques, Progress toward Goal/Update tx plan, Purpose of tx/functional activities, Rehab process, Safety issues, Transfer techniques Teaching Recipient: Patient Teaching Methods: Demonstration, Discussion Response to Teaching: Verbalize Understanding, Return Demonstration, Reinforcement Needed BIMS CAM BIMS Expression of Ideas and Wants: Without Difficulty Understanding Verbal Content: Understands Brief Interview/Mental Status: Yes IRF RALF BIMS: IRF RALF BIMS Response (Comments) Value Repitition of Three Words Three 3 Recalls Socks Yes, No Cue Required 2 Recalls Blue Yes, No Cue Required 2 Recalls Bed Yes, No Cue Required 2 Year Correct 3 Month Missed by 1 Mo/No Answer 0 Day Correct 1 Total 13 [address] Mental [address] No CAM Mental Status Change/Baseline: 0 Inattention: 0 Disorganized thinkin Altered level of consciousness: 0 OT Short Term Goals Short Term Goals Time Frame: Apr 22, 2022 Eatin Oral hygiene: 5 Toileting hygiene: 4 (supervision) Shower/bathe self: 4 (supervision) Upper body dressin Lower body dressin (supervision) Putting on/taking off footwear: 5 OT Half-Way Goals Half-Way Goals Time Frame: Apr 29, 2022 Eating (QC): 6 Oral Hygiene (QC): 6 Toileting Hygiene (QC): 6 Shower/Bathe Self (QC): 5 Upper Body Dressing (QC): 6 Lower Body Dressing (QC): 6 On/Off Footwear (QC): 6 Additional Goals: 1-Demonstrate ADL Tasks, 2-Verbalize Understanding, 3-Improv eStrength/Sylvester 1=Demonstrate adherence to instructed precautions during ADL tasks. 2=Patient will verbalize/demonstrate understanding of assistive devices/modifications for ADL. 3=Patient will improve strength/tolerance for activity to enable patient to p erform ADL's. OT Education/Plan Problem List/Assessment Assessment: Decreased Activ Tolerance, Decreased UE Strength, Edema, Impaired Funct Balance, Impaired I ADL's, Impaired Self-Care Skills Discharge Recommendations Plan/Recommendations: Continue POC Therapy Discharge Recommendati: Home & Family, Post Acute OT (Home health OT pending progress) Treatment Plan/Plan of Care Treatment,Training & Education: Yes Patient would benefit from OT for education, treatment and training to promote independence in ADL's, mobility, safety and/or upper extremity function for ADL's. Plan of Care: ADL Retraining, Functional Mobility, Group Exercise/Act as Ind, UE Funct Exercise/Act Treatment Duration: Apr 29, 2022 Frequency: At least 5 of 7 days/Wk (IRF) Estimated Hrs Per Day: 1.5 hours per day (75-90 min/day ) Agreement: Yes Rehab Potential: Good Time Start Time: 14:40 Stop Time: 16:10 DATE: Apr 15, 2022 Total Time Billed (hr/min): 90 Billed Treatment Time 1 visit EVM (10 min) ADL x3 (45 min) FA x2 (35 min) OT eval: 1178-2489 (10 min) Co-treat: 1496-2363 (80 min) Sylvia Cardoza OT Apr 15, 2022 15:25
--- NOTE | 2022-04-15 15:28 | Physical Therapy Evaluation ---
PT Evaluation-General Medical Diagnosis Admission Date Apr 15, 2022 at 14:30 Medical Diagnosis: debility Onset Date: Apr 09, 2022 Therapy Diagnosis Therapy Diagnosis: impaired mobility, strength, endurance Precautions Precautions/Isolations: Fall Prevention, Standard Precautions Referral Physician: Gissel Ortiz DO Reason for Referral: Evaluation/Treatment Medical History Pertinent Medical History: Atrial Fib, DM, HTN Additional Medical History PMH: Afib, DM, CKD, HTN PSH: Appendectomy, foot, hip fracture, shoulder, femoral fracture, Reviewed History: Yes Social History Home: Single Level Current Living Status: Children Entry Into Home: Stairs With Railing PT Steps Into Home: 5 Prior Prior Level of Function SCALE: Activities may be completed with or without assistive devices. 2-Eodeijkdfi-lpmnnhk completes the activity by him/herself with no assistance from a helper. 5-Set-up or Clean-up Assistance-helper sets up or cleans up; patient completes activity. [place] assists only prior to or following the activity. 4-Supervision or Touching Assistance-helper provides verbal cues and/or touching/steadying and/or contact guard assistance as patient completes activity. Assistance may be provided throughout the activity or intermittently. 3-Partial/Moderate Assistance-helper does LESS THAN HALF the effort. [place] lifts, holds or supports trunk or limbs, but provides less than half the effort. 2-Substantial/Maximal Assistance-helper does MORE THAN HALF the effort. [place] lifts or holds trunk or limbs and provides more than half the effort. 9-Cieltzhgq-vkodpm does ALL the effort. Patient does none of the effort to complete the activity. Or, the assistance of 2 or more helpers is required for the patient to complete the activity. If activity was not attempted, code reason: 7-Patient Refused. 9-Not Applicable-not attempted and the patient did not perform the activity before the current illness, exacerbation or injury. 10-Not Attempted due to Environmental Limitations-(lack of equipment, weather restraints, etc.). 88-Not Attempted due to Medical Conditions or Safety Concerns. Bed Mobility: 6 Transfers (B,C,W/C): 6 Gait: 6 Stairs: 6 Indoor Mobility (Ambulation): Independent Stairs: Independent Patient used a SPC and rollator previously. PT Evaluation-Current Subjective Patient comes by family vehicle, agrees to PT, has no complaints of pain at rest. Will be co-treating with OT due to poor patient mobility, strength, endurance, severe debility, coordinate UE and LE during activity, safety and reduce risk of falls. Pain Section J - Health Conditions 1. Rarely or not at all 2. Occasionally 3. Frequently 4. Almost constantly 8. Unable to answer Pain Effect on Sleep: 2 Pain Interference with Therapy: 2 Pain Interference w/Day-to-Day: 2 Pt/Family Goals to be independent at home Objective Patient Orientation: Person, Place, Situation Attachments: Stephen Catheter ROM/Strength ROM Lower Extremities WNL Strength Lower Extremities LLE (hip flexion 4-/5, knee extension 5/5, knee flexion 4/5, DF 5/5), RLE (hip flexion 4+/5, knee extension 5/5, knee flexion 4-/5, DF 5/5) Neuromuscular (Tone, Coordination, Reflexes) coordination intact Sensory Vision: Functional Hearing: Functional Sensation Right Lower Extremit: Intact Sensation Left Lower Extremity: Intact Transfers Roll Left & Right (QC): 4 (SBA) Sit to Lying (QC): 4 (SBA) Lying to Sitting/Side of Bed(Q: 4 (SBA) Sit to Stand (QC): 4 (SBA) Chair/Qwn-rx-Oegsp Xfer(QC): 4 (SBA) Toilet Transfer (QC): 4 (SBA) Car Transfer (QC): 4 (CGA) Gait Does the Patient Walk?: Yes Mode of Locomotion: Walk Anticipated Mode of Locomotion: Walk Walk 10 feet (QC): 4 Walk 50 ft with 2 Turns(QC): 4 Walk 150 ft (QC): 4 Walking 10ft/uneven surface-QC: 4 (CGA) Distance: 150', 150' Gait Assistive Device: FWW Comments/Gait Description SBA with ambulation except over uneven surface, patient walks with good gait s peed, good foot clearance, good step length. Wheelchair Training Wheel 50 ft with 2 turns (QC): 9 Wheel 150 ft (QC): 9 Stairs #of Steps: 8 1 Step (curb) (QC): 4 4 Steps (QC): 4 12 Steps (QC): 88 CGA Balance Sitting Static: Normal Sitting Dynamic: Normal Standing Static: Normal Standing Dynamic: Fair Picking up an Object (QC): 4 (CGA, using sales correspondence clerk) Treatment Ambulation, LE Strengthening (AP x20, LAQ x20, Seated Marching x20, Hip Abd/Add manual resistance x10), Balloon hit while standing, [place] Assessment/Needs Patient has diminished strength and endurance. Patient had one LOB during balloon hitting exercise while standing and required Min A to re-balance. Rehab Potential: Fair PT Short Term Goals Short Term Goals Time Frame: Apr 22, 2022 Car transfer: 4 (SBA) Walking 10ft on uneven surface: 4 (SBA) 1 step (curb): 4 (SBA) 4 steps: 4 (SBA) Picking up objects: 4 (SBA) PT Detention Goals Bunk House Worker Goals PT Bunk House Worker Goals Time Frame: May 06, 2022 Roll Left to Right (QC): 6 Sit to Lying (QC): 6 Lying-Sitting on Side/Bed(QC): 6 Sit to Stand (QC): 6 Chair/Zrb-mq-Gtnvi Xfer(QC): 6 Toilet/Commode Transfer (QC): 6 Car Transfer (QC): 6 Does the Patient Walk: Yes Walk 10 feet (QC): 6 Walk 10ft-Uneven Surface(QC): 6 Walk 50ft with 2 Turns (QC): 6 Walk 150 ft (QC): 6 Does the Pt use WC or Scooter?: No Wheel 50 feet with 2 turns (QC: 9 Type: N/A Wheel 150 feet: 9 Type: N/A 1 Step (curb) (QC): 6 4 Steps (QC): 6 12 Steps (QC): 88 Picking up an Object (QC): 6 PT Plan Problem List Problem List: Activity Tolerance, Functional Strength, Safety, Balance, Gait, Transfer, Bed Mobility, ROM Treatment/Plan Treatment Plan: Continue Plan of Care Treatment Plan: Bed Mobility, Education, Functional Activity Sylvester, Functional Strength, Group Therapy, Gait, Safety, Therapeutic Exercise, Transfers Treatment Duration: May 06, 2022 Frequency: At least 5 of 7 days/Wk (IRF) Estimated Hrs Per Day: 1.5 hours per day Patient and/or Family Agrees t: Yes Safety Risks/Education Patient Education: Gait Training, Transfer Techniques, Steps, Correct Positioning, Safety Issues Teaching Recipient: Patient Teaching Methods: Demonstration, Discussion Response to Teaching: Reinforcement Needed Discharge Recommendations Plan Patient will perform bed mobility and transfer training, balance and endurance training, functional strengthening, stair training, gait training, and education, to improve functional mobility and independence at home. Therapy Discharge Recommendati: Scheduled Assistance, Home & Family, Post Acute PT Time Time In: 1430 Time Out: 1610 DATE: May 06, 2022 Total Billed Treatment Time: 90 Total Billed Treatment 1 visit EVM 10' EX 30' FA 50' AIRAM DAWKINS PT Apr 15, 2022 15:28
[2022-04-15 15:31] VITALS: BP 105/67
[2022-04-15 20:43] VITALS: BP 107/57
[2022-04-15] MEDS: LACTULOSE SYRUP 10GM/15ML (ENULOSE) 30ML UDC PO PRN (21:28)
[2022-04-15] MEDS: DOCUSATE SODIUM 100 MG (COLACE) CAP PO SCH (21:28)
[2022-04-15] MEDS: polyethylene glycoL POWDER 17 GM (MIRALAX) PACK PO SCH (21:28)
[2022-04-15] MEDS: CALCIUM CARBONATE 500 MG (TUMS) TAB.CHEW PO SCH (21:29)
[2022-04-15] MEDS: SODIUM BICARBONATE 650 MG TABLET PO SCH (21:29)
[2022-04-15] MEDS: GABAPENTIN 100 MG (NEURONTIN) CAP PO SCH (21:29)
[2022-04-15] MEDS: SENNA W/DOCUSATE (SENOKOT S) TABLET PO SCH (21:29)
[2022-04-16 05:48] LABS: BASOPHILS % (AUTO) 1 % (0-10); EOSINOPHILS # (AUTO) 0.2 10^3/uL (0.0-0.3); EOSINOPHILS % (AUTO) 3 % (0-10); HEMATOCRIT 24 % (40-54); HEMOGLOBIN 8.2 g/dL (13.3-17.7); LYMPHOCYTES # (AUTO) 1.1 10^3/uL (1.0-4.0); LYMPHOCYTES % (AUTO) 19 % (12-44); MEAN CORPUSCULAR HEMOGLOBIN 33 pg (25-34); MEAN CORPUSCULAR HGB CONC 34 g/dL (32-36); MEAN CORPUSCULAR VOLUME 98 fL (80-99); MEAN PLATELET VOLUME 9.3 fL (9.0-12.2); MONOCYTES # (AUTO) 0.6 10^3/uL (0.0-1.0); MONOCYTES % (AUTO) 10 % (0-12); NEUTROPHILS # (AUTO) 3.7 10^3/uL (1.8-7.8); NEUTROPHILS % (AUTO) 63 % (42-75); PLATELET COUNT 219 10^3/uL (130-400); WHITE BLOOD COUNT 5.9 10^3/uL (4.3-11.0)
[2022-04-16 06:05] LABS: ALANINE AMINOTRANSFERASE < 6 U/L (0-55); ALBUMIN 2.8 GM/DL (3.2-4.5); ALKALINE PHOSPHATASE 1899 U/L (40-136); BILIRUBIN,TOTAL 0.6 MG/DL (0.1-1.0); BUN/CREATININE RATIO 15; CALCIUM 7.2 MG/DL (8.5-10.1); CARBON DIOXIDE 20 MMOL/L (21-32); CHLORIDE 108 MMOL/L (98-107); CREATININE SERUM 2.69 MG/DL (0.60-1.30); GFR ESTIMATED 23; GLUCOSE 84 MG/DL (70-105); POTASSIUM 4.6 MMOL/L (3.6-5.0); SODIUM 140 MMOL/L (135-145)
--- NOTE | 2022-04-16 06:35 | PM&R Progress Note ---
Subjective HPI/CC On Admission Date Seen by Provider: Apr 16, 2022 Time Seen by Provider: 10:30 Subjective/Events-last exam 04/16/2022: Doing well No BM for 10 days now and refuses suppository and SSE Talked to him about the plan for bowels Creat 2.6 Calcium 8.2 corrected No pain reported Review of Systems General: Fatigue, Malaise Musculoskeletal: leg pain Objective Exam Vital Signs Vital Signs Date Time Temp Pulse Resp B/P (MAP) Pulse Ox O2 Delivery O2 Flow Rate FiO2 04/16/22 21:55 Room Air 04/16/22 19:30 36.6 101 16 96/59 (71) 100 Capillary Refill : General Appearance: No Apparent Distress, WD/WN, Chronically ill, Other (Very debilitated) HEENT: PERRL/EOMI, Normal ENT Inspection, Pharynx Normal Neck: Full Range of Motion, Normal Inspection, Non Tender, Supple, Carotid Bruit Respiratory: Chest Non Tender, Lungs Clear, No Accessory Muscle Use, No Respiratory Distress, Decreased Breath Sounds Cardiovascular: Regular Rate, Rhythm, No Edema, No Gallop, No JVD, No Murmur, Normal Peripheral Pulses Gastrointestinal: Normal Bowel Sounds, No Organomegaly, No Pulsatile Mass, Non Tender, Soft Back: Normal Inspection, No CVA Tenderness, No Vertebral Tenderness Extremity: Normal Capillary Refill, Normal Inspection, Normal Range of Motion, Non Tender, No Calf Tenderness, No Pedal Edema Neurologic/Psychiatric: Alert, Oriented x3, Normal Mood/Affect, wiper blender II-XII Norm as Tested, Abnormal Gait, Motor Weakness Skin: Normal Color, Warm/Dry Lymphatic: No Adenopathy Results/Procedures Lab Patient resulted labs reviewed. FIM Transfers Therapy Code Descriptions/Definitions Functional [place] Measure: 0=Not Assessed/NA 4=Minimal Assistance 1=Total Assistance 5=Supervision or Setup 2=Maximal Assistance 6=Modified [place] 3=Moderate Assistance 7=Complete IndependenceSCALE: Activities may be completed with or without assistive devices. 9-Jccvnxebrf-tkjqyje completes the activity by him/herself with no assistance from a helper. 5-Set-up or Clean-up Assistance-helper sets up or cleans up; patient completes activity. [place] assists only prior to or following the activity. 4-Supervision or Touching Assistance-helper provides verbal cues and/or touching/steadying and/or contact guard assistance as patient completes activity. Assistance may be provided throughout the activity or intermittently. 3-Partial/Moderate Assistance-helper does LESS THAN HALF the effort. [place] lifts, holds or supports trunk or limbs, but provides less than half the effort. 2-Substantial/Maximal Assistance-helper does MORE THAN HALF the effort. [place] lifts or holds trunk or limbs and provides more than half the effort. 7-Ilrfjqslq-xgyffm does ALL the effort. Patient does none of the effort to complete the activity. Or, the assistance of 2 or more helpers is required for the patient to complete the activity. If activity was not attempted, code reason: 7-Patient Refused. 9-Not Applicable-not attempted and the patient did not perform the activity before the current illness, exacerbation or injury. 10-Not Attempted due to Environmental Limitations-(lack of equipment, weather restraints, etc.). 88-Not Attempted due to Medical Conditions or Safety Concerns. Roll Left to Right (QC): 4 (SBA) Sit to Lying (QC): 4 (SBA) Sit to Stand (QC): 4 (SBA) Chair/Wtg-ys-Axwoi Xfer(QC): 4 (SBA) Car Transfer (QC): 4 (CGA) Gait Training Does the Patient Walk?: Yes Walk 10 feet (QC): 4 Walk 50 ft with 2 Turns(QC): 4 Walk 150 ft (QC): 4 Walking 10ft/uneven surface-QC: 4 (CGA) Gait Assistive Device: FWW Wheelchair Training Wheel 50 ft with 2 turns (QC): 9 Wheel 150 ft (QC): 9 Stair Training #of Steps: 8 1 Step (curb) (QC): 4 4 Steps (QC): 4 12 Steps (QC): 88 Balance Picking up an Object (QC): 4 (CGA, using poultry field service technician) ADL-Treatment Eating (QC): 6 Oral Hygiene (QC): 4 Shower/Bathe Self (QC): 4 Upper Body Dressing (QC): 5 Lower Body Dressing (QC): 4 On/Off Footwear (QC): 4 Toileting Hygiene (QC): 4 Assessment/Plan Assessment and Plan Assess & Plan/Chief Complaint A: Debility CKD Severe hypocalcemia AALIYAH Abdominal aortic aneurysm new diagnosis on CT N/V Anemia Chronic A. fib only on aspirin Diabetes Prostate cancer with metastatic disease Pleural effusion status postthoracentesis on 04/14/2022 Pericardial effusion Urinary retention remains with Stephen catheter P: PT/OT Monitor BUN and creatinine Antiemetics as needed Pain control as needed Monitor Hg, transfuse as needed Hold metformin and lasix until renal function improves Refer for oncology, patient prefers Dr. Thomas 04/16/2022: Aggressive bowel regimen Continue TUMS for calcium (1) Prostate cancer metastatic to bone (2) Pleural effusion (3) Abdominal aortic aneurysm (AAA) greater than 39 mm in diameter (4) Pericardial effusion (5) Atrial fibrillation (6) Chronic kidney disease (7) Hypocalcemia (8) Anemia (9) Metabolic acidosis CARLOZ CONNELL DO Apr 16, 2022 06:35
--- NOTE | 2022-04-16 06:36 | Individualized Plan of Care ---
Individualized Plan of Care Rehab Nursing IPOC Order Admission Date Apr 15, 2022 at 14:30 Current Orders Orders Admission Order(Inpt,Obs,Sdc) (04/15/22 13:59) Vital Signs: Per Unit Policy ( 08,16,00 (04/15/22 13:59) Felton Dugan (04/15/22 13:59) Sequential Compression Device (04/15/22 13:59) Glue Mixer-Inpt Rehab Con (04/15/22 13:59) Rehab Nursing Orders-Ipoc (04/15/22 13:59) Physical Therapy Rehab Orders (04/15/22 13:59) Occupational Therapy Rehab Ord (04/15/22 13:59) Speech Therapy Rehab Orders (04/15/22 13:59) Cbc With Automated Diff (04/16/22 06:00) Comprehensive Metabolic Panel (04/16/22 06:00) Precautions (Aru) (04/15/22 13:59) Weekly Weight WEEK (04/15/22 13:59) Rehab-Intensity Of Therapy (04/15/22 13:59) Initiate Admission Nursing Pro .admission (04/15/22 13:59) Alprazolam Tablet (Xanax Tablet) (04/15/22 14:00) Calcium Carbonate Chew Tablet (Antacid C (04/15/22 14:00) Diphenhydramine Tablet (Benadryl Tablet) (04/15/22 14:00) Docusate Sodium Capsule (Colace Capsule) (04/15/22 21:00) Docusate Sodium Capsule (Colace Capsule) (04/15/22 14:00) Bisacodyl Suppository (Dulcolax Supposit (04/15/22 14:00) Lactulose Oral Solution (Enulose Oral So (04/15/22 14:00) Na Phos/Na Biphos Enema (Fleet Enema Neil (04/15/22 14:00) Loperamide Tablet (Imodium Tablet) (04/15/22 14:00) Melatonin Tablet (Melatonin Tablet) (04/15/22 14:00) Polyethylene Glycol Powder Pkt (Miralax (04/15/22 21:00) Ondansetron Oral Dissolve Tab (Zofran (04/15/22 14:00) Senna S Tablet (Senokot S Tablet) (04/15/22 21:00) Acetaminophen Tablet/Caplet (Tylenol T (04/15/22 14:00) Initiate Admission Nursing Pro .admission (04/15/22 13:59) Admission Arrival Bed Request (04/15/22 14:42) Patient Visit (04/15/22 ) Pt Eval Moderate Complexity (04/15/22 ) Exercise Therap, Ea 15 Min (04/15/22 ) Functional Activities, Ea 15 (04/15/22 ) Nursing Communication (Order) (04/15/22 15:37) Cho 60g/M 1snack (16-2000 Rhys) (04/15/22 Dinner) Calcium Carbonate Chew Tablet (Antacid C (04/15/22 21:00) Gabapentin Capsule/Tablet (Neurontin Cap (04/15/22 21:00) Sodium Bicarbonate Tablet (Sodium Bicarb (04/15/22 21:00) Ensure Plus Vanilla (04/15/22 16:22) Calcium Carbonate Chew Tablet (Antacid C (04/15/22 16:45) Calcium Carbonate Chew Tablet (Antacid C (04/15/22 17:15) Soap Suds Enema Until Clear (04/15/22 17:30) Heparin Injection (Heparin Injection) (04/16/22 06:30) Pantoprazole Tablet (Protonix Tablet) (04/16/22 07:00) Iron Test (Fe) (04/16/22 11:24) Vitamin B 12 (04/16/22 11:24) Cyanocobalamin Injection (Vitamin B-12 I (04/16/22 11:30) Patient Visit (04/16/22 ) Exercise Therap, Ea 15 Min (04/16/22 ) Gait Training, Ea 15 Min (04/16/22 ) Soap Suds Enema (04/16/22 23:33) Rehab Nursing Orders: Ongoing Assess. of Function Status, Bladder Management, Bladder Scan, Bladder Training, Bowel Management, Bowel Training, Disease Management & Educaiton, DVT Prophylaxis, Fall Prevention, Fluid/Electrolyte/Nutrition Mgmt, Infection Prevention, Medication Management & Education, Management of Risks & Complications, Management of Skin Intergrity, Nutrition Management, Pain Management, Patient/Family Support, Safety Management Intensity of Therapy to be met Patient to be seen: Min.3h per day/5 of 7d PT IPOC Problem List: Activity Tolerance, Functional Strength, Safety, Balance, Gait, Transfer, Bed Mobility, ROM Treatment Plan: Continue Plan of Care Bed Mobility, Education, Functional Activity Sylvester, Functional Strength, Group Therapy, Gait, Safety, Therapeutic Exercise, Transfers Treatment Duration: May 06, 2022 Frequency: At least 5 of 7 days/Wk (IRF) Estimated Hrs Per Day: 1.5 hours per day OT IPOC Problems: Decreased Activ Tolerance, Decreased UE Strength, Edema, Impaired Funct Balance, Impaired I ADL's, Impaired Self-Care Skills OT Treatment, Training and Edu: Yes Plan of Care: ADL Retraining, Functional Mobility, Group Exercise/Act as Ind, UE Funct Exercise/Act Treatment Duration: Apr 29, 2022 Frequency: At least 5 of 7 days/Wk (IRF) Estimated Hrs Per Day: 1.5 hours per day (75-90 min/day ) ST IPOC Speech Therapy Treatment Plan: Discontinue ST Treatment Duration: Apr 15, 2022 Frequency: Modified Program (IRF) Estimated Hrs Per Day: Other Glue Mixer/Case Mgmt Glue Mixer/Case Managemen: Discharge Planning Dietitian/[employer] Teacher Dietitian/[employer] Teacher to monitor nutritional status and make changes and/or recommendations as needed and work with speech pathology on dietary upgrades as the occur. Physician IPOC Medical Issues being managed closely and that require the 24 hour availability of a physician: Recent diagnosis of prostate cancer with widespread mets to the bone with AALIYAH with hypocalcemia and urinary retention requiring Stephen catheter along with recent thoracentesis will require close monitoring for multiple avenues for decompensation Medical Issues: Bowel/Bladder Function, DVT Prophylaxis, Falls Precautions, Fluid/Electrolyte/Nutrition Balance, Infection Protection, Pain Management Brief Synthesis of Preadmission Screen, Post-Admission Evaluation, and Therapy Evaluations: PT OT will focus on regaining function with use of AD in order to regain ambulation abilities and regain independence in ADL's in order to return home Medical Prognosis: Fair to poor Anticipated Length of Stay: 7 days CARLOZ CONNELL DO Apr 16, 2022 06:35
[2022-04-16 07:30] VITALS: BP 103/64
[2022-04-16] MEDS: polyethylene glycoL POWDER 17 GM (MIRALAX) PACK PO SCH ×2 (09:55→20:47)
[2022-04-16] MEDS: LACTULOSE SYRUP 10GM/15ML (ENULOSE) 30ML UDC PO PRN ×2 (09:56→20:46)
[2022-04-16] MEDS: SODIUM BICARBONATE 650 MG TABLET PO SCH ×2 (09:56→20:46)
[2022-04-16] MEDS: CALCIUM CARBONATE 500 MG (TUMS) TAB.CHEW PO SCH ×3 (09:56→20:46)
[2022-04-16] MEDS: DOCUSATE SODIUM 100 MG (COLACE) CAP PO SCH ×2 (09:56→20:46)
[2022-04-16] MEDS: PANTOPRAZOLE 40 MG (PROTONIX) TAB PO SCH (09:56)
[2022-04-16] MEDS: SENNA W/DOCUSATE (SENOKOT S) TABLET PO SCH ×2 (09:56→20:46)
--- NOTE | 2022-04-16 11:09 | Physical Therapy Daily Note ---
PT Daily Note-Current Subjective Pt. states he feels good and wants to walk and exercise. Denies pain Pain Location: No Pain Reported Section J - Health Conditions 1. Rarely or not at all 2. Occasionally 3. Frequently 4. Almost constantly 8. Unable to answer Pain Effect on Sleep: 1 Pain Interference with Therapy: 1 Pain Interference w/Day-to-Day: 1 Mental Status Patient Orientation: Normal For Age Attachments: Stephen Catheter Transfers SCALE: Activities may be completed with or without assistive devices. 3-Qnnzzztlrq-hxnhnve completes the activity by him/herself with no assistance from a helper. 5-Set-up or Clean-up Assistance-helper sets up or cleans up; patient completes activity. [place] assists only prior to or following the activity. 4-Supervision or Touching Assistance-helper provides verbal cues and/or touching/steadying and/or contact guard assistance as patient completes activity. Assistance may be provided throughout the activity or intermittently. 3-Partial/Moderate Assistance-helper does LESS THAN HALF the effort. [place] lifts, holds or supports trunk or limbs, but provides less than half the effort. 2-Substantial/Maximal Assistance-helper does MORE THAN HALF the effort. [place] lifts or holds trunk or limbs and provides more than half the effort. 2-Yuuoomdec-emrlkv does ALL the effort. Patient does none of the effort to complete the activity. Or, the assistance of 2 or more helpers is required for the patient to complete the activity. If activity was not attempted, code reason: 7-Patient Refused. 9-Not Applicable-not attempted and the patient did not perform the activity before the current illness, exacerbation or injury. 10-Not Attempted due to Environmental Limitations-(lack of equipment, weather restraints, etc.). 88-Not Attempted due to Medical Conditions or Safety Concerns. Roll Left & Right (QC): 6 Lying to Sitting/Side of Bed(Q: 6 Sit to Stand (QC): 6 Chair/Ukb-vq-Lkonf Xfer(QC): 6 Gait Training Does the Patient Walk?: Yes Walk 10 feet (QC): 4 Walk 50 ft with 2 Turns(QC): 4 Walk 150 ft (QC): 4 Gait Persons Needed: 1 Gait Assistive Device: FWW slow but equal steps, slight flex over FWW, no LOB Exercises Supine Ex: Bridging, Ankle pumps, Rolling, Glut sets, Heel Slides, Scooting, Straight leg raise Supine Reps: 12 Seated Therapy Exercises: Ankle pumps, Sit to stand, Long arc quads, Hip flexion, Hip abd/add Seated Reps: 10 Treatments up in recliner after Rx with instruction in use of reclining mechanism , warm blankets under and over, call ball at hand Assessment Current Status: Good Progress PT Short Term Goals Short Term Goals Time Frame: Apr 22, 2022 Car transfer: 4 (SBA) Walking 10ft on uneven surface: 4 (SBA) 1 step (curb): 4 (SBA) 4 steps: 4 (SBA) Picking up objects: 4 (SBA) PT Halfway Goals Halfway Goals PT Halfway Goals Time Frame: May 06, 2022 Roll Left & Right (QC): 6 Sit to Lying (QC): 6 Lying-Sitting on Side/Bed(QC): 6 Sit to Stand (QC): 6 Chair/Rjz-gc-Yzmkj Xfer(QC): 6 Toilet Transfer (QC): 6 Car Transfer (QC): 6 Does the Patient Walk: Yes Walk 10 feet (QC): 6 Walk 50ft with 2 Turns (QC): 6 Walk 150 ft (QC): 6 Walking 10ft on Uneven Surface: 6 1 Step (curb) (QC): 6 4 Steps (QC): 6 12 Steps (QC): 88 Picking up an Object (QC): 6 Does the Pt use WC or Scooter?: No Wheel 50 feet with 2 turns (QC: 9 Type: N/A Wheel 150 feet: 9 Type: N/A PT Plan Treatment/Plan Treatment Plan: Continue Plan of Care Treatment Plan: Bed Mobility, Education, Functional Activity Sylvester, Functional Strength, Group Therapy, Gait, Safety, Therapeutic Exercise, Transfers Treatment Duration: May 06, 2022 Frequency: At least 5 of 7 days/Wk (IRF) Estimated Hrs Per Day: 1.5 hours per day Patient and/or Family Agrees t: Yes Safety Risks/Education Patient Education: Gait Training, Transfer Techniques Time Time In: 1030 Time Out: 1100 DATE: Apr 16, 2022 Total Billed Treatment Time: 30 Total Billed Treatment 1,GT13m,EX12m DENNIS LOU DELICATESSEN SLICER Apr 16, 2022 11:09
[2022-04-16] MEDS ORDERED: CYANOCOBALAMIN INJ 1000 MCG/ML IM NR (11:30)
[2022-04-16 19:30] VITALS: BP 96/59
[2022-04-16] MEDS: GABAPENTIN 100 MG (NEURONTIN) CAP PO SCH (20:46)
[2022-04-16] MEDS: FLEET ENEMA ADULT 1 EA BTL PR PRN (22:05)
[2022-04-17] MEDS: PANTOPRAZOLE 40 MG (PROTONIX) TAB PO SCH (06:59)
--- NOTE | 2022-04-17 07:47 | PM&R Progress Note ---
Subjective HPI/CC On Admission Date Seen by Provider: Apr 17, 2022 Time Seen by Provider: 15:30 Subjective/Events-last exam 04/17/2022: Improved today No pain reported Sleeping currently Hematuria and Hemat[place]zie precluding heparin for DVT PPx although he is at high risk 04/16/2022: Doing well No BM for 10 days now and refuses suppository and SSE Talked to him about the plan for bowels Creat 2.6 Calcium 8.2 corrected No pain reported Review of Systems General: Fatigue, Malaise Objective Exam Vital Signs Vital Signs Date Time Temp Pulse Resp B/P (MAP) Pulse Ox O2 Delivery O2 Flow Rate FiO2 04/17/22 21:00 Room Air 04/17/22 20:08 37.1 85 16 101/64 (76) 99 Capillary Refill : General Appearance: No Apparent Distress, WD/WN, Chronically ill, Other (Very debilitated) HEENT: PERRL/EOMI, Normal ENT Inspection, Pharynx Normal Neck: Full Range of Motion, Normal Inspection, Non Tender, Supple, Carotid Bruit Respiratory: Chest Non Tender, Lungs Clear, No Accessory Muscle Use, No Respiratory Distress, Decreased Breath Sounds Cardiovascular: Regular Rate, Rhythm, No Edema, No Gallop, No JVD, No Murmur, Normal Peripheral Pulses Gastrointestinal: Normal Bowel Sounds, No Organomegaly, No Pulsatile Mass, Non Tender, Soft Back: Normal Inspection, No CVA Tenderness, No Vertebral Tenderness Extremity: Normal Capillary Refill, Normal Inspection, Normal Range of Motion, Non Tender, No Calf Tenderness, No Pedal Edema Neurologic/Psychiatric: Alert, Oriented x3, Normal Mood/Affect, medical physiologist II-XII Norm as Tested, Abnormal Gait, Motor Weakness Skin: Normal Color, Warm/Dry Lymphatic: No Adenopathy Results/Procedures Lab Patient resulted labs reviewed. FIM Transfers Therapy Code Descriptions/Definitions Functional [place] Measure: 0=Not Assessed/NA 4=Minimal Assistance 1=Total Assistance 5=Supervision or Setup 2=Maximal Assistance 6=Modified [place] 3=Moderate Assistance 7=Complete IndependenceSCALE: Activities may be completed with or without assistive devices. 2-Rptgxdbhat-lkqqsxi completes the activity by him/herself with no assistance from a helper. 5-Set-up or Clean-up Assistance-helper sets up or cleans up; patient completes activity. [place] assists only prior to or following the activity. 4-Supervision or Touching Assistance-helper provides verbal cues and/or touching/steadying and/or contact guard assistance as patient completes activity. Assistance may be provided throughout the activity or intermittently. 3-Partial/Moderate Assistance-helper does LESS THAN HALF the effort. [place] lifts, holds or supports trunk or limbs, but provides less than half the effort. 2-Substantial/Maximal Assistance-helper does MORE THAN HALF the effort. [place] lifts or holds trunk or limbs and provides more than half the effort. 3-Lagnzjsbd-yakjek does ALL the effort. Patient does none of the effort to complete the activity. Or, the assistance of 2 or more helpers is required for the patient to complete the activity. If activity was not attempted, code reason: 7-Patient Refused. 9-Not Applicable-not attempted and the patient did not perform the activity before the current illness, exacerbation or injury. 10-Not Attempted due to Environmental Limitations-(lack of equipment, weather restraints, etc.). 88-Not Attempted due to Medical Conditions or Safety Concerns. Roll Left to Right (QC): 6 Sit to Lying (QC): 4 (SBA) Sit to Stand (QC): 6 Chair/Gwd-il-Bldfv Xfer(QC): 6 Car Transfer (QC): 4 (CGA) Gait Training Does the Patient Walk?: Yes Walk 10 feet (QC): 4 Walk 50 ft with 2 Turns(QC): 4 Walk 150 ft (QC): 4 Walking 10ft/uneven surface-QC: 4 (CGA) Gait Persons Needed: 1 Gait Assistive Device: FWW Wheelchair Training Wheel 50 ft with 2 turns (QC): 9 Wheel 150 ft (QC): 9 Stair Training #of Steps: 8 1 Step (curb) (QC): 4 4 Steps (QC): 4 12 Steps (QC): 88 Balance Picking up an Object (QC): 4 (CGA, using cottage parent) ADL-Treatment Eating (QC): 6 Oral Hygiene (QC): 4 Shower/Bathe Self (QC): 4 Upper Body Dressing (QC): 5 Lower Body Dressing (QC): 4 On/Off Footwear (QC): 4 Toileting Hygiene (QC): 4 Assessment/Plan Assessment and Plan Assess & Plan/Chief Complaint A: Debility CKD Severe hypocalcemia AALIYAH Abdominal aortic aneurysm new diagnosis on CT N/V Anemia Chronic A. fib only on aspirin Diabetes Prostate cancer with metastatic disease Pleural effusion status postthoracentesis on 04/14/2022 Pericardial effusion Urinary retention remains with Stephen catheter Hematuria and hematochezia holding Heparin 04/17/22 P: PT/OT Monitor BUN and creatinine Antiemetics as needed Pain control as needed Monitor Hg, transfuse as needed Hold metformin and lasix until renal function improves Refer for oncology, patient prefers Dr. Thomas 04/16/2022: Aggressive bowel regimen Continue TUMS for calcium 04/17/2022: Check labs in am Monitor closely Hold Heparin (1) Prostate cancer metastatic to bone (2) Pleural effusion (3) Abdominal aortic aneurysm (AAA) greater than 39 mm in diameter (4) Pericardial effusion (5) Atrial fibrillation (6) Chronic kidney disease (7) Hypocalcemia (8) Anemia (9) Metabolic acidosis CARLOZ CONNELL DO Apr 17, 2022 07:47
[2022-04-17 08:08] VITALS: BP 89/53
[2022-04-17] MEDS: polyethylene glycoL POWDER 17 GM (MIRALAX) PACK PO SCH ×2 (08:36→20:10)
[2022-04-17] MEDS: SENNA W/DOCUSATE (SENOKOT S) TABLET PO SCH ×2 (08:37→20:12)
[2022-04-17] MEDS: DOCUSATE SODIUM 100 MG (COLACE) CAP PO SCH ×2 (08:37→20:11)
[2022-04-17] MEDS: CALCIUM CARBONATE 500 MG (TUMS) TAB.CHEW PO SCH ×3 (08:37→20:12)
[2022-04-17] MEDS: SODIUM BICARBONATE 650 MG TABLET PO SCH ×2 (08:37→20:11)
[2022-04-17 20:08] VITALS: BP 101/64
[2022-04-17] MEDS: GABAPENTIN 100 MG (NEURONTIN) CAP PO SCH (20:11)
[2022-04-18] MEDS: PANTOPRAZOLE 40 MG (PROTONIX) TAB PO SCH (05:44)
[2022-04-18 06:18] LABS: BASOPHILS % (AUTO) 1 % (0-10); EOSINOPHILS # (AUTO) 0.2 10^3/uL (0.0-0.3); EOSINOPHILS % (AUTO) 3 % (0-10); HEMATOCRIT 25 % (40-54); HEMOGLOBIN 8.1 g/dL (13.3-17.7); LYMPHOCYTES # (AUTO) 1.2 10^3/uL (1.0-4.0); LYMPHOCYTES % (AUTO) 19 % (12-44); MEAN CORPUSCULAR HEMOGLOBIN 32 pg (25-34); MEAN CORPUSCULAR HGB CONC 33 g/dL (32-36); MEAN CORPUSCULAR VOLUME 98 fL (80-99); MEAN PLATELET VOLUME 9.2 fL (9.0-12.2); MONOCYTES # (AUTO) 0.6 10^3/uL (0.0-1.0); MONOCYTES % (AUTO) 10 % (0-12); NEUTROPHILS # (AUTO) 3.9 10^3/uL (1.8-7.8); NEUTROPHILS % (AUTO) 64 % (42-75); PLATELET COUNT 239 10^3/uL (130-400); WHITE BLOOD COUNT 6.1 10^3/uL (4.3-11.0)
--- NOTE | 2022-04-18 06:19 | PM&R Progress Note ---
Subjective HPI/CC On Admission Date Seen by Provider: Apr 18, 2022 Time Seen by Provider: 08:30 Subjective/Events-last exam 04/18/2022: Still no BM Soapsuds enema produced a lot of gas with minimal stool Hemoglobin 8.2 KUB shows constipation Holding heparin due to hematuria and hematochezia Creatinine 2.9 Urology consulted We will consult Dr. Smith 04/17/2022: Improved today No pain reported Sleeping currently Hematuria and Hematochezie precluding heparin for DVT PPx although he is at high risk 04/16/2022: Doing well No BM for 10 days now and refuses suppository and SSE Talked to him about the plan for bowels Creat 2.6 Calcium 8.2 corrected No pain reported Review of Systems General: Fatigue, Malaise Objective Exam Vital Signs Vital Signs Date Time Temp Pulse Resp B/P (MAP) Pulse Ox O2 Delivery O2 Flow Rate FiO2 04/18/22 21:12 Room Air 04/18/22 20:31 36.4 88 18 111/56 (74) 98 Capillary Refill : General Appearance: No Apparent Distress, WD/WN, Chronically ill, Other (Very debilitated) HEENT: PERRL/EOMI, Normal ENT Inspection, Pharynx Normal Neck: Full Range of Motion, Normal Inspection, Non Tender, Supple, Carotid Bruit Respiratory: Chest Non Tender, Lungs Clear, No Accessory Muscle Use, No Respiratory Distress, Decreased Breath Sounds Cardiovascular: Regular Rate, Rhythm, No Edema, No Gallop, No JVD, No Murmur, Normal Peripheral Pulses Gastrointestinal: Normal Bowel Sounds, No Organomegaly, No Pulsatile Mass, Non Tender, Soft Back: Normal Inspection, No CVA Tenderness, No Vertebral Tenderness Extremity: Normal Capillary Refill, Normal Inspection, Normal Range of Motion, Non Tender, No Calf Tenderness, No Pedal Edema Neurologic/Psychiatric: Alert, Oriented x3, Normal Mood/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 FIM Transfers Therapy Code Descriptions/Definitions Functional [place] Measure: 0=Not Assessed/NA 4=Minimal Assistance 1=Total Assistance 5=Supervision or Setup 2=Maximal Assistance 6=Modified [place] 3=Moderate Assistance 7=Complete IndependenceSCALE: Activities may be completed with or without assistive devices. 3-Kyolfulhrg-gcdnhbz completes the activity by him/herself with no assistance from a helper. 5-Set-up or Clean-up Assistance-helper sets up or cleans up; patient completes activity. [place] assists only prior to or following the activity. 4-Supervision or Touching Assistance-helper provides verbal cues and/or touching/steadying and/or contact guard assistance as patient completes activity. Assistance may be provided throughout the activity or intermittently. 3-Partial/Moderate Assistance-helper does LESS THAN HALF the effort. [place] lifts, holds or supports trunk or limbs, but provides less than half the effort. 2-Substantial/Maximal Assistance-helper does MORE THAN HALF the effort. [place] lifts or holds trunk or limbs and provides more than half the effort. 8-Cccxdjoga-ezllsx does ALL the effort. Patient does none of the effort to complete the activity. Or, the assistance of 2 or more helpers is required for the patient to complete the activity. If activity was not attempted, code reason: 7-Patient Refused. 9-Not Applicable-not attempted and the patient did not perform the activity before the current illness, exacerbation or injury. 10-Not Attempted due to Environmental Limitations-(lack of equipment, weather re straints, etc.). 88-Not Attempted due to Medical Conditions or Safety Concerns. Roll Left to Right (QC): 6 Sit to Lying (QC): 4 (SBA) Sit to Stand (QC): 6 Chair/Nyf-eh-Tuscc Xfer(QC): 6 Car Transfer (QC): 4 (CGA) Gait Training Does the Patient Walk?: Yes Walk 10 feet (QC): 4 Walk 50 ft with 2 Turns(QC): 4 Walk 150 ft (QC): 4 Walking 10ft/uneven surface-QC: 4 (CGA) Gait Persons Needed: 1 Gait Assistive Device: FWW Wheelchair Training Wheel 50 ft with 2 turns (QC): 9 Wheel 150 ft (QC): 9 Stair Training #of Steps: 8 1 Step (curb) (QC): 4 4 Steps (QC): 4 12 Steps (QC): 88 Balance Picking up an Object (QC): 4 (CGA, using research support specialist) ADL-Treatment Eating (QC): 6 Oral Hygiene (QC): 4 Shower/Bathe Self (QC): 4 Upper Body Dressing (QC): 5 Lower Body Dressing (QC): 4 On/Off Footwear (QC): 4 Toileting Hygiene (QC): 4 Assessment/Plan Assessment and Plan Assess & Plan/Chief Complaint A: Debility CKD Severe hypocalcemia AALIYAH Abdominal aortic aneurysm new diagnosis on CT N/V Anemia Chronic A. fib only on aspirin Diabetes Prostate cancer with metastatic disease Pleural effusion status post thoracentesis on 04/14/2022 Pericardial effusion Urinary retention remains with Stephen catheter Hematuria and hematochezia holding Heparin 04/17/22 P: PT/OT Monitor BUN and creatinine Antiemetics as needed Pain control as needed Monitor Hg, transfuse as needed Hold metformin and lasix until renal function improves Refer for oncology, patient prefers Dr. Thomas 04/16/2022: Aggressive bowel regimen Continue TUMS for calcium 04/17/2022: Check labs in am Monitor closely Hold Heparin 04/18/2022: Hold heparin Supportive care Bowel regimen (1) Prostate cancer metastatic to bone (2) Pleural effusion (3) Abdominal aortic aneurysm (AAA) greater than 39 mm in diameter (4) Pericardial effusion (5) Atrial fibrillation (6) Chronic kidney disease (7) Hypocalcemia (8) Anemia (9) Metabolic acidosis CARLOZ CONNELL DO Apr 18, 2022 06:19
[2022-04-18 06:34] LABS: BILIRUBIN,TOTAL 0.5 MG/DL (0.1-1.0); CALCIUM 7.6 MG/DL (8.5-10.1); CREATININE SERUM 2.91 MG/DL (0.60-1.30); POTASSIUM 4.8 MMOL/L (3.6-5.0); TOTAL PROTEIN 5.6 GM/DL (6.4-8.2)
[2022-04-18 07:33] VITALS: BP 115/73
[2022-04-18] MEDS: CALCIUM CARBONATE 500 MG (TUMS) TAB.CHEW PO SCH ×3 (07:59→20:44)
[2022-04-18] MEDS: LACTULOSE SYRUP 10GM/15ML (ENULOSE) 30ML UDC PO PRN ×2 (07:59→20:46)
[2022-04-18] MEDS: DOCUSATE SODIUM 100 MG (COLACE) CAP PO SCH ×2 (07:59→20:44)
[2022-04-18] MEDS: polyethylene glycoL POWDER 17 GM (MIRALAX) PACK PO SCH ×2 (07:59→20:44)
[2022-04-18] MEDS: SODIUM BICARBONATE 650 MG TABLET PO SCH ×2 (07:59→20:44)
[2022-04-18] MEDS: SENNA W/DOCUSATE (SENOKOT S) TABLET PO SCH ×2 (07:59→20:44)
--- NOTE | 2022-04-18 09:01 | ST Cognitive Linguistic Eval ---
Speech Evaluation-General Medical Diagnosis Debility Onset Date: Apr 09, 2022 Therapy Diagnosis Therapy Diagnosis: Intact Cognition (Baseline) Precautions Precautions: Fall Precautions/Isolations: Fall Prevention, Standard Precautions Referral Referring Physician: Dr. Ortiz Reason for Referral: Evaluation/Treatment Medical History Pertinent Medical History: Atrial Fib, DM, HTN Current History The patient is an 81 year-old male with a past medical history of atrial fibrillation, DM, and HTN, who was admitted to the acute rehabilitation unit following a diagnosis of an acute kidney injury and sclerotic metastasis throughout osseous structures. Reviewed History: Yes Social History Current Living Status: Children Speech PLF-Current Status Prior Level of Function The patient denied prior or current challenges or concerns with his speech, language or cognition. Subjective The patient was seated upright in his bed, awake and alert, upon entrance to his room by the clinician. The patient greeted the clinician appropriately and was agreeable to participation in the cognitive linguistic assessment. The patient has a close friend at bedside who remains for the assessment. Language Eval: Auditory Comprehends Simple Yes/No Ques: Functional Indent/Objects Multiple [place]: Functional Follows 1-Step Commands: Functional Follows Complex Directions: Functional Follows General Conversations: Functional Language Eval: Verbal Language Completes Spontaneous Greeting: Functional Produces Auto, Serial Info: Functional Word Finding: Functional Requests Basic Needs: Functional States Basic Personal Info: Functional Expresses Complex Ideas: Functional Language Evaluation: Reading Follows Simple Written Direct: Functional Language Evaluation: Writing Writes to Simple Dictation: Functional Cognitive Patient Orientation The patient is independently oriented to self, location, month, day of the week, date and year. Objective Cognitive Domain Attention: WNL Memory: WNL Problem Solving: Functional Executive Functions: WNL Visuospatial Skills: WNL Composite Severity Rating: WNL Clock Drawing Severity Rating: WNL Objective Formal/Standardized Tests [facility] Mental Status Exam (UMS) Results The patient demonstrated a result of +30/30 correlating to cognitive linguistic skills within normal limits. Oral Motor/Speech Production The patient does not display dysarthria or apraxia of speech. The patient is 100% intelligible in known and unknown contexts. Impression The patient displays intact, within normal limits, baseline cognitive linguistic skills. Skilled speech pathology services are not warranted. Speech-Plan Treatment Plan Speech Therapy Treatment Plan: Discontinue ST Treatment Duration: Apr 15, 2022 Frequency: 1 time per week Estimated Hrs Per Day: .5 hour per day Rehab Potential: Good Safety Risks/Education Teaching Recipient: Patient, Friend Teaching Methods: Discussion Response to Teaching: Verbalize Understanding Education Topics Provided: Results, Recommendations, Plan of Care Time Speech Therapy Time In: 09:00 Speech Therapy Time Out: 09:30 DATE: Apr 18, 2022 Total Billed Time: 30 Billed Treatment Time 1, MICHAEL LOUIS [facility] Apr 18, 2022 09:01
--- NOTE | 2022-04-18 10:58 | Occupational Ther Daily Note ---
OT Current Status-Daily Note Subjective Pt in bed, agreeable to OT Tx. Pt c/o dizziness with position changes during tx, and slight headache, did not verbalize pain rating. BP 111/56 in sitting when pt c/o dizziness. Supine 111/58, supine to sit transfer 109/54, and sit to stand transfer 83/51. Nurse notified of pt's BP in various positions. Mental Status/Objective Patient Orientation: Person, Place, Time, Situation Attachments: Stephen Catheter ADL-Treatment Therapy Code Descriptions/Definitions Functional [place] Measure: 0=Not Assessed/NA 4=Minimal Assistance 1=Total Assistance 5=Supervision or Setup 2=Maximal Assistance 6=Modified [place] 3=Moderate Assistance 7=Complete IndependenceSCALE: Activities may be completed with or without assistive devices. 5-Fzfbsepdew-skgatnr completes the activity by him/herself with no assistance from a helper. 5-Set-up or Clean-up Assistance-helper sets up or cleans up; patient completes activity. [place] assists only prior to or following the activity. 4-Supervision or Touching Assistance-helper provides verbal cues and/or touching/steadying and/or contact guard assistance as patient completes activity. Assistance may be provided throughout the activity or intermittently. 3-Partial/Moderate Assistance-helper does LESS THAN HALF the effort. [place] lifts, holds or supports trunk or limbs, but provides less than half the effort. 2-Substantial/Maximal Assistance-helper does MORE THAN HALF the effort. [place] lifts or holds trunk or limbs and provides more than half the effort. 9-Hlpceerix-lazibj does ALL the effort. Patient does none of the effort to complete the activity. Or, the assistance of 2 or more helpers is required for the patient to complete the activity. If activity was not attempted, code reason: 7-Patient Refused. 9-Not Applicable-not attempted and the patient did not perform the activity before the current illness, exacerbation or injury. 10-Not Attempted due to Environmental Limitations-(lack of equipment, weather restraints, etc.). 88-Not Attempted due to Medical Conditions or Safety Concerns. Oral Hygiene (QC): 4 (SBA standing at sink.) Shower/Bathe Self (QC): 5 (set up) Upper Body Dressing (QC): 5 (set up) Lower Body Dressing (QC): 4 (SBA) On/Off Footwear: 3 (Min A with donning R gripper sock.) Toileting Hygiene (QC): 4 (SBA ) Other Treatment [id number]: Pt in bed, transferred supine to sit EOB then transferred to toilet. Pt attempted BM, but unsuccessful, then transferred to RI. Pt completed shower and dressing, then transferred to toilet, again unable to have BM. Pt stood at sink for oral care, then transferred to recliner for seated rest break. Pt used FWW to transfer to therapy gym, SBA. [id number]: OT/PT cotreat due to skill of 2 clinicians required that a clinical rehabilitation liaison could not perform in order to coordinate UE/LEs, decrease fall risk, focus on higher level balance tasks, and due to pt's c/o dizziness with positional changed. OT focused on UE placement and cues for sequencing and safety, PT focused on LE placement, gross overall movement, and transfers. Pt stood at FWW, able to grasp clothespins placed around LE clothing and place clothespins back on supriya. This was complete to focus on higher level dynamic balance tasks, and activity tolerance. Pt c/o dizziness while sitting. BP taken in various positions. BP 111/56 in sitting when pt c/o dizziness. Supine 111/58, supine to sit transfer 109/54, and sit to stand transfer 83/51. Nurse notified of pt's BP in various positions. Post tx, pt in therapy gym with PT, all needs met. Education OT Patient Education: Correct positioning, Energy conservation, Modified ADL techniques, Progress toward Goal/Update tx plan, Purpose of tx/functional activities, Rehab process Teaching Recipient: Patient Teaching Methods: Discussion Response to Teaching: Verbalize Understanding OT Short Term Goals Short Term Goals Time Frame: Apr 22, 2022 Eatin Oral hygiene: 5 Toileting hygiene: 4 (supervision) Shower/bathe self: 4 (supervision) Upper body dressin Lower body dressin (supervision) Putting on/taking off footwear: 5 OT Vp Platforms Goals Vp Platforms Goals Time Frame: Apr 29, 2022 Acute change in mental status: 0 Inattention: 0 Disorganized thinkin Altered level of consciousness: 0 Eating (QC): 6 Oral Hygiene (QC): 6 Toileting Hygiene (QC): 6 Shower/Bathe Self (QC): 5 Upper Body Dressing (QC): 6 Lower Body Dressing (QC): 6 On/Off Footwear (QC): 6 Additional Goals: 1-Demonstrate ADL Tasks, 2-Verbalize Understanding, 3- ImproveStrength/[place] 1=Demonstrate adherence to instructed precautions during ADL tasks. 2=Patient will verbalize/demonstrate understanding of assistive devices/modifications for ADL. 3=Patient will improve strength/tolerance for activity to enable patient to perform ADL's. OT Education/Plan Problem List/Assessment Assessment: Decreased Activ Tolerance, Decreased UE Strength, Impaired Funct Balance, Impaired I ADL's, Impaired Self-Care Skills Discharge Recommendations Plan/Recommendations: Continue POC Treatment Plan/Plan of Care Patient would benefit from OT for education, treatment and training to promote independence in ADL's, mobility, safety and/or upper extremity function for ADL's. Plan of Care: ADL Retraining, Functional Mobility, Group Exercise/Act as Ind, UE Funct Exercise/Act Treatment Duration: Apr 29, 2022 Frequency: At least 5 of 7 days/Wk (IRF) Estimated Hrs Per Day: 1.5 hours per day (75-90 min/day ) Agreement: Yes Rehab Potential: Good Time Start Time: 09:30 Stop Time: 10:45 DATE: Apr 18, 2022 Total Time Billed (hr/min): 75 Billed Treatment Time OT tx x60', Cotreat x15' 1, ADL 4 (60'), FA (15') RENA BURR OT Apr 18, 2022 10:58
--- NOTE | 2022-04-18 11:15 | Progress Note ---
LUTHERANATOLY 04/18/22 1115: Progress Note S: Patient is an 81-year-old male admitted to ARU for debility Patient is awake and alert in his bed this morning, no family at bedside. Patient reports that he is not having BM and that he is starting to have some discomfort in his lower abdomen and back when he eats a large meal. Patient reports that he had some blood-tinged urine yesterday and day, no gross hematuria is seen in his catheter today. Patient reports that his first PT/OT sessions went well and that he made some improvements. Patient has no new complaints at this time. O: VS: T36.7, HR 103, RR 20, BP 115/73, PE: Cardiovascular: HRRR Pulmonary: LCTAB Abdominal: nontender, soft Labs: Hg 8.1 (8.2 on 04/16), BUN 45 (41 on 04/16), Cr 2.91 (2.69 on 04/16) Imaging: Abdominal X-ray 04/18 FINDINGS: There is a large amount of stool throughout the colon. There is gaseous distention of proximal colon as well. The stomach and small bowel do not appear distended. No organomegaly. Gallbladder is absent. There is vascular and seminal vesicle calcification. There has been development of diffuse sclerotic lesions throughout the pelvis since 2019. IMPRESSION: 1. Findings are consistent with constipation with considerable gaseous distention of the proximal colon. 2. Diffuse sclerotic bone lesions have developed throughout the pelvis since previous exam. This pattern would be typical of metastatic prostate disease. CT abdomen and pelvis 04/18: FINDINGS: Imaging through the lung bases does show moderate-sized bilateral pleural effusions. There appears to be minimal perihepatic ascites. No discrete liver mass is identified. The gallbladder is surgically absent. Pancreas and spleen are unremarkable. No adrenal mass is detected. Low-attenuation lesion in the upper pole of the left kidney is noted, likely a cyst. Both kidneys demonstrate hydroureteronephrosis. Bladder is markedly thick walled and contains a Stephen catheter. Prostate is unremarkable, although there is a large amount of beam hardening artifact through the pelvis from patient's bilateral hip prostheses. Aorta is calcified but nonaneurysmal. There is a large stool load throughout the colon, consistent with constipation. Small bowel is normal in caliber. There is trace free fluid in the pelvis. Extensive osseous metastatic disease is noted with sclerotic lesions throughout the lower thoracic and lumbar spine as well as the bony pelvis and bilateral ribs. IMPRESSION: 1. Moderate-sized bilateral pleural effusions. 2. Trace abdominal and pelvic ascites. 3. Bilateral hydronephrosis. Bladder is diffusely thick walled but decompressed by Stephen catheter. 4. No definite evidence of abdominal or pelvic lymphadenopathy. 5. Extensive osteoblastic metastatic disease. A/P: 1. Debility: continue to work with PT/OT 2. Hematuria: Urology consulted, holding heparin 3. Constipation: continue current regimen of laxatives, possible surgery consult 4. AALIYAH: Continue to monitor BUN/Cr, holding metformin and lasix 5. CKD: same as above 6. Metastatic disease: Patient's preference for oncologist is Dr. Thomas 7. Neuropathy: Continue gabapentin 8. N/V: Improved since stay at [facility] in [place], antiemetics as needed 9. B/l Pleural effusions: 1L drained during thoracocentesis at [facility], may need repeat, will continue to monitor 10. Urinary retention: Catheter in place 11. B/l hydronephrosis: Catheter in place, monitor BUN/Cr GISSEL CONNELL DO 04/19/22 0553: Supervisory-Addendum Brief Verification & Attestation Participated in pt care: history, MDM, physical Personally performed: exam, history, MDM, supervision of care Care discussed with: Medical Student Procedures: n/a Results interpretation: Verified all documentation Verification and Attestation of Medical Student E/M Service A medical student performed and documented this service in my presence. I reviewed and verified all information documented by the medical student and made modifications to such information, when appropriate. I personally performed the physical exam and medical decision making. Gissel Connell, Apr 19, 2022,05:53 ANATOLY SLOAN Apr 18, 2022 11:15 GISSEL CONNELL DO Apr 19, 2022 05:53
--- NOTE | 2022-04-18 11:28 | Physical Therapy Daily Note ---
PT Daily Note-Current Subjective Patient in recliner pre-tx, reports headache and some pain in his butt area when sitting down but did not score, agrees to PT. Will be co-treating for part of tx to work on balance and due to dizziness and fatigue. Pain Section J - Health Conditions 1. Rarely or not at all 2. Occasionally 3. Frequently 4. Almost constantly 8. Unable to answer Pain Effect on Sleep: 1 Pain Interference with Therapy: 1 Pain Interference w/Day-to-Day: 1 Appearance Patient in bed post-tx with nurse call, phone, tray, all needs met. Mental Status Patient Orientation: Person, Place, Situation Attachments: Stephen Catheter Transfers SCALE: Activities may be completed with or without assistive devices. 1-Jbtdfzrzqz-nzogzsz completes the activity by him/herself with no assistance from a helper. 5-Set-up or Clean-up Assistance-helper sets up or cleans up; patient completes activity. [place] assists only prior to or following the activity. 4-Supervision or Touching Assistance-helper provides verbal cues and/or touching/steadying and/or contact guard assistance as patient completes activity. Assistance may be provided throughout the activity or intermittently. 3-Partial/Moderate Assistance-helper does LESS THAN HALF the effort. [place] lifts, holds or supports trunk or limbs, but provides less than half the effort. 2-Substantial/Maximal Assistance-helper does MORE THAN HALF the effort. [place] lifts or holds trunk or limbs and provides more than half the effort. 1-Wmsmlvjff-llkvkr does ALL the effort. Patient does none of the effort to complete the activity. Or, the assistance of 2 or more helpers is required for the patient to complete the activity. If activity was not attempted, code reason: 7-Patient Refused. 9-Not Applicable-not attempted and the patient did not perform the activity before the current illness, exacerbation or injury. 10-Not Attempted due to Environmental Limitations-(lack of equipment, weather restraints, etc.). 88-Not Attempted due to Medical Conditions or Safety Concerns. Roll Left & Right (QC): 4 (SBA) Sit to Lying (QC): 4 (SBA) Lying to Sitting/Side of Bed(Q: 3 (Min A giving patient a hand to pull himself up) Sit to Stand (QC): 4 (SBA) Chair/Jtc-pi-Guxvc Xfer(QC): 4 (SBA) Weight Bearing Right Lower Extremity: Right Full Weight Bearing Left Lower Extremity: Left Full Weight Bearing Gait Training Does the Patient Walk?: Yes Distance: 150', 150' Walk 10 feet (QC): 4 Walk 50 ft with 2 Turns(QC): 4 Walk 150 ft (QC): 4 Gait Persons Needed: 1 Gait Assistive Device: FWW SBA with ambulation, patient walks with slower gait speed, decreased foot clearance, but good step length. Exercises Seated Therapy Exercises: Ankle pumps, Long arc quads, Hip flexion, Hip abd/add (manual resistance), Glut set Seated Reps: 20 Standing Exercise pulling resisted close pins off shirt and pants placing them on metal wire x5 close pins Treatments LE Strengthening, Balance, Endurance Assessment Current Status: Fair Progress Patient notified PT of headache and mild dizziness throughout the workout. Patient BP tested 111/56 EOB, 111/58 supine, 109/54 EOB, 83/51 Standing. Patient showing orthostatic hypotension with position change ldk-ft-wqjbo. Patient notified needed to use restroom but was unable to have a bowel movement. Patient's headache got a little better at end of workout. PT Short Term Goals Short Term Goals Time Frame: Apr 22, 2022 Car transfer: 4 (SBA) Walking 10ft on uneven surface: 4 (SBA) 1 step (curb): 4 (SBA) 4 steps: 4 (SBA) Picking up objects: 4 (SBA) PT Sales Driver Goals Intermediate Goals PT Intermediate Goals Time Frame: May 06, 2022 Roll Left & Right (QC): 6 Sit to Lying (QC): 6 Lying-Sitting on Side/Bed(QC): 6 Sit to Stand (QC): 6 Chair/Aly-cz-Uqjpc Xfer(QC): 6 Toilet Transfer (QC): 6 Car Transfer (QC): 6 Does the Patient Walk: Yes Walk 10 feet (QC): 6 Walk 50ft with 2 Turns (QC): 6 Walk 150 ft (QC): 6 Walking 10ft on Uneven Surface: 6 1 Step (curb) (QC): 6 4 Steps (QC): 6 12 Steps (QC): 88 Picking up an Object (QC): 6 Does the Pt use WC or Scooter?: No Wheel 50 feet with 2 turns (QC: 9 Type: N/A Wheel 150 feet: 9 Type: N/A PT Plan Problem List Problem List: Activity Tolerance, Functional Strength, Safety, Balance, Gait, Transfer, Bed Mobility, ROM Treatment/Plan Treatment Plan: Continue Plan of Care Treatment Plan: Bed Mobility, Education, Functional Activity Sylvester, Functional Strength, Group Therapy, Gait, Safety, Therapeutic Exercise, Transfers Treatment Duration: May 06, 2022 Frequency: At least 5 of 7 days/Wk (IRF) Estimated Hrs Per Day: 1.5 hours per day Patient and/or Family Agrees t: Yes Safety Risks/Education Patient Education: Gait Training, Transfer Techniques, Correct Positioning, Safety Issues Teaching Recipient: Patient Teaching Methods: Demonstration, Discussion Response to Teaching: Verbalize Understanding Time Time In: 1030 Time Out: 1130 DATE: Apr 18, 2022 Total Billed Treatment Time: 60 Total Billed Treatment 1 visit Co-Treat [id number] EX x3 (45min) FA x1 (15min) AIRAM DAWKINS PT Apr 18, 2022 11:28
[2022-04-18] MEDS ORDERED: FURO20TA4 PO ×2 (11:31)
[2022-04-18] MEDS ORDERED: METF-397 PO ×2 (11:31)
[2022-04-18] MEDS ORDERED: RIVA15TA PO (11:32)
--- NOTE | 2022-04-18 13:09 | Physical Therapy Daily Note ---
PT Daily Note-Current Subjective Patient in bed pre-tx, reports pain in abdomen but did not rate, agrees to PT. Pain Section J - Health Conditions 1. Rarely or not at all 2. Occasionally 3. Frequently 4. Almost constantly 8. Unable to answer Pain Effect on Sleep: 1 Pain Interference with Therapy: 1 Pain Interference w/Day-to-Day: 1 Appearance Patient in bed post-tx with nurse call, phone, tray, all needs met. Mental Status Patient Orientation: Person, Place, Situation Attachments: Stephen Catheter Transfers SCALE: Activities may be completed with or without assistive devices. 0-Ezkgtcvxcv-sqogrca completes the activity by him/herself with no assistance from a helper. 5-Set-up or Clean-up Assistance-helper sets up or cleans up; patient completes activity. [place] assists only prior to or following the activity. 4-Supervision or Touching Assistance-helper provides verbal cues and/or touching/steadying and/or contact guard assistance as patient completes activity. Assistance may be provided throughout the activity or intermittently. 3-Partial/Moderate Assistance-helper does LESS THAN HALF the effort. [place] lifts, holds or supports trunk or limbs, but provides less than half the effort. 2-Substantial/Maximal Assistance-helper does MORE THAN HALF the effort. [place] lifts or holds trunk or limbs and provides more than half the effort. 6-Esceqaayu-gkjaun does ALL the effort. Patient does none of the effort to complete the activity. Or, the assistance of 2 or more helpers is required for the patient to complete the activity. If activity was not attempted, code reason: 7-Patient Refused. 9-Not Applicable-not attempted and the patient did not perform the activity before the current illness, exacerbation or injury. 10-Not Attempted due to Environmental Limitations-(lack of equipment, weather restraints, etc.). 88-Not Attempted due to Medical Conditions or Safety Concerns. Weight Bearing Right Lower Extremity: Right Full Weight Bearing Left Lower Extremity: Left Full Weight Bearing Exercises Supine Ex: Bridging (10 reps), Glut sets, Heel Slides, Straight leg raise Supine Reps: 20 Treatments LE Strengthening Assessment Current Status: Fair Progress Patient feeling a bit fatigued and in some pain from constipation. Patient had most difficulty with bridging. PT Short Term Goals Short Term Goals Time Frame: Apr 22, 2022 Car transfer: 4 (SBA) Walking 10ft on uneven surface: 4 (SBA) 1 step (curb): 4 (SBA) 4 steps: 4 (SBA) Picking up objects: 4 (SBA) PT Assistant Professor Of Physics Goals Assistant Professor Of Physics Goals PT Mcc Goals Time Frame: May 06, 2022 Roll Left & Right (QC): 6 Sit to Lying (QC): 6 Lying-Sitting on Side/Bed(QC): 6 Sit to Stand (QC): 6 Chair/Jun-vo-Ovarg Xfer(QC): 6 Toilet Transfer (QC): 6 Car Transfer (QC): 6 Does the Patient Walk: Yes Walk 10 feet (QC): 6 Walk 50ft with 2 Turns (QC): 6 Walk 150 ft (QC): 6 Walking 10ft on Uneven Surface: 6 1 Step (curb) (QC): 6 4 Steps (QC): 6 12 Steps (QC): 88 Picking up an Object (QC): 6 Does the Pt use WC or Scooter?: No Wheel 50 feet with 2 turns (QC: 9 Type: N/A Wheel 150 feet: 9 Type: N/A PT Plan Problem List Problem List: Activity Tolerance, Functional Strength, Safety, Balance, Gait, Transfer, Bed Mobility, ROM Treatment/Plan Treatment Plan: Continue Plan of Care Treatment Plan: Bed Mobility, Education, Functional Activity Sylvester, Functional Strength, Group Therapy, Gait, Safety, Therapeutic Exercise, Transfers Treatment Duration: May 06, 2022 Frequency: At least 5 of 7 days/Wk (IRF) Estimated Hrs Per Day: 1.5 hours per day Patient and/or Family Agrees t: Yes Safety Risks/Education Patient Education: Correct Positioning, Safety Issues Teaching Recipient: Patient Teaching Methods: Demonstration, Discussion Response to Teaching: Reinforcement Needed Time Time In: 1245 Time Out: 1300 DATE: Apr 18, 2022 Total Billed Treatment Time: 15 Total Billed Treatment 1 visit EX AIRAM LEIVA PT Apr 18, 2022 13:09
--- NOTE | 2022-04-18 14:02 | Diagnostic Imaging Report ---
INDICATION: Constipation. History of recent prostate biopsy. FINDINGS: There is a large amount of stool throughout the colon. There is gaseous distention of proximal colon as well. The stomach and small bowel do not appear distended. No organomegaly. Gallbladder is absent. There is vascular and seminal vesicle calcification. There has been development of diffuse sclerotic lesions throughout the pelvis since 2019. IMPRESSION: 1. Findings are consistent with constipation with considerable gaseous distention of the proximal colon. 2. Diffuse sclerotic bone lesions have developed throughout the pelvis since previous exam. This pattern would be typical of metastatic prostate disease. Dictated by: Dictated on workstation # [id number]
--- NOTE | 2022-04-18 15:13 | Diagnostic Imaging Report ---
PROCEDURE: CT abdomen and pelvis without contrast. TECHNIQUE: Multiple contiguous axial images were obtained through the abdomen and pelvis without the use of intravenous contrast. Auto Exposure Controls were utilized during the CT exam to meet ALARA standards for radiation dose reduction. INDICATION: Prostate carcinoma. COMPARISON: No prior studies are available for comparison. FINDINGS: Imaging through the lung bases does show moderate-sized bilateral pleural effusions. There appears to be minimal perihepatic ascites. No discrete liver mass is identified. The gallbladder is surgically absent. Pancreas and spleen are unremarkable. No adrenal mass is detected. Low-attenuation lesion in the upper pole of the left kidney is noted, likely a cyst. Both kidneys demonstrate hydroureteronephrosis. Bladder is markedly thick walled and contains a Stephen catheter. Prostate is unremarkable, although there is a large amount of beam hardening artifact through the pelvis from patient's bilateral hip prostheses. Aorta is calcified but nonaneurysmal. There is a large stool load throughout the colon, consistent with constipation. Small bowel is normal in caliber. There is trace free fluid in the pelvis. Extensive osseous metastatic disease is noted with sclerotic lesions throughout the lower thoracic and lumbar spine as well as the bony pelvis and bilateral ribs. IMPRESSION: 1. Moderate-sized bilateral pleural effusions. 2. Trace abdominal and pelvic ascites. 3. Bilateral hydronephrosis. Bladder is diffusely thick walled but decompressed by Stephen catheter. 4. No definite evidence of abdominal or pelvic lymphadenopathy. 5. Extensive osteoblastic metastatic disease. Dictated by: Dictated on workstation # [id number]
[2022-04-18] MEDS: TAMSULOSIN 0.4 MG (FLOMAX) CAP PO SCH (17:13)
[2022-04-18] MEDS: FLEET ENEMA ADULT 1 EA BTL PR PRN (17:14)
[2022-04-18 20:31] VITALS: BP 111/56
[2022-04-18] MEDS: GABAPENTIN 100 MG (NEURONTIN) CAP PO SCH (20:44)
[2022-04-19] MEDS: PANTOPRAZOLE 40 MG (PROTONIX) TAB PO SCH (05:25)
--- NOTE | 2022-04-19 06:27 | PM&R Progress Note ---
Subjective HPI/CC On Admission Date Seen by Provider: Apr 19, 2022 Time Seen by Provider: 08:30 Subjective/Events-last exam 04/19/2022: Patient still with no BM Consulting Dr Smith Ate 100% bfast Orthostasis noted Urology consult will speak to Dr Thomas 04/18/2022: Still no BM Soapsuds enema produced a lot of gas with minimal stool Hemoglobin 8.2 KUB shows constipation Holding heparin due to hematuria and hematochezia Creatinine 2.9 Urology consulted We will consult Dr. Smith 04/17/2022: Improved today No pain reported Sleeping currently Hematuria and Hematochezie precluding heparin for DVT PPx although he is at high risk 04/16/2022: Doing well No BM for 10 days now and refuses suppository and SSE Talked to him about the plan for bowels Creat 2.6 Calcium 8.2 corrected No pain reported Review of Systems General: Fatigue, Malaise Gastrointestinal: Constipation Objective Exam Vital Signs Vital Signs Date Time Temp Pulse Resp B/P (MAP) Pulse Ox O2 Delivery O2 Flow Rate FiO2 04/20/22 04:30 37.4 90 16 95/55 (68) 96 Room Air Capillary Refill : General Appearance: No Apparent Distress, WD/WN, Chronically ill, Other (Very debilitated) HEENT: PERRL/EOMI, Normal ENT Inspection, Pharynx Normal Neck: Full Range of Motion, Normal Inspection, Non Tender, Supple, Carotid Bruit Respiratory: Chest Non Tender, Lungs Clear, No Accessory Muscle Use, No Re spiratory Distress, Decreased Breath Sounds Cardiovascular: Regular Rate, Rhythm, No Edema, No Gallop, No JVD, No Murmur, Normal Peripheral Pulses Gastrointestinal: Normal Bowel Sounds, No Organomegaly, No Pulsatile Mass, Non Tender, Soft Back: Normal Inspection, No CVA Tenderness, No Vertebral Tenderness Extremity: Normal Capillary Refill, Normal Inspection, Normal Range of Motion, Non Tender, No Calf Tenderness, No Pedal Edema Neurologic/Psychiatric: Alert, Oriented x3, Normal Mood/Affect, technical sales consultant II-XII Norm as Tested, Abnormal Gait, Motor Weakness Skin: Normal Color, Warm/Dry Lymphatic: No Adenopathy Results/Procedures Lab Patient resulted labs reviewed. FIM Transfers Therapy Code Descriptions/Definitions Functional [place] Measure: 0=Not Assessed/NA 4=Minimal Assistance 1=Total Assistance 5=Supervision or Setup 2=Maximal Assistance 6=Modified [place] 3=Moderate Assistance 7=Complete IndependenceSCALE: Activities may be completed with or without assistive devices. 2-Aijrpepiqn-vfpyiou completes the activity by him/herself with no assistance from a helper. 5-Set-up or Clean-up Assistance-helper sets up or cleans up; patient completes activity. [place] assists only prior to or following the activity. 4-Supervision or Touching Assistance-helper provides verbal cues and/or touching/steadying and/or contact guard assistance as patient completes activity. Assistance may be provided throughout the activity or intermittently. 3-Partial/Moderate Assistance-helper does LESS THAN HALF the effort. [place] lifts, holds or supports trunk or limbs, but provides less than half the effort. 2-Substantial/Maximal Assistance-helper does MORE THAN HALF the effort. [place] lifts or holds trunk or limbs and provides more than half the effort. 4-Kksgfjqtj-wkkplq does ALL the effort. Patient does none of the effort to complete the activity. Or, the assistance of 2 or more helpers is required for the patient to complete the activity. If activity was not attempted, code reason: 7-Patient Refused. 9-Not Applicable-not attempted and the patient did not perform the activity before the current illness, exacerbation or injury. 10-Not Attempted due to Environmental Limitations-(lack of equipment, weather restraints, etc.). 88-Not Attempted due to Medical Conditions or Safety Concerns. Roll Left to Right (QC): 4 (SBA) Sit to Lying (QC): 4 (SBA) Sit to Stand (QC): 4 (SBA) Chair/Zwv-hl-Qtseh Xfer(QC): 4 (SBA) Car Transfer (QC): 4 (CGA) Gait Training Does the Patient Walk?: Yes Distance: 150', 150' Walk 10 feet (QC): 4 Walk 50 ft with 2 Turns(QC): 4 Walk 150 ft (QC): 4 Walking 10ft/uneven surface-QC: 4 (CGA) Gait Persons Needed: 1 Gait Assistive Device: FWW Wheelchair Training Wheel 50 ft with 2 turns (QC): 9 Wheel 150 ft (QC): 9 Stair Training #of Steps: 8 1 Step (curb) (QC): 4 4 Steps (QC): 4 12 Steps (QC): 88 Balance Picking up an Object (QC): 4 (CGA, using rn case manager) ADL-Treatment Eating (QC): 6 Oral Hygiene (QC): 4 (SBA standing at sink.) Shower/Bathe Self (QC): 5 (set up) Upper Body Dressing (QC): 5 (set up) Lower Body Dressing (QC): 4 (SBA) On/Off Footwear (QC): 3 (Min A with donning R gripper sock.) Toileting Hygiene (QC): 4 (SBA ) Assessment/Plan Assessment and Plan Assess & Plan/Chief Complaint A: Debility CKD Severe hypocalcemia AALIYAH Abdominal aortic aneurysm new diagnosis on CT N/V Anemia Chronic A. fib only on aspirin Diabetes Prostate cancer with metastatic disease Pleural effusion status post thoracentesis on 04/14/2022 Pericardial effusion Urinary retention remains with Stephen catheter Hematuria and hematochezia holding Heparin 04/17/22 Severe constipation requiring consult Dr Smith 04/19/22 Orthostasis-started Midodrine 04/19/22 P: PT/OT Monitor BUN and creatinine Antiemetics as needed Pain control as needed Monitor Hg, transfuse as needed Hold metformin and lasix until renal function improves Refer for oncology, patient prefers Dr. Thomas 04/16/2022: Aggressive bowel regimen Continue TUMS for calcium 04/17/2022: Check labs in am Monitor closely Hold Heparin 04/18/2022: Hold heparin Supportive care Bowel regimen 04/19/2022: Bowel regimen Consult Dr Smith (1) Prostate cancer metastatic to bone (2) Pleural effusion (3) Abdominal aortic aneurysm (AAA) greater than 39 mm in diameter (4) Pericardial effusion (5) Atrial fibrillation (6) Chronic kidney disease (7) Hypocalcemia (8) Anemia (9) Metabolic acidosis CARLOZ CONNELL DO Apr 19, 2022 06:27
[2022-04-19 07:50] VITALS: BP 99/60
[2022-04-19] MEDS: LACTULOSE SYRUP 10GM/15ML (ENULOSE) 30ML UDC PO PRN (08:15)
[2022-04-19] MEDS: DOCUSATE SODIUM 100 MG (COLACE) CAP PO SCH ×2 (08:15→20:47)
[2022-04-19] MEDS: SODIUM BICARBONATE 650 MG TABLET PO SCH ×2 (08:15→20:47)
[2022-04-19] MEDS: SENNA W/DOCUSATE (SENOKOT S) TABLET PO SCH ×2 (08:15→20:47)
[2022-04-19] MEDS: polyethylene glycoL POWDER 17 GM (MIRALAX) PACK PO SCH ×2 (08:16→20:47)
--- NOTE | 2022-04-19 08:55 | Consultation - Surgery ---
PABLO BILLINGSLEY 04/19/22 0855: History of Present Illness History of Present Illness Patient Consulted On(fabio/time) 04/19/22 08:50 Date Seen by Provider: Apr 19, 2022 Time Seen by Provider: 08:00 History of Present Illness Patient seen in consult from Dr. Connell for constipation. 81 year old male on the inpatient rehab floor of [facility] with a PMHx of Prostate Cancer with Osseous mets who has not had a bowel movement since 04/06. Patient was originally at [facility] where he was diagnosed with Prostate Cancer before he was transferred here. Patient states that he feels full, but not uncomfortable. Stating his appetite is still present and that he is eating more than he would at home. Patient is also still passing flatulence. Patient has tried various medical treatments for constipation including miralax, doculax, senna, docusate supposotory and fleet enemas. Patient has not tried Magnesium Citrate yet. Patient had an XR yesterday that showed constipation with considerable gasseous distention in the proximal colon. CT scan from yesterday also showed large stool load throughout the colon consistent with constipation. Surgery was consulted to help manage this patient's constipation, given no results after the aforementioned treatments. Allergies and Home Medications Allergies Coded Allergies: codeine (Verified Allergy, Unknown, 05/08/20) Patient Home Medication List Home Medication List Reviewed: Yes Calcium Carbonate (Tums) 200 Mg Calcium (500 Mg) Tab.chew, 200 MG PO TID, (Reported) Entered as Reported by: RAYMOND GARCIA on 04/15/221452 Last Action: Reviewed Furosemide (Furosemide) 20 Mg Tablet, 20 MG PO DAILY, (Reported) Entered as Reported by: MARIALUISA SRIVASTAVA on 04/18/22 113 Last Action: Reviewed Gabapentin (Gabapentin) 100 Mg Capsule, 100 MG PO HS, (Reported) Entered as Reported by: RAYMOND GARCIA on 04/15/221452 Last Action: Reviewed Metformin HCl (Metformin HCl) 500 Mg Tablet, 500 MG PO DAILY, (Reported) Entered as Reported by: MARIALUISA SRIVASTAVA on 04/18/22 113 Last Action: Reviewed Sodium Bicarbonate (Sodium Bicarbonate) 650 Mg Tablet, 1,300 MG PO BID, (Reported) Entered as Reported by: RAYMOND GARCIA on 04/15/22 163 Last Action: Reviewed Discontinued Medications Rivaroxaban (Xarelto Tablet) 15 Mg Tablet, 15 MG PO BID Discontinued Reason: No Longer Taking Prescribed by: MEKA GARSIA on 05/09/20 1326 Last Action: Discontinued Rivaroxaban (Xarelto Tablet) 20 Mg Tablet, 20 MG PO DAILY@1700 Discontinued Reason: No Longer Taking Prescribed by: MEKA GARSIA on 05/09/20 1326 Last Action: Discontinued Rivaroxaban (Xarelto) 15 Mg Tablet, 15 MG PO BID, (Reported) Discontinued Reason: No Longer Taking Entered as Reported by: RAYMOND GARCIA on 04/15/22 1454 Last Action: Discontinued Past Zkzztls-Aoripp-Yttkqi Hx Patient Social History Smoking Status: Former Smoker Recent Hopitalizations: No Alcohol Use?: No Immunizations Up To Date PED Vaccines UTD: Yes Date of Pneumonia Vaccine: Jun 12, 2018 Date of Influenza Vaccine: Feb 26, 2019 Seasonal Allergies Seasonal Allergies: Yes Surgeries History of Surgeries: Yes Surgeries: Appendectomy, Gallbladder, Orthopedic (shoulder, bilateral femurs), Tonsillectomy Respiratory History of Respiratory Disorde: No Cardiovascular History of Cardiac Disorders: Yes Cardiac Disorders: Atrial Fibrillation, Hypertension Neurological History of Neurological Disord: Yes Genitourinary History of Genitourinary Disor: Yes Genitourinary Disorders: Benign Prostatic Hyperpl, Prostate Problems (Prostate CA), Bladder Infection Gastrointestinal History of Gastrointestinal Di: No Musculoskeletal History of Musculoskeletal Dis: Yes Musculoskeletal Disorders: Fractures Endocrine History of Endocrine Disorders: Yes Endocrine Disorders: Diabetes, Non-Insulin dep HEENT History of HEENT Disorders: No Loss of Vision: Denies Hearing Impairment: Hard of Hearing Cancer History of Cancer: Yes Cancer: Prostate (w/ osseous mets) Psychosocial History of Psychiatric Problem: No Integumentary History of Skin or Integumenta: No Blood Transfusions History of Blood Disorders: No Family Medical History Significant Family History: Cancer (Brother - Prostate, Mother -Lung) Family Medial History: Patient reports no known family medical history. Review of Systems-General Constitutional: No chills, No diaphoresis EENTM: hearing loss (Presbycusis ); No ear pain Respiratory: No cough, No dyspnea on exertion Cardiovascular: No chest pain, No palpitations Gastrointestinal: No abdominal pain; constipation; No loss of appetite, No nausea, No vomiting Genitourinary: No discharge, No dysuria; hematuria (Dr. Gee has been consulted already on pt) Musculoskeletal: No back pain, No joint pain Skin: No pruritus, No rash Psychiatric/Neurological: Denies Anxiety, Denies Depressed Physical Exam-General Problems Physical Exam Vital Signs Vital Signs - First Documented 04/15/22 04/15/22 15:31 16:41 Temp 36.6 Pulse 96 Resp 16 B/P (MAP) 105/67 (80) Pulse Ox 91 O2 Delivery Room Air Capillary Refill : General Appearance: WD/WN, no apparent distress HEENT: PERRL/EOMI Neck: non-tender, supple Respiratory: chest non-tender, lungs clear, normal breath sounds, no respiratory distress, no accessory muscle use Cardiovascular: regular rate, rhythm (occasional premature complex ), no murmur Gastrointestinal: distended, other (Firm, large amount of stool palpable in RLQ, moderate amount in LLQ. ) Extremities: non-tender, no calf tenderness, pedal edema (trace ) Neurologic/Psychiatric: alert, oriented x 3 Skin: normal color, warm/dry Data Review Radiology [facility], [place] NAME: SHAVONNE CASTRO [facility] REC#: [id number] PT STATUS: ADM IN : 1940 PHYSICIAN: CHRIS GEE MD ADMIT DATE: 04/15/22/[facility] Signed Date of Exam:04/18/22 CT ABDOMEN/PELVIS WO PROCEDURE: CT abdomen and pelvis without contrast. TECHNIQUE: Multiple contiguous axial images were obtained through the abdomen and pelvis without the use of intravenous contrast. Auto Exposure Controls were utilized during the CT exam to meet ALARA standards for radiation dose reduction. INDICATION: Prostate carcinoma. COMPARISON: No prior studies are available for comparison. FINDINGS: Imaging through the lung bases does show moderate-sized bilateral pleural effusions. There appears to be minimal perihepatic ascites. No discrete liver mass is identified. The gallbladder is surgically absent. Pancreas and spleen are unremarkable. No adrenal mass is detected. Low-attenuation lesion in the upper pole of the left kidney is noted, likely a cyst. Both kidneys demonstrate hydroureteronephrosis. Bladder is markedly thick walled and contains a Stephen catheter. Prostate is unremarkable, although there is a large amount of beam hardening artifact through the pelvis from patient's bilateral hip prostheses. Aorta is calcified but nonaneurysmal. There is a large stool load throughout the colon, consistent with constipation. Small bowel is normal in caliber. There is trace free fluid in the pelvis. Extensive osseous metastatic disease is noted with sclerotic lesions throughout the lower thoracic and lumbar spine as well as the bony pelvis and bilateral ribs. IMPRESSION: 1. Moderate-sized bilateral pleural effusions. 2. Trace abdominal and pelvic ascites. 3. Bilateral hydronephrosis. Bladder is diffusely thick walled but decompressed by Stephen catheter. 4. No definite evidence of abdominal or pelvic lymphadenopathy. 5. Extensive osteoblastic metastatic disease. Dictated by: Dictated on workstation # [id number] Dict: 04/18/22 1502 Trans: 04/18/22 1617 [id number] [id number] Interpreted by: LINDY FRANCISCO MD Electronically signed by: LINDY FRANCISCO MD 04/18/221616 [facility]. [place], [place] NAME: SHAVONNE CASTRO [facility] REC#: [id number] PT STATUS: ADM IN : 1940 PHYSICIAN: CARLOZ CONNELL DO ADMIT DATE: 04/15/22/[facility] Signed Date of Exam:04/18/22 ABDOMEN/KUB 1VIEW INDICATION: Constipation. History of recent prostate biopsy. FINDINGS: There is a large amount of stool throughout the colon. There is gaseous distention of proximal colon as well. The stomach and small bowel do not appear distended. No organomegaly. Gallbladder is absent. There is vascular and seminal vesicle calcification. There has been development of diffuse sclerotic lesions throughout the pelvis since 2019. IMPRESSION: 1. Findings are consistent with constipation with considerable gaseous distention of the proximal colon. 2. Diffuse sclerotic bone lesions have developed throughout the pelvis since previous exam. This pattern would be typical of metastatic prostate disease. Dictated by: Dictated on workstation # [id number] Dict: 04/18/22 1356 Trans: 04/18/221656 [id number] [id number] Interpreted by: CAITLIN MCKEON MD Electronically signed by: CAITLIN MCKEON MD 04/18/226 Assessment/Plan Assessment/Plan Assessment/Plan Constipation Prostate Cancer with osseous metastasis Acute Kidney Injury Plan Given patient's AALIYAH and inability to use magnesium citrate. Would continue using miralax. Could consider twice daily. Allow patient as much fluid as they can while on fluid restriction. Continue Suppository once daily as tolerated. Will continue to monitor patient's clinical status. As long as patient continues to not feel uncomfortable would continue with medical management of constipation at this time. NICKYCONORCAITLIN Sanches DO 04/19/22 1444: History of Present Illness History of Present Illness Time Seen by Provider: 13:01 History of Present Illness Surgery asked to consult regarding constipation. HPI: Pt states that he normally has a BM every 2-3 days; his last one was 04/06. Approximately 2 weeks ago he had a prostate biopsy done and then the next day he went to the ER because he wasn't feeling well. He was found to be in renal failure and was sent to [facility]. While he was there he had bilateral thoracentesis; "they said there was nothing in the fluid". He has had a lot of weight loss in the past couple of months. He denied any abdominal pain or abdominal distention when I asked him. He has never before had this much problem with BMs. Allergies and Home Medications Allergies Coded Allergies: codeine (Verified Allergy, Unknown, 05/08/20) Patient Home Medication List Home Medication List Reviewed: Yes Calcium Carbonate (Tums) 200 Mg Calcium (500 Mg) Tab.chew, 200 MG PO TID, (Reported) Entered as Reported by: RAYMOND GARCIA on 04/15/221452 Last Action: Reviewed Furosemide (Furosemide) 20 Mg Tablet, 20 MG PO DAILY, (Reported) Entered as Reported by: MARIALUISA SRIVASTAVA on 04/18/22 113 Last Action: Reviewed Gabapentin (Gabapentin) 100 Mg Capsule, 100 MG PO HS, (Reported) Entered as Reported by: RAYMOND GARCIA on 04/15/221452 Last Action: Reviewed Metformin HCl (Metformin HCl) 500 Mg Tablet, 500 MG PO DAILY, (Reported) Entered as Reported by: MARIALUISA SRIVASTAVA on 04/18/22 488 Last Action: Reviewed Sodium Bicarbonate (Sodium Bicarbonate) 650 Mg Tablet, 1,300 MG PO BID, (Reported) Entered as Reported by: RAYMOND GARCIA on 04/15/22 788 Last Action: Reviewed Discontinued Medications Rivaroxaban (Xarelto Tablet) 15 Mg Tablet, 15 MG PO BID Discontinued Reason: No Longer Taking Prescribed by: MEKA AGRSIA on 05/09/20 1326 Last Action: Discontinued Rivaroxaban (Xarelto Tablet) 20 Mg Tablet, 20 MG PO DAILY@1700 Discontinued Reason: No Longer Taking Prescribed by: MEKA GARSIA on 05/09/20 1326 Last Action: Discontinued Rivaroxaban (Xarelto) 15 Mg Tablet, 15 MG PO BID, (Reported) Discontinued Reason: No Longer Taking Entered as Reported by: RAYMOND GARCIA on 04/15/22 5514 Last Action: Discontinued Past Yqcdfcx-Nnpkcq-Llvzoe Hx Patient Social History Smoking Status: Former Smoker Alcohol Use?: No Seasonal Allergies Seasonal Allergies: Yes Surgeries History of Surgeries: Yes Surgeries: Appendectomy, Gallbladder, Orthopedic (shoulder, bilateral femurs), Tonsillectomy Respiratory History of Respiratory Disorde: No Cardiovascular History of Cardiac Disorders: Yes Cardiac Disorders: Atrial Fibrillation, Hypertension Neurological History of Neurological Disord: Yes Neurological Disorders: Neuropathy Genitourinary History of Genitourinary Disor: Yes Genitourinary Disorders: Benign Prostatic Hyperpl, Prostate Problems (Prostate CA), Bladder Infection, Renal Failure Gastrointestinal History of Gastrointestinal Di: Yes Gastrointestinal Disorders: Gall Bladder Disease Musculoskeletal History of Musculoskeletal Dis: Yes Musculoskeletal Disorders: Fractures Endocrine History of Endocrine Disorders: Yes Endocrine Disorders: Diabetes, Non-Insulin dep HEENT History of HEENT Disorders: No Loss of Vision: Denies Hearing Impairment: Hard of Hearing Cancer History of Cancer: Yes Cancer: Prostate (w/ osseous mets) Psychosocial History of Psychiatric Problem: No Integumentary History of Skin or Integumenta: No Family Medical History Significant Family History: Cancer (Brother - Prostate, Mother -Lung) Family Medial History: Patient reports no known family medical history. Review of Systems-General Constitutional: No chills, No diaphoresis EENTM: hearing loss (Presbycusis ); No ear pain Respiratory: No cough, No dyspnea on exertion Cardiovascular: No chest pain, No palpitations Gastrointestinal: No abdominal pain; constipation; No loss of appetite, No nausea, No vomiting Genitourinary: No discharge, No dysuria; hematuria (Dr. Gee has been consulted already on pt) Musculoskeletal: No back pain, No joint pain Skin: No pruritus, No rash Psychiatric/Neurological: Denies Anxiety, Denies Depressed Physical Exam-General Problems Physical Exam General Appearance: no apparent distress, thin Eyes: Bilateral Eye PERRL, Bilateral Eye EOMI HEENT: pharynx normal; No scleral icterus (R), No scleral icterus (L) Neck: non-tender, supple Respiratory: chest non-tender, lungs clear, normal breath sounds, no respiratory distress, no accessory muscle use Cardiovascular: regular rate, rhythm (occasional premature complex ), no murmur Gastrointestinal: no organomegaly, distended (very mildly), other (Firm, large amount of stool palpable in RLQ, moderate amount in LLQ. ) Extremities: non-tender, no calf tenderness, pedal edema (trace ) Neurologic/Psychiatric: alert, oriented x 3 Skin: normal color, warm/dry Lymphatic: no adenopathy (neck, axilla or groin) Assessment/Plan Assessment/Plan Assessment/Plan Constipation Prostate Cancer with osseous metastasis Acute Kidney Injury Plan Given patient's AALIYAH and inability to use magnesium citrate. Would continue using miralax. Could consider twice daily. Allow patient as much fluid as they can while on fluid restriction. Continue Suppository once daily as tolerated. Will continue to monitor patient's clinical status. As long as patient continues to not feel uncomfortable would continue with medical management of constipation at this time. I reviewed the CT myself and discussed the case with Dr. Connell. There is minimal stool in the rectum/sigmoid/descending colon; enemas will not help. The main concern is a possible stercoral perforation. Will monitor pt's abdominal pain and distention. Increased fluids and fiber are really the only thing to help at this point. Supervisory-Addendum Brief Verification & Attestation Participated in pt care: history, MDM, physical Personally performed: exam, history, MDM, supervision of care Care discussed with: Medical Student Procedures: n/a Verification and Attestation of Medical Student E/M Service A medical student performed and documented this service. I then reviewed and verified all information documented by the medical student and made modifications to such information, when appropriate. I personally performed a physical exam, medical decision making and then discussed any differences between the notes and made revisions as necessary to create one note. Caitlin Hanson , 04/19/22 , 14:58 ANALILIAALANAPABLO Apr 19, 2022 08:55 CAITLIN HANSON DO Apr 19, 2022 14:44
[2022-04-19] MEDS: CALCIUM CARBONATE 500 MG (TUMS) TAB.CHEW PO SCH ×3 (09:16→20:47)
[2022-04-19] MEDS: MIDODRINE 10 MG (PROAMATINE) TAB PO SCH ×3 (09:16→20:46)
--- NOTE | 2022-04-19 09:55 | Occupational Ther Daily Note ---
OT Current Status-Daily Note Subjective Pt denies pain, reports feeling "pretty good." Appearance Pt left sitting in recliner, all needs within reach at OT departure. Mental Status/Objective Patient Orientation: Person, Place, Situation Attachments: IV ADL-Treatment Therapy Code Descriptions/Definitions Functional [place] Measure: 0=Not Assessed/NA 4=Minimal Assistance 1=Total Assistance 5=Supervision or Setup 2=Maximal Assistance 6=Modified [place] 3=Moderate Assistance 7=Complete IndependenceSCALE: Activities may be completed with or without assistive devices. 2-Eelghrskbg-airhjvl completes the activity by him/herself with no assistance from a helper. 5-Set-up or Clean-up Assistance-helper sets up or cleans up; patient completes activity. [place] assists only prior to or following the activity. 4-Supervision or Touching Assistance-helper provides verbal cues and/or touching/steadying and/or contact guard assistance as patient completes activity. Assistance may be provided throughout the activity or intermittently. 3-Partial/Moderate Assistance-helper does LESS THAN HALF the effort. [place] lifts, holds or supports trunk or limbs, but provides less than half the effort. 2-Substantial/Maximal Assistance-helper does MORE THAN HALF the effort. [place] lifts or holds trunk or limbs and provides more than half the effort. 5-Hvfxchiga-uawcpe does ALL the effort. Patient does none of the effort to complete the activity. Or, the assistance of 2 or more helpers is required for the patient to complete the activity. If activity was not attempted, code reason: 7-Patient Refused. 9-Not Applicable-not attempted and the patient did not perform the activity before the current illness, exacerbation or injury. 10-Not Attempted due to Environmental Limitations-(lack of equipment, weather restraints, etc.). 88-Not Attempted due to Medical Conditions or Safety Concerns. Oral Hygiene (QC): 4 (Supervision for safety in standing) Upper Body Dressing (QC): 6 Lower Body Dressing (QC): 4 (Indep with threading BLE's and catheter bag. Supervision when standing for clothing management.) Other Treatment Pt ambulated to/from therapy gym with walker and supervision for safety. No unsteadiness observed. While in therapy gym, pt participated in several activities with goal to improve UE/core strength, endurance, and balance needed for functional tasks. Pt passed small ball around back, neck, and each LE. 2# wrist weights donned to BUE's for added strengthening component. Activity performed in both standing and sitting (passing between legs only occurred in sitting). Pt batted balloon with resisted dowel supriya. Pt also lifted medium sized yoga ball overhead, 3x10 with rest break between each set. Pt tolerates activity well but will initiate several short rest breaks throughout. Encouragement to push 2-3 more reps each set. Education OT Patient Education: Correct positioning, Energy conservation, Exercise program, Progress toward Goal/Update tx plan, Purpose of tx/functional activities Teaching Recipient: Patient Teaching Methods: Demonstration, Discussion Response to Teaching: Verbalize Understanding, Return Demonstration OT Short Term Goals Short Term Goals Time Frame: Apr 22, 2022 Eatin Oral hygiene: 5 Toileting hygiene: 4 (supervision) Shower/bathe self: 4 (supervision) Upper body dressin Lower body dressin (supervision) Putting on/taking off footwear: 5 OT Billing Typist Goals Usp Goals Time Frame: Apr 29, 2022 Acute change in mental status: 0 Inattention: 0 Disorganized thinkin Altered level of consciousness: 0 Eating (QC): 6 Oral Hygiene (QC): 6 Toileting Hygiene (QC): 6 Shower/Bathe Self (QC): 5 Upper Body Dressing (QC): 6 Lower Body Dressing (QC): 6 On/Off Footwear (QC): 6 Additional Goals: 1-Demonstrate ADL Tasks, 2-Verbalize Understanding, 3- ImproveStrength/Sylvester 1=Demonstrate adherence to instructed precautions during ADL tasks. 2=Patient will verbalize/demonstrate understanding of assistive devices/modifications for ADL. 3=Patient will improve strength/tolerance for activity to enable patient to perform ADL's. OT Education/Plan Problem List/Assessment Assessment: Decreased Activ Tolerance, Decreased UE Strength, Impaired Funct Balance, Impaired I ADL's, Impaired Self-Care Skills Discharge Recommendations Plan/Recommendations: Continue POC Treatment Plan/Plan of Care Treatment,Training & Education: Yes Patient would benefit from OT for education, treatment and training to promote independence in ADL's, mobility, safety and/or upper extremity function for ADL's. Plan of Care: ADL Retraining, Functional Mobility, Group Exercise/Act as Ind, UE Funct Exercise/Act Treatment Duration: Apr 29, 2022 Frequency: At least 5 of 7 days/Wk (IRF) Estimated Hrs Per Day: 1.5 hours per day (75-90 min/day ) Agreement: Yes Rehab Potential: Good Time Start Time: 08:55 Stop Time: 10:00 DATE: Apr 19, 2022 Total Time Billed (hr/min): 65 Billed Treatment Time 1 visit ADL (15 min) FA x2 (30 min) EX (20 min) Sylvia Cardoza OT Apr 19, 2022 09:55
--- NOTE | 2022-04-19 10:56 | Physical Therapy Daily Note ---
PT Daily Note-Current Subjective Patient in recliner pre-tx, reports no pain but some discomfort in abdomen, agrees to PT. Pain Section J - Health Conditions 1. Rarely or not at all 2. Occasionally 3. Frequently 4. Almost constantly 8. Unable to answer Pain Effect on Sleep: 1 Pain Interference with Therapy: 1 Pain Interference w/Day-to-Day: 1 Appearance Patient in recliner post-tx with nurse call, phone, tray, all needs met. Mental Status Patient Orientation: Person, Place, Situation Attachments: Stephen Catheter Transfers SCALE: Activities may be completed with or without assistive devices. 3-Cpnqpgvxox-ntkvdpp completes the activity by him/herself with no assistance from a helper. 5-Set-up or Clean-up Assistance-helper sets up or cleans up; patient completes activity. [place] assists only prior to or following the activity. 4-Supervision or Touching Assistance-helper provides verbal cues and/or touchi ng/steadying and/or contact guard assistance as patient completes activity. Assistance may be provided throughout the activity or intermittently. 3-Partial/Moderate Assistance-helper does LESS THAN HALF the effort. [place] lifts, holds or supports trunk or limbs, but provides less than half the effort. 2-Substantial/Maximal Assistance-helper does MORE THAN HALF the effort. [place] lifts or holds trunk or limbs and provides more than half the effort. 2-Qqtsnmcuv-ceogrw does ALL the effort. Patient does none of the effort to complete the activity. Or, the assistance of 2 or more helpers is required for the patient to complete the activity. If activity was not attempted, code reason: 7-Patient Refused. 9-Not Applicable-not attempted and the patient did not perform the activity before the current illness, exacerbation or injury. 10-Not Attempted due to Environmental Limitations-(lack of equipment, weather restraints, etc.). 88-Not Attempted due to Medical Conditions or Safety Concerns. Sit to Stand (QC): 4 Chair/Onp-ra-Pnbip Xfer(QC): 4 SBA with transfers Weight Bearing Right Lower Extremity: Right Full Weight Bearing Left Lower Extremity: Left Full Weight Bearing Gait Training Does the Patient Walk?: Yes Distance: 150'x2 Walk 10 feet (QC): 4 Walk 50 ft with 2 Turns(QC): 4 Walk 150 ft (QC): 4 Gait Persons Needed: 1 Gait Assistive Device: FWW SBA with ambulation, patient walks with slower gait speed, good step length, decreased foot clearance. Stair Training Stair Training: Handrails/: 2 handrails #of Steps: 8 (up and down) 1 Step (curb) (QC): 4 4 Steps (QC): 4 SBA Exercises Standing: Heel/toe raises, 3 way Ex=Flex, Abd, Ext, Marching Standing Reps: 20 NuStep Minutes: 15 NuStep Workload: 6 Treatments Stair Training, Ambulation, LE Strengthening Assessment Current Status: Fair Progress Patient has decent balance with ambulation and is able to complete standing exercises without a lot of breaks demonstrating better endurance. Patient passed a lot of gas today during standing exercises. PT Short Term Goals Short Term Goals Time Frame: Apr 22, 2022 Car transfer: 4 (SBA) Walking 10ft on uneven surface: 4 (SBA) 1 step (curb): 4 (SBA) 4 steps: 4 (SBA) Picking up objects: 4 (SBA) PT Skilled Nursing Goals Skilled Nursing Goals PT Skilled Nursing Goals Time Frame: May 06, 2022 Roll Left & Right (QC): 6 Sit to Lying (QC): 6 Lying-Sitting on Side/Bed(QC): 6 Sit to Stand (QC): 6 Chair/Lac-tc-Ehyht Xfer(QC): 6 Toilet Transfer (QC): 6 Car Transfer (QC): 6 Does the Patient Walk: Yes Walk 10 feet (QC): 6 Walk 50ft with 2 Turns (QC): 6 Walk 150 ft (QC): 6 Walking 10ft on Uneven Surface: 6 1 Step (curb) (QC): 6 4 Steps (QC): 6 12 Steps (QC): 88 Picking up an Object (QC): 6 Does the Pt use WC or Scooter?: No Wheel 50 feet with 2 turns (QC: 9 Type: N/A Wheel 150 feet: 9 Type: N/A PT Plan Problem List Problem List: Activity Tolerance, Functional Strength, Safety, Balance, Gait, Transfer, Bed Mobility, ROM Treatment/Plan Treatment Plan: Continue Plan of Care Treatment Plan: Bed Mobility, Education, Functional Activity Sylvester, Functional Strength, Group Therapy, Gait, Safety, Therapeutic Exercise, Transfers Treatment Duration: May 06, 2022 Frequency: At least 5 of 7 days/Wk (IRF) Estimated Hrs Per Day: 1.5 hours per day Patient and/or Family Agrees t: Yes Safety Risks/Education Patient Education: Gait Training, Transfer Techniques, Steps, Correct Positioning, Safety Issues Teaching Recipient: Patient Teaching Methods: Demonstration, Discussion Response to Teaching: Reinforcement Needed Time Time In: 1000 Time Out: 1100 DATE: Apr 19, 2022 Total Billed Treatment Time: 60 Total Billed Treatment 1 visit FA x2 30' EX x2 30' AIRAM DAWKINS PT Apr 19, 2022 10:56
--- NOTE | 2022-04-19 11:18 | CONSULTATION REPORT ---
DATE OF SERVICE: 04/18/2022 ATTENDING PHYSICIAN: Dr. Ortiz. SUMMARY: After reviewing the patient's record in the office, this is an 81-year-old white man that I first met a couple of weeks ago at the office for a PSA of over 100. His rectal exam revealed a hard, fixed nodular prostate. His alkaline phosphatase was over 2000. We will proceed with good biopsies of the prostate on him and they all came back aggressive cancer of the prostate. The next day, he presented to the emergency room in [place] because of nausea and not feeling well, diffuse pain and was found to have metastatic disease in his bones and bilateral ureteral obstruction and a creatinine of 5. He was transferred to [facility] under the care of Nephrology and Urology and he underwent some medical treatment, but no stents or percutaneous nephrostomy was attempted. He was sent back to the inpatient rehabilitation. I saw him today, he looked good despite all of the above. Since his CAT scan was obtained in outside of our institution, he would not have any x-rays here. We will obtain a noncontrast CT scan of the abdomen and pelvis today and manage accordingly. Plan was fully explained to the patient and his granddaughter. IMPRESSION: Cancer of the prostate advanced metastatic with bilateral ureteral obstruction and also urinary retention with a Stephen catheter. PLAN: 1. CT. 2. Flomax daily. 3. Management according to the CAT scan. Job ID: [id number] DocumentID: [id number] Dictated Date: 04/19/2022 10:26:19 Nib Assembler Date: 04/19/2022 11:15:00 Dictated By: CHRIS GEE MD
--- NOTE | 2022-04-19 11:56 | Occupational Ther Daily Note ---
OT Current Status-Daily Note Subjective Pt sleeping at OT arrival, easy to rouse, agreeable to UE exercises. Appearance Pt returned to supine in bed for nursing staff to remove catheter. Mental Status/Objective Patient Orientation: Person, Place, Situation ADL-Treatment Therapy Code Descriptions/Definitions Functional [place] Measure: 0=Not Assessed/NA 4=Minimal Assistance 1=Total Assistance 5=Supervision or Setup 2=Maximal Assistance 6=Modified [place] 3=Moderate Assistance 7=Complete IndependenceSCALE: Activities may be completed with or without assistive devices. 4-Oinmjjqids-muzfovf completes the activity by him/herself with no assistance from a helper. 5-Set-up or Clean-up Assistance-helper sets up or cleans up; patient completes activity. [place] assists only prior to or following the activity. 4-Supervision or Touching Assistance-helper provides verbal cues and/or touching/steadying and/or contact guard assistance as patient completes activity. Assistance may be provided throughout the activity or intermittently. 3-Partial/Moderate Assistance-helper does LESS THAN HALF the effort. [place] lifts, holds or supports trunk or limbs, but provides less than half the effort. 2-Substantial/Maximal Assistance-helper does MORE THAN HALF the effort. [place] lifts or holds trunk or limbs and provides more than half the effort. 2-Dxeflewur-hjknnj does ALL the effort. Patient does none of the effort to complete the activity. Or, the assistance of 2 or more helpers is required for the patient to complete the activity. If activity was not attempted, code reason: 7-Patient Refused. 9-Not Applicable-not attempted and the patient did not perform the activity before the current illness, exacerbation or injury. 10-Not Attempted due to Environmental Limitations-(lack of equipment, weather restraints, etc.). 88-Not Attempted due to Medical Conditions or Safety Concerns. Other Treatment OT issued and instructed pt on yellow theraband exercises. Pt could benefit from increased resistance (green or red) however currently no other bands available. 1x12, all planes. Min cues for proper technique and control of movement. SBA to return to bed and doff pants for catheter removal done by nursing. Education OT Patient Education: Correct positioning, Exercise program, Purpose of tx/functional activities Teaching Recipient: Patient Teaching Methods: Demonstration, Discussion Response to Teaching: Verbalize Understanding, Return Demonstration, Reinforc ement Needed OT Short Term Goals Short Term Goals Time Frame: Apr 22, 2022 Eatin Oral hygiene: 5 Toileting hygiene: 4 (supervision) Shower/bathe self: 4 (supervision) Upper body dressin Lower body dressin (supervision) Putting on/taking off footwear: 5 OT Ball Assembler Goals Assisted Goals Time Frame: Apr 29, 2022 Acute change in mental status: 0 Inattention: 0 Disorganized thinkin Altered level of consciousness: 0 Eating (QC): 6 Oral Hygiene (QC): 6 Toileting Hygiene (QC): 6 Shower/Bathe Self (QC): 5 Upper Body Dressing (QC): 6 Lower Body Dressing (QC): 6 On/Off Footwear (QC): 6 Additional Goals: 1-Demonstrate ADL Tasks, 2-Verbalize Understanding, 3- ImproveStrength/Sylvester 1=Demonstrate adherence to instructed precautions during ADL tasks. 2=Patient will verbalize/demonstrate understanding of assistive devices/modifications for ADL. 3=Patient will improve strength/tolerance for activity to enable patient to perform ADL's. OT Education/Plan Problem List/Assessment Assessment: Decreased Activ Tolerance, Decreased UE Strength, Impaired Self- Care Skills Discharge Recommendations Plan/Recommendations: Continue POC Treatment Plan/Plan of Care Treatment,Training & Education: Yes Patient would benefit from OT for education, treatment and training to promote independence in ADL's, mobility, safety and/or upper extremity function for ADL's. Plan of Care: ADL Retraining, Functional Mobility, Group Exercise/Act as Ind, UE Funct Exercise/Act Treatment Duration: Apr 29, 2022 Frequency: At least 5 of 7 days/Wk (IRF) Estimated Hrs Per Day: 1.5 hours per day (75-90 min/day ) Agreement: Yes Rehab Potential: Good Time Start Time: 11:30 Stop Time: 11:55 DATE: Apr 19, 2022 Total Time Billed (hr/min): 25 Billed Treatment Time 1 visit EX topher CardozaSylvia OT Apr 19, 2022 11:56
--- NOTE | 2022-04-19 13:53 | Physical Therapy Daily Note ---
PT Daily Note-Current Subjective Patient in bed pre-tx, reports no pain just some discomfort in abdomen, patient reported they took catheter out after lunch, had to use restroom before leaving the room, agrees to PT. Pain Section J - Health Conditions 1. Rarely or not at all 2. Occasionally 3. Frequently 4. Almost constantly 8. Unable to answer Pain Effect on Sleep: 1 Pain Interference with Therapy: 1 Pain Interference w/Day-to-Day: 1 Appearance Patient in recliner post-tx with nurse call, phone, tray, all needs met. Mental Status Patient Orientation: Person, Place, Situation Transfers SCALE: Activities may be completed with or without assistive devices. 1-Orwjlyjlvv-odmhttr completes the activity by him/herself with no assistance from a helper. 5-Set-up or Clean-up Assistance-helper sets up or cleans up; patient completes activity. [place] assists only prior to or following the activity. 4-Supervision or Touching Assistance-helper provides verbal cues and/or touching/steadying and/or contact guard assistance as patient completes activity. Assistance may be provided throughout the activity or intermittently. 3-Partial/Moderate Assistance-helper does LESS THAN HALF the effort. [place] lifts, holds or supports trunk or limbs, but provides less than half the effort. 2-Substantial/Maximal Assistance-helper does MORE THAN HALF the effort. [place] lifts or holds trunk or limbs and provides more than half the effort. 9-Rakrizngs-hyvitf does ALL the effort. Patient does none of the effort to complete the activity. Or, the assistance of 2 or more helpers is required for the patient to complete the activity. If activity was not attempted, code reason: 7-Patient Refused. 9-Not Applicable-not attempted and the patient did not perform the activity before the current illness, exacerbation or injury. 10-Not Attempted due to Environmental Limitations-(lack of equipment, weather restraints, etc.). 88-Not Attempted due to Medical Conditions or Safety Concerns. Roll Left & Right (QC): 6 Sit to Lying (QC): 6 Lying to Sitting/Side of Bed(Q: 6 Sit to Stand (QC): 4 (SBA) Chair/Mef-sw-Vrxyu Xfer(QC): 4 (SBA) Weight Bearing Right Lower Extremity: Right Full Weight Bearing Left Lower Extremity: Left Full Weight Bearing Gait Training Does the Patient Walk?: Yes Distance: 300'x2 Walk 10 feet (QC): 4 Walk 50 ft with 2 Turns(QC): 4 Walk 150 ft (QC): 4 Gait Persons Needed: 1 Gait Assistive Device: FWW SBA, patient walks with good gait speed, good foot clearance, good step length. Exercises Seated Therapy Exercises: Ankle pumps, Long arc quads, Hip flexion, Glut set Seated Reps: 20 SLR in sitting x20 Treatments Ambulation, LE Strengthening Assessment Current Status: Fair Progress Patient feeling a lot better since yesterday. Patient reported LB is feeling a lot better. Patient walking faster today and seemed less fatigued. PT Short Term Goals Short Term Goals Time Frame: Apr 22, 2022 Car transfer: 4 (SBA) Walking 10ft on uneven surface: 4 (SBA) 1 step (curb): 4 (SBA) 4 steps: 4 (SBA) Picking up objects: 4 (SBA) PT Pipe Fitter Maintenance Goals Pipe Fitter Maintenance Goals PT Halfway Goals Time Frame: May 06, 2022 Roll Left & Right (QC): 6 Sit to Lying (QC): 6 Lying-Sitting on Side/Bed(QC): 6 Sit to Stand (QC): 6 Chair/Fmc-zd-Gshbq Xfer(QC): 6 Toilet Transfer (QC): 6 Car Transfer (QC): 6 Does the Patient Walk: Yes Walk 10 feet (QC): 6 Walk 50ft with 2 Turns (QC): 6 Walk 150 ft (QC): 6 Walking 10ft on Uneven Surface: 6 1 Step (curb) (QC): 6 4 Steps (QC): 6 12 Steps (QC): 88 Picking up an Object (QC): 6 Does the Pt use WC or Scooter?: No Wheel 50 feet with 2 turns (QC: 9 Type: N/A Wheel 150 feet: 9 Type: N/A PT Plan Problem List Problem List: Activity Tolerance, Functional Strength, Safety, Balance, Gait Treatment/Plan Treatment Plan: Continue Plan of Care Treatment Plan: Bed Mobility, Education, Functional Activity Sylvester, Functional Strength, Group Therapy, Gait, Safety, Therapeutic Exercise, Transfers Treatment Duration: May 06, 2022 Frequency: At least 5 of 7 days/Wk (IRF) Estimated Hrs Per Day: 1.5 hours per day Patient and/or Family Agrees t: Yes Safety Risks/Education Patient Education: Gait Training, Transfer Techniques, Correct Positioning, Safety Issues Teaching Recipient: Patient Teaching Methods: Demonstration, Discussion Response to Teaching: Verbalize Understanding Time Time In: 1315 Time Out: 1345 DATE: Apr 19, 2022 Total Billed Treatment Time: 30 Total Billed Treatment 1 visit EX 15' FA 15' MELLISA BILLY PT Apr 19, 2022 13:53
[2022-04-19] MEDS: TAMSULOSIN 0.4 MG (FLOMAX) CAP PO SCH (19:25)
[2022-04-19 19:52] VITALS: BP 112/60
[2022-04-19] MEDS: GABAPENTIN 100 MG (NEURONTIN) CAP PO SCH (20:46)
[2022-04-20] VITALS (7 sets, daily range): BP systolic 90–100; BP diastolic 53–59
--- NOTE | 2022-04-20 05:28 | PM&R Progress Note ---
Subjective HPI/CC On Admission Date Seen by Provider: Apr 20, 2022 Time Seen by Provider: 13:00 Subjective/Events-last exam 04/20/2022: No major issues reported Dr Thomas did see him after Dr Hui conferred with him and he will be treated in [place] Bone scan and PSA will be obtained for Dr Thomas Had cysto per Dr Hui 04/19/2022: Patient still with no BM Consulting Dr Smith Ate 100% bfast Orthostasis noted Urology consult will speak to Dr Thomas 04/18/2022: Still no BM Soapsuds enema produced a lot of gas with minimal stool Hemoglobin 8.2 KUB shows constipation Holding heparin due to hematuria and hematochezia Creatinine 2.9 Urology consulted We will consult Dr. Smith 04/17/2022: Improved today No pain reported Sleeping currently Hematuria and Hematochezie precluding heparin for DVT PPx although he is at high risk 04/16/2022: Doing well No BM for 10 days now and refuses suppository and SSE Talked to him about the plan for bowels Creat 2.6 Calcium 8.2 corrected No pain reported Review of Systems General: Fatigue, Malaise Gastrointestinal: Constipation Objective Exam Vital Signs Vital Signs Date Time Temp Pulse Resp B/P (MAP) Pulse Ox O2 Delivery O2 Flow Rate FiO2 04/20/22 12:31 36.3 83 18 95/53 (67) 99 Room Air Capillary Refill : General Appearance: No Apparent Distress, WD/WN, Chronically ill, Other (Very debilitated) HEENT: PERRL/EOMI, Normal ENT Inspection, Pharynx Normal Neck: Full Range of Motion, Normal Inspection, Non Tender, Supple, Carotid Bruit Respiratory: Chest Non Tender, Lungs Clear, No Accessory Muscle Use, No Respiratory Distress, Decreased Breath Sounds Cardiovascular: Regular Rate, Rhythm, No Edema, No Gallop, No JVD, No Murmur, Normal Peripheral Pulses Gastrointestinal: Normal Bowel Sounds, No Organomegaly, No Pulsatile Mass, Non Tender, Soft Back: Normal Inspection, No CVA Tenderness, No Vertebral Tenderness Extremity: Normal Capillary Refill, Normal Inspection, Normal Range of Motion, Non Tender, No Calf Tenderness, No Pedal Edema Neurologic/Psychiatric: Alert, Oriented x3, Normal Mood/Affect, stenotype operator II-XII Norm as Tested, Abnormal Gait, Motor Weakness Skin: Normal Color, Warm/Dry Lymphatic: No Adenopathy Results/Procedures Lab Patient resulted labs reviewed. FIM Transfers Therapy Code Descriptions/Definitions Functional [place] Measure: 0=Not Assessed/NA 4=Minimal Assistance 1=Total Assistance 5=Supervision or Setup 2=Maximal Assistance 6=Modified [place] 3=Moderate Assistance 7=Complete IndependenceSCALE: Activities may be completed with or without assistive devices. 0-Fmewawvjpy-cbfegnc completes the activity by him/herself with no assistance from a helper. 5-Set-up or Clean-up Assistance-helper sets up or cleans up; patient completes activity. [place] assists only prior to or following the activity. 4-Supervision or Touching Assistance-helper provides verbal cues and/or touching/steadying and/or contact guard assistance as patient completes activity. Assistance may be provided throughout the activity or intermittently. 3-Partial/Moderate Assistance-helper does LESS THAN HALF the effort. [place] lifts, holds or supports trunk or limbs, but provides less than half the effort. 2-Substantial/Maximal Assistance-helper does MORE THAN HALF the effort. [place] lifts or holds trunk or limbs and provides more than half the effort. 9-Lngpzouwl-znsetm does ALL the effort. Patient does none of the effort to complete the activity. Or, the assistance of 2 or more helpers is required for the patient to complete the activity. If activity was not attempted, code reason: 7-Patient Refused. 9-Not Applicable-not attempted and the patient did not perform the activity before the current illness, exacerbation or injury. 10-Not Attempted due to Environmental Limitations-(lack of equipment, weather restraints, etc.). 88-Not Attempted due to Medical Conditions or Safety Concerns. Roll Left to Right (QC): 6 Sit to Lying (QC): 6 Sit to Stand (QC): 4 (SBA) Chair/Guk-xe-Narxn Xfer(QC): 4 (SBA) Car Transfer (QC): 4 (CGA) Gait Training Does the Patient Walk?: Yes Distance: 300'x2 Walk 10 feet (QC): 4 Walk 50 ft with 2 Turns(QC): 4 Walk 150 ft (QC): 4 Walking 10ft/uneven surface-QC: 4 (CGA) Gait Persons Needed: 1 Gait Assistive Device: FWW Wheelchair Training Does the Pt Use a Wheelchair?: No Wheel 50 ft with 2 turns (QC): 9 Wheel 150 ft (QC): 9 Type of Wheelchair: N/A Stair Training Stair Training: Handrails/: 2 handrails #of Steps: 8 (up and down) 1 Step (curb) (QC): 4 4 Steps (QC): 4 12 Steps (QC): 88 Balance Picking up an Object (QC): 4 (CGA, using clay dry press mixer operator) ADL-Treatment Eating (QC): 6 Oral Hygiene (QC): 4 (Supervision for safety in standing) Shower/Bathe Self (QC): 5 (set up) Upper Body Dressing (QC): 6 Lower Body Dressing (QC): 4 (Indep with threading BLE's and catheter bag. Supervision when standing for clothing management.) On/Off Footwear (QC): 3 (Min A with donning R gripper sock.) Toileting Hygiene (QC): 4 (SBA ) Assessment/Plan Assessment and Plan Assess & Plan/Chief Complaint A: Debility CKD Severe hypocalcemia AALIYAH Abdominal aortic aneurysm new diagnosis on CT N/V Anemia Chronic A. fib only on aspirin Diabetes Prostate cancer with metastatic disease Pleural effusion status post thoracentesis on 04/14/2022 Pericardial effusion Urinary retention remains with Stephen catheter Hematuria and hematochezia holding Heparin 04/17/22 Severe constipation requiring consult Dr Smith 04/19/22 Orthostasis-started Midodrine 04/19/22 P: PT/OT Monitor BUN and creatinine Antiemetics as needed Pain control as needed Monitor Hg, transfuse as needed Hold metformin and lasix until renal function improves Refer for oncology, patient prefers Dr. Thomas 04/16/2022: Aggressive bowel regimen Continue TUMS for calcium 04/17/2022: Check labs in am Monitor closely Hold Heparin 04/18/2022: Hold heparin Supportive care Bowel regimen 04/19/2022: Bowel regimen Consult Dr Smith 04/20/2022: Appreciate Dr Thomas (1) Prostate cancer metastatic to bone (2) Pleural effusion (3) Abdominal aortic aneurysm (AAA) greater than 39 mm in diameter (4) Pericardial effusion (5) Atrial fibrillation (6) Chronic kidney disease (7) Hypocalcemia (8) Anemia (9) Metabolic acidosis CARLOZ CONNELL DO Apr 20, 2022 05:28
[2022-04-20] MEDS: PANTOPRAZOLE 40 MG (PROTONIX) TAB PO SCH (05:59)
--- NOTE | 2022-04-20 08:17 | Progress Note - Surgery ---
PABLO BILLINGSLEY 04/20/22 0817: Subjective Date Seen by a Provider: Apr 20, 2022 Time Seen by a Provider: 07:20 Subjective/Events-last exam Patient resting in bed. States no BM yesterday evening or overnight. Still no discomfort or distention. Patient is having uretral stent placement with Dr. Janak escalante today. Review of Systems General: No Chills, No Night Sweats HEENT: No Head Aches, No Visual Changes Pulmonary: No Dyspnea, No Cough Cardiovascular: No: Chest Pain, Palpitations Gastrointestinal: No: Nausea, Vomiting, Abdominal Pain Genitourinary: No Hematuria; Retention Neurological: Weakness (generalized weakness, but no acute changes ); No: Numbness Objective Exam Vital Signs Date Time Temp Pulse Resp B/P (MAP) Pulse Ox O2 Delivery O2 Flow Rate FiO2 04/20/22 07:20 36.8 88 18 90/53 (65) 93 Room Air 04/20/22 04:30 37.4 90 16 95/55 (68) 96 Room Air 04/20/22 00:46 36.1 86 18 90/53 (65) 94 Room Air 04/19/22 21:00 Room Air 04/19/22 19:52 37.3 86 16 112/60 (77) 97 Room Air 04/19/22 09:00 Room Air I & O 04/20/22 07:00 Intake Total 740 ml Output Total 675 ml Balance 65 ml Capillary Refill : General Appearance: No Apparent Distress, Chronically ill, Other (Very debilitated) HEENT: PERRL/EOMI Neck: Non Tender, Supple, Carotid Bruit Respiratory: Lungs Clear, No Accessory Muscle Use, No Respiratory Distress, Decreased Breath Sounds (prolonged expiratory phase ) Cardiovascular: Regular Rate, Rhythm, No Gallop, No Murmur Gastrointestinal: non tender, no organomegaly, other (Firm, large amount of stool palpable in RLQ. Some stool palpable in the LLQ. No change since yesterday ) Extremity: Non Tender, No Calf Tenderness, No Pedal Edema Neurologic/Psychiatric: Alert, Oriented x3, Normal Mood/Affect Skin: Normal Color, Warm/Dry Assessment/Plan Assessment/Plan Assessment/Plan Constipation - Ileus vs Slow-Transit vs Yousuf's vs Synergistic Prostate Cancer with osseous metastasis Acute Kidney Injury Plan Miralax daily Maximize fluids Suppository daily as tolerated Continue to monitor. I reviewed the CT myself and discussed the case with Dr. Ortiz. There is minimal stool in the rectum/sigmoid/descending colon; enemas will not help. The main concern is a possible stercoral perforation. Patient is not having any pain at this time. Will monitor patient's clinical and abdominal status closely after his procedure, as patient already has slow-transit vs Yousuf's vs both causes of constipation. At this time still feel that medical management is the best path forward. If patient begins experiencing pain or worsening distention can become more aggressive with treatment, as needed. CAITLIN HANSON DO 04/20/22 1030: Subjective Time Seen by a Provider: 08:38 Subjective/Events-last exam Pt seen and examined, he denies any pain or problems with abdomen. However, he still has not had a BM. Review of Systems General: No Chills, No Night Sweats Pulmonary: No Dyspnea, No Cough Cardiovascular: No: Chest Pain, Palpitations Gastrointestinal: No: Nausea, Vomiting, Abdominal Pain Objective Exam General Appearance: No Apparent Distress, Chronically ill HEENT: PERRL/EOMI Respiratory: Lungs Clear, No Accessory Muscle Use, No Respiratory Distress, Decreased Breath Sounds (prolonged expiratory phase ) Cardiovascular: Regular Rate, Rhythm, No Murmur Gastrointestinal: non tender, no organomegaly, other (Firm, large amount of stool palpable in RLQ. Some stool palpable in the LLQ. No change since yesterday ) Neurologic/Psychiatric: Alert, Oriented x3, Normal Mood/Affect Skin: Normal Color, Warm/Dry Assessment/Plan Assessment/Plan Assessment/Plan Constipation - Ileus vs Slow-Transit vs [place]'s vs Synergistic Prostate Cancer with osseous metastasis Acute Kidney Injury Plan Miralax daily Maximize fluids Suppository daily as tolerated Continue to monitor. There is minimal stool in the rectum/sigmoid/descending colon; enemas will not help. The main concern is a possible stercoral perforation. Patient is not having any pain at this time. Will monitor patient's clinical and abdominal status closely after his procedure, as patient already has slow-transit vs Yousuf's vs both causes of constipation. At this time still feel that medical management is the best path forward. If patient begins experiencing pain or worsening distention can become more aggressive with treatment, as needed. Will monitor pt every other day unless he begins having abdominal pain. Supervisory-Addendum Brief Verification & Attestation Participated in pt care: history, MDM, physical Personally performed: exam, history, MDM, supervision of care Care discussed with: Medical Student Procedures: n/a Verification and Attestation of Medical Student E/M Service A medical student performed and documented this service. I then reviewed and verified all information documented by the medical student and made modifications to such information, when appropriate. I personally performed a physical exam, medical decision making and then discussed any differences between the notes and made revisions as necessary to create one note. Caitlin Hanson , 04/20/22 , 10:30 PABLO BILLINGSLEY Apr 20, 2022 08:17 CAITLIN HANSON DO Apr 20, 2022 10:30
[2022-04-20] MEDS: CALCIUM CARBONATE 500 MG (TUMS) TAB.CHEW PO SCH ×3 (09:00→21:06)
[2022-04-20] MEDS: MIDODRINE 10 MG (PROAMATINE) TAB PO SCH ×3 (09:00→21:06)
--- NOTE | 2022-04-20 09:46 | Occupational Ther Daily Note ---
OT Current Status-Daily Note Subjective Pt denies pain, reports surgery later today. Appearance Pt returned to sitting in recliner, all needs within reach at OT departure. Mental Status/Objective Patient Orientation: Person, Place, Situation ADL-Treatment Therapy Code Descriptions/Definitions Functional [place] Measure: 0=Not Assessed/NA 4=Minimal Assistance 1=Total Assistance 5=Supervision or Setup 2=Maximal Assistance 6=Modified [place] 3=Moderate Assistance 7=Complete IndependenceSCALE: Activities may be completed with or without assistive devices. 8-Acjoxdveyg-jwqksfc completes the activity by him/herself with no assistance from a helper. 5-Set-up or Clean-up Assistance-helper sets up or cleans up; patient completes activity. [place] assists only prior to or following the activity. 4-Supervision or Touching Assistance-helper provides verbal cues and/or touching/steadying and/or contact guard assistance as patient completes activity. Assistance may be provided throughout the activity or intermittently. 3-Partial/Moderate Assistance-helper does LESS THAN HALF the effort. [place] lifts, holds or supports trunk or limbs, but provides less than half the effort. 2-Substantial/Maximal Assistance-helper does MORE THAN HALF the effort. [place] lifts or holds trunk or limbs and provides more than half the effort. 5-Gvlaktjsj-xaawue does ALL the effort. Patient does none of the effort to complete the activity. Or, the assistance of 2 or more helpers is required for the patient to complete the activity. If activity was not attempted, code reason: 7-Patient Refused. 9-Not Applicable-not attempted and the patient did not perform the activity before the current illness, exacerbation or injury. 10-Not Attempted due to Environmental Limitations-(lack of equipment, weather restraints, etc.). 88-Not Attempted due to Medical Conditions or Safety Concerns. Eating (QC): 6 Oral Hygiene (QC): 6 Shower/Bathe Self (QC): 6 Upper Body Dressing (QC): 6 Lower Body Dressing (QC): 6 On/Off Footwear: 6 Toileting Hygiene (QC): 6 Toilet Transfer (QC): 6 Pt able to complete all adls independently. Education/reminders on energy conservation strategies he can utilize post discharge as he does continue to fatigue after minimal activity. Other Treatment Pt stood to play [employer] card game. Focus on improving endurance, activity/standing tolerance, balance, and problem solving. Pt able to tolerate ~6 minutes of standing before needing to sit and rest. He does require intermittent single UE support on walker/table as fatigue increases. Post instruction on rules, pt able to play without cues. Pt ambulated throughout unit, ~150 feet each bout before needing a sitting rest break. He does have a tendency to push heavily through UE's, cues/education on reducing tension t hrough arms/shoulders. Education OT Patient Education: Energy conservation, Purpose of tx/functional activities, Safety issues Teaching Recipient: Patient Teaching Methods: Discussion Response to Teaching: Verbalize Understanding, Return Demonstration OT Short Term Goals Short Term Goals Time Frame: Apr 22, 2022 Eatin Oral hygiene: 5 Toileting hygiene: 4 (supervision) Shower/bathe self: 4 (supervision) Upper body dressin Lower body dressin (supervision) Putting on/taking off footwear: 5 OT Gericare Aide Teacher Goals Gericare Aide Teacher Goals Time Frame: Apr 29, 2022 Acute change in mental status: 0 Inattention: 0 Disorganized thinkin Altered level of consciousness: 0 Eating (QC): 6 Oral Hygiene (QC): 6 Toileting Hygiene (QC): 6 Shower/Bathe Self (QC): 5 Upper Body Dressing (QC): 6 Lower Body Dressing (QC): 6 On/Off Footwear (QC): 6 Additional Goals: 1-Demonstrate ADL Tasks, 2-Verbalize Understanding, 3-ImproveStrength/Sylvester 1=Demonstrate adherence to instructed precautions during ADL tasks. 2=Patient will verbalize/demonstrate understanding of assistive devices/modifications for ADL. 3=Patient will improve strength/tolerance for activity to enable patient to perform ADL's. OT Education/Plan Problem List/Assessment Assessment: Decreased Activ Tolerance, Decreased UE Strength, Impaired Funct Balance, Impaired I ADL's Discharge Recommendations Plan/Recommendations: Continue POC Therapy Discharge Recommendati: Home & Family Treatment Plan/Plan of Care Treatment,Training & Education: Yes Patient would benefit from OT for education, treatment and training to promote independence in ADL's, mobility, safety and/or upper extremity function for ADL's. Plan of Care: ADL Retraining, Functional Mobility, Group Exercise/Act as Ind, UE Funct Exercise/Act Treatment Duration: Apr 29, 2022 Frequency: At least 5 of 7 days/Wk (IRF) Estimated Hrs Per Day: 1.5 hours per day (75-90 min/day ) Agreement: Yes Rehab Potential: Good Time Start Time: 08:15 Stop Time: 09:45 DATE: Apr 20, 2022 Total Time Billed (hr/min): 90 Billed Treatment Time 1 visit ADL x3 (45 min) FA x3 (45 min) Sylvia Cardoza OT Apr 20, 2022 09:46
--- NOTE | 2022-04-20 10:50 | Physical Therapy Daily Note ---
PT Daily Note-Current Subjective Pt. delightful and agrees to rx, grandayla joins us for Rx, Pt. expecting surg at 1pm for placement of stents in ureter. Pt. shares during Rx that he has lost his and all his children except and son he will live with who he and his had adopted. No c/o pain or any discomfort. Pain Location: No Pain Reported Section J - Health Conditions 1. Rarely or not at all 2. Occasionally 3. Frequently 4. Almost constantly 8. Unable to answer Pain Effect on Sleep: 1 Pain Interference with Therapy: 1 Pain Interference w/Day-to-Day: 1 Mental Status Patient Orientation: Normal For Age Transfers SCALE: Activities may be completed with or without assistive devices. 7-Bwhbmxsikr-hqpezie completes the activity by him/herself with no assistance from a helper. 5-Set-up or Clean-up Assistance-helper sets up or cleans up; patient completes activity. [place] assists only prior to or following the activity. 4-Supervision or Touching Assistance-helper provides verbal cues and/or touching/steadying and/or contact guard assistance as patient completes activity. Assistance may be provided throughout the activity or intermittently. 3-Partial/Moderate Assistance-helper does LESS THAN HALF the effort. [place] lifts, holds or supports trunk or limbs, but provides less than half the effort. 2-Substantial/Maximal Assistance-helper does MORE THAN HALF the effort. [place] lifts or holds trunk or limbs and provides more than half the effort. 3-Bxqdwxdgx-rolefu does ALL the effort. Patient does none of the effort to complete the activity. Or, the assistance of 2 or more helpers is required for the patient to complete the activity. If activity was not attempted, code reason: 7-Patient Refused. 9-Not Applicable-not attempted and the patient did not perform the activity before the current illness, exacerbation or injury. 10-Not Attempted due to Environmental Limitations-(lack of equipment, weather restraints, etc.). 88-Not Attempted due to Medical Conditions or Safety Concerns. Roll Left & Right (QC): 6 Sit to Lying (QC): 6 Lying to Sitting/Side of Bed(Q: 6 Sit to Stand (QC): 6 Chair/Scl-ss-Nisrk Xfer(QC): 6 Weight Bearing Right Lower Extremity: Right Full Weight Bearing Left Lower Extremity: Left Full Weight Bearing Gait Training Does the Patient Walk?: Yes Walk 10 feet (QC): 6 Walk 50 ft with 2 Turns(QC): 6 Walk 150 ft (QC): 6 Gait Assistive Device: FWW [id number], [id number], carpet, tile many turns left and right ,FWW SBA no LOB or incident Exercises Seated Therapy Exercises: Ankle pumps, Sit to stand, Long arc quads, Hip flexion, Hip abd/add Seated Reps: 20 NuStep Minutes: 10 NuStep Workload: 4 Treatments it was understood by this COSMETOLOGY INSTRUCTOR and the pt. that pts surgical procedure was scheduled for 1pm therefore pt. was scheduled for PT from 10:00 to 11:30 am to complete his required PT mins however surgery was moved up and pt. was called to prepare and leave for surg at 1045. During Rx pt. diid seated LE ex, Nustep, gait in carpet and tile with FWW and TRFs Assessment Current Status: Good Progress PT Short Term Goals Short Term Goals Time Frame: Apr 22, 2022 Car transfer: 4 (SBA) Walking 10ft on uneven surface: 4 (SBA) 1 step (curb): 4 (SBA) 4 steps: 4 (SBA) Picking up objects: 4 (SBA) PT Group Home Goals Group Home Goals PT Spring Tester Goals Time Frame: May 06, 2022 Roll Left & Right (QC): 6 Sit to Lying (QC): 6 Lying-Sitting on Side/Bed(QC): 6 Sit to Stand (QC): 6 Chair/Nwk-ot-Vcgqn Xfer(QC): 6 Toilet Transfer (QC): 6 Car Transfer (QC): 6 Does the Patient Walk: Yes Walk 10 feet (QC): 6 Walk 50ft with 2 Turns (QC): 6 Walk 150 ft (QC): 6 Walking 10ft on Uneven Surface: 6 1 Step (curb) (QC): 6 4 Steps (QC): 6 12 Steps (QC): 88 Picking up an Object (QC): 6 Does the Pt use WC or Scooter?: No Wheel 50 feet with 2 turns (QC: 9 Type: N/A Wheel 150 feet: 9 Type: N/A PT Plan Treatment/Plan Treatment Plan: Continue Plan of Care Treatment Plan: Bed Mobility, Education, Functional Activity Sylvester, Functional Strength, Group Therapy, Gait, Safety, Therapeutic Exercise, Transfers Treatment Duration: May 06, 2022 Frequency: At least 5 of 7 days/Wk (IRF) Estimated Hrs Per Day: 1.5 hours per day Patient and/or Family Agrees t: Yes Safety Risks/Education Patient Education: Gait Training, Transfer Techniques Time Time In: 1000 Time Out: 1045 DATE: Apr 20, 2022 Total Billed Treatment Time: 45 Total Billed Treatment 1,GT20m,FA10m,EX15m DENNIS LOU COSMETOLOGY INSTRUCTOR Apr 20, 2022 10:50
[2022-04-20] MEDS ORDERED: ONDANSETRON 4 MG/2 ML (SDV) Z0FRAN ONE (11:04)
[2022-04-20] MEDS ORDERED: fentaNYL INJ 100 MCG/2 ML AMP ONE (11:04)
[2022-04-20] MEDS ORDERED: proPOfol 200 MG/20 ML (DIPRIVAN) VIAL IV ONE (11:04)
[2022-04-20] MEDS ORDERED: LIDOCAINE PF 2% 5 ML (XYLOCAINE) VIAL ONE (11:04)
[2022-04-20] MEDS ORDERED: PHENYLEPHRINE 100 MCG/ML 10 ML (ANESTHESIA) SYR ONE (11:13)
[2022-04-20] MEDS: DOCUSATE SODIUM 100 MG (COLACE) CAP PO SCH ×2 (12:55→21:06)
[2022-04-20] MEDS: SENNA W/DOCUSATE (SENOKOT S) TABLET PO SCH ×2 (12:55→21:06)
[2022-04-20] MEDS: SODIUM BICARBONATE 650 MG TABLET PO SCH ×2 (12:55→21:06)
[2022-04-20] MEDS: polyethylene glycoL POWDER 17 GM (MIRALAX) PACK PO SCH ×2 (12:56→21:15)
--- NOTE | 2022-04-20 14:40 | Physical Therapy Daily Note ---
PT Daily Note-Current Subjective Pt. in bed with family at bedside very attentive. Pt. agrees to try a little activity and shares he would agree to get up in recliner, walk a little and would like to get dressed. Pt. denies any pain or discomfort Pain Location: No Pain Reported Section J - Health Conditions 1. Rarely or not at all 2. Occasionally 3. Frequently 4. Almost constantly 8. Unable to answer Pain Effect on Sleep: 1 Pain Interference with Therapy: 1 Pain Interference w/Day-to-Day: 1 Appearance noted very bloody urine in urinal and very bloody linen in bed under pt. Mental Status Patient Orientation: Normal For Age Attachments: IV Transfers SCALE: Activities may be completed with or without assistive devices. 7-Llzcdrmeka-xuctqoy completes the activity by him/herself with no assistance from a helper. 5-Set-up or Clean-up Assistance-helper sets up or cleans up; patient completes activity. [place] assists only prior to or following the activity. 4-Supervision or Touching Assistance-helper provides verbal cues and/or touching/steadying and/or contact guard assistance as patient completes activity. Assistance may be provided throughout the activity or intermittently. 3-Partial/Moderate Assistance-helper does LESS THAN HALF the effort. [place] lifts, holds or supports trunk or limbs, but provides less than half the effort. 2-Substantial/Maximal Assistance-helper does MORE THAN HALF the effort. [place] lifts or holds trunk or limbs and provides more than half the effort. 1-Ayoyxxrbi-roshhr does ALL the effort. Patient does none of the effort to complete the activity. Or, the assistance of 2 or more helpers is required for the patient to complete the activity. If activity was not attempted, code reason: 7-Patient Refused. 9-Not Applicable-not attempted and the patient did not perform the activity before the current illness, exacerbation or injury. 10-Not Attempted due to Environmental Limitations-(lack of equipment, weather restraints, etc.). 88-Not Attempted due to Medical Conditions or Safety Concerns. Roll Left & Right (QC): 6 Lying to Sitting/Side of Bed(Q: 6 Sit to Stand (QC): 6 Chair/Kyq-zx-Pukdp Xfer(QC): 6 Weight Bearing Right Lower Extremity: Right Full Weight Bearing Left Lower Extremity: Left Full Weight Bearing Gait Training Does the Patient Walk?: Yes Walk 10 feet (QC): 4 Gait Persons Needed: 1 Gait Assistive Device: FWW gait bed to chair CGA and assist IV . Exercises Supine Ex: Ankle pumps, Heel Slides, Hip abd/add Supine Reps: 10 Seated Therapy Exercises: Sit to stand, Long arc quads, Hip flexion Seated Reps: 10 Treatments pt. rolled and TRFd sup to sit indep, at EOB, pt was assisted to stand to urinate in urinal , very bloody , pt. was assisted to doff gown , was cleaned in [place] area large amount dried blood, clean brief donned, sweat pants donned as well. pt. was assisted in ordering a meal . Pt. ambulated with FWW 20 ft in room bed to recliner CGA and was assisted for comfort in chair, seated LE ex x 10, meal delivered. ahuja at hand , concerned family members entering room . 200 cc urine emptied and recorded from urinal Assessment Current Status: Fair Progress limited activity , post procedure PT Short Term Goals Short Term Goals Time Frame: Apr 22, 2022 Car transfer: 4 (SBA) Walking 10ft on uneven surface: 4 (SBA) 1 step (curb): 4 (SBA) 4 steps: 4 (SBA) Picking up objects: 4 (SBA) PT Skilled Nursing Goals Director Of Enrollment Goals PT Skilled Nursing Goals Time Frame: May 06, 2022 Roll Left & Right (QC): 6 Sit to Lying (QC): 6 Lying-Sitting on Side/Bed(QC): 6 Sit to Stand (QC): 6 Chair/Wde-md-Jtjgh Xfer(QC): 6 Toilet Transfer (QC): 6 Car Transfer (QC): 6 Does the Patient Walk: Yes Walk 10 feet (QC): 6 Walk 50ft with 2 Turns (QC): 6 Walk 150 ft (QC): 6 Walking 10ft on Uneven Surface: 6 1 Step (curb) (QC): 6 4 Steps (QC): 6 12 Steps (QC): 88 Picking up an Object (QC): 6 Does the Pt use WC or Scooter?: No Wheel 50 feet with 2 turns (QC: 9 Type: N/A Wheel 150 feet: 9 Type: N/A PT Plan Treatment/Plan Treatment Plan: Continue Plan of Care Treatment Plan: Bed Mobility, Education, Functional Activity Sylvester, Functional Strength, Group Therapy, Gait, Safety, Therapeutic Exercise, Transfers Treatment Duration: May 06, 2022 Frequency: At least 5 of 7 days/Wk (IRF) Estimated Hrs Per Day: 1.5 hours per day Patient and/or Family Agrees t: Yes Safety Risks/Education Patient Education: Gait Training, Transfer Techniques, Correct Positioning, Disease Process, Safety Issues Teaching Recipient: Patient Response to Teaching: Reinforcement Needed Time Time In: 1350 Time Out: 1435 DATE: Apr 20, 2022 Total Billed Treatment Time: 45 Total Billed Treatment 1,FA45m DENNIS LOU STEAM TURBINE ASSEMBLER Apr 20, 2022 14:40
[2022-04-20] MEDS: TAMSULOSIN 0.4 MG (FLOMAX) CAP PO SCH (18:19)
[2022-04-20] MEDS: GABAPENTIN 100 MG (NEURONTIN) CAP PO SCH (21:06)
--- NOTE | 2022-04-21 05:12 | PM&R Progress Note ---
Subjective HPI/CC On Admission Date Seen by Provider: Apr 21, 2022 Time Seen by Provider: 11:00 Subjective/Events-last exam 04/21/2022: Patient doing well Pain controlled Voiding well since catheter DC DC on 04/20/2022: No major issues reported Dr Thomas did see him after Dr Hui conferred with him and he will be treated in [place] Bone scan and PSA will be obtained for Dr Thomas Had cysto per Dr Hui 04/19/2022: Patient still with no BM Consulting Dr Smith Ate 100% bfast Orthostasis noted Urology consult will speak to Dr Thomas 04/18/2022: Still no BM Soapsuds enema produced a lot of gas with minimal stool Hemoglobin 8.2 KUB shows constipation Holding heparin due to hematuria and hematochezia Creatinine 2.9 Urology consulted We will consult Dr. Smith 04/17/2022: Improved today No pain reported Sleeping currently Hematuria and Hematochezie precluding heparin for DVT PPx although he is at high risk 04/16/2022: Doing well No BM for 10 days now and refuses suppository and SSE Talked to him about the plan for bowels Creat 2.6 Calcium 8.2 corrected No pain reported Review of Systems General: Fatigue, Malaise Gastrointestinal: Constipation Objective Exam Vital Signs Vital Signs Date Time Temp Pulse Resp B/P (MAP) Pulse Ox O2 Delivery O2 Flow Rate FiO2 04/21/22 10:13 Room Air 04/21/22 07:12 37.0 98 18 105/61 (76) 98 Capillary Refill : General Appearance: No Apparent Distress, WD/WN, Chronically ill, Other (Very debilitated) HEENT: PERRL/EOMI, Normal ENT Inspection, Pharynx Normal Neck: Full Range of Motion, Normal Inspection, Non Tender, Supple, Carotid Bruit Respiratory: Chest Non Tender, Lungs Clear, No Accessory Muscle Use, No Respiratory Distress, Decreased Breath Sounds Cardiovascular: Regular Rate, Rhythm, No Edema, No Gallop, No JVD, No Murmur, Normal Peripheral Pulses Gastrointestinal: Normal Bowel Sounds, No Organomegaly, No Pulsatile Mass, Non Tender, Soft Back: Normal Inspection, No CVA Tenderness, No Vertebral Tenderness Extremity: Normal Capillary Refill, Normal Inspection, Normal Range of Motion, Non Tender, No Calf Tenderness, No Pedal Edema Neurologic/Psychiatric: Alert, Oriented x3, Normal Mood/Affect, 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 FIM Transfers Therapy Code Descriptions/Definitions Functional [place] Measure: 0=Not Assessed/NA 4=Minimal Assistance 1=Total Assistance 5=Supervision or Setup 2=Maximal Assistance 6=Modified [place] 3=Moderate Assistance 7=Complete IndependenceSCALE: Activities may be completed with or without assistive devices. 2-Lfigrvnxrr-isuqltt completes the activity by him/herself with no assistance from a helper. 5-Set-up or Clean-up Assistance-helper sets up or cleans up; patient completes a ctivity. [place] assists only prior to or following the activity. 4-Supervision or Touching Assistance-helper provides verbal cues and/or touching/steadying and/or contact guard assistance as patient completes activity. Assistance may be provided throughout the activity or intermittently. 3-Partial/Moderate Assistance-helper does LESS THAN HALF the effort. [place] lifts, holds or supports trunk or limbs, but provides less than half the effort. 2-Substantial/Maximal Assistance-helper does MORE THAN HALF the effort. [place] lifts or holds trunk or limbs and provides more than half the effort. 0-Broksjsii-hqqtsn does ALL the effort. Patient does none of the effort to complete the activity. Or, the assistance of 2 or more helpers is required for the patient to complete the activity. If activity was not attempted, code reason: 7-Patient Refused. 9-Not Applicable-not attempted and the patient did not perform the activity before the current illness, exacerbation or injury. 10-Not Attempted due to Environmental Limitations-(lack of equipment, weather restraints, etc.). 88-Not Attempted due to Medical Conditions or Safety Concerns. Roll Left to Right (QC): 6 Sit to Lying (QC): 6 Sit to Stand (QC): 6 Chair/Kbp-ad-Lqwau Xfer(QC): 6 Car Transfer (QC): 4 (CGA) Gait Training Does the Patient Walk?: Yes Distance: 300'x2 Walk 10 feet (QC): 4 Walk 50 ft with 2 Turns(QC): 6 Walk 150 ft (QC): 6 Walking 10ft/uneven surface-QC: 4 (CGA) Gait Persons Needed: 1 Gait Assistive Device: FWW Wheelchair Training Does the Pt Use a Wheelchair?: No Wheel 50 ft with 2 turns (QC): 9 Wheel 150 ft (QC): 9 Type of Wheelchair: N/A Stair Training Stair Training: Handrails/: 2 handrails #of Steps: 8 (up and down) 1 Step (curb) (QC): 4 4 Steps (QC): 4 12 Steps (QC): 88 Balance Picking up an Object (QC): 4 (CGA, using commissions coordinator) ADL-Treatment Eating (QC): 6 Oral Hygiene (QC): 6 Shower/Bathe Self (QC): 6 Upper Body Dressing (QC): 6 Lower Body Dressing (QC): 6 On/Off Footwear (QC): 6 Toileting Hygiene (QC): 6 Toilet Transfer (QC): 6 Assessment/Plan Assessment and Plan Assess & Plan/Chief Complaint A: Debility CKD Severe hypocalcemia AALIYAH Abdominal aortic aneurysm new diagnosis on CT N/V Anemia Chronic A. fib only on aspirin Diabetes Prostate cancer with metastatic disease Pleural effusion status post thoracentesis on 04/14/2022 Pericardial effusion Urinary retention remains with Stephen catheter Hematuria and hematochezia holding Heparin 04/17/22 Severe constipation requiring consult Dr Smith 04/19/22 Orthostasis-started Midodrine 04/19/22 P: PT/OT Monitor BUN and creatinine Antiemetics as needed Pain control as needed Monitor Hg, transfuse as needed Hold metformin and lasix until renal function improves Refer for oncology, patient prefers Dr. Thomas 04/16/2022: Aggressive bowel regimen Continue TUMS for calcium 04/17/2022: Check labs in am Monitor closely Hold Heparin 04/18/2022: Hold heparin Supportive care Bowel regimen 04/19/2022: Bowel regimen Consult Dr Smith 04/20/2022: Appreciate Dr Thomas 04/21/2022: DC Monday No pain reported BM X 2 (1) Prostate cancer metastatic to bone (2) Pleural effusion (3) Abdominal aortic aneurysm (AAA) greater than 39 mm in diameter (4) Pericardial effusion (5) Atrial fibrillation (6) Chronic kidney disease (7) Hypocalcemia (8) Anemia (9) Metabolic acidosis CARLOZ CONNELL DO Apr 21, 2022 05:12
[2022-04-21] MEDS: PANTOPRAZOLE 40 MG (PROTONIX) TAB PO SCH (06:01)
[2022-04-21 07:12] VITALS: BP 105/61
[2022-04-21] MEDS: DOCUSATE SODIUM 100 MG (COLACE) CAP PO SCH ×2 (09:04→20:09)
[2022-04-21] MEDS: CALCIUM CARBONATE 500 MG (TUMS) TAB.CHEW PO SCH ×3 (09:04→20:09)
[2022-04-21] MEDS: SODIUM BICARBONATE 650 MG TABLET PO SCH ×2 (09:04→20:10)
[2022-04-21] MEDS: MIDODRINE 10 MG (PROAMATINE) TAB PO SCH ×3 (09:04→20:09)
[2022-04-21] MEDS: SENNA W/DOCUSATE (SENOKOT S) TABLET PO SCH ×2 (09:04→20:09)
[2022-04-21] MEDS: polyethylene glycoL POWDER 17 GM (MIRALAX) PACK PO SCH ×2 (09:05→20:10)
--- NOTE | 2022-04-21 11:07 | Progress Note - Urology ---
Progress Note-Urology Progress Notes/Assess & Plan Progress/Assessment & Plan VOIDING WELL. EMPTYING VERY WELL. SEEN BY DR CARTY YESTERDAY AND APPOINTMENT MONDAY TO START RX CHECK BMP THIS AM Final Diagnosis CHRIS LOZANO MD Apr 21, 2022 11:07
--- NOTE | 2022-04-21 11:52 | Physical Therapy Daily Note ---
PT Daily Note-Current Subjective Upon arrival, Pt was supine in bed. Pt states that he slept fine, and that he has no pain. Pt agrees to PT. Pain Numeric Pain Scale: 0-No Pain Section J - Health Conditions 1. Rarely or not at all 2. Occasionally 3. Frequently 4. Almost constantly 8. Unable to answer Pain Effect on Sleep: 1 Pain Interference with Therapy: 1 Pain Interference w/Day-to-Day: 1 Mental Status Patient Orientation: Person, Time, Situation Attachments: IV (Unattched) Transfers SCALE: Activities may be completed with or without assistive devices. 3-Pwzeynocyu-gtticmt completes the activity by him/herself with no assistance from a helper. 5-Set-up or Clean-up Assistance-helper sets up or cleans up; patient completes activity. [place] assists only prior to or following the activity. 4-Supervision or Touching Assistance-helper provides verbal cues and/or touching/steadying and/or contact guard assistance as patient completes activity. Assistance may be provided throughout the activity or intermittently. 3-Partial/Moderate Assistance-helper does LESS THAN HALF the effort. [place] lifts, holds or supports trunk or limbs, but provides less than half the effort. 2-Substantial/Maximal Assistance-helper does MORE THAN HALF the effort. [place] lifts or holds trunk or limbs and provides more than half the effort. 0-Aoubpvruy-qmupwo does ALL the effort. Patient does none of the effort to complete the activity. Or, the assistance of 2 or more helpers is required for the patient to complete the activity. If activity was not attempted, code reason: 7-Patient Refused. 9-Not Applicable-not attempted and the patient did not perform the activity before the current illness, exacerbation or injury. 10-Not Attempted due to Environmental Limitations-(lack of equipment, weather restraints, etc.). 88-Not Attempted due to Medical Conditions or Safety Concerns. Sit to Lying (QC): 4 Lying to Sitting/Side of Bed(Q: 4 Sit to Stand (QC): 4 Pt was able to transfer from lying to sitting to EOB, then from sitting to standing with SBA/ CGA. Weight Bearing Right Lower Extremity: Right Full Weight Bearing Left Lower Extremity: Left Full Weight Bearing Gait Training Does the Patient Walk?: Yes Distance: 150' Walk 10 feet (QC): 4 Walk 50 ft with 2 Turns(QC): 4 Walk 150 ft (QC): 4 Gait Persons Needed: 1 Gait Assistive Device: FWW Pt was able to ambulate from room down aponte to windows, pt required a seated RB, then ambulated around RN station and back to room. Pt ambulated with a slow, but steady GT pattern, pt was CGA/SBA. Exercises Supine Ex: Ankle pumps (20), Quad Set, Glut sets, Heel Slides, Short Arc Quads, Straight leg raise, Hip abd/add Supine Reps: 10 Treatments Pt completed all activities listed above. Pt ambulated from room down aponte, around RN station and back to room. During session, pts Doctor arrived to talk with pt. Once PT was concluded, pt was supine in bed with call light and tray in reach and all needs met. Assessment Current Status: Good Progress Pt would benefit from continued skilled PT to address strength and activity tolerance with activities. PT Short Term Goals Short Term Goals Time Frame: Apr 22, 2022 Car transfer: 4 (SBA) Walking 10ft on uneven surface: 4 (SBA) 1 step (curb): 4 (SBA) 4 steps: 4 (SBA) Picking up objects: 4 (SBA) PT Snf Goals Snf Goals PT Snf Goals Time Frame: May 06, 2022 Roll Left & Right (QC): 6 Sit to Lying (QC): 6 Lying-Sitting on Side/Bed(QC): 6 Sit to Stand (QC): 6 Chair/Zen-ww-Jjscn Xfer(QC): 6 Toilet Transfer (QC): 6 Car Transfer (QC): 6 Does the Patient Walk: Yes Walk 10 feet (QC): 6 Walk 50ft with 2 Turns (QC): 6 Walk 150 ft (QC): 6 Walking 10ft on Uneven Surface: 6 1 Step (curb) (QC): 6 4 Steps (QC): 6 12 Steps (QC): 88 Picking up an Object (QC): 6 Does the Pt use WC or Scooter?: No Wheel 50 feet with 2 turns (QC: 9 Type: N/A Wheel 150 feet: 9 Type: N/A PT Plan Problem List Problem List: Activity Tolerance, Functional Strength Treatment/Plan Treatment Plan: Continue Plan of Care Treatment Plan: Bed Mobility, Education, Functional Activity Syl[place], Functional Strength, Group Therapy, Gait, Safety, Therapeutic Exercise, Transfers Treatment Duration: May 06, 2022 Frequency: At least 5 of 7 days/Wk (IRF) Estimated Hrs Per Day: 1.5 hours per day Patient and/or Family Agrees t: Yes Time Time In: 1000 Time Out: 1100 DATE: Apr 21, 2022 Total Billed Treatment Time: 60 Total Billed Treatment 1, Ex (3), GT PRAVEEN FUNES SKEIN WINDING OPERATOR Apr 21, 2022 11:52
--- NOTE | 2022-04-21 12:19 | Occupational Ther Daily Note ---
OT Current Status-Daily Note Subjective No pain reported. Mental Status/Objective Patient Orientation: Person, Place, Time, Situation ADL-Treatment Therapy Code Descriptions/Definitions Functional [place] Measure: 0=Not Assessed/NA 4=Minimal Assistance 1=Total Assistance 5=Supervision or Setup 2=Maximal Assistance 6=Modified [place] 3=Moderate Assistance 7=Complete IndependenceSCALE: Activities may be completed with or without assistive devices. 2-Pejrmmqqgu-zbnrunz completes the activity by him/herself with no assistance from a helper. 5-Set-up or Clean-up Assistance-helper sets up or cleans up; patient completes activity. [place] assists only prior to or following the activity. 4-Supervision or Touching Assistance-helper provides verbal cues and/or touching/steadying and/or contact guard assistance as patient completes activity. Assistance may be provided throughout the activity or intermittently. 3-Partial/Moderate Assistance-helper does LESS THAN HALF the effort. [place] lifts, holds or supports trunk or limbs, but provides less than half the effort. 2-Substantial/Maximal Assistance-helper does MORE THAN HALF the effort. [place] lifts or holds trunk or limbs and provides more than half the effort. 3-Vydouohkx-waqibx does ALL the effort. Patient does none of the effort to complete the activity. Or, the assistance of 2 or more helpers is required for the patient to complete the activity. If activity was not attempted, code reason: 7-Patient Refused. 9-Not Applicable-not attempted and the patient did not perform the activity before the current illness, exacerbation or injury. 10-Not Attempted due to Environmental Limitations-(lack of equipment, weather restraints, etc.). 88-Not Attempted due to Medical Conditions or Safety Concerns. Toileting Hygiene (QC): 6 (Pt. uses urinal at bedside independently with no issues doffing/donning pants.) Pt. in bed. Agrees to work with OT. Pt. states that he showered yesterday and does not want to do it today. Pt. already dressed. Transfers SBA supine-sit and SBA sit-stand. Pt. ambulates to therapy gym. Pt. completes arm bike at mod resistance x 10minutes to work on overall strength/endurance. After this he dons 1lb. wrist weights and completes bilateral reaching task with pegs. Ambulates back to room at slow and steady pace. Pt. transfers to chair and uses urinal with independence. All needs met and pt. up in chair. Education OT Patient Education: Correct positioning, Exercise program, Modified ADL techniques, Progress toward Goal/Update tx plan, Purpose of tx/functional activities, Reviewed precautions, Rehab process, Transfer techniques Teaching Recipient: Patient Teaching Methods: Demonstration, Discussion Response to Teaching: Verbalize Understanding, Return Demonstration OT Short Term Goals Short Term Goals Time Frame: Apr 22, 2022 Eatin Oral hygiene: 5 Toileting hygiene: 4 (supervision) Shower/bathe self: 4 (supervision) Upper body dressin Lower body dressin (supervision) Putting on/taking off footwear: 5 OT Customer Security Clerk Goals Customer Security Clerk Goals Time Frame: Apr 29, 2022 Acute change in mental status: 0 Inattention: 0 Disorganized thinkin Altered level of consciousness: 0 Eating (QC): 6 Oral Hygiene (QC): 6 Toileting Hygiene (QC): 6 Shower/Bathe Self (QC): 5 Upper Body Dressing (QC): 6 Lower Body Dressing (QC): 6 On/Off Footwear (QC): 6 Additional Goals: 1-Demonstrate ADL Tasks, 2-Verbalize Understanding, 3- ImproveStrength/[place] 1=Demonstrate adherence to instructed precautions during ADL tasks. 2=Patient will verbalize/demonstrate understanding of assistive devices/modifications for ADL. 3=Patient will improve strength/tolerance for activity to enable patient to perform ADL's. OT Education/Plan Problem List/Assessment Assessment: Decreased Activ Tolerance, Decreased UE Strength Discharge Recommendations Plan/Recommendations: Continue POC Therapy Discharge Recommendati: Post Acute OT Treatment Plan/Plan of Care Treatment,Training & Education: Yes Patient would benefit from OT for education, treatment and training to promote independence in ADL's, mobility, safety and/or upper extremity function for ADL's. Plan of Care: ADL Retraining, Functional Mobility, Group Exercise/Act as Ind, UE Funct Exercise/Act Treatment Duration: Apr 29, 2022 Frequency: At least 5 of 7 days/Wk (IRF) Estimated Hrs Per Day: 1.5 hours per day (75-90 min/day ) Agreement: Yes Rehab Potential: Good Time Start Time: 08:00 Stop Time: 09:00 DATE: Apr 21, 2022 Total Time Billed (hr/min): 60 Billed Treatment Time 1, FA x 30minutes, Ex x 30minutes SARA SMITH OT Apr 21, 2022 12:19
--- NOTE | 2022-04-21 12:25 | Therapy Group Daily Note ---
Therapy Daily Group Note Patient Education Topic Other List Below (Nutrition/food safety) Exercises Fine Motor, UE Exercise Session Ratio (pt:therapist): 2:7 Goal of Session: UE/LE Strengthing, Other (list) (food safety/nutrition) Goal Met for this Session: Yes Pt Benefit of Group: Contributions to Others, F/U Use of Strategies @Home, Increased Functional Safety, Increased Functional Strength, Improved Cognition, Recognition of Peers, Socialization Other/Notes Pt ambulated using FWW with CGA to [facility] for OT/PT group. Group consisted of introductions (name,place living), fine motor coordination tasks with B UE strengthening against gravity, safe transfers to/from table, educational topics on nutrition and food safety. Pt introduced self appropriately and actively listened to peers. Pt verbalized own experiences and strategies for educational topics. Tolerated all activities well. After session, pt lying in bed with call light/phone in reach. All needs met in room. Start Time: 11:00 Stop Time: 12:15 Total Billed Treatment Time: 75 Total Billed Treatment 1-[facility] PAM KUO Apr 21, 2022 12:25
[2022-04-21 13:24] LABS: CALCIUM 7.5 MG/DL (8.5-10.1); CREATININE SERUM 2.97 MG/DL (0.60-1.30); POTASSIUM 4.9 MMOL/L (3.6-5.0)
[2022-04-21] MEDS: TAMSULOSIN 0.4 MG (FLOMAX) CAP PO SCH (17:09)
[2022-04-21 19:26] VITALS: BP 100/57
[2022-04-21 19:43] VITALS: BP 100/57
[2022-04-21] MEDS: GABAPENTIN 100 MG (NEURONTIN) CAP PO SCH (20:09)
[2022-04-22] MEDS: PANTOPRAZOLE 40 MG (PROTONIX) TAB PO SCH (05:26)
--- NOTE | 2022-04-22 06:05 | PM&R Progress Note ---
Subjective HPI/CC On Admission Date Seen by Provider: Apr 22, 2022 Time Seen by Provider: 11:30 Subjective/Events-last exam 04/22/2022: Doing well Large BM last night and this am No pain reported [place] at DC 04/21/2022: Patient doing well Pain controlled Voiding well since catheter DC DC on 04/20/2022: No major issues reported Dr Thomas did see him after Dr Hui conferred with him and he will be treated in [place] Bone scan and PSA will be obtained for Dr Thomas Had cysto per Dr Hui 04/19/2022: Patient still with no BM Consulting Dr Smith Ate 100% bfast Orthostasis noted Urology consult will speak to Dr Thomas 04/18/2022: Still no BM Soapsuds enema produced a lot of gas with minimal stool Hemoglobin 8.2 KUB shows constipation Holding heparin due to hematuria and hematochezia Creatinine 2.9 Urology consulted We will consult Dr. Smith 04/17/2022: Improved today No pain reported Sleeping currently Hematuria and [place]emat[place] precluding heparin for DVT PPx although he is at high risk 04/16/2022: Doing well No BM for 10 days now and refuses suppository and SSE Talked to him about the plan for bowels Creat 2.6 Calcium 8.2 corrected No pain reported Review of Systems General: Fatigue, Malaise Objective Exam Vital Signs Vital Signs Date Time Temp Pulse Resp B/P (MAP) Pulse Ox O2 Delivery O2 Flow Rate FiO2 04/22/22 09:00 Room Air 04/22/22 08:00 36.9 95 18 110/64 (79) 100 Capillary Refill : General Appearance: No Apparent Distress, WD/WN, Chronically ill, Other (Very debilitated) HEENT: PERRL/EOMI, Normal ENT Inspection, Pharynx Normal Neck: Full Range of Motion, Normal Inspection, Non Tender, Supple, Carotid Bruit Respiratory: Chest Non Tender, Lungs Clear, No Accessory Muscle Use, No Respiratory Distress, Decreased Breath Sounds Cardiovascular: Regular Rate, Rhythm, No Edema, No Gallop, No JVD, No Murmur, Normal Peripheral Pulses Gastrointestinal: Normal Bowel Sounds, No Organomegaly, No Pulsatile Mass, Non Tender, Soft Back: Normal Inspection, No CVA Tenderness, No Vertebral Tenderness Extremity: Normal Capillary Refill, Normal Inspection, Normal Range of Motion, Non Tender, No Calf Tenderness, No Pedal Edema Neurologic/Psychiatric: Alert, Oriented x3, Normal Mood/Affect, log hauler II-XII Norm as Tested, Abnormal Gait, Motor Weakness Skin: Normal Color, Warm/Dry Lymphatic: No Adenopathy Results/Procedures Lab Laboratory Tests 04/22/22 06:20 Patient resulted labs reviewed. FIM Transfers Therapy Code Descriptions/Definitions Functional [place] Measure: 0=Not Assessed/NA 4=Minimal Assistance 1=Total Assistance 5=Supervision or Setup 2=Maximal Assistance 6=Modified [place] 3=Moderate Assistance 7=Complete IndependenceSCALE: Activities may be completed with or without assistive devices. 7-Wokkcxsvxp-mstkbgg completes the activity by him/herself with no assistance from a helper. 5-Set-up or Clean-up Assistance-helper sets up or cleans up; patient completes activity. [place] assists only prior to or following the activity. 4-Supervision or Touching Assistance-helper provides verbal cues and/or touching/steadying and/or contact guard assistance as patient completes activity. Assistance may be provided throughout the activity or intermittently. 3-Partial/Moderate Assistance-helper does LESS THAN HALF the effort. [place] lifts, holds or supports trunk or limbs, but provides less than half the effort. 2-Substantial/Maximal Assistance-helper does MORE THAN HALF the effort. [place] lifts or holds trunk or limbs and provides more than half the effort. 1-Nwaqxbicb-znpwns does ALL the effort. Patient does none of the effort to complete the activity. Or, the assistance of 2 or more helpers is required for the patient to complete the activity. If activity was not attempted, code reason: 7-Patient Refused. 9-Not Applicable-not attempted and the patient did not perform the activity before the current illness, exacerbation or injury. 10-Not Attempted due to Environmental Limitations-(lack of equipment, weather restraints, etc.). 88-Not Attempted due to Medical Conditions or Safety Concerns. Roll Left to Right (QC): 6 Sit to Lying (QC): 4 Sit to Stand (QC): 4 Chair/Uri-ny-Asmxe Xfer(QC): 6 Car Transfer (QC): 4 (CGA) Gait Training Does the Patient Walk?: Yes Distance: 150' Walk 10 feet (QC): 4 Walk 50 ft with 2 Turns(QC): 4 Walk 150 ft (QC): 4 Walking 10ft/uneven surface-QC: 4 (CGA) Gait Persons Needed: 1 Gait Assistive Device: FWW Wheelchair Training Does the Pt Use a Wheelchair?: No Wheel 50 ft with 2 turns (QC): 9 Wheel 150 ft (QC): 9 Type of Wheelchair: N/A Stair Training Stair Training: Handrails/: 2 handrails #of Steps: 8 (up and down) 1 Step (curb) (QC): 4 4 Steps (QC): 4 12 Steps (QC): 88 Balance Picking up an Object (QC): 4 (CGA, using farmworker dairy) ADL-Treatment Eating (QC): 6 Oral Hygiene (QC): 6 Shower/Bathe Self (QC): 6 Upper Body Dressing (QC): 6 Lower Body Dressing (QC): 6 On/Off Footwear (QC): 6 Toileting Hygiene (QC): 6 (Pt. uses urinal at bedside independently with no issues doffing/donning pants.) Toilet Transfer (QC): 6 Assessment/Plan Assessment and Plan Assess & Plan/Chief Complaint A: Debility CKD Severe hypocalcemia AALIYAH Abdominal aortic aneurysm new diagnosis on CT N/V Anemia Chronic A. fib only on aspirin Diabetes Prostate cancer with metastatic disease Pleural effusion status post thoracentesis on 04/14/2022 Pericardial effusion Urinary retention remains with Stephen catheter Hematuria and hematochezia holding Heparin 04/17/22 Severe constipation requiring consult Dr Smith 04/19/22 Orthostasis-started Midodrine 04/19/22 P: PT/OT Monitor BUN and creatinine Antiemetics as needed Pain control as needed Monitor Hg, transfuse as needed Hold metformin and lasix until renal function improves Refer for oncology, patient prefers Dr. Thomas 04/16/2022: Aggressive bowel regimen Continue TUMS for calcium 04/17/2022: Check labs in am Monitor closely Hold Heparin 04/18/2022: Hold heparin Supportive care Bowel regimen 04/19/2022: Bowel regimen Consult Dr Smith 04/20/2022: Appreciate Dr Thomas 04/21/2022: DC Monday No pain reported BM X 2 04/22/2022: DC tomorrow (1) Prostate cancer metastatic to bone (2) Pleural effusion (3) Abdominal aortic aneurysm (AAA) greater than 39 mm in diameter (4) Pericardial effusion (5) Atrial fibrillation (6) Chronic kidney disease (7) Hypocalcemia (8) Anemia (9) Metabolic acidosis CARLOZ CONNELL DO Apr 22, 2022 06:05
[2022-04-22 06:56] LABS: CALCIUM 7.6 MG/DL (8.5-10.1); POTASSIUM 4.8 MMOL/L (3.6-5.0)
[2022-04-22 07:47] VITALS: BP 110/64
[2022-04-22 08:00] VITALS: BP 110/64
--- NOTE | 2022-04-22 08:59 | Physical Therapy Daily Note ---
PT Daily Note-Current Subjective Pt. states he feels good, had BM, doing well, looking forward to going home tomorrow. Pain Location: No Pain Reported Section J - Health Conditions 1. Rarely or not at all 2. Occasionally 3. Frequently 4. Almost constantly 8. Unable to answer Pain Effect on Sleep: 1 Pain Interference with Therapy: 1 Pain Interference w/Day-to-Day: 1 Mental Status Patient Orientation: Normal For Age Transfers SCALE: Activities may be completed with or without assistive devices. 0-Bffwtbxyol-ybzlmmo completes the activity by him/herself with no assistance from a helper. 5-Set-up or Clean-up Assistance-helper sets up or cleans up; patient completes activity. [place] assists only prior to or following the activity. 4-Supervision or Touching Assistance-helper provides verbal cues and/or touching/steadying and/or contact guard assistance as patient completes activity. Assistance may be provided throughout the activity or intermittently. 3-Partial/Moderate Assistance-helper does LESS THAN HALF the effort. [place] lifts, holds or supports trunk or limbs, but provides less than half the effort. 2-Substantial/Maximal Assistance-helper does MORE THAN HALF the effort. [place] lifts or holds trunk or limbs and provides more than half the effort. 2-Xfqfegvgl-yinlvk does ALL the effort. Patient does none of the effort to complete the activity. Or, the assistance of 2 or more helpers is required for the patient to complete the activity. If activity was not attempted, code reason: 7-Patient Refused. 9-Not Applicable-not attempted and the patient did not perform the activity before the current illness, exacerbation or injury. 10-Not Attempted due to Environmental Limitations-(lack of equipment, weather restraints, etc.). 88-Not Attempted due to Medical Conditions or Safety Concerns. Roll Left & Right (QC): 6 Sit to Lying (QC): 6 Lying to Sitting/Side of Bed(Q: 6 Sit to Stand (QC): 6 Chair/Jdv-np-Kgvmn Xfer(QC): 6 Toilet Transfer (QC): 6 Car Transfer (QC): 6 Weight Bearing Right Lower Extremity: Right Full Weight Bearing Left Lower Extremity: Left Full Weight Bearing Gait Training Does the Patient Walk?: Yes Walk 10 feet (QC): 6 Walk 50 ft with 2 Turns(QC): 6 Walk 150 ft (QC): 6 Walking 10ft/uneven surface-QC: 6 Gait Persons Needed: 0 Gait Assistive Device: FWW 200ft, 100ft, 50 ft x 3 FWW no LOB, flexed posture , good technique for turns and backing etc Wheelchair Training Does the Pt Use a Wheelchair?: No Stair Training Stair Training: Handrails/: 2 handrails #of Steps: 12 1 Step (curb) (QC): 6 4 Steps (QC): 6 12 Steps (QC): 6 Stairs: Pattern: Step to Balance Picking up an Object (QC): 6 Exercises NuStep Minutes: 10 NuStep Workload: 2 Assessment Current Status: Good Progress meets goals PT Short Term Goals Short Term Goals Time Frame: Apr 22, 2022 Car transfer: 4 (SBA) Walking 10ft on uneven surface: 4 (SBA) 1 step (curb): 4 (SBA) 4 steps: 4 (SBA) Picking up objects: 4 (SBA) PT Shelter Goals Shelter Goals PT Crematorium Operator Goals Time Frame: May 06, 2022 Roll Left & Right (QC): 6 Sit to Lying (QC): 6 Lying-Sitting on Side/Bed(QC): 6 Sit to Stand (QC): 6 Chair/Nyq-eo-Mocng Xfer(QC): 6 Toilet Transfer (QC): 6 Car Transfer (QC): 6 Does the Patient Walk: Yes Walk 10 feet (QC): 6 Walk 50ft with 2 Turns (QC): 6 Walk 150 ft (QC): 6 Walking 10ft on Uneven Surface: 6 1 Step (curb) (QC): 6 4 Steps (QC): 6 12 Steps (QC): 88 Picking up an Object (QC): 6 Does the Pt use WC or Scooter?: No Wheel 50 feet with 2 turns (QC: 9 Type: N/A Wheel 150 feet: 9 Type: N/A PT Plan Treatment/Plan Treatment Plan: Continue Plan of Care Treatment Plan: Bed Mobility, Education, Functional Activity Sylvester, Functional Strength, Group Therapy, Gait, Safety, Therapeutic Exercise, Transfers Treatment Duration: May 06, 2022 Frequency: At least 5 of 7 days/Wk (IRF) Estimated Hrs Per Day: 1.5 hours per day Patient and/or Family Agrees t: Yes Safety Risks/Education Patient Education: Gait Training, Transfer Techniques, Steps, Correct Positioning, Safety Issues Teaching Recipient: Patient Teaching Methods: Discussion Response to Teaching: Verbalize Understanding, Return Demonstration Time Time In: 800 Time Out: 900 DATE: Apr 22, 2022 Total Billed Treatment Time: 60 Total Billed Treatment 1,FA30m,GT15m,EX15m DENNIS LOU COMPRESSED GASES TESTER Apr 22, 2022 08:58
[2022-04-22] MEDS: CALCIUM CARBONATE 500 MG (TUMS) TAB.CHEW PO SCH ×3 (09:21→20:35)
[2022-04-22] MEDS: DOCUSATE SODIUM 100 MG (COLACE) CAP PO SCH ×2 (09:21→20:37)
[2022-04-22] MEDS: SENNA W/DOCUSATE (SENOKOT S) TABLET PO SCH ×2 (09:21→20:38)
[2022-04-22] MEDS: SODIUM BICARBONATE 650 MG TABLET PO SCH ×2 (09:21→20:35)
[2022-04-22] MEDS: polyethylene glycoL POWDER 17 GM (MIRALAX) PACK PO SCH ×2 (09:21→20:45)
[2022-04-22] MEDS: MIDODRINE 10 MG (PROAMATINE) TAB PO SCH ×3 (09:22→20:35)
--- NOTE | 2022-04-22 09:44 | Occupational Ther Daily Note ---
OT Current Status-Daily Note Subjective Pt in recliner, agreeable to OT Tx. ADL-Treatment Therapy Code Descriptions/Definitions Functional [place] Measure: 0=Not Assessed/NA 4=Minimal Assistance 1=Total Assistance 5=Supervision or Setup 2=Maximal Assistance 6=Modified [place] 3=Moderate Assistance 7=Complete IndependenceSCALE: Activities may be completed with or without assistive devices. 9-Nyqcauonxs-yiskhau completes the activity by him/herself with no assistance from a helper. 5-Set-up or Clean-up Assistance-helper sets up or cleans up; patient completes activity. [place] assists only prior to or following the activity. 4-Supervision or Touching Assistance-helper provides verbal cues and/or touching/steadying and/or contact guard assistance as patient completes activity. Assistance may be provided throughout the activity or intermittently. 3-Partial/Moderate Assistance-helper does LESS THAN HALF the effort. [place] lifts, holds or supports trunk or limbs, but provides less than half the effort. 2-Substantial/Maximal Assistance-helper does MORE THAN HALF the effort. [place] lifts or holds trunk or limbs and provides more than half the effort. 1-Pdstigvcw-famylr does ALL the effort. Patient does none of the effort to compl ete the activity. Or, the assistance of 2 or more helpers is required for the patient to complete the activity. If activity was not attempted, code reason: 7-Patient Refused. 9-Not Applicable-not attempted and the patient did not perform the activity before the current illness, exacerbation or injury. 10-Not Attempted due to Environmental Limitations-(lack of equipment, weather restraints, etc.). 88-Not Attempted due to Medical Conditions or Safety Concerns. Eating (QC): 6 Oral Hygiene (QC): 6 Shower/Bathe Self (QC): 6 Upper Body Dressing (QC): 6 Lower Body Dressing (QC): 6 On/Off Footwear: 6 Toileting Hygiene (QC): 6 Toilet Transfer (QC): 6 Other Treatment Pt in recliner, used FWW around room to gather clothes, independently. Pt completed toileting in bathroom, then transferred to DE. Pt completed showering and dressing independently, stood at sink for oral care, and transferred to recliner. Post tx, pt in recliner, call light in reach and all needs met. BIMS CAM BIMS Expression of Ideas and Wants: Without Difficulty Understanding Verbal Content: Understands Brief Interview/Mental Status: Yes IRF RALF BIMS: IRF RALF BIMS Response (Comments) Value Repitition of Three Words Three 3 Recalls Socks Yes, No Cue Required 2 Recalls Blue Yes, No Cue Required 2 Recalls Bed Yes, No Cue Required 2 Year Correct 3 Month Accurate Within 5 Days 2 Day Correct 1 Total 15 Should Staff Asses. Mental St.: No CAM Mental Status Change/Baseline: 0 Inattention: 0 Disorganized thinkin Altered level of consciousness: 0 OT Short Term Goals Short Term Goals Time Frame: Apr 22, 2022 Eatin Oral hygiene: 5 Toileting hygiene: 4 (supervision) Shower/bathe self: 4 (supervision) Upper body dressin Lower body dressin (supervision) Putting on/taking off footwear: 5 OT Jail Goals Jail Goals Time Frame: Apr 29, 2022 Acute change in mental status: 0 Inattention: 0 Disorganized thinkin Altered level of consciousness: 0 Eating (QC): 6 (met) Oral Hygiene (QC): 6 (met) Toileting Hygiene (QC): 6 (met) Shower/Bathe Self (QC): 5 (met) Upper Body Dressing (QC): 6 (met) Lower Body Dressing (QC): 6 (met) On/Off Footwear (QC): 6 (met) Additional Goals: 1-Demonstrate ADL Tasks, 2-Verbalize Understanding, 3- ImproveStrength/Sylvester 1=Demonstrate adherence to instructed precautions during ADL tasks. 2=Patient will verbalize/demonstrate understanding of assistive devices/modifications for ADL. 3=Patient will improve strength/tolerance for activity to enable patient to perform ADL's. OT Education/Plan Problem List/Assessment Assessment: Decreased Activ Tolerance, Decreased UE Strength, Impaired I ADL's Discharge Recommendations Plan/Recommendations: Continue POC Treatment Plan/Plan of Care Patient would benefit from OT for education, treatment and training to promote independence in ADL's, mobility, safety and/or upper extremity function for ADL's. Plan of Care: ADL Retraining, Functional Mobility, Group Exercise/Act as Ind, UE Funct Exercise/Act Treatment Duration: Apr 29, 2022 Frequency: At least 5 of 7 days/Wk (IRF) Estimated Hrs Per Day: 1.5 hours per day (75-90 min/day ) Agreement: Yes Rehab Potential: Good Time Start Time: 09:00 Stop Time: 10:00 DATE: Apr 22, 2022 Total Time Billed (hr/min): 60 Billed Treatment Time 1, ADL 4 RENA BURR OT Apr 22, 2022 09:44
--- NOTE | 2022-04-22 11:09 | Physical Therapy Daily Note ---
PT Daily Note-Current Subjective Pt. very pleasant and agrees to Rx. Pain Location: No Pain Reported Section J - Health Conditions 1. Rarely or not at all 2. Occasionally 3. Frequently 4. Almost constantly 8. Unable to answer Pain Effect on Sleep: 1 Pain Interference with Therapy: 1 Pain Interference w/Day-to-Day: 1 Mental Status Patient Orientation: Normal For Age Transfers SCALE: Activities may be completed with or without assistive devices. 8-Wvzotottcd-jxglnfu completes the activity by him/herself with no assistance from a helper. 5-Set-up or Clean-up Assistance-helper sets up or cleans up; patient completes activity. [place] assists only prior to or following the activity. 4-Supervision or Touching Assistance-helper provides verbal cues and/or touching/steadying and/or contact guard assistance as patient completes activity. Assistance may be provided throughout the activity or intermittently. 3-Partial/Moderate Assistance-helper does LESS THAN HALF the effort. [place] lifts, holds or supports trunk or limbs, but provides less than half the effort. 2-Substantial/Maximal Assistance-helper does MORE THAN HALF the effort. [place] lifts or holds trunk or limbs and provides more than half the effort. 5-Rtqaewykv-seapxv does ALL the effort. Patient does none of the effort to complete the activity. Or, the assistance of 2 or more helpers is required for the patient to complete the activity. If activity was not attempted, code reason: 7-Patient Refused. 9-Not Applicable-not attempted and the patient did not perform the activity before the current illness, exacerbation or injury. 10-Not Attempted due to Environmental Limitations-(lack of equipment, weather restraints, etc.). 88-Not Attempted due to Medical Conditions or Safety Concerns. all MOD I Weight Bearing Right Lower Extremity: Right Full Weight Bearing Left Lower Extremity: Left Full Weight Bearing Gait Training Does the Patient Walk?: Yes Gait Assistive Device: FWW 350, 250ft, FWW Exercises Seated Therapy Exercises: Ankle pumps, Sit to stand, Long arc quads, Hip flexion, Hip abd/add Seated Reps: 15 Treatments GT,EX Assessment Current Status: Good Progress PT Short Term Goals Short Term Goals Time Frame: Apr 22, 2022 Car transfer: 4 (SBA) Walking 10ft on uneven surface: 4 (SBA) 1 step (curb): 4 (SBA) 4 steps: 4 (SBA) Picking up objects: 4 (SBA) PT Long-Term Goals Long-Term Goals PT Set Up Operator Tool Goals Time Frame: May 06, 2022 Roll Left & Right (QC): 6 Sit to Lying (QC): 6 Lying-Sitting on Side/Bed(QC): 6 Sit to Stand (QC): 6 Chair/[place] Xfer(QC): 6 Toilet Transfer (QC): 6 Car Transfer (QC): 6 Does the Patient Walk: Yes Walk 10 feet (QC): 6 Walk 50ft with 2 Turns (QC): 6 Walk 150 ft (QC): 6 Walking 10ft on Uneven Surface: 6 1 Step (curb) (QC): 6 4 Steps (QC): 6 12 Steps (QC): 88 Picking up an Object (QC): 6 Does the Pt use WC or Scooter?: No Wheel 50 feet with 2 turns (QC: 9 Type: N/A Wheel 150 feet: 9 Type: N/A PT Plan Treatment/Plan Treatment Plan: Continue Plan of Care Treatment Plan: Bed Mobility, Education, Functional Activity Sylvester, Functional Strength, Group Therapy, Gait, Safety, Therapeutic Exercise, Transfers Treatment Duration: May 06, 2022 Frequency: At least 5 of 7 days/Wk (IRF) Estimated Hrs Per Day: 1.5 hours per day Patient and/or Family Agrees t: Yes Safety Risks/Education Patient Education: Gait Training Time Time In: 1000 Time Out: 1030 DATE: Apr 22, 2022 Total Billed Treatment Time: 30 Total Billed Treatment 1,GT30m DENNIS LOU ARCHAEOLOGY PROFESSOR Apr 22, 2022 11:09
--- NOTE | 2022-04-22 11:41 | Progress Note - Surgery ---
PABLO BILLINGSLEY 04/22/22 1141: Subjective Date Seen by a Provider: Apr 22, 2022 Time Seen by a Provider: 09:30 Subjective/Events-last exam Briefly saw patient from doorway. Was going to the bathroom. States he had multiple bowl movements yesterday and today. Is feeling better, states he no longer feels any distention or fullness. Review of Systems Gastrointestinal: No: Nausea, Vomiting, Abdominal Pain, Constipation Objective Exam Vital Signs Date Time Temp Pulse Resp B/P (MAP) Pulse Ox O2 Delivery O2 Flow Rate FiO2 04/22/22 09:00 Room Air 04/22/22 08:00 36.9 95 18 110/64 (79) 100 Room Air 04/22/22 07:47 36.9 95 16 110/64 (79) 100 Room Air 04/21/22 20:16 Room Air 04/21/22 20:14 37.0 88 04/21/22 19:43 37.1 107 20 100/57 (71) 94 Room Air 04/21/22 19:26 37.1 107 20 100/57 (71) 94 Room Air l I & O 04/22/22 07:00 Intake Total 1630 ml Output Total 1400 ml Balance 230 ml Capillary Refill : General Appearance: No Apparent Distress, Chronically ill, Other (Very debilitated) Respiratory: No Accessory Muscle Use, No Respiratory Distress Neurologic/Psychiatric: Alert, Oriented x3, Normal Mood/Affect, Abnormal Gait, Motor Weakness Skin: Normal Color, Warm/Dry Results Lab Laboratory Tests 04/21/22 12:56: Sodium Level 138, Potassium Level 4.9, Chloride Level 108H, Carbon Dioxide Level 17L, Anion Gap 13, Blood Urea Nitrogen 46H, Creatinine 2.97H, Estimat Glomerular Filtration Rate 20, BUN/Creatinine Ratio 15, Glucose Level 110H, Calcium Level 7.5L 04/22/22 06:20: Sodium Level 142, Potassium Level 4.8, Chloride Level 108H, Carbon Dioxide Level 20L, Anion Gap 14, Blood Urea Nitrogen 47H, Creatinine 3.00H, Estimat Glomerular Filtration Rate 20, BUN/Creatinine Ratio 16, Glucose Level 84, Calcium Level 7.6L Assessment/Plan Assessment/Plan Assessment/Plan Constipation - Improved Prostate Cancer with osseous metastasis Acute Kidney Injury Plan Miralax daily High fiber diet Maximize fluids as allowed per fluid restrictions As patient is no longer having any constipation, surgery will sign off for now. We will always be available if this issue recurs or if patient needs us for any other reason. Appreciate the consult and the ability to take part in this patients care. ERNST SMITH DO 04/22/22 1337: Subjective Subjective/Events-last exam Pt seen and examined, states he is feeling much better. States his abdomen is not distended and he is having BMs. Review of Systems Pulmonary: No Dyspnea, No Cough Cardiovascular: No: Chest Pain, Palpitations Gastrointestinal: No: Nausea, Vomiting, Abdominal Pain, Constipation Objective Exam General Appearance: No Apparent Distress, Chronically ill, Other (Very debilitated) Respiratory: Lungs Clear, No Accessory Muscle Use, No Respiratory Distress Cardiovascular: Regular Rate, Rhythm, No Murmur Gastrointestinal: non tender, soft Neurologic/Psychiatric: Abnormal Gait, Motor Weakness Assessment/Plan Assessment/Plan Assessment/Plan Constipation - Improved/Resolved Prostate Cancer with osseous metastasis Acute Kidney Injury Plan Miralax daily High fiber diet Maximize fluids as allowed per fluid restrictions As patient is no longer having any constipation, surgery will sign off for now. We will always be available if this issue recurs or if patient needs us for any other reason. Appreciate the consult and the ability to take part in this patients care. Supervisory-Addendum Brief Verification & Attestation Participated in pt care: history, MDM, physical Personally performed: exam, history, MDM, supervision of care Care discussed with: Medical Student Procedures: n/a Verification and Attestation of Medical Student E/M Service A medical student performed and documented this service. I then reviewed and verified all information documented by the medical student and made modifications to such information, when appropriate. I personally performed a physical exam, medical decision making and then discussed any differences between the notes and made revisions as necessary to create one note. Ernst Smith , 04/22/22 , 13:36 PABLO BILLINGSLEY Apr 22, 2022 11:41 ERNST SMITH DO Apr 22, 2022 13:37
--- NOTE | 2022-04-22 13:42 | Occupational Ther Daily Note ---
OT Current Status-Daily Note Subjective Pt in bed, alert. Pt agrees to therapy. No pain at this time. Mental Status/Objective Patient Orientation: Person, Place, Time, Situation ADL-Treatment Therapy Code Descriptions/Definitions Functional [place] Measure: 0=Not Assessed/NA 4=Minimal Assistance 1=Total Assistance 5=Supervision or Setup 2=Maximal Assistance 6=Modified [place] 3=Moderate Assistance 7=Complete IndependenceSCALE: Activities may be completed with or without assistive devices. 6-Pvffestgxp-grjkyyc completes the activity by him/herself with no assistance from a helper. 5-Set-up or Clean-up Assistance-helper sets up or cleans up; patient completes activity. [place] assists only prior to or following the activity. 4-Supervision or Touching Assistance-helper provides verbal cues and/or touching/steadying and/or contact guard assistance as patient completes activity. Assistance may be provided throughout the activity or intermittently. 3-Partial/Moderate Assistance-helper does LESS THAN HALF the effort. [place] lifts, holds or supports trunk or limbs, but provides less than half the effort. 2-Substantial/Maximal Assistance-helper does MORE THAN HALF the effort. [place] lifts or holds trunk or limbs and provides more than half the effort. 0-Gmifyrebb-mpeyyg does ALL the effort. Patient does none of the effort to complete the activity. Or, the assistance of 2 or more helpers is required for the patient to complete the activity. If activity was not attempted, code reason: 7-Patient Refused. 9-Not Applicable-not attempted and the patient did not perform the activity before the current illness, exacerbation or injury. 10-Not Attempted due to Environmental Limitations-(lack of equipment, weather restraints, etc.). 88-Not Attempted due to Medical Conditions or Safety Concerns. Pt participated in 5 different UE exercises with yellow resistance theraband in reps of 20 each to strengthen for functional daily tasks. Pt required breaks after ~5 reps of each exercise. Skilled instruction required for correct technique and modification. Pt reports increased weakness in UE's. Pt in bed at end of session. Phone/call light in reach. All needs met in room. Education OT Patient Education: Home exercise program Teaching Recipient: Patient Teaching Methods: Demonstration Response to Teaching: Return Demonstration OT Short Term Goals Short Term Goals Time Frame: Apr 22, 2022 Eatin Oral hygiene: 5 Toileting hygiene: 4 (supervision) Shower/bathe self: 4 (supervision) Upper body dressin Lower body dressin (supervision) Putting on/taking off footwear: 5 OT [place] Roofer Goals Snf Goals Time Frame: Apr 29, 2022 Acute change in mental status: 0 Inattention: 0 Disorganized thinkin Altered level of consciousness: 0 Eating (QC): 6 (met) Oral Hygiene (QC): 6 (met) Toileting Hygiene (QC): 6 (met) Shower/Bathe Self (QC): 5 (met) Upper Body Dressing (QC): 6 (met) Lower Body Dressing (QC): 6 (met) On/Off Footwear (QC): 6 (met) Additional Goals: 1-Demonstrate ADL Tasks, 2-Verbalize Understanding, 3- ImproveStrength/[place] 1=Demonstrate adherence to instructed precautions during ADL tasks. 2=Patient will verbalize/demonstrate understanding of assistive devices/modifications for ADL. 3=Patient will improve strength/tolerance for activity to enable patient to perform ADL's. OT Education/Plan Problem List/Assessment Assessment: Decreased Activ Tolerance, Decreased UE Strength, Impaired Self- Care Skills Discharge Recommendations Plan/Recommendations: Continue POC Treatment Plan/Plan of Care Patient would benefit from OT for education, treatment and training to promote independence in ADL's, mobility, safety and/or upper extremity function for ADL's. Plan of Care: ADL Retraining, Functional Mobility, Group Exercise/Act as Ind, UE Funct Exercise/Act Treatment Duration: Apr 29, 2022 Frequency: At least 5 of 7 days/Wk (IRF) Estimated Hrs Per Day: 1.5 hours per day (75-90 min/day ) Agreement: Yes Rehab Potential: Good Time Start Time: 13:15 Stop Time: 13:45 DATE: Apr 22, 2022 Total Time Billed (hr/min): 30 Billed Treatment Time 1 visit EX 2 (30 min) PAM KUO Apr 22, 2022 13:42
[2022-04-22] MEDS ORDERED: POLY17PO54 PO ×2 (15:36)
[2022-04-22] MEDS ORDERED: NF-SODBICA PO ×2 (15:36)
[2022-04-22] MEDS ORDERED: CALC200T40 PO ×2 (15:36)
[2022-04-22] MEDS ORDERED: TMSL.4C PO ×2 (15:36)
[2022-04-22] MEDS ORDERED: PANT40TA52 PO ×2 (15:36)
[2022-04-22] MEDS ORDERED: GABA-486 PO ×2 (15:36)
[2022-04-22] MEDS ORDERED: MIDO10TA PO ×2 (15:36)
[2022-04-22] MEDS: TAMSULOSIN 0.4 MG (FLOMAX) CAP PO SCH (17:25)
[2022-04-22 19:49] VITALS: BP 105/63
[2022-04-22] MEDS: GABAPENTIN 100 MG (NEURONTIN) CAP PO SCH (20:35)
--- NOTE | 2022-04-23 05:56 | Discharge Summary ---
Diagnosis/Chief Complaint Date of Admission Apr 15, 2022 at 14:30 Date of Discharge Discharge Date: Apr 23, 2022 Discharge Diagnosis A: Debility CKD Severe hypocalcemia AALIYAH Abdominal aortic aneurysm new diagnosis on CT N/V Anemia Chronic A. fib only on aspirin Diabetes Prostate cancer with metastatic disease Pleural effusion status post thoracentesis on 04/14/2022 Pericardial effusion Urinary retention remains with Stephen catheter Hematuria and hematochezia holding Heparin 04/17/22 Severe constipation requiring consult Dr Smith 04/19/22 Orthostasis-started Midodrine 04/19/22 P: PT/OT Monitor BUN and creatinine Antiemetics as needed Pain control as needed Monitor Hg, transfuse as needed Hold metformin and lasix until renal function improves Refer for oncology, patient prefers Dr. Thomas 04/16/2022: Aggressive bowel regimen Continue TUMS for calcium 04/17/2022: Check labs in am Monitor closely Hold Heparin 04/18/2022: Hold heparin Supportive care Bowel regimen 04/19/2022: Bowel regimen Consult Dr Smith 04/20/2022: Appreciate Dr Thomas 04/21/2022: DC Monday No pain reported BM X 2 04/22/2022: DC tomorrow (1) Prostate cancer metastatic to bone (2) Pleural effusion (3) Abdominal aortic aneurysm (AAA) greater than 39 mm in diameter (4) Pericardial effusion (5) Atrial fibrillation (6) Chronic kidney disease (7) Hypocalcemia (8) Anemia (9) Metabolic acidosis Discharge Summary Discharge Physical Examination Allergies: Coded Allergies: codeine (Verified Allergy, Unknown, 05/08/20) Vitals & I&Os Vital Signs Date Time Temp Pulse Resp B/P (MAP) Pulse Ox O2 Delivery O2 Flow Rate FiO2 04/23/22 10:42 36.9 93 16 113/62 97 Room Air General Appearance: Alert, Oriented X3, Cooperative Respiratory: Clear to Auscultation Cardiovascular: Regular Rate Psych/Mental Status: Mental Status NL Hospital Course Was the Problem List Reviewed?: Yes Patient had a lengthy and uneventful hospital course. Patient was admitted for debility following a diagnosis of widespread prostate cancer with metastasis. Stephen catheter remained in until cystoscopy performed by urology was dis continued with good voiding afterwards. No stents were placed during cystoscopy even though hydronephrosis was noted it was likely due to prostate cancer. Lasix and metformin were both discontinued. Bowel function finally returned back to normal after severe constipation and Dr. Smith consult. Patient was deemed stable for discharge. Labs (last 24 hrs) Laboratory Tests 04/15/22 16:03: Glucometer 105 04/15/22 20:11: Glucometer 120H 04/16/22 05:35: White Blood Count 5.9, Red Blood Count 2.49L, Hemoglobin 8.2L, Hematocrit 24L, Mean Corpuscular Volume 98, Mean Corpuscular Hemoglobin 33, Mean Corpuscular Hemoglobin Concent 34, Red Cell Distribution Width 16.7H, Platelet Count 219, Mean Platelet Volume 9.3, Immature Granulocyte % (Auto) 4, Neutrophils (%) (Aut o) 63, Lymphocytes (%) (Auto) 19, Monocytes (%) (Auto) 10, Eosinophils (%) (Auto) 3, Basophils (%) (Auto) 1, Neutrophils # (Auto) 3.7, Lymphocytes # (Auto) 1.1, Monocytes # (Auto) 0.6, Eosinophils # (Auto) 0.2, Basophils # (Auto) 0.0, Immature Granulocyte # (Auto) 0.2H, Sodium Level 140, Potassium Level 4.6, Chloride Level 108H, Carbon Dioxide Level 20L, Anion Gap 12, Blood Urea Nitrogen 41H, Creatinine 2.69H, Estimat Glomerular Filtration Rate 23, BUN/Creatinine Ratio 15, Glucose Level 84, Calcium Level 7.2L, Corrected Calcium 8.2L, Total Bilirubin 0.6, Aspartate Amino Transf (AST/SGOT) 21, Alanine Aminotransferase (ALT/SGPT) < 6, Alkaline Phosphatase 1899H, Total Protein 5.0L, Albumin 2.8L 04/17/22 05:55: Iron Level 66, Vitamin B12 Level >2000H 04/18/22 06:10: White Blood Count 6.1, Red Blood Count 2.54L, Hemoglobin 8.1L, Hematocrit 25L, Mean Corpuscular Volume 98, Mean Corpuscular Hemoglobin 32, Mean Corpuscular Hemoglobin Concent 33, Red Cell Distribution Width 17.0H, Platelet Count 239, Mean Platelet Volume 9.2, Immature Granulocyte % (Auto) 4, Neutrophils (%) (Auto) 64, Lymphocytes (%) (Auto) 19, Monocytes (%) (Auto) 10, Eosinophils (%) (Auto) 3, Basophils (%) (Auto) 1, Neutrophils # (Auto) 3.9, Lymphocytes # (Auto) 1.2, Monocytes # (Auto) 0.6, Eosinophils # (Auto) 0.2, Basophils # (Auto) 0.0, Immature Granulocyte # (Auto) 0.2H, Sodium Level 140, Potassium Level 4.8, Chloride Level 108H, Carbon Dioxide Level 17L, Anion Gap 15H, Blood Urea Nitrogen 45H, Creatinine 2.91H, Estimat Glomerular Filtration Rate 21, BUN/Creatinine Ratio 15, Glucose Level 80, Calcium Level 7.6L, Corrected Calcium 8.4L, Total Bilirubin 0.5, Aspartate Amino Transf (AST/SGOT) 23, Alanine Aminotransferase (ALT/SGPT) 6, Alkaline Phosphatase 2066H, Total Protein 5.6L, Albumin 3.0L 04/21/22 12:56: Sodium Level 138, Potassium Level 4.9, Chloride Level 108H, Carbon Dioxide Level 17L, Anion Gap 13, Blood Urea Nitrogen 46H, Creatinine 2.97H, Estimat Glomerular Filtration Rate 20, BUN/Creatinine Ratio 15, Glucose Level 110H, Calcium Level 7.5L 04/22/22 06:20: Sodium Level 142, Potassium Level 4.8, Chloride Level 108H, Carbon Dioxide Level 20L, Anion Gap 14, Blood Urea Nitrogen 47H, Creatinine 3.00H, Estimat Glomerular Filtration Rate 20, BUN/Creatinine Ratio 16, Glucose Level 84, Calcium Level 7.6L Pending Labs Laboratory Tests 04/15/22 16:03: Glucometer 105 04/15/22 20:11: Glucometer 120 04/16/22 05:35: White Blood Count 5.9, Red Blood Count 2.49, Hemoglobin 8.2, Hematocrit 24, Mean Corpuscular Volume 98, Mean Corpuscular Hemoglobin 33, Mean Corpuscular Hemoglobin Concent 34, Red Cell Distribution Width 16.7, Platelet Count 219, Mean Platelet Volume 9.3, Immature Granulocyte % (Auto) 4, Neutrophils (%) (Auto) 63, Lymphocytes (%) (Auto) 19, Monocytes (%) (Auto) 10, Eosinophils (%) (Auto) 3, Basophils (%) (Auto) 1, Neutrophils # (Auto) 3.7, Lymphocytes # (Auto) 1.1, Monocytes # (Auto) 0.6, Eosinophils # (Auto) 0.2, Basophils # (Auto) 0.0, Immature Granulocyte # (Auto) 0.2, Sodium Level 140, Potassium Level 4.6, Chloride Level 108, Carbon Dioxide Level 20, Anion Gap 12, Blood Urea Nitrogen 41, Creatinine 2.69, Estimat Glomerular Filtration Rate 23, BUN/Creatinine Ratio 15, Glucose Level 84, Calcium Level 7.2, Corrected Calcium 8.2, Total Bilirubin 0.6, Aspartate Amino Transf (AST/SGOT) 21, Alanine Aminotransferase (ALT/SGPT) < 6, Alkaline Phosphatase 1899, Total Protein 5.0, Albumin 2.8 04/17/22 05:55: Iron Level 66, Vitamin B12 Level >2000 04/18/22 06:10: White Blood Count 6.1, Red Blood Count 2.54, Hemoglobin 8.1, Hematocrit 25, Mean Corpuscular Volume 98, Mean Corpuscular Hemoglobin 32, Mean Corpuscular Hemoglobin Concent 33, Red Cell Distribution Width 17.0, Platelet Count 239, Mean Platelet Volume 9.2, Immature Granulocyte % (Auto) 4, Neutrophils (%) (Auto) 64, Lymphocytes (%) (Auto) 19, Monocytes (%) (Auto) 10, Eosinophils (%) (Auto) 3, Basophils (%) (Auto) 1, Neutrophils # (Auto) 3.9, Lymphocytes # (Auto) 1.2, Monocytes # (Auto) 0.6, Eosinophils # (Auto) 0.2, Basophils # (Auto) 0.0, Immature Granulocyte # (Auto) 0.2, Sodium Level 140, Potassium Level 4.8, Chloride Level 108, Carbon Dioxide Level 17, Anion Gap 15, Blood Urea Nitrogen 45, Creatinine 2.91, Estimat Glomerular Filtration Rate 21, BUN/Creatinine Ratio 15, Glucose Level 80, Calcium Level 7.6, Corrected Calcium 8.4, Total Bilirubin 0.5, Aspartate Amino Transf (AST/SGOT) 23, Alanine Aminotransferase (ALT/SGPT) 6, Alkaline Phosphatase 2066, Total Protein 5.6, Albumin 3.0 04/21/22 12:56: Sodium Level 138, Potassium Level 4.9, Chloride Level 108, Carbon Dioxide Level 17, Anion Gap 13, Blood Urea Nitrogen 46, Creatinine 2.97, Estimat Glomerular Filtration Rate 20, BUN/Creatinine Ratio 15, Glucose Level 110, Calcium Level 7.5 04/22/22 06:20: Sodium Level 142, Potassium Level 4.8, Chloride Level 108, Carbon Dioxide Level 20, Anion Gap 14, Blood Urea Nitrogen 47, Creatinine 3.00, Estimat Glomerular Filtration Rate 20, BUN/Creatinine Ratio 16, Glucose Level 84, Calcium Level 7.6 Discharge Home Medications: Active Scripts Active Sodium Bicarbonate 650 Mg Tablet 650 Mg PO TID Pantoprazole Sodium 40 Mg Tablet.dr 40 Mg PO DAILY@0700 Polyethylene Glycol 3350 17 Gram Powd.pack 17 Gm PO BID 30 Days Calcium Antacid (Calcium Carbonate) 200 Mg Calcium (500 Mg) Tab.chew 500 Mg PO TID Flomax (Tamsulosin HCl) 0.4 Mg Cap 0.4 Mg PO DAILY@1800 Midodrine HCl 10 Mg Tablet 5 Mg PO TID Gabapentin 100 Mg Capsule 100 Mg PO HS Instructions to patient/family Please see electronic discharge instructions given to patient. Diagnosis/Problems Diagnosis/Problems (1) Prostate cancer metastatic to bone (2) Pleural effusion (3) Abdominal aortic aneurysm (AAA) greater than 39 mm in diameter (4) Pericardial effusion (5) Atrial fibrillation (6) Chronic kidney disease (7) Hypocalcemia (8) Anemia (9) Metabolic acidosis CARLOZ CONNELL DO Apr 23, 2022 05:56
[2022-04-23] MEDS: PANTOPRAZOLE 40 MG (PROTONIX) TAB PO SCH (06:09)
[2022-04-23 07:24] VITALS: BP 113/62
[2022-04-23] MEDS: MIDODRINE 10 MG (PROAMATINE) TAB PO SCH (08:17)
[2022-04-23] MEDS: SENNA W/DOCUSATE (SENOKOT S) TABLET PO SCH (08:17)
[2022-04-23] MEDS: polyethylene glycoL POWDER 17 GM (MIRALAX) PACK PO SCH (08:18)
[2022-04-23] MEDS: SODIUM BICARBONATE 650 MG TABLET PO SCH (08:18)
[2022-04-23] MEDS: DOCUSATE SODIUM 100 MG (COLACE) CAP PO SCH (08:18)
[2022-04-23] MEDS: CALCIUM CARBONATE 500 MG (TUMS) TAB.CHEW PO SCH (08:18)
[2022-04-23 10:42] VITALS: BP 113/62
--- NOTE | 2022-04-25 08:07 | Therapy Team Discharge Summary ---
Therapy Discharge Summary Discharge Recommendations Date of Discharge Apr 23, 2022 at 10:35 Physical Therapy Patient came to rehab with debility. Upon evaluation patient performed rolling and supine <-> sit with SBA, sit <-> stand and transfers SBA, car transfer CGA, ambulated 150' with a rolling walker with SBA (including 50' with at least 2 turns of 90 degrees but needs CGA for 10' over an uneven surface), went up and down 8 steps using 2 handrails with CGA, and picked up an object from the floor with CGA using a photo printer. Patient has been performing bed mobility and transfer training, balance and endurance training, functional strengthening, stair training, gait training, and education. Patient has made good progress and has met all of his correction goals. Now, patient performs rolling and supine <-> sit with independence, sit <-> stand and transfers with independence, car transfer independent, ambulates 200' with a rolling walker with independence (including 50' with at least 2 turns of 90 degrees and 10' over an uneven surface), can go up and down 12 steps using 2 handrails with independence, and can orange picker an object from the floor with independence. Patient has been discharged from this facility and will be discharged from PT at this time. Roll Left to Right (QC): 6 Sit to Lying (QC): 6 Lying to Sitting/Side of Bed(Q: 6 Sit to Stand (QC): 6 Chair/Sif-et-Zlaow Xfer(QC): 6 Toilet Transfer (QC): 5 Car Transfer (QC): 6 Does the Patient Walk: Yes Mode of Locomotion: Walk Anticipated Mode of Locomotion: Walk Walk 10 feet (QC): 6 Walk 50 ft with 2 Turns(QC): 6 Walk 150 ft (QC): 6 Walking 10ft on uneven surface: 6 Distance: 150', 150' Gait Assistive Device: FWW Does the Pt Use a Wheelchair: No Wheel 50 ft with 2 turns (QC): 9 Wheel 150 ft (QC): 9 Type of Wheelchair: N/A #of Steps: 12 1 Step (curb) (QC): 6 4 Steps (QC): 6 12 Steps (QC): 6 Balance Sitting Static: Normal Balance Sitting Dynamic: Normal Balance-Standing Static: Normal Picking up an Object (QC): 6 Occupational Therapy Decreased Activ Tolerance, Decreased UE Strength, Impaired Self-Care Skills Eating (QC): 6 Oral Hygiene (QC): 6 Shower/Bathe Self (QC): 6 Upper Body Dressing (QC): 6 Lower Body Dressing (QC): 6 On/Off Footwear (QC): 6 Toileting Hygiene (QC): 6 PT Usp Goals Usp Goals PT Placing Judge Goals Time Frame: May 06, 2022 Roll Left to Right (QC): 6 Sit to Lying (QC): 6 Lying-Sitting on Side/Bed(QC): 6 Sit to Stand (QC): 6 Chair/Shl-ls-Beumb Xfer(QC): 6 Toilet/Commode Transfer (QC): 6 Car Transfer (QC): 6 Does the Patient Walk: Yes Walk 10 feet (QC): 6 Walk 10ft-Uneven Surface(QC): 6 Walk 50ft with 2 Turns (QC): 6 Walk 150 ft (QC): 6 Does the Pt use WC or Scooter?: No Wheel 50 feet with 2 turns (QC: 9 Type: N/A Wheel 150 feet: 9 Type: N/A 1 Step (curb) (QC): 6 4 Steps (QC): 6 12 Steps (QC): 88 Picking up an Object (QC): 6 OT Placing Judge Goals Usp Goals Time Frame: Apr 29, 2022 Acute change in mental status: 0 Inattention: 0 Disorganized thinkin Altered level of consciousness: 0 Eating (QC): 6 (met) Oral Hygiene (QC): 6 (met) Toileting Hygiene (QC): 6 (met) Shower/Bathe Self (QC): 5 (met) Upper Body Dressing (QC): 6 (met) Lower Body Dressing (QC): 6 (met) On/Off Footwear (QC): 6 (met) Additional Goals: 1-Demonstrate ADL Tasks, 2-Verbalize Understanding, 3-ImproveStrength/Sylvester 1=Demonstrate adherence to instructed precautions during ADL tasks. 2=Patient will verbalize/demonstrate understanding of assistive devices/modifications for ADL. 3=Patient will improve strength/tolerance for activity to enable patient to perform ADL's. AIRAM DAWKINS PT Apr 25, 2022 08:07
--- NOTE | 2022-04-25 11:55 | Therapy Team Discharge Summary ---
Therapy Discharge Summary Discharge Recommendations Date of Discharge Apr 23, 2022 at 10:35 Therapy D/C Recommendations: Home w/ Family Support, Occupational Therapy Home Care, Homemaker Support Physical Therapy Roll Left to Right (QC): 6 Sit to Lying (QC): 6 Lying to Sitting/Side of Bed(Q: 6 Sit to Stand (QC): 6 Chair/Pac-sw-Cunoh Xfer(QC): 6 Toilet Transfer (QC): 5 Car Transfer (QC): 6 Does the Patient Walk: Yes Mode of Locomotion: Walk Anticipated Mode of Locomotion: Walk Walk 10 feet (QC): 6 Walk 50 ft with 2 Turns(QC): 6 Walk 150 ft (QC): 6 Walking 10ft on uneven surface: 6 Distance: 150', 150' Gait Assistive Device: FWW Does the Pt Use a Wheelchair: No Wheel 50 ft with 2 turns (QC): 9 Wheel 150 ft (QC): 9 Type of Wheelchair: N/A #of Steps: 12 1 Step (curb) (QC): 6 4 Steps (QC): 6 12 Steps (QC): 6 Balance Sitting Static: Normal Balance Sitting Dynamic: Normal Balance-Standing Static: Normal Picking up an Object (QC): 6 Occupational Therapy Pt admitted to ARU with debility. At time of evaluation, he was CGA for toileting, lower body dressing, bathing, and oral care, SBA for footwear, Set up for upper body dressing, and indep with eating. During his rehab stay, OT focused on safety, strengthening, endurance, balance, energy conservation and compensatory strategies in order to improve performance and independence in adls and functional mobility. 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 See below for current levels of assist. Pt has now discharged from this facility and will be discharged from OT at this time. Decreased Activ Tolerance, Decreased UE Strength, Impaired Self-Care Skills Eating (QC): 6 Oral Hygiene (QC): 6 Shower/Bathe Self (QC): 6 Upper Body Dressing (QC): 6 Lower Body Dressing (QC): 6 On/Off Footwear (QC): 6 Toileting Hygiene (QC): 6 PT Nitroglycerin Supervisor Goals Nitroglycerin Supervisor Goals PT Nitroglycerin Supervisor Goals Time Frame: May 06, 2022 Roll Left to Right (QC): 6 Sit to Lying (QC): 6 Lying-Sitting on Side/Bed(QC): 6 Sit to Stand (QC): 6 Chair/Nog-ls-Hniab Xfer(QC): 6 Toilet/Commode Transfer (QC): 6 Car Transfer (QC): 6 Does the Patient Walk: Yes Walk 10 feet (QC): 6 Walk 10ft-Uneven Surface(QC): 6 Walk 50ft with 2 Turns (QC): 6 Walk 150 ft (QC): 6 Does the Pt use WC or Scooter?: No Wheel 50 feet with 2 turns (QC: 9 Type: N/A Wheel 150 feet: 9 Type: N/A 1 Step (curb) (QC): 6 4 Steps (QC): 6 12 Steps (QC): 88 Picking up an Object (QC): 6 OT Jail Goals Nitroglycerin Supervisor Goals Time Frame: Apr 29, 2022 Acute change in mental status: 0 Inattention: 0 Disorganized thinkin Altered level of consciousness: 0 Eating (QC): 6 (met) Oral Hygiene (QC): 6 (met) Toileting Hygiene (QC): 6 (met) Shower/Bathe Self (QC): 5 (met) Upper Body Dressing (QC): 6 (met) Lower Body Dressing (QC): 6 (met) On/Off Footwear (QC): 6 (met) Additional Goals: 1-Demonstrate ADL Tasks, 2-Verbalize Understanding, 3- ImproveStrength/Sylvester 1=Demonstrate adherence to instructed precautions during ADL tasks. 2=Patient will verbalize/demonstrate understanding of assistive devices/modifications for ADL. 3=Patient will improve strength/tolerance for activity to enable patient to perform ADL's. Sylvia Cardoza OT Apr 25, 2022 11:55
== END 2022-04-23 10:35 | disposition home or self-care (01) | DRG 543 ==
PROVIDERS: ADMIT Internal Medicine; ATTEND Internal Medicine
DX: C79.51 Secondary malignant neoplasm of bone (principal); C21.0 Malignant neoplasm of anus, unspecified; N17.9 Acute kidney failure, unspecified; I48.20 Chronic atrial fibrillation, unspecified; K92.1 Melena; J90 Pleural effusion, not elsewhere classified; I31.39 Other pericardial effusion (noninflammatory); N13.1 Hydronephrosis with ureteral stricture, not elsewhere classified; E83.51 Hypocalcemia; E11.22 Type 2 diabetes mellitus with diabetic chronic kidney disease; N18.9 Chronic kidney disease, unspecified; I12.9 Hypertensive chronic kidney disease with stage 1 through stage 4 chronic kidney disease, or unspecified chronic kidney disease; I71.40 Abdominal aortic aneurysm, without rupture, unspecified; L89.629 Pressure ulcer of left heel, unspecified stage; L89.619 Pressure ulcer of right heel, unspecified stage; K59.00 Constipation, unspecified; N40.1 Benign prostatic hyperplasia with lower urinary tract symptoms; R33.8 Other retention of urine; R31.9 Hematuria, unspecified; I95.1 Orthostatic hypotension; D64.9 Anemia, unspecified; R11.2 Nausea with vomiting, unspecified; F41.9 Anxiety disorder, unspecified; F32.A Depression, unspecified; Z79.82 Long term (current) use of aspirin; Z79.84 Long term (current) use of oral hypoglycemic drugs
CPT/HCPCS: 36415; 74018; 74176; 80048; 80053; 82607; 82947; 83540; 85025

== ENCOUNTER 2022-04-19 10:03 | Day surgery (SDC) | payer MEDICARE, OTHER ==
[~2022-04-19 10:03] MED LIST changes: +CALC500T7 PO; +FURO20TA4 PO; +GABA-486 PO; +METF-397 PO; +NF-SODBICA PO; +RIVA15TA PO
[2022-04-19] MEDS ORDERED: LIDOCAINE UROJET 2% GEL 10 ML PKG ONE (10:18)
--- NOTE | 2022-04-19 10:20 | Progress Note-Pre Operative ---
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
--- NOTE | 2022-04-19 12:12 | Progress Note-Post Operative ---
Post-Operative Progess Note Surgeon (s)/Division Head (s) Surgeon CHRIS GEE MD Division Head: NONE Pre-Operative Diagnosis ADVANCED CAPROSATE WITH BILATERAL URETERAL OBSTRUCTION AND RENAL FAILURE Post-Operative Diagnosis SAME Procedure & Operative Findings Date of Procedure 04/19/22 Procedure Performed/Findings CYSTOSCOPY Anesthesia Type LOCAL Estimated Blood Loss Estimated blood loss (mL): NONE Specimens/Packing Specimens Removed NONE Packing: NONE CHRIS GEE MD Apr 19, 2022 12:12
--- NOTE | 2022-04-19 22:35 | OPERATIVE REPORT ---
DATE OF SERVICE: 04/19/2022 PREOPERATIVE DIAGNOSES: Bilateral ureteral obstruction secondary to advanced metastatic CA of the prostate and urinary retention with renal failure. POSTOPERATIVE DIAGNOSES: Bilateral ureteral obstruction secondary to advanced metastatic CA of the prostate and urinary retention with renal failure. PROCEDURE PERFORMED: Cystoscopy. SURGEON: Dillan Gee MD ANESTHESIA: Local. COMPLICATIONS: None. DESCRIPTION OF PROCEDURE: With the patient supine on his bed after removing the Stephen catheter, the genitalia were prepped and draped in the usual sterile fashion. Urethra was infiltrated with 2% lidocaine jelly. Penile clamp was applied. This was then removed and a flexible cystoscope was introduced under vision. Anterior urethra was normal. The prostate was quite enlarged with bladder neck obstruction, 4+ trabeculations, cellules, intravesical protrusion of the prostate. I was unable to see the ureteric orifices with the flexible cystoscope especially with discomfort of the patient. I discontinued, further attempt confirmed the cystoscopy in antegrade fashion. I removed the cystoscope. The patient tolerated the procedure, anesthesia well and remained in his bed in stable condition. Plan will give him a trial of voiding. If he is unable to void or carry a large residual, we will reinsert the Stephen catheter. Tomorrow under general anesthesia, we will perform rigid cystoscopy with a hopefully insertion of bilateral ureteral stent. Procedure was fully explained to the patient and his family. CC: Dr. Ortiz - requested, unable to deliver. Job ID: [id number] DocumentID: [id number] Dictated Date: 04/19/2022 12:14:45 Label Stitcher Date: 04/19/2022 22:33:00 Dictated By: DILLAN GEE MD
[2022-04-22] MEDS ORDERED: CALC200T40 PO (15:36)
[2022-04-22] MEDS ORDERED: MIDO10TA PO (15:36)
[2022-04-22] MEDS ORDERED: PANT40TA52 PO (15:36)
[2022-04-22] MEDS ORDERED: POLY17PO54 PO (15:36)
[2022-04-22] MEDS ORDERED: NF-SODBICA PO (15:36)
[2022-04-22] MEDS ORDERED: GABA-486 PO (15:36)
[2022-04-22] MEDS ORDERED: TMSL.4C PO (15:36)
== END 2022-04-19 12:12 ==
LOC: SDC 10:03
PROVIDERS: ATTEND Urology
DX: C61 Malignant neoplasm of prostate (principal); N13.5 Crossing vessel and stricture of ureter without hydronephrosis; N19 Unspecified kidney failure

== ENCOUNTER → 2022-04-20 | Day surgery (SDC) | payer MEDICARE, OTHER ==
[~2022-04-20] MED LIST changes: +CALC200T40 PO; +MIDO10TA PO; +ONDANSETRON 4 MG/2 ML (SDV) Z0FRAN IVP PRN; +PANT40TA52 PO; +POLY17PO54 PO; +TMSL.4C PO; +cefTRIAXone 1 GM PRE-MIX 50 ML IV ONE; +morphine INJ 10 MG/ML 1ML (SYR OR VIAL) IVP ONE
--- NOTE | 2022-04-20 10:37 | Progress Note-Pre Operative ---
Pre-Operative Progress Note Date of Available H&P: Apr 20, 2022 Date H&P Reviewed: Apr 20, 2022 Time H&P Reviewed: 10:37 Changes from last HP NONE Pre-Operative Diagnosis: CAP WITH BILATERAL URETERAL OBSTRUCTION CHRIS GEE MD Apr 20, 2022 10:37
--- NOTE | 2022-04-20 10:38 | Progress Note-Post Operative ---
Post-Operative Progess Note Surgeon (s)/Ski Patroller (s) Surgeon CHRIS GEE MD Ski Patroller: NONE Pre-Operative Diagnosis CAP WITH BILATERAL URETERAL OBSTRUCTION Post-Operative Diagnosis SAME Procedure & Operative Findings Date of Procedure 04/20/22 Procedure Performed/Findings CYSTOSCOPY WITH ATTEMPTED STENTS Anesthesia Type GENERAL Estimated Blood Loss Estimated blood loss (mL): NONE Specimens/Packing Specimens Removed NONE Packing: NONE CHRIS GEE MD Apr 20, 2022 10:38
[2022-04-20 11:40] VITALS: BP 73/55
[2022-04-20 11:50] VITALS: BP 93/56
--- NOTE | 2022-04-20 11:50 | Anesthesia-General Post-Op ---
General Patient Condition Mental Status/LOC: Same as Preop Cardiovascular: Satisfactory Nausea/Vomiting: Absent Respiratory: Satisfactory Pain: Controlled Complications: Absent Post Op Complications Complications None Follow Up Care/Instructions Patient Instructions None needed. Anesthesia/Patient Condition Patient Condition Patient is doing well, no complaints, stable vital signs, no apparent adverse anesthesia problems. No complications reported per nursing. JUAN MIGUEL FRANCIS CRNA Apr 20, 2022 11:50
[2022-04-20 12:00] VITALS: BP 89/55
[2022-04-20 12:10] VITALS: BP 90/55
[2022-04-20 12:25] VITALS: BP 90/54
--- NOTE | 2022-04-20 22:44 | OPERATIVE REPORT ---
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 PROCEDURE PERFORMED: Cystoscopy and attempted bilateral stents. SURGEON: Dillan Gee MD ANESTHESIA: General. COMPLICATIONS: None. DESCRIPTION OF PROCEDURE: Under satisfactory general anesthesia, the patient in lithotomy position, genitalia were prepped and draped in the usual sterile fashion. A 23-Nigerian rigid cystoscope was introduced under vision. Anterior urethra was normal. The prostate was markedly enlarged with a median bar and complete bladder neck obstruction. The bladder revealed 4+ trabeculation with cellules. The floor and the trigone was pretty edematous and hyperemic and swollen. It was very hard to identify the ureteric orifices. I attempted to pass the stent and what looked possibly like ureteral orifice, but unsuccessful. There was no efflux from anywhere to be seen, so I discontinued further attempt, emptied the bladder, removed the cystoscope. The patient tolerated the procedure and anesthesia well and was sent to recovery room in stable condition. PLAN: We will watch him for retention. He has been able to void yesterday, but I do not have any information about bladder scan residuals. I will check with nursing staff. If we think that urinary retention is adding to the problem, we will leave the catheter in. I started him on Flomax 2 to 3 days ago. I will also consult Dr. Thomas to go ahead and treat the cancer of the prostate. If he want to drain the kidneys then he will have to refer to radiologist in [place] to put percutaneous nephrostomy tubes. This was fully explained to the patient and the family pre and postoperatively. CC: Dr. Ortiz - requested, unable to deliver. Job ID: [id number] DocumentID: [id number] Dictated Date: 04/20/2022 11:47:34 Coin Machine Servicer Repairer Date: 04/20/2022 22:43:00 Dictated By: DILLAN GEE MD
== END | disposition home or self-care (01) ==
LOC: SDC 11:31
PROVIDERS: ATTEND Urology
DX: C61 Malignant neoplasm of prostate (principal); N13.5 Crossing vessel and stricture of ureter without hydronephrosis; N32.89 Other specified disorders of bladder; N18.9 Chronic kidney disease, unspecified; D64.9 Anemia, unspecified; N17.9 Acute kidney failure, unspecified; E11.22 Type 2 diabetes mellitus with diabetic chronic kidney disease; I48.20 Chronic atrial fibrillation, unspecified; J90 Pleural effusion, not elsewhere classified; I31.39 Other pericardial effusion (noninflammatory); Z79.84 Long term (current) use of oral hypoglycemic drugs

== ENCOUNTER 2022-04-26 13:49 | Outpatient (RCR) | payer MEDICARE, OTHER ==
[~2022-04-26 13:49] MED LIST changes: -ONDANSETRON 4 MG/2 ML (SDV) Z0FRAN IVP PRN; -cefTRIAXone 1 GM PRE-MIX 50 ML IV ONE; -morphine INJ 10 MG/ML 1ML (SYR OR VIAL) IVP ONE
[2022-04-26] MEDS ORDERED: LEUPROLIDE 22.5 MG SYRINGE (ELIGARD) SQ SCH (15:00)
== END 2022-04-27 ==
LOC: ONC 13:49
PROVIDERS: ATTEND Internal Medicine Hematology & Oncology
DX: C61 Malignant neoplasm of prostate (principal); C79.51 Secondary malignant neoplasm of bone; I10 Essential (primary) hypertension
CPT/HCPCS: 99204